=== PATIENT | male | born 1945 | race Caucasian/White ===

== ENCOUNTER → 2016-07-02 | Outpatient (CLI) | payer MEDICARE ==
[~2016-07-02] MED LIST: REGADENOSON 0.4 MG/5 ML SYRINGE IV ONE
--- NOTE | 2016-07-02 12:18 | NM ---
EXAMINATION TYPE: NM stress Lexiscan cardiolite DATE OF EXAM: 07/02/2016 11:59 AM COMPARISON: Previous study dated 02/28/2014. HISTORY: Atherosclerosis. TECHNIQUE: After the intravenous administration of 9.94 mCi Tc 99m Sestamibi - Cardiolite resting SP ECT images acquired 48 minutes post injection. The patient received 0.4mg Lexiscan, 27.5 mCi Tc 99m Sestamibi - Stress images obtained [address] injection FINDINGS: There is a persistent apical defect. There is evidence of redistribution in the anterior wall of the left ventricle. There is global hypokinesia with ejection fracture being 41%. IMPRESSION: 1. 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 2. EVIDENCE OF INDUCIBLE ISCHEMIC CHANGE IN THE ANTERIOR WALL OF THE LEFT VENTRICLE. 3. GLOBAL HYPOKINESIA WITH AN EJECTION FRACTION OF 41%.
--- NOTE | 2016-07-02 12:33 | EST ---
DATE OF SERVICE: 07/02/2016 AGE: 71Y SEX: M HT: 67" WT: 140 lbs. Lexiscan Cardiolite Stress Test *Heart Rate Blood Pressure *Rest: 79 Rest: 160/80 * *Max. Achieved: 100 Maximum BP: 155/86 85% PMHR: 127 100% PMHR: 149 *METS: - INDICATIONS: Heart disease. MEDICATIONS: - Baseline EKG revealed normal sinus rhythm with poor R-wave progression over precordial leads, nonspecific ST changes of a mild degree. With Lexiscan administration, heart rate changed from 79 to 100 beats per minute, blood pressure changed from 160/80 to 155/86. EKG remained unremarkable. Patient did not have any significant symptoms. By EKG criteria, this is an unremarkable Lexiscan stress test with minor resting EKG changes. The nuclear scan results, which are more pertinent, will be reported by the radiologist.
== END | disposition home or self-care (01) ==
LOC: RADNMMAIN 07:46
PROVIDERS: ATTEND Internal Medicine
DX: R94.30 Abnormal result of cardiovascular function study, unspecified (principal); I25.10 Atherosclerotic heart disease of native coronary artery without angina pectoris
CPT/HCPCS: 93017; 78452; A9500; J2785

== ENCOUNTER → 2016-07-20 | Outpatient (CLI) | payer MEDICARE ==
[2016-07-20 10:06] LABS: CH 32.5; CHCM 33.3; HCT 45.4 % (39.0-53.0); HDW 2.15; HGB 15.2 gm/dL (13.0-17.5); MCH 32.7 pg (25.0-35.0); MCHC 33.4 g/dL (31.0-37.0); MCV 98.1 fL (80.0-100.0); RBC 4.63 m/uL (4.30-5.90); RDW 12.9 % (11.5-15.5); WBC 3.7 k/uL (3.8-10.6)
[2016-07-20 10:32] LABS: Anion Gap 9 mmol/L; Blood Urea Nitrogen 12 mg/dL (9-20); Carbon Dioxide 24 mmol/L (22-30); Chloride 101 mmol/L (98-107); Non-African American GFR(MDRD) >60 (>60 ml/min/1.73 sqM); Potassium 5.3 mmol/L (3.5-5.1); Sodium 134 mmol/L (137-145)
== END ==
LOC: LABPAT 09:32
PROVIDERS: ATTEND Internal Medicine Interventional Cardiology
DX: Z01.812 Encounter for preprocedural laboratory examination (principal); I25.10 Atherosclerotic heart disease of native coronary artery without angina pectoris
CPT/HCPCS: 80051; 82565; 84520; 85027

== ENCOUNTER 2017-02-24 08:51 | Day surgery (SDC) | payer MEDICARE ==
[2017-02-17 15:01] VITALS: BMI 21.4
[~2017-02-24 08:51] MED LIST changes: +LACTATED RINGERS 1,000 ML IV SCH; +MORPHINE SULFATE 5 MG/ML SYRINGE IV PRN; -REGADENOSON 0.4 MG/5 ML SYRINGE IV ONE; +ceFAZolin IN SWFI 2 GM/20 ML SYRINGE IVP ONE
[2017-02-24] MEDS ORDERED: DEXAMETHASONE SOD PHOSPHATE 10 MG/ML 1 ML VIAL IV ONE (09:36)
[2017-02-24] MEDS ORDERED: LIDOCAINE 1% 20 ML VIAL (10MG/ML) FOR IV START INTRADERMA ONE (09:36)
[2017-02-24] MEDS ORDERED: ONDANSETRON 4 MG/2 ML VIAL IVP ONE (09:36)
[2017-02-24 09:49] LABS: Anion Gap 11 mmol/L; Blood Urea Nitrogen 13 mg/dL (9-20); Calcium 10.1 mg/dL (8.4-10.2); Carbon Dioxide 24 mmol/L (22-30); Chloride 101 mmol/L (98-107); Glucose 97 mg/dL (74-99); Sodium 136 mmol/L (137-145)
[2017-02-24] MEDS ORDERED: LIDOCAINE 1% INJ 10MG/ML (20 ML MDV) ONE (12:47)
[2017-02-24] MEDS ORDERED: fentaNYL (PF) 50 MCG/ML 2 ML AMP ONE (12:47)
[2017-02-24] MEDS ORDERED: PROPOFOL 10 MG/ML 20 ML VIAL IV ONE (12:47)
[2017-02-24] MEDS ORDERED: MIDAZOLAM 2 MG/2 ML VIAL ONE (12:47)
[2017-02-24] MEDS ORDERED: SUCCINYLCHOLINE CHLORIDE 100 MG/5 ML SYR IV ONE (12:47)
--- NOTE | 2017-02-24 13:18 | P.OP ---
Date of Procedure: 02/24/17 Preoperative Diagnosis: Urothelial carcinoma of the bladder Postoperative Diagnosis: Same Procedure(s) Performed: Cystoscopy, excisional biopsy of small bladder tumor Anesthesia: GALENA Surgeon: Anil Beckman Estimated Blood Loss (ml): 0 IV fluids (ml): 300 Pathology: other (Bladder biopsy, left posterior bladder wall) Condition: stable Disposition: PACU Indications for Procedure: He was diagnosed with TaG1 urothelial carcinoma of the bladder in February 2014. He has successfully quit smoking, and he has had no recurrences. Recent surveillance cystoscopy showed a small posterior bladder wall lesion, for which he will undergo excisional biopsy/fulgaration. Operative Findings: Flat tumor, left posterior bladder wall cephalad to the trigone, measuring approximately 7 mm in diameter. Description of Procedure: The patient was taken in the operating room and placed in the dorsal lithotomy position, with his legs supported in Ld stirrups. The external genitalia was prepped and draped sterilely. The 30 lens was used to introduce the 22- [place] Stortz cystoscopic sheath through the urethra and into the bladder under direct vision. The anterior urethra appeared normal. The prostatic urethra showed evidence of mild trilobar enlargement. The bladder was examined in its entirety. Both ureteral orifices were of normal anatomic location and configuration, and clear urine effluxed from both. The entire bladder was examined, revealing a flat tumor on the posterior bladder wall, to the left of the midline, just cephalad to the trigone. No tumors were seen elsewhere in the bladder. Using the cold cup biopsy forceps, the tumor was removed. A Bugbee electrode was used to fulgurate the biopsy site, as well as the adjacent urothelium. There was no evidence of bladder perforation, and excellent hemostasis was attained. The bladder was emptied and the cystoscope removed. The patient tolerated the procedure well. He was taken to the recovery room in stable condition.
[2017-02-24] MEDS ORDERED: LABETALOL 5 MG/ML VIAL MDV IVP ONE (13:38)
[2017-02-24 16:32] VITALS: BP 179/66; PULSE 76; RESP 16; TEMP 97.2
== END 2017-02-24 15:21 | disposition home or self-care (01) ==
LOC: OR 08:51
PROVIDERS: ATTEND Urology
DX: C67.2 Malignant neoplasm of lateral wall of bladder (principal); N40.1 Benign prostatic hyperplasia with lower urinary tract symptoms; R35.1 Nocturia; I25.2 Old myocardial infarction; E78.5 Hyperlipidemia, unspecified; I10 Essential (primary) hypertension; K21.9 Gastro-esophageal reflux disease without esophagitis; J44.9 Chronic obstructive pulmonary disease, unspecified; Z79.02 Long term (current) use of antithrombotics/antiplatelets; Z79.82 Long term (current) use of aspirin; Z79.899 Other long term (current) drug therapy; Z87.891 Personal history of nicotine dependence
CPT/HCPCS: 52234; 88305; 80048; J2250; J1100; J2405; J2001; J3010; J0330; J2704

== ENCOUNTER → 2017-09-05 | Outpatient (CLI) | payer MEDICARE ==
--- NOTE | 2017-09-05 11:39 | XR ---
EXAMINATION TYPE: XR chest 2V DATE OF EXAM: 09/05/2017 COMPARISON: NONE HISTORY: Shortness of breath. TECHNIQUE: Frontal and lateral views of the chest are obtained. FINDINGS: There is no focal air space opacity, pleural effusion, or pneumothorax seen. Post-CABG marj nges of the mediastinum are noted. Pulmonary hyperinflation and blunting of the left costophrenic ang le are present. The cardiac silhouette size is within normal limits. The osseous structures are in tact. IMPRESSION: Left costophrenic angle blunting may relate to a trace pleural effusion or chronic scari ng. Otherwise no acute cardiac pulmonary process. Chronic sequela of COPD.
== END | disposition home or self-care (01) ==
LOC: RADXRMAIN 10:55
PROVIDERS: ATTEND Internal Medicine
DX: J44.9 Chronic obstructive pulmonary disease, unspecified (principal)
CPT/HCPCS: 71046

== ENCOUNTER → 2018-05-11 | Outpatient (CLI) | payer MEDICARE ==
--- NOTE | 2018-05-11 14:14 | XR ---
EXAMINATION TYPE: XR chest 2V DATE OF EXAM: 05/11/2018 COMPARISON: 09/05/2017 HISTORY: Pneumonia clinically. Follow-up exam. TECHNIQUE: Frontal and lateral views of the chest are obtained. FINDINGS: There is a trace left pleural effusion and strand-like left basilar airspace disease on th e lateral view posteriorly, likely atelectasis. Right hemidiaphragm eventration is again noted. There is no pneumothorax seen. Minimal calcific pleural plaquing is seen at the lung apices. Post CABG marj nges are noted of the chest. Pulmonary hyperinflation relates underlying COPD. Mild multilevel degen erative changes of thoracic spine are seen. IMPRESSION: Trace left pleural effusion and strand-like left basilar airspace disease, likely atelec tasis.
== END | disposition home or self-care (01) ==
LOC: RADXRMAIN 13:41
PROVIDERS: ATTEND Internal Medicine
DX: J90 Pleural effusion, not elsewhere classified (principal); J18.9 Pneumonia, unspecified organism
CPT/HCPCS: 71046

== ENCOUNTER 2018-05-12 12:50 | Emergency (ER) | payer MEDICARE ==
[2018-05-12 12:56] VITALS: RESP 20
--- NOTE | 2018-05-12 13:23 | ED ---
URI HPI - General Chief Complaint: Upper Respiratory Infection Stated Complaint: Poss Blood Clot Time Seen by Provider: 05/12/18 13:01 Source: patient, RN notes reviewed Mode of arrival: wheelchair Limitations: no limitations - History of Present Illness Initial Comments: This a 72-year-old male presents emergency Department chief complaint cough congestion. Patient states that he has been sick for last 6 days. Patient saw PCP yesterday in which she had chest x-ray and lab work. Patient states she was given a shot of antibiotics and steroids which has improved his symptoms overnight. Patient does have underlying COPD. Patient states he has no current chest pain. Patient states that he received a phone call today expecting receive the results of his chest x-ray was told that his lab work showed possibility of blood clot. Patient was referred emergency department. Patient states he does not have an order for these tests. Patient does not have bring the lab work from his outpatient office. Patient states that he had a negative flu test outpatient. - Related Data Home Medications Medication Instructions Recorded Confirmed Tamsulosin [Flomax] 0.4 mg PO HS 07/16/16 05/12/18 Atorvastatin [Lipitor] 40 mg PO DAILY 07/22/16 05/12/18 Clopidogrel [Plavix] 75 mg PO HS 05/12/18 05/12/18 Levofloxacin [Levaquin] 500 mg PO DAILY 05/12/18 05/12/18 Metoprolol Tartrate [Lopressor] 25 mg PO BID 05/12/18 05/12/18 guaiFENesin [Mucinex] 600 mg PO BID 05/12/18 05/12/18 methylPREDNISolone [Medrol Dose See Taper PO DIRECTED 05/12/18 05/12/18 Pack] Previous Rx's Medication Instructions Recorded Lisinopril [Zestril] 10 mg PO DAILY@1200 #30 tab 07/27/16 Pantoprazole [Protonix] 40 mg PO AC-BRKFST #30 tab 07/27/16 Allergies Allergy/AdvReac Type Severity Reaction Status Date / Time No Known Allergies Allergy Verified 05/12/18 13:59 Review of Systems ROS Statement: Those systems with pertinent positive or pertinent negative responses have been documented in the HPI. ROS Other: All systems not noted in ROS Statement are negative. Past Medical History Past Medical History: Coronary Artery Disease (CAD), Cancer, Chest Pain / Angina, GERD/Reflux, Hyperlipidemia, Hypertension, Osteoarthritis (OA), Prostate Disorder, Vascular Disorder Additional Past Medical History / Comment(s): carotid artery disease/BPH, bladder cancer History of Any Multi-Drug Resistant Organisms: None Reported Past Surgical History: Bladder Surgery, Heart Catheterization With Stent Additional Past Surgical History / Comment(s): RIGHT carotid endartectomy, left cataract surgery/colonoscopy , TURP 03/11/2014 Past Anesthesia/Blood Transfusion Reactions: No Reported Reaction Date of Last Stent Placement:: 1996 Past Psychological History: No Psychological Hx Reported Smoking Status: Current every day smoker Past Alcohol Use History: None Reported Past Drug Use History: None Reported - Past Family History Father Family Medical History: Coronary Artery Disease (CAD) Mother Family Medical History: CVA/TIA Sister(s) Family Medical History: No Reported History Daughter(s) Family Medical History: No Reported History Son(s) Family Medical History: No Reported History General Exam Limitations: no limitations General appearance: alert, in no apparent distress Head exam: Present: atraumatic, normocephalic, normal inspection Eye exam: Present: normal appearance, PERRL, EOMI. Absent: scleral icterus, conjunctival injection, periorbital swelling ENT exam: Present: normal exam, mucous membranes moist Neck exam: Present: normal inspection, full ROM. Absent: tenderness, meningismus, lymphadenopathy Respiratory exam: Present: normal lung sounds bilaterally. Absent: respiratory distress, wheezes, rales, rhonchi, stridor Cardiovascular Exam: Present: regular rate, normal rhythm, normal heart sounds. Absent: systolic murmur, diastolic murmur, rubs, gallop, clicks GI/Abdominal exam: Present: soft, normal bowel sounds. Absent: distended, tenderness, guarding, rebound, rigid Neurological exam: Present: alert, oriented X3, CN II-XII intact Skin exam: Present: warm, dry, intact, normal color. Absent: rash Course Vital Signs 05/12/18 12:52 Temperature 98.3 F Pulse Rate 81 Respiratory 20 Rate Blood Pressure 158/82 O2 Sat by Pulse 96 Oximetry Medical Decision Making - Medical Decision Making 72-year-old male presented for possible PE. Patient had outpatient studies which showed elevated d-dimer. Patient CT is unremarkable, lab work essentially unremarkable. Patient had felt improved after steroid shot in antibiotics yesterday. Patient was given prescription for both eyes PCP and which she'll be discharged advised to complete his course of antibiotics and steroids return for any worsening symptoms. Patient has a URI with mild COPD exacerbation. Patient is stable for discharge - Lab Data Result diagrams: 05/12/18 13:10 05/12/18 13:10 Lab Results 05/12/18 05/12/18 05/12/18 Range/Units 13:10 13:10 13:10 WBC 9.0 (3.8-10.6) k/uL RBC 5.12 (4.30-5.90) m/uL Hgb 15.4 (13.0-17.5) gm/dL Hct 46.9 (39.0-53.0) % MCV 91.6 (80.0-100.0) fL MCH 30.0 (25.0-35.0) pg MCHC 32.8 (31.0-37.0) g/dL RDW 12.7 (11.5-15.5) % Plt Count 279 (150-450) k/uL Neutrophils % 89 % Lymphocytes % 3 % Monocytes % 6 % Eosinophils % 1 % Basophils % 0 % Neutrophils # 8.0 H (1.3-7.7) k/uL Lymphocytes # 0.3 L (1.0-4.8) k/uL Monocytes # 0.5 (0-1.0) k/uL Eosinophils # 0.1 (0-0.7) k/uL Basophils # 0.0 (0-0.2) k/uL PT 10.9 (9.0-12.0) sec INR 1.0 (<1.2) APTT 29.4 (22.0-30.0) sec Sodium 130 L (137-145) mmol/L Potassium 4.5 (3.5-5.1) mmol/L Chloride 93 L (98-107) mmol/L Carbon Dioxide 24 (22-30) mmol/L Anion Gap 13 mmol/L BUN 23 H (9-20) mg/dL Creatinine 0.86 (0.66-1.25) mg/dL Est GFR (CKD-EPI)AfAm >90 (>60 ml/min/1.73 sqM) Est GFR (CKD-EPI)NonAf 87 (>60 ml/min/1.73 sqM) Glucose 113 H (74-99) mg/dL Calcium 9.4 (8.4-10.2) mg/dL Magnesium 1.7 (1.6-2.3) mg/dL Total Bilirubin 0.7 (0.2-1.3) mg/dL AST 38 (17-59) U/L ALT 35 (21-72) U/L Alkaline Phosphatase 98 (38-126) U/L Total Protein 8.2 (6.3-8.2) g/dL Albumin 4.3 (3.5-5.0) g/dL Disposition Clinical Impression: Upper respiratory infection, COPD (chronic obstructive pulmonary disease) Disposition: HOME SELF-CARE Condition: Stable Instructions (If sedation given, give patient instructions): Upper Respiratory Infection (ED) Additional Instructions: Please return to the Emergency Department if symptoms worsen or any other concerns. Is patient prescribed a controlled substance at d/c from ED?: No Referrals: Clay Kuo MD [Primary Care Provider] - 1-2 days Time of Disposition: 14:45
[2018-05-12 13:34] LABS: RBC 5.12 m/uL (4.30-5.90)
[2018-05-12 13:35] LABS: Basophils % (A) 0 %; Eosinophils # (A) 0.1 k/uL (0-0.7); Eosinophils % (A) 1 %; HCT 46.9 % (39.0-53.0); HGB 15.4 gm/dL (13.0-17.5); Lymphocytes # (A) 0.3 k/uL (1.0-4.8); Lymphocytes % (A) 3 %; MCHC 32.8 g/dL (31.0-37.0); MCV 91.6 fL (80.0-100.0); Mean Platelet Volume 6.9; Monocytes # (A) 0.5 k/uL (0-1.0); Monocytes % (A) 6 %; Neutrophils % (A) 89 %; Platelet Count 279 k/uL (150-450); RDW 12.7 % (11.5-15.5)
[2018-05-12 13:39] LABS: Partial Thromboplastin Time 29.4 sec (22.0-30.0); Prothrombin Time 10.9 sec (9.0-12.0)
[2018-05-12 13:45] LABS: ALT 35 U/L (21-72); AST 38 U/L (17-59); Albumin 4.3 g/dL (3.5-5.0); Alkaline Phosphatase 98 U/L (38-126); Anion Gap 13 mmol/L; Blood Urea Nitrogen 23 mg/dL (9-20); Calcium 9.4 mg/dL (8.4-10.2); Carbon Dioxide 24 mmol/L (22-30); Chloride 93 mmol/L (98-107); Glucose 113 mg/dL (74-99); Magnesium 1.7 mg/dL (1.6-2.3); Potassium 4.5 mmol/L (3.5-5.1); Sodium 130 mmol/L (137-145); Total Bilirubin 0.7 mg/dL (0.2-1.3); Total Protein 8.2 g/dL (6.3-8.2)
--- NOTE | 2018-05-12 14:35 | CT ---
EXAMINATION TYPE: CT chest angio for PE DATE OF EXAM: 05/12/2018 COMPARISON: None HISTORY: Chest pain and shortness of breath with history of CABG CT DLP: 251.8 mGycm CONTRAST: CT chest with contrast and 3D reconstruction with MIP imaging is performed with IV Contrast, patient injected with 100 mL of Isovue 370. Contrast-enhanced CT of the chest was performed through the course of the pulmonary arteries with marely g and mediastinal window settings submitted. 3D reconstruction with MIP imaging was also performed. PULMONARY ARTERIES: The pulmonary arteries and their major tributaries are patent. I do not see manjit dence for sizable filling defect to suggest pulmonary embolic process. LUNGS: The lungs are clear and free of infiltrate. No evidence for atelectasis. No pulmonary nodule or mass is detected. Small left pleural effusion noted. MEDIASTINUM: Thoracic aorta is of normal caliber,however, evaluation is limited given timing of the contrast bolus. If there is concern for thoracic aortic pathology consider JULIANNE. Correlate clinicall y . The heart is not enlarged. No evidence for mediastinal mass. No mediastinal lymph nodes greater than 1cm. HILAR STRUCTURES: No evidence for mass. No hilar lymph nodes greater than 1 cm. UPPER ABDOMEN: No significant abnormality is seen. IMPRESSION: 1. No evidence for Pulmonary embolism at this time.
[2018-05-12 15:00] VITALS: BP 132/70; PULSE 71; TEMP 98
== END 2018-05-12 15:00 | disposition home or self-care (01) ==
LOC: EC 12:50
DX: J44.1 Chronic obstructive pulmonary disease with (acute) exacerbation (principal); J06.9 Acute upper respiratory infection, unspecified; R79.89 Other specified abnormal findings of blood chemistry; I25.10 Atherosclerotic heart disease of native coronary artery without angina pectoris; E78.5 Hyperlipidemia, unspecified; I10 Essential (primary) hypertension; N40.0 Benign prostatic hyperplasia without lower urinary tract symptoms; F17.200 Nicotine dependence, unspecified, uncomplicated; Z85.51 Personal history of malignant neoplasm of bladder; Z95.5 Presence of coronary angioplasty implant and graft; Z79.02 Long term (current) use of antithrombotics/antiplatelets; Z79.52 Long term (current) use of systemic steroids; Z79.899 Other long term (current) drug therapy
CPT/HCPCS: 36415; 80053; 83735; 85025; 85610; 85730; 71275; 99284; Q9967

== ENCOUNTER 2018-07-11 10:39 | Emergency (ER) | payer MEDICARE ==
[2018-07-11] MEDS ORDERED: SODIUM CHLORIDE 0.9% 1,000 ML IV STA ×2 (11:17)
[2018-07-11] MEDS ORDERED: SODIUM CHLORIDE 0.9% 500 ML 500 ML IV STA (11:17)
[2018-07-11 11:38] VITALS: RESP 18
[2018-07-11 12:08] LABS: Basophils % (A) 0 %; Eosinophils # (A) 0.2 k/uL (0-0.7); Eosinophils % (A) 2 %; HCT 40.3 % (39.0-53.0); HGB 13.4 gm/dL (13.0-17.5); Lymphocytes # (A) 0.6 k/uL (1.0-4.8); Lymphocytes % (A) 8 %; MCH 30.5 pg (25.0-35.0); MCHC 33.4 g/dL (31.0-37.0); MCV 91.3 fL (80.0-100.0); Mean Platelet Volume 6.3; Monocytes # (A) 0.9 k/uL (0-1.0); Monocytes % (A) 12 %; Neutrophils # (A) 6.3 k/uL (1.3-7.7); Neutrophils % (A) 77 %; Platelet Count 347 k/uL (150-450); RBC 4.41 m/uL (4.30-5.90); WBC 8.2 k/uL (3.8-10.6)
--- NOTE | 2018-07-11 12:17 | XR ---
EXAMINATION TYPE: XR chest 2V DATE OF EXAM: 07/11/2018 COMPARISON: 05/11/2018 HISTORY: Weakness TECHNIQUE: Frontal and lateral views of the chest are obtained. FINDINGS: There is a small layering left pleural effusion, similar to the prior with minimal left ba silar associated subsegmental atelectasis. Post CABG changes are seen of the chest. Cardiomediastinal silhouette is within normal limits. There is enlargement of main pulmonary artery suggesting pulmona ry artery hypertension, unchanged from the prior. Right hemidiaphragm eventration is seen. There is m ild generalized osseous demineralization. IMPRESSION: Persistent small left pleural effusion as seen on the prior of 05/11/2018
[2018-07-11 12:19] LABS: ALT 47 U/L (21-72); AST 57 U/L (17-59); Albumin 4.3 g/dL (3.5-5.0); Alkaline Phosphatase 140 U/L (38-126); Anion Gap 14 mmol/L; Blood Urea Nitrogen 11 mg/dL (9-20); Calcium 9.8 mg/dL (8.4-10.2); Carbon Dioxide 20 mmol/L (22-30); Chloride 91 mmol/L (98-107); Glucose 99 mg/dL (74-99); Magnesium 1.3 mg/dL (1.6-2.3); Potassium 5.3 mmol/L (3.5-5.1); Sodium 125 mmol/L (137-145); Total Bilirubin 0.8 mg/dL (0.2-1.3); Total Protein 7.7 g/dL (6.3-8.2)
--- NOTE | 2018-07-11 12:35 | ED ---
Weakness HPI - General Chief complaint: Recheck/Abnormal Lab/Rx Stated complaint: not feeling well/fever Time Seen by Provider: 07/11/18 11:14 Source: patient, RN notes reviewed, old records reviewed Mode of arrival: ambulatory Limitations: no limitations - History of Present Illness Initial comments: This is a 73-year-old male the ER for eversion of weakness weakness not feeling well. Patient is no nausea vomiting or diarrhea. Patient states he has history of similar complaints with low sodium. No pain or shortness of breath no chest pain no abdominal pain. No fevers. MD Complaint: generalized weakness -: days(s) Location: generalized Severity: mild Severity scale (1-10): 3 Quality: aching Consistency: constant Improves with: none Worsens with: none Associated Symptoms: denies other symptoms - Related Data Home Medications Medication Instructions Recorded Confirmed Tamsulosin [Flomax] 0.4 mg PO HS 07/16/16 07/11/18 Atorvastatin [Lipitor] 40 mg PO DAILY 07/22/16 07/11/18 Metoprolol Tartrate [Lopressor] 25 mg PO BID 05/12/18 07/11/18 Lisinopril [Zestril] 10 mg PO DAILY 07/11/18 07/11/18 Previous Rx's Medication Instructions Recorded Pantoprazole [Protonix] 40 mg PO AC-BRKFST #30 tab 07/27/16 Allergies Allergy/AdvReac Type Severity Reaction Status Date / Time No Known Allergies Allergy Verified 07/11/18 10:56 Review of Systems ROS Statement: Those systems with pertinent positive or pertinent negative responses have been documented in the HPI. ROS Other: All systems not noted in ROS Statement are negative. Past Medical History Past Medical History: Coronary Artery Disease (CAD), Cancer, Chest Pain / Angina, GERD/Reflux, Hyperlipidemia, Hypertension, Osteoarthritis (OA), Prostate Disorder, Vascular Disorder Additional Past Medical History / Comment(s): carotid artery disease/BPH, bladder cancer History of Any Multi-Drug Resistant Organisms: None Reported Past Surgical History: Bladder Surgery, Heart Catheterization With Stent Additional Past Surgical History / Comment(s): RIGHT carotid endartectomy, left cataract surgery/colonoscopy , TURP 03/11/2014 Past Anesthesia/Blood Transfusion Reactions: No Reported Reaction Date of Last Stent Placement:: 1996 Past Psychological History: No Psychological Hx Reported Smoking Status: Former smoker Past Alcohol Use History: Daily Past Drug Use History: None Reported - Past Family History Father Family Medical History: Coronary Artery Disease (CAD) Mother Family Medical History: CVA/TIA Sister(s) Family Medical History: No Reported History Daughter(s) Family Medical History: No Reported History Son(s) Family Medical History: No Reported History General Exam Limitations: no limitations General appearance: alert, in no apparent distress Head exam: Present: atraumatic, normocephalic, normal inspection Eye exam: Present: normal appearance, PERRL, EOMI. Absent: scleral icterus, conjunctival injection, periorbital swelling ENT exam: Present: normal exam, mucous membranes moist Neck exam: Present: normal inspection. Absent: tenderness, meningismus, lymphadenopathy Respiratory exam: Present: normal lung sounds bilaterally. Absent: respiratory distress, wheezes, rales, rhonchi, stridor Cardiovascular Exam: Present: regular rate, normal rhythm, normal heart sounds. Absent: systolic murmur, diastolic murmur, rubs, gallop, clicks GI/Abdominal exam: Present: soft, normal bowel sounds. Absent: distended, tenderness, guarding, rebound, rigid Extremities exam: Present: normal inspection, full ROM, normal capillary refill. Absent: tenderness, pedal edema, joint swelling, calf tenderness Back exam: Present: normal inspection Neurological exam: Present: alert, oriented X3, CN II-XII intact Psychiatric exam: Present: normal affect, normal mood Skin exam: Present: warm, dry, intact, normal color. Absent: rash Course Vital Signs 07/11/18 07/11/18 07/11/18 10:43 11:00 11:30 Temperature 95.6 F L Pulse Rate 52 L 55 L Respiratory 22 18 Rate Blood Pressure 92/46 105/59 107/48 O2 Sat by Pulse 96 Oximetry 07/11/18 07/11/18 07/11/18 12:15 13:30 14:30 Temperature 97.4 F L 97.7 F Pulse Rate 59 L 69 70 Respiratory 18 18 18 Rate Blood Pressure 113/60 115/59 112/60 O2 Sat by Pulse 98 98 99 Oximetry - Reevaluation(s) Reevaluation #1: Medical record is reviewed Patient states he is not was in the hospital for slowly replacement, states he will increase his diet, increase salt intake, states he feels normal feels good feels good enough for discharge home EKG Findings - EKG Comments: EKG Findings:: EKG shows sinus bradycardia rate of 57, RI 170, QRS 96, QTc 432 Medical Decision Making - Medical Decision Making 70 female the ER for evaluation resents today for evaluation regards to weakness. Patient found to be hyponatremic, patient is not was in the hospital encouraged increased fluid. - Lab Data Result diagrams: 07/11/18 11:57 07/11/18 11:57 Lab Results 07/11/18 07/11/18 07/11/18 Range/Units 11:57 11:57 11:57 WBC 8.2 (3.8-10.6) k/uL RBC 4.41 (4.30-5.90) m/uL Hgb 13.4 (13.0-17.5) gm/dL Hct 40.3 (39.0-53.0) % MCV 91.3 (80.0-100.0) fL MCH 30.5 (25.0-35.0) pg MCHC 33.4 (31.0-37.0) g/dL RDW 13.0 (11.5-15.5) % Plt Count 347 (150-450) k/uL Neutrophils % 77 % Lymphocytes % 8 % Monocytes % 12 % Eosinophils % 2 % Basophils % 0 % Neutrophils # 6.3 (1.3-7.7) k/uL Lymphocytes # 0.6 L (1.0-4.8) k/uL Monocytes # 0.9 (0-1.0) k/uL Eosinophils # 0.2 (0-0.7) k/uL Basophils # 0.0 (0-0.2) k/uL Sodium 125 L (137-145) mmol/L Potassium 5.3 H (3.5-5.1) mmol/L Chloride 91 L (98-107) mmol/L Carbon Dioxide 20 L (22-30) mmol/L Anion Gap 14 mmol/L BUN 11 (9-20) mg/dL Creatinine 0.91 (0.66-1.25) mg/dL Est GFR (CKD-EPI)AfAm >90 (>60 ml/min/1.73 sqM) Est GFR (CKD-EPI)NonAf 83 (>60 ml/min/1.73 sqM) Glucose 99 (74-99) mg/dL Plasma Lactic Acid Js 1.5 (0.7-2.0) mmol/L Calcium 9.8 (8.4-10.2) mg/dL Phosphorus 4.0 (2.5-4.5) mg/dL Magnesium 1.3 L (1.6-2.3) mg/dL Total Bilirubin 0.8 (0.2-1.3) mg/dL AST 57 (17-59) U/L ALT 47 (21-72) U/L Alkaline Phosphatase 140 H (38-126) U/L Troponin I (0.000-0.034) ng/mL Total Protein 7.7 (6.3-8.2) g/dL Albumin 4.3 (3.5-5.0) g/dL TSH 3.070 (0.465-4.680) mIU/L Urine Color Urine Appearance (Clear) Urine pH (5.0-8.0) Ur Specific [place] (1.001-1.035) Urine Protein (Negative) Urine Glucose (UA) (Negative) Urine Ketones (Negative) Urine Blood (Negative) Urine Nitrite (Negative) Urine Bilirubin (Negative) Urine Urobilinogen (<2.0) mg/dL Ur Leukocyte Esterase (Negative) 07/11/18 07/11/18 Range/Units 11:57 14:18 WBC (3.8-10.6) k/uL RBC (4.30-5.90) m/uL Hgb (13.0-17.5) gm/dL Hct (39.0-53.0) % MCV (80.0-100.0) fL MCH (25.0-35.0) pg MCHC (31.0-37.0) g/dL RDW (11.5-15.5) % Plt Count (150-450) k/uL Neutrophils % % Lymphocytes % % Monocytes % % Eosinophils % % Basophils % % Neutrophils # (1.3-7.7) k/uL Lymphocytes # (1.0-4.8) k/uL Monocytes # (0-1.0) k/uL Eosinophils # (0-0.7) k/uL Basophils # (0-0.2) k/uL Sodium (137-145) mmol/L Potassium (3.5-5.1) mmol/L Chloride (98-107) mmol/L Carbon Dioxide (22-30) mmol/L Anion Gap mmol/L BUN (9-20) mg/dL Creatinine (0.66-1.25) mg/dL Est GFR (CKD-EPI)AfAm (>60 ml/min/1.73 sqM) Est GFR (CKD-EPI)NonAf (>60 ml/min/1.73 sqM) Glucose (74-99) mg/dL Plasma Lactic Acid Js (0.7-2.0) mmol/L Calcium (8.4-10.2) mg/dL Phosphorus (2.5-4.5) mg/dL Magnesium (1.6-2.3) mg/dL Total Bilirubin (0.2-1.3) mg/dL AST (17-59) U/L ALT (21-72) U/L Alkaline Phosphatase (38-126) U/L Troponin I <0.012 (0.000-0.034) ng/mL Total Protein (6.3-8.2) g/dL Albumin (3.5-5.0) g/dL TSH (0.465-4.680) mIU/L Urine Color Light Yellow Urine Appearance Clear (Clear) Urine pH 6.5 (5.0-8.0) Ur Specific [place] 1.003 (1.001-1.035) Urine Protein Negative (Negative) Urine Glucose (UA) Negative (Negative) Urine Ketones 1+ H (Negative) Urine Blood Negative (Negative) Urine Nitrite Negative (Negative) Urine Bilirubin Negative (Negative) Urine Urobilinogen <2.0 (<2.0) mg/dL Ur Leukocyte Esterase Negative (Negative) - Radiology Data Radiology results: report reviewed (Chest x-rays negative for acute disease), image reviewed Disposition Clinical Impression: Hyponatremia, Weakness Disposition: HOME SELF-CARE Condition: Good Instructions (If sedation given, give patient instructions): Hyponatremia (ED) Is patient prescribed a controlled substance at d/c from ED?: No Referrals: Clay Kuo MD [Primary Care Provider] - 1-2 days
[2018-07-11 14:32] LABS: Appearance,Urine Clear (Clear); Bilirubin,Urine Negative (Negative); Blood,Urine Negative (Negative); Color,Urine Light Yellow; Glucose,Urine (UA) Negative (Negative); Ketones,Urine 1+ (Negative); Leukocyte Esterase,Urine Negative (Negative); Nitrite,Urine Negative (Negative); PH, Urine 6.5 (5.0-8.0); Protein,Urine Negative (Negative); Specific Gravity,Urine 1.003 (1.001-1.035); Urobilinogen,Urine <2.0 mg/dL (<2.0)
[2018-07-11 14:52] VITALS: BP 112/60; PULSE 70; TEMP 97.7
== END 2018-07-11 14:53 | disposition home or self-care (01) ==
LOC: EC 10:39
DX: E87.1 Hypo-osmolality and hyponatremia (principal); R53.1 Weakness; I25.119 Atherosclerotic heart disease of native coronary artery with unspecified angina pectoris; E78.5 Hyperlipidemia, unspecified; I10 Essential (primary) hypertension; Z79.899 Other long term (current) drug therapy; Z87.891 Personal history of nicotine dependence; Z95.5 Presence of coronary angioplasty implant and graft; Z85.51 Personal history of malignant neoplasm of bladder
CPT/HCPCS: 36415; 71046; 80053; 81003; 83605; 83735; 84100; 84443; 84484; 85025; 93005; 96360; 96361; 99285

== ENCOUNTER 2018-07-29 17:21 | Inpatient (IN) | payer MEDICARE ==
[2018-07-29] MEDS ORDERED: IPRATROPIUM-ALBUTEROL 3 ML NEB INHALATION STA (17:55)
[2018-07-29] MEDS ORDERED: SODIUM CHLORIDE 0.9% 1,000 ML IV STA (17:55)
[2018-07-29] MEDS ORDERED: methylPREDNISolone SOD SUCCI 125 MG/2 ML VIAL IV STA (17:55)
--- NOTE | 2018-07-29 17:59 | ED ---
SOB HPI - General Chief Complaint: Shortness of Breath Stated Complaint: SOB Time Seen by Provider: 07/29/18 17:34 Source: patient, RN notes reviewed Mode of arrival: wheelchair Limitations: no limitations - History of Present Illness Initial Comments: This is a 73-year-old male history of being a former smoker history of heart disease he believes he has COPD who states he had the onset last evening and shortness of breath and exertional dyspnea. He also states she has some midsternal chest pain that hurts when he tries to breathe he denies any fevers chills sweats any form production very minimal cough no nausea vomiting or other symptoms. Currently no other modifying factors he does not use inhalers updrafts at home MD Complaint: shortness of breath - Related Data Home Medications Medication Instructions Recorded Confirmed Tamsulosin [Flomax] 0.4 mg PO HS 07/16/16 07/29/18 Atorvastatin [Lipitor] 40 mg PO DAILY 07/22/16 07/29/18 Metoprolol Tartrate [Lopressor] 25 mg PO BID 05/12/18 07/29/18 Lisinopril [Zestril] 10 mg PO DAILY 07/11/18 07/29/18 Previous Rx's Medication Instructions Recorded Pantoprazole [Protonix] 40 mg PO AC-BRKFST #30 tab 07/27/16 Allergies Allergy/AdvReac Type Severity Reaction Status Date / Time No Known Allergies Allergy Verified 07/29/18 17:55 Review of Systems ROS Statement: Those systems with pertinent positive or pertinent negative responses have been documented in the HPI. ROS Other: All systems not noted in ROS Statement are negative. Past Medical History Past Medical History: Coronary Artery Disease (CAD), Cancer, Chest Pain / Angina, GERD/Reflux, Hyperlipidemia, Hypertension, Osteoarthritis (OA), Prostate Disorder, Vascular Disorder Additional Past Medical History / Comment(s): carotid artery disease/BPH, bladder cancer History of Any Multi-Drug Resistant Organisms: None Reported Past Surgical History: Bladder Surgery, Heart Catheterization With Stent Additional Past Surgical History / Comment(s): RIGHT carotid endartectomy, left cataract surgery/colonoscopy , TURP 03/11/2014 Past Anesthesia/Blood Transfusion Reactions: No Reported Reaction Date of Last Stent Placement:: 1996 Past Psychological History: No Psychological Hx Reported Smoking Status: Former smoker Past Alcohol Use History: Daily Past Drug Use History: None Reported - Past Family History Father Family Medical History: Coronary Artery Disease (CAD) Mother Family Medical History: CVA/TIA Sister(s) Family Medical History: No Reported History Daughter(s) Family Medical History: No Reported History Son(s) Family Medical History: No Reported History General Exam - General Exam Comments Initial Comments: Is a well-developed asthenic appearing male who is awake alert oriented 3 Limitations: no limitations General appearance: alert, in no apparent distress Head exam: Present: atraumatic, normocephalic, normal inspection Eye exam: Present: normal appearance, PERRL, EOMI. Absent: scleral icterus, conjunctival injection, periorbital swelling ENT exam: Present: normal exam, mucous membranes moist Neck exam: Present: normal inspection, full ROM, other (No stridor JVD or bruits). Absent: tenderness, meningismus, lymphadenopathy Respiratory exam: Present: accessory muscle use, decreased breath sounds. Absent: respiratory distress, wheezes, rales, rhonchi, stridor Cardiovascular Exam: Present: regular rate, normal rhythm, normal heart sounds. Absent: systolic murmur, diastolic murmur, rubs, gallop, clicks GI/Abdominal exam: Present: soft, normal bowel sounds. Absent: distended, tenderness, guarding, rebound, rigid Extremities exam: Present: normal inspection, full ROM, normal capillary refill. Absent: tenderness, pedal edema, joint swelling, calf tenderness Back exam: Present: normal inspection Neurological exam: Present: alert, oriented X3, CN II-XII intact Psychiatric exam: Present: normal affect, normal mood Skin exam: Present: warm, dry, intact, normal color. Absent: rash Course Vital Signs 07/29/18 07/29/18 07/29/18 17:30 18:21 18:30 Temperature 98.3 F Pulse Rate 89 89 88 Respiratory 18 16 24 Rate Blood Pressure 126/70 O2 Sat by Pulse 91 L Oximetry Medical Decision Making - Medical Decision Making I did discuss the findings with the patient he is feeling somewhat improved his aeration is improved somewhat. He will be admitted with pulmonary consultation. He has seen Dr. Marquez in the past. The case is discussed with Dr. Perdue. The etiology of the effusion is questionable. - Lab Data Result diagrams: 07/29/18 18:27 07/29/18 18:27 Lab Results 07/29/18 07/29/18 07/29/18 Range/Units 18:27 18:27 18:27 WBC 8.3 (3.8-10.6) k/uL RBC 4.19 L (4.30-5.90) m/uL Hgb 13.0 (13.0-17.5) gm/dL Hct 38.4 L (39.0-53.0) % MCV 91.8 (80.0-100.0) fL MCH 31.1 (25.0-35.0) pg MCHC 33.9 (31.0-37.0) g/dL RDW 13.8 (11.5-15.5) % Plt Count 333 (150-450) k/uL Neutrophils % 85 % Lymphocytes % 6 % Monocytes % 7 % Eosinophils % 2 % Basophils % 0 % Neutrophils # 7.0 (1.3-7.7) k/uL Lymphocytes # 0.5 L (1.0-4.8) k/uL Monocytes # 0.5 (0-1.0) k/uL Eosinophils # 0.1 (0-0.7) k/uL Basophils # 0.0 (0-0.2) k/uL PT 10.9 (9.0-12.0) sec INR 1.0 (<1.2) APTT 26.1 (22.0-30.0) sec Sodium 128 L (137-145) mmol/L Potassium 4.8 (3.5-5.1) mmol/L Chloride 95 L (98-107) mmol/L Carbon Dioxide 22 (22-30) mmol/L Anion Gap 11 mmol/L BUN 12 (9-20) mg/dL Creatinine 0.70 (0.66-1.25) mg/dL Est GFR (CKD-EPI)AfAm >90 (>60 ml/min/1.73 sqM) Est GFR (CKD-EPI)NonAf >90 (>60 ml/min/1.73 sqM) Glucose 113 H (74-99) mg/dL Calcium 8.8 (8.4-10.2) mg/dL Magnesium 1.4 L (1.6-2.3) mg/dL Total Bilirubin 0.7 (0.2-1.3) mg/dL AST 42 (17-59) U/L ALT 20 L (21-72) U/L Alkaline Phosphatase 103 (38-126) U/L Creatine Kinase 60 (55-170) U/L Troponin I (0.000-0.034) ng/mL NT-Pro-B Natriuret Pep pg/mL Total Protein 7.0 (6.3-8.2) g/dL Albumin 3.7 (3.5-5.0) g/dL 07/29/18 07/29/18 Range/Units 18:27 18:27 WBC (3.8-10.6) k/uL RBC (4.30-5.90) m/uL Hgb (13.0-17.5) gm/dL Hct (39.0-53.0) % MCV (80.0-100.0) fL MCH (25.0-35.0) pg MCHC (31.0-37.0) g/dL RDW (11.5-15.5) % Plt Count (150-450) k/uL Neutrophils % % Lymphocytes % % Monocytes % % Eosinophils % % Basophils % % Neutrophils # (1.3-7.7) k/uL Lymphocytes # (1.0-4.8) k/uL Monocytes # (0-1.0) k/uL Eosinophils # (0-0.7) k/uL Basophils # (0-0.2) k/uL PT (9.0-12.0) sec INR (<1.2) APTT (22.0-30.0) sec Sodium (137-145) mmol/L Potassium (3.5-5.1) mmol/L Chloride (98-107) mmol/L Carbon Dioxide (22-30) mmol/L Anion Gap mmol/L BUN (9-20) mg/dL Creatinine (0.66-1.25) mg/dL Est GFR (CKD-EPI)AfAm (>60 ml/min/1.73 sqM) Est GFR (CKD-EPI)NonAf (>60 ml/min/1.73 sqM) Glucose (74-99) mg/dL Calcium (8.4-10.2) mg/dL Magnesium (1.6-2.3) mg/dL Total Bilirubin (0.2-1.3) mg/dL AST (17-59) U/L ALT (21-72) U/L Alkaline Phosphatase (38-126) U/L Creatine Kinase (55-170) U/L Troponin I 0.020 (0.000-0.034) ng/mL NT-Pro-B Natriuret Pep 612 pg/mL Total Protein (6.3-8.2) g/dL Albumin (3.5-5.0) g/dL - EKG Data -: EKG Interpreted by Me EKG shows normal: sinus rhythm (Sinus rhythm rate of 83. Interval 162 QRS duration 86 QT since QTC 376/[address] configuration) - Radiology Data Radiology results: report reviewed (I did review the imaging and report evidence a left lower lobe infiltrate with effusion.), image reviewed Disposition Clinical Impression: Left lower lobe pneumonia, Pleural effusion on left, Hypomagnesemia, Hyponatremia, Acute exacerbation of chronic obstructive airways disease Disposition: ADMITTED IP TO THIS HOSP Condition: Stable Referrals: Clay Kuo MD [Primary Care Provider] - 1-2 days
[2018-07-29 18:42] LABS: Basophils % (A) 0 %; Eosinophils # (A) 0.1 k/uL (0-0.7); Eosinophils % (A) 2 %; HCT 38.4 % (39.0-53.0); Lymphocytes # (A) 0.5 k/uL (1.0-4.8); Lymphocytes % (A) 6 %; MCH 31.1 pg (25.0-35.0); MCHC 33.9 g/dL (31.0-37.0); MCV 91.8 fL (80.0-100.0); Mean Platelet Volume 6.4; Monocytes # (A) 0.5 k/uL (0-1.0); Monocytes % (A) 7 %; Neutrophils % (A) 85 %; Platelet Count 333 k/uL (150-450); RBC 4.19 m/uL (4.30-5.90); RDW 13.8 % (11.5-15.5); WBC 8.3 k/uL (3.8-10.6)
[2018-07-29 18:50] LABS: Partial Thromboplastin Time 26.1 sec (22.0-30.0); Prothrombin Time 10.9 sec (9.0-12.0)
[2018-07-29 18:57] LABS: ALT 20 U/L (21-72); AST 42 U/L (17-59); African American GFR (CKD) >90 (>60 ml/min/1.73 sqM); Albumin 3.7 g/dL (3.5-5.0); Alkaline Phosphatase 103 U/L (38-126); Anion Gap 11 mmol/L; Blood Urea Nitrogen 12 mg/dL (9-20); Calcium 8.8 mg/dL (8.4-10.2); Carbon Dioxide 22 mmol/L (22-30); Chloride 95 mmol/L (98-107); Creatine Kinase 60 U/L (55-170); Glucose 113 mg/dL (74-99); Magnesium 1.4 mg/dL (1.6-2.3); Potassium 4.8 mmol/L (3.5-5.1); Sodium 128 mmol/L (137-145); Total Bilirubin 0.7 mg/dL (0.2-1.3)
[2018-07-29] MEDS ORDERED: MAGNESIUM SULFATE-D5W PMX 1 GM in DEXTROSE/WATER 1 100ML.BAG IVPB ONE (19:18)
--- NOTE | 2018-07-29 19:21 | XR ---
EXAMINATION TYPE: XR chest 2V DATE OF EXAM: 07/29/2018 COMPARISON: 07/11/2018 HISTORY: Difficulty breathing TECHNIQUE: Frontal and lateral views of the chest are obtained. FINDINGS: There is blunting of left costophrenic angle. There is mild infiltrate at the left lung ba se. Right lung is clear. Heart size is normal. Thoracic aorta is atheromatous. Bony thorax is intact. There are sternal wires. IMPRESSION: Left pleural effusion and left lower lobe infiltrate slightly worse than last exam. Norm al heart.
[2018-07-29] MEDS ORDERED: cefTRIAXone IN SWFI 1,000 MG/10 ML SYRINGE IVP STA (20:28)
[2018-07-29] MEDS ORDERED: PNEUMONIA PROTOCOL UTILIZED 1 EACH MISC PO PRN (20:29)
[2018-07-29] MEDS ORDERED: AZITHROMYCIN 500 MG in SODIUM CHLORIDE 0.9% 250 ML IVPB STA (20:29)
[2018-07-29] MEDS ORDERED: IPRATROPIUM-ALBUTEROL 3 ML NEB INHALATION PRN (20:59)
[2018-07-29] MEDS: TAMSULOSIN 0.4 MG CAP.ER.24H PO SCH (21:30)
[2018-07-29] MEDS: METOPROLOL TARTRATE 25 MG TAB PO SCH (21:30)
[2018-07-29] MEDS: SODIUM CHLORIDE 0.9% 1,000 ML IV SCH (21:37)
[2018-07-29 22:12] VITALS: BMI 22.1
[2018-07-29] MEDS: methylPREDNISolone SOD SUCCI 125 MG/2 ML VIAL IV SCH (23:22)
[2018-07-30] MEDS ORDERED: IPRATROPIUM-ALBUTEROL 3 ML NEB INHALATION SCH
[2018-07-30] MEDS: methylPREDNISolone SOD SUCCI 125 MG/2 ML VIAL IV SCH ×4 (05:39→23:05)
[2018-07-30] MEDS: METOPROLOL TARTRATE 25 MG TAB PO SCH ×2 (07:12→20:29)
[2018-07-30] MEDS: LISINOPRIL 10 MG TAB PO SCH (07:12)
[2018-07-30] MEDS: ATORVASTATIN 40 MG TAB PO SCH (07:12)
[2018-07-30] MEDS: PANTOPRAZOLE 40 MG TABLET PO SCH (07:13)
--- NOTE | 2018-07-30 07:49 | XR ---
EXAMINATION TYPE: XR chest 2V DATE OF EXAM: 07/30/2018 HISTORY: pneumonia. REFERENCE: Previous study dated 07/29/2018. FINDINGS: There has been a midline sternotomy. Lung volumes are prominent. There is a left-sided effusion with associated relaxation atelectasis. Th e heart is not enlarged. The right lung is clear. IMPRESSION: 1. PLEASE CORRELATE FOR COPD. 2. LEFT EFFUSION WITH ASSOCIATED RELAXATION ATELECTASIS.
[2018-07-30] MEDS: IPRATROPIUM-ALBUTEROL 3 ML NEB INHALATION SCH ×4 (08:28→20:28)
[2018-07-30] MEDS ORDERED: RX INFO: IV CONTRAST WAS GIVEN 1 EACH MISC MISCELLANE PRN (10:45)
--- NOTE | 2018-07-30 11:40 | P.HPIM ---
History of Present Illness H&P Date: 07/30/18 Chief Complaint: Shortness of breath This is 73 years old male with past medical history significant for COPD presents to the hospital with worsening shortness of breath. Patient stated that 2 month ago he was treated with his primary care physician with couple injections in the office and oral antibiotics with some improvement and his shortness of breath and was diagnosed at that time with pneumonia to the left side patient stated that he had some improvement but not quite back to normal continued to be short of breath with activities and continued to have cough that has worsened over the last 7 days area patient stated that he's been in contact with sick people multiple times specially his is a resident of the hospital at this time and his been in and out of the hospital for repetitive visits. Patient stated that normally he is active independent in all his daily activity does his own shopping and the have no limitation in walking all of a sudden patient felt that his ability to function has declined steadily and most prominent in the last 1 week where patient limited his activities to visiting his in the hospital only once a day due to shortness of breath and fatigue. Patient reported worsening in his appetite and stated that he lost 6 pounds in 6 weeks due to decreased appetite and loss of interest in food. Patient reported dry hacking cough nonproductive denied any blood in the sputum denied any night sweats or blood in stool. Patient quit tobacco in 2017 and stated that his been using his 's breathing treatment machine without improvement in his shortness of breath. Patient denied alcohol or drug abuse Review of Systems All 14 systems reviewed and negative except as above Past Medical History Past Medical History: Coronary Artery Disease (CAD), Cancer, Chest Pain / Angina, GERD/Reflux, Hyperlipidemia, Hypertension, Osteoarthritis (OA), Prostate Disorder, Vascular Disorder Additional Past Medical History / Comment(s): carotid artery disease/BPH, bladder cancer History of Any Multi-Drug Resistant Organisms: None Reported Past Surgical History: Bladder Surgery, Coronary Bypass/CABG, Heart Catheterization With Stent Additional Past Surgical History / Comment(s): RIGHT carotid endartectomy, left cataract surgery/colonoscopy , TURP 03/11/2014 Past Anesthesia/Blood Transfusion Reactions: No Reported Reaction Date of Last Stent Placement:: 1996 Past Psychological History: No Psychological Hx Reported Smoking Status: Former smoker Past Alcohol Use History: Daily Past Drug Use History: None Reported - Past Family History Father Family Medical History: Coronary Artery Disease (CAD) Mother Family Medical History: CVA/TIA Sister(s) Family Medical History: No Reported History Daughter(s) Family Medical History: No Reported History Son(s) Family Medical History: No Reported History Medications and Allergies Home Medications Medication Instructions Recorded Confirmed Type Tamsulosin [Flomax] 0.4 mg PO HS 07/16/16 07/29/18 History Atorvastatin [Lipitor] 40 mg PO DAILY 07/22/16 07/29/18 History Pantoprazole [Protonix] 40 mg PO AC-BRKFST #30 tab 07/27/16 07/29/18 Rx Metoprolol Tartrate [Lopressor] 25 mg PO BID 05/12/18 07/29/18 History Lisinopril [Zestril] 10 mg PO DAILY 07/11/18 07/29/18 History Allergies Allergy/AdvReac Type Severity Reaction Status Date / Time No Known Allergies Allergy Verified 07/29/18 17:55 Physical Exam Vitals: Vital Signs Temp Pulse Pulse Resp BP BP Pulse Ox 07/30/18 10:04 116/68 07/30/18 08:41 84 07/30/18 08:30 84 07/30/18 07:14 14 07/30/18 07:00 98.6 F 73 14 166/79 96 07/30/18 01:12 97.8 F 72 18 195/78 98 07/29/18 22:02 98.4 F 89 18 150/72 96 07/29/18 21:49 98.2 F 07/29/18 21:39 98.7 F 91 19 178/85 97 07/29/18 18:30 88 24 07/29/18 18:21 89 16 07/29/18 17:30 98.3 F 89 18 126/70 91 L Intake and Output 07/29/18 07/30/18 07/30/18 22:59 06:59 14:59 Intake Total 118 Balance 118 Intake: Oral 118 Other: Voiding Method Toilet # Voids 1 Weight 63.957 kg Gen.: in stated age, no acute distress seems to be lethargic Heart: Normal S1-S2 Lungs: Diminished bilaterally with scattered rhonchi, poor effort's Abdomen: Soft, no tenderness, positive bowel sounds in all 4 quadrant no guarding or rebound Skin: No new rash Psych: Alert and oriented 3 Neuro: No focal deficit Results CBC & Chem 7: 07/29/18 18:27 07/29/18 18:27 Labs: Abnormal Lab Results - Last 24 Hours (Table) 07/29/18 07/29/18 Range/Units 18:27 18:27 RBC 4.19 L (4.30-5.90) m/uL Hct 38.4 L (39.0-53.0) % Lymphocytes # 0.5 L (1.0-4.8) k/uL Sodium 128 L (137-145) mmol/L Chloride 95 L (98-107) mmol/L Glucose 113 H (74-99) mg/dL Magnesium 1.4 L (1.6-2.3) mg/dL ALT 20 L (21-72) U/L Thrombosis Risk Factor Assmnt - Choose All That Apply Each Factor Represents 1 point: Abnormal pulmonary function (COPD) Each Risk Factor Represents 2 Points: Age 61-74 years Thrombosis Risk Factor Assessment Total Risk Factor Score: 3 Thrombosis Risk Factor Assessment Level: Moderate Risk Assessment and Plan Assessment: 1. Recurrent pneumonia with left sided pleural effusion. 2. Dyspnea secondary to above. 3. COPD with mild exacerbation. 4. Acute hyponatremia. 5. Hypertension. 6. Hyperlipidemia. 7. Coronary artery disease. Status post stent in the past 8. Benign prostatic hypertrophy. 9. GERD. 10. Osteoarthritis. 11. Peripheral arterial disease. Patient was started on Rocephin and Zithromax and I would like to continue with both medication, obtain sputum culture, start patients on Pulmicort twice daily and aggressive breathing treatment with DuoNeb, I would like to evaluate patient for oxygen prior to discharge, I discussed with the patient at length his current symptoms including recurrent pneumonia with pleural effusion and failure on outpatient regimen and possibility for malignancy and I would like to order computed tomography scan of the chest with IV contrast and follow-up on patient's vital signs closely follow-up on test results and consider pulmonary consult for further evaluation. Would have patients on DVT prophylaxis during this hospital stay
--- NOTE | 2018-07-30 12:11 | CT ---
EXAMINATION TYPE: CT chest w con DATE OF EXAM: 07/30/2018 COMPARISON: Previous CTA of the chest dated 05/12/2018. HISTORY: SOB CT DLP: 251.7 mGycm Automated exposure control for dose reduction was used. CONTRAST: CT scan of the chest is performed with IV Contrast, patient injected with 100 ml mL of Isovue 300. FINDINGS: There is a small left-sided pleural effusion. There is associated atelectatic change at the lung bases. There is some minimal groundglass opacity in the lateral aspect of the left lower lobe. There is no significant axillary, mediastinal or hilar adenopathy. There is no evidence of pulmonary embolus. The aorta is normal in caliber without evidence of dissection. There is no pericardial fluid. The heart is not enlarged. Visualized portions of the upper abdomen are unremarkable. IMPRESSION: 1. This examination is negative for pulmonary embolus. 2. Small left-sided effusion. 3. Minimal groundglass opacity in the left lower lobe as well as some dependent atelectasis. The opac ity may be secondary to alveolitis. This can also be seen in congestive heart failure and atypical pn eumonia such as UIP.
[2018-07-30] MEDS: SYMBICORT 160-4.5 MCG INHALER INHALATION SCH (20:28)
[2018-07-30] MEDS: TAMSULOSIN 0.4 MG CAP.ER.24H PO SCH (20:29)
[2018-07-30] MEDS ORDERED: AZITHROMYCIN 500 MG TAB PO SCH (20:33)
[2018-07-30] MEDS: SODIUM CHLORIDE 0.9% 1,000 ML IV SCH (21:44)
--- NOTE | 2018-07-30 21:46 | CONS ---
CONSULTATION PULMONARY/CRITICAL CARE CONSULTATION: DATE OF SERVICE: 07/30/2018 This is a 73-year-old gentleman who is a former heavy smoker who presents to the hospital emergency room with complaints of increasing shortness of breath. The shortness of breath occurs both at rest and on exertion, worse on exertion. In addition, he had some chest discomfort. He states his chest felt sore when he tried to breathe or when he coughs. The patient does cough. He has minimal phlegm production. No fever or chills. No nausea, vomiting or diarrhea. The patient believes that he likely has underlying COPD and he believes that is the reason why he is short of breath. Again, this has been going on for at least a couple days prior to admission getting progressively worse. The patient remembers me. Apparently I saw him after he had open-heart surgery. That was back in 2017. CURRENT HOME MEDICATIONS: Include Flomax, Lipitor, metoprolol, Zestril, and Protonix. ALLERGIES: Denied. MEDICAL HISTORY: A CAD and possible COPD, chest pain, GERD, hyperlipidemia, hypertension, DJD, BPH, and peripheral vascular disease. He also has a history of bladder cancer and carotid artery disease. SURGICAL HISTORY: Includes heart catheterization with stent, bladder surgery, right carotid endarterectomy, left cataract surgery and TURP. He also has a history of bypass grafting back in 2017. Apparently that is when I met him for the first time. SOCIAL HISTORY: Positive for previous tobacco use history. He has been smoking a number of years. He does not smoke currently. He does drink alcohol on a daily basis. Denies any illicit drug history. FAMILY HISTORY: Positive for CAD and CVA. REVIEW OF SYSTEMS: CONSTITUTIONAL: Negative. NEUROLOGIC: Negative. HEENT: Negative. CARDIOVASCULAR: Chest tightness. PULMONARY: Shortness of breath and chest tightness with coughing or deep breathing. GI: Negative. : Negative. RHEUMATOLOGIC: Negative. IMMUNOLOGIC: Negative. HEMATOLOGIC: Negative. DERMATOLOGIC: Negative. PHYSICAL EXAMINATION: Current vital signs include temperature 98.2 heart rate 86, respiratory rate 14, blood pressure 139/71 mean 93, room air saturation 97%. Appears in no acute distress. HEENT examination is grossly unremarkable. Mucous membranes are moist. NECK: Supple. Full range of motion. No adenopathy or thyromegaly. Neck veins are flat. Cardiovascular examination reveals regular rhythm rate. S1, S2 normal. Heart rate 84. No murmur. Lungs reveal diffuse inspiratory and expiratory wheezes and rhonchi. Breath sounds are severely diminished. There is prolongation on forced maneuver. Adventitious lung sounds are more prominent on forced maneuver. ABDOMEN: Soft. Bowel sounds are heard. Extremities are intact. No cyanosis, clubbing, or edema. Skin without rash. Neurologic examination is brief but nonfocal. Chest x-ray is done. It shows small left pleural effusion and minimal infiltrate or atelectasis at the left lung base. A repeat chest x-ray shows changes of COPD and some possible chronic changes at the left lung base. A CT of the chest reveals no evidence of pulmonary embolism, a small left-sided pleural effusion and some ground-glass opacities in the left lower lobe, which may relate to alveolitis and/or pneumonia. Microbiology is currently pending. Medications are reviewed. Currently, he is getting albuterol and Atrovent updrafts, Zithromax and Rocephin, Solu-Medrol and his usual medications. I am going to add some Symbicort to that regimen. ASSESSMENT: 1. Chronic obstructive pulmonary disease exacerbation complicated by possible bronchopneumonia left lower lobe. 2. Previous history of heavy tobacco use. 3. Status post bypass grafting for coronary artery disease in 2017. 4. Hyperlipidemia. 5. Hypertension. 6. Coronary artery disease. 7. Angina pectoris. 8. Gastroesophageal reflux disease. 9. Osteoarthritis. 10.Benign prostatic hypertrophy. 11.Carotid artery disease. 12.History of bladder cancer. 13.Multiple other medical problems and comorbidities. PLAN: The patient is on appropriate medications. We will continue to follow. The steroids, Symbicort and updraft should improve things. He is also on antibiotics just in case the changes on CT scan reflect pneumonia. We will see him back in followup in the office. Additional recommendations and suggestions are forthcoming. Prognosis is guarded. MMODL / IJN: [id number] /
[2018-07-31] MEDS: methylPREDNISolone SOD SUCCI 125 MG/2 ML VIAL IV SCH ×2 (05:22→14:39)
[2018-07-31] MEDS: SYMBICORT 160-4.5 MCG INHALER INHALATION SCH (07:21)
[2018-07-31] MEDS: IPRATROPIUM-ALBUTEROL 3 ML NEB INHALATION SCH ×2 (07:21→13:18)
[2018-07-31 07:25] VITALS: PULSE 72
[2018-07-31 07:50] VITALS: BP 162/69; RESP 16; TEMP 97.6
[2018-07-31] MEDS: METOPROLOL TARTRATE 25 MG TAB PO SCH (08:11)
[2018-07-31] MEDS: LISINOPRIL 10 MG TAB PO SCH (08:11)
[2018-07-31] MEDS: PANTOPRAZOLE 40 MG TABLET PO SCH (08:12)
[2018-07-31] MEDS: ATORVASTATIN 40 MG TAB PO SCH (08:12)
[2018-07-31] MEDS ORDERED: ENOXAPARIN 40 MG/0.4 ML SYRINGE SQ SCH (09:00)
--- NOTE | 2018-07-31 13:37 | P.DS ---
Providers Date of admission: 07/29/18 20:29 Expected date of discharge: 07/31/18 Attending physician: Brando Yee Consults: 07/29/18 20:29 Consult Physician Routine Consulting Provider: Chirag Marquez Consult Reason/Comments: Pleural effusion, left infiltrate, COPD exacerbation Do you want consulting provider notified?: Yes Primary care physician: Clay Kuo [facility] Course: This is 73 years old male with past medical history significant for COPD presents to the hospital with worsening shortness of breath. Patient stated that 2 month ago he was treated with his primary care physician with couple injections in the office and oral antibiotics with some improvement and his shortness of breath and was diagnosed at that time with pneumonia to the left side patient stated that he had some improvement but not quite back to normal continued to be short of breath with activities and continued to have cough that has worsened over the last 7 days area patient stated that he's been in contact with sick people multiple times specially his is a resident of the hospital at this time and his been in and out of the hospital for repetitive visits. Patient stated that normally he is active independent in all his daily activity does his own shopping and the have no limitation in walking all of a sudden patient felt that his ability to function has declined steadily and most prominent in the last 1 week where patient limited his activities to visiting his in the hospital only once a day due to shortness of breath and fatigue. Patient reported worsening in his appetite and stated that he lost 6 pounds in 6 weeks due to decreased appetite and loss of interest in food. Patient reported dry hacking cough nonproductive denied any blood in the sputum denied any night sweats or blood in stool. Patient quit tobacco in 2017 and stated that his been using his 's breathing treatment machine without improvement in his shortness of breath. Patient denied alcohol or drug abuse 07/31: Patient has been seen by Dr. Simons with recommendations to continue current medications, follow up in the office. Continue antibiotics for now. CAT scan of the chest with contrast revealed no pulmonary embolism. Small left sided effusion. Minimal groundglass opacities in the left lower lobe as well as dependent atelectasis. Opacities may be secondary to alveolitis. This can be seen in congestive heart failure and atypical pneumonia such as UIP patient's shortness of breath is much improved and he has been able to ambulate in the hallway without any difficulty. He is requesting to go home today. He patient has been seen by Dr. Marquez and cleared for discharge. Patient will be discharged home in stable condition. Discharge diagnoses: 1. Recurrent pneumonia with left sided pleural effusion. 2. Dyspnea secondary to above. 3. COPD with mild exacerbation. 4. Acute hyponatremia. 5. Hypertension. 6. Hyperlipidemia. 7. Coronary artery disease. Status post stent in the past 8. Benign prostatic hypertrophy. 9. GERD. 10. Osteoarthritis. 11. Peripheral arterial disease. Discharge plan: Home Impression and plan of care have been directed as dictated by the signing physician. Cindi Edwards nurse practitioner acting as scribe for signing physician. Patient Condition at Discharge: Good Plan - Discharge Summary New Discharge Prescriptions: New Ipratropium-Albuterol Nebulize [Duoneb 0.5 mg-3 mg/3 ml Soln] 3 ml INHALATION RT-QID #120 ampul.neb predniSONE 0 mg PO DIRECTED #20 tab Azithromycin [Zithromax] 500 mg PO Q24H #3 tab Continue Tamsulosin [Flomax] 0.4 mg PO HS Atorvastatin [Lipitor] 40 mg PO DAILY Pantoprazole [Protonix] 40 mg PO AC-BRKFST #30 tab Metoprolol Tartrate [Lopressor] 25 mg PO BID Lisinopril [Zestril] 10 mg PO DAILY Discharge Medication List Tamsulosin [Flomax] 0.4 mg PO HS 07/16/16 [History] Atorvastatin [Lipitor] 40 mg PO DAILY 07/22/16 [History] Pantoprazole [Protonix] 40 mg PO AC-BRKFST #30 tab 07/27/16 [Rx] Metoprolol Tartrate [Lopressor] 25 mg PO BID 05/12/18 [History] Lisinopril [Zestril] 10 mg PO DAILY 07/11/18 [History] Azithromycin [Zithromax] 500 mg PO Q24H #3 tab 07/31/18 [Rx] Ipratropium-Albuterol Nebulize [Duoneb 0.5 mg-3 mg/3 ml Soln] 3 ml INHALATION RT-QID #120 ampul.neb 07/31/18 [Rx] predniSONE 0 mg PO DIRECTED #20 tab 07/31/18 [Rx] Follow up Appointment(s)/Referral(s): Clay Kuo MD [Primary Care Provider] - 1 Week Activity/Diet/Wound Care/Special Instructions: Resume Plavix. Discharge Disposition: HOME SELF-CARE
--- NOTE | 2018-07-31 18:22 | P.PN ---
Subjective Progress Note Date: 07/31/18 On 07/31/2018 the patient is being seen for a follow-up. Patient is doing well. The patient has limited left lower lobe pneumonia. CAT scan of the chest did not reveal any pulmonary embolism. There was also a small left-sided pleural effusion. The patient has done extremely well. No chest pain. No fever. No chills. No signs of any decompensated heart failure. The patient will be discharged home to be followed up on outpatient basis. Objective - Vital Signs Vital signs: Vital Signs Temp 97.6 F 07/31/18 06:58 Pulse 72 07/31/18 07:36 Resp 16 07/31/18 06:58 BP 162/69 07/31/18 06:58 Pulse Ox 96 07/31/18 06:58 Intake & Output 07/30/18 07/31/18 07/31/18 18:59 06:59 18:59 Intake Total 278 50 Balance 278 50 Intake: Intake, IV Titration 160 50 Amount Sodium Chloride 0.9% 1, 160 000 ml @ 20 mls/hr IV . Q24H MARJ Rx#:[id number] cefTRIAXone 1 gm In 50 Sodium Chloride 0.9% 50 ml @ 100 mls/hr IVPB Q24H MARJ Rx#:[id number] Oral 118 Other: Voiding Method Toilet # Voids 3 2 - Exam The patient appeared well nourished and normally developed. Vital signs as documented. Head exam is unremarkable. No scleral icterus or corneal arcus noted. Neck is without jugular venous distension, thyromegaly, or carotid bruits. Carotid upstrokes are brisk bilaterally. Lungsbreath sounds bilaterally especially in the lung bases. Cardiac exam reveals the PMI to be normally sized and situated. Rhythm is regular. First and second heart sounds normal. No murmurs, rubs or gallops. Abdominal exam reveals normal bowel sounds, no masses, no organomegaly and no aortic enlargement. Extremities are nonedematous and both femoral and pedal pulses are normal.Examination of the skin revealed no evidence of significant rashes, suspicious appearing nevi or other concerning lesions. Neurologically awake and alert and there is no focal neurological deficits. - Labs CBC & Chem 7: 07/29/18 18:27 07/29/18 18:27 Labs: Microbiology - Last 24 Hours (Table) 07/29/18 21:25 Blood Culture - Preliminary Blood No Growth after 24 hours Assessment and Plan Plan: 1 COPD exacerbation, improving 2 limited left lower lobe pneumonia with small effusion, improving 3 shortness of breath secondary to above, improving 4 hyponatremia , improving 5 hypertension 6 hyperlipidemia 7 coronary artery disease with previous coronary stenting 8 BPH 9 acid reflux 10 osteoarthritis 11 peripheral vascular disease Plan discharge this patient home today. Prednisone burst taper. Zithromax 500 mg by mouth on a daily basis. DuoNeb nebulized treatments around the clock. Outpa tient follow-up.
== END 2018-07-31 14:55 | disposition home or self-care (01) | DRG 194 ==
LOC: EC 17:21 → 4SSUR 20:29
PROVIDERS: ADMIT Internal Medicine; ATTEND Internal Medicine
DX: J18.1 Lobar pneumonia, unspecified organism (principal); E87.1 Hypo-osmolality and hyponatremia; J44.0 Chronic obstructive pulmonary disease with (acute) lower respiratory infection; J44.1 Chronic obstructive pulmonary disease with (acute) exacerbation; J91.8 Pleural effusion in other conditions classified elsewhere; E83.42 Hypomagnesemia; I25.119 Atherosclerotic heart disease of native coronary artery with unspecified angina pectoris; K21.9 Gastro-esophageal reflux disease without esophagitis; E78.5 Hyperlipidemia, unspecified; I10 Essential (primary) hypertension; N40.0 Benign prostatic hyperplasia without lower urinary tract symptoms; I73.9 Peripheral vascular disease, unspecified; M19.90 Unspecified osteoarthritis, unspecified site; Z86.79 Personal history of other diseases of the circulatory system; Z79.899 Other long term (current) drug therapy; Z87.891 Personal history of nicotine dependence; Z85.51 Personal history of malignant neoplasm of bladder; Z95.5 Presence of coronary angioplasty implant and graft; Z95.1 Presence of aortocoronary bypass graft; Z87.01 Personal history of pneumonia (recurrent); Z98.42 Cataract extraction status, left eye; Z90.6 Acquired absence of other parts of urinary tract; Z82.49 Family history of ischemic heart disease and other diseases of the circulatory system; Z82.3 Family history of stroke
CPT/HCPCS: 36415; 71046; 71260; 80053; 82550; 83735; 83880; 84484; 85025; 85610; 85730; 87040; 93005; 94640; 96365; 96375; 99285

== ENCOUNTER 2018-12-02 14:14 | Inpatient (IN) | payer MEDICARE ==
[2018-12-02] MEDS ORDERED: SODIUM CHLORIDE 0.9% 1,000 ML IV STA ×2 (14:36)
[2018-12-02] MEDS ORDERED: TOPICAL SKIN ADHESIVE 1 EACH AMP TOPICAL ONE (14:37)
[2018-12-02] MEDS ORDERED: LORazepam 1 MG TAB PO STA (14:37)
--- NOTE | 2018-12-02 14:41 | ED ---
General Adult HPI - General Source: patient, EMS, RN notes reviewed, old records reviewed Mode of arrival: EMS <[email or web address] - Last Filed: 12/02/18 16:39> <Trini Dubon - Last Filed: 12/03/18 00:34> - General Chief complaint: Weakness Stated complaint: WEAKNESS Time Seen by Provider: 12/02/18 14:23 - History of Present Illness Initial comments: 73-year-old male presents emergency room today with complaints of shakiness, progressive weakness, and episode of chest pain today. Patient reports that he recently was seen in [facility] for hyponatremia. He was transferred to there from [facility]. He is currently undergoing treatment for alcohol abuse and has been sober for the past 2 weeks. Patient was found to be hyponatremic and was hospitalized and discharged from [facility] on . Patient reports he's had 2 falls since that time and so skin had continued weakness. Patient states that he came home from [facility] today, had episode of chest pain and had a fall hitting his right elbow causing skin tear. Patient reports that the chest pain has resolved at this time. Patient states that he does have a history of a CABG. (Megan Starr) - Related Data Home Medications Medication Instructions Recorded Confirmed Tamsulosin [Flomax] 0.4 mg PO DAILY 07/16/16 12/02/18 Metoprolol Tartrate [Lopressor] 25 mg PO BID 05/12/18 12/02/18 Lisinopril [Zestril] 10 mg PO DAILY 07/11/18 12/02/18 Aspirin EC [Ecotrin Low Dose] 81 mg PO DAILY 12/02/18 12/02/18 Clopidogrel Bisulfate [Plavix] 75 mg PO DAILY 12/02/18 12/02/18 Folic Acid 1 mg PO DAILY 12/02/18 12/02/18 Melatonin 5 mg PO HS 12/02/18 12/02/18 Sodium Chloride Tab 1 gm PO TID 12/02/18 12/02/18 Previous Rx's Medication Instructions Recorded Pantoprazole [Protonix] 40 mg PO AC-BRKFST #30 tab 07/27/16 Allergies Allergy/AdvReac Type Severity Reaction Status Date / Time No Known Allergies Allergy Verified 12/02/18 16:44 Review of Systems ROS Other: All systems not noted in ROS Statement are negative. <MattyMegan - Last Filed: 12/02/18 16:39> ROS Other: All systems not noted in ROS Statement are negative. <JagdishTrini P - Last Filed: 12/03/18 00:34> ROS Statement: Those systems with pertinent positive or pertinent negative responses have been documented in the HPI. Past Medical History Past Medical History: Coronary Artery Disease (CAD), Cancer, Chest Pain / Angina, GERD/Reflux, Hyperlipidemia, Hypertension, Osteoarthritis (OA), Prostate Disorder, Vascular Disorder Additional Past Medical History / Comment(s): carotid artery disease/BPH, bladder cancer History of Any Multi-Drug Resistant Organisms: None Reported Past Surgical History: Bladder Surgery, Coronary Bypass/CABG, Heart Catheterization With Stent Additional Past Surgical History / Comment(s): RIGHT carotid endartectomy, left cataract surgery/colonoscopy , TURP 03/11/2014 Past Anesthesia/Blood Transfusion Reactions: No Reported Reaction Date of Last Stent Placement:: 1996 Past Psychological History: No Psychological Hx Reported Smoking Status: Former smoker Past Alcohol Use History: Daily Past Drug Use History: None Reported - Past Family History Father Family Medical History: Coronary Artery Disease (CAD) Mother Family Medical History: CVA/TIA Sister(s) Family Medical History: No Reported History Daughter(s) Family Medical History: No Reported History Son(s) Family Medical History: No Reported History <Megan Starr - Last Filed: 12/02/18 16:39> General Exam General appearance: alert, in no apparent distress Head exam: Present: atraumatic, normocephalic, normal inspection Eye exam: Present: normal appearance, PERRL, EOMI. Absent: scleral icterus, conjunctival injection, periorbital swelling ENT exam: Present: normal exam, mucous membranes moist Neck exam: Present: normal inspection. Absent: tenderness, meningismus, lymphadenopathy Respiratory exam: Present: normal lung sounds bilaterally. Absent: respiratory distress, wheezes, rales, rhonchi, stridor Cardiovascular Exam: Present: regular rate, normal rhythm, normal heart sounds. Absent: systolic murmur, diastolic murmur, rubs, gallop, clicks GI/Abdominal exam: Present: soft Extremities exam: Present: normal inspection, full ROM, normal capillary refill, other (Patient has a skin tear over the right elbow.). Absent: tenderness, pedal edema, joint swelling, calf tenderness Back exam: Present: normal inspection Neurological exam: Present: alert, oriented X3, CN II-XII intact, other (Shins generalized shakes and tremors.) Psychiatric exam: Present: normal affect, normal mood Skin exam: Present: warm, dry, intact, normal color. Absent: rash <Megan Starr - Last Filed: 12/02/18 16:39> - General Exam Comments Initial Comments: Shaky 73-year-old male. Patient appears in moderate discomfort. ( Megan Starr) Course Vital Signs 12/02/18 12/02/18 12/02/18 14:28 15:22 16:50 Temperature 100.4 F H Pulse Rate 71 88 71 Respiratory 18 18 22 Rate Blood Pressure 89/71 150/63 166/71 O2 Sat by Pulse 95 97 100 Oximetry 12/02/18 12/02/18 18:32 18:44 Temperature 100.4 F H Pulse Rate 88 88 Respiratory 18 18 Rate Blood Pressure 167/70 167/70 O2 Sat by Pulse 97 97 Oximetry EKG Findings - EKG Comments: EKG Findings:: EKG performed at 1443 shows normal sinus rhythm, normal EKG. Ventricular rate of 71 bpm. Verbal is 162 ms. QRS duration is 86 ms. QT QTc 396/4:30 milliseconds. No evidence of ST elevation. <Megan Starr - Last Filed: 12/02/18 16:39> Medical Decision Making - Lab Data Result diagrams: 12/02/18 15:07 12/02/18 15:07 - Radiology Data Radiology results: report reviewed <Megan Starr - Last Filed: 12/02/18 16:39> - Lab Data Result diagrams: 12/02/18 15:07 12/02/18 15:07 <Trini Dubon - Last Filed: 12/03/18 00:34> - Medical Decision Making This is a 73-year-old male presents emergency department today for progressive weakness, shakiness, and episode of chest pain today, and 2 falls. He reports that he was discharged from [facility] recently for hyponatremia. Patient states that he feels that similar to when he was shaky with hyponatremia. PatPatient elbow skin tear was cleaned and dressed with Dermabond and dressing. Patient tolerated procedure well. Patient's lab work was reviewed. Does have normal troponin at this time. Chest x-ray shows evidence of continued pleural effusion which is stable. He denies any specific shortness breath at this time. Patient generally appears unwell, and shaky. He was given 1 Ativan and does feel more relaxed. His last drink was over 2 weeks ago. I discussed that this will keep the Patient for concern for episdoe of chest pain, and then the weakness and falling. Patient is agreeable to treatment plan. (Megan Starr) I personally saw and evaluated the patient. This is a 73-year-old gentleman with history of alcohol abuse presenting to the ER with generalized weakness, fall, shakiness, chest pain while walking at [employer] today. Patient has a history of hyponatremia of the labs are normal today including troponin. EKG is nonischemic. Given patient's advanced age and risk factors patient care was discussed with admitting physician Dr. Stauffer who agrees with plan for admission and evaluation by cardiology. (Trini Dubon) - Lab Data Lab Results 12/02/18 12/02/18 12/02/18 Range/Units 15:07 15:07 15:07 WBC 11.2 H (3.8-10.6) k/uL RBC 4.03 L (4.30-5.90) m/uL Hgb 12.4 L (13.0-17.5) gm/dL Hct 37.4 L (39.0-53.0) % MCV 92.7 (80.0-100.0) fL MCH 30.8 (25.0-35.0) pg MCHC 33.3 (31.0-37.0) g/dL RDW 12.8 (11.5-15.5) % Plt Count 275 (150-450) k/uL Neutrophils % 89 % Lymphocytes % 5 % Monocytes % 4 % Eosinophils % 1 % Basophils % 1 % Neutrophils # 10.0 H (1.3-7.7) k/uL Lymphocytes # 0.6 L (1.0-4.8) k/uL Monocytes # 0.4 (0-1.0) k/uL Eosinophils # 0.1 (0-0.7) k/uL Basophils # 0.1 (0-0.2) k/uL PT (9.0-12.0) sec INR (<1.2) APTT (22.0-30.0) sec Sodium 131 L (137-145) mmol/L Potassium 4.5 (3.5-5.1) mmol/L Chloride 96 L (98-107) mmol/L Carbon Dioxide 23 (22-30) mmol/L Anion Gap 12 mmol/L BUN 11 (9-20) mg/dL Creatinine 0.73 (0.66-1.25) mg/dL Est GFR (CKD-EPI)AfAm >90 (>60 ml/min/1.73 sqM) Est GFR (CKD-EPI)NonAf >90 (>60 ml/min/1.73 sqM) Glucose 99 (74-99) mg/dL Plasma Lactic Acid Js 1.5 (0.7-2.0) mmol/L Calcium 9.7 (8.4-10.2) mg/dL Phosphorus 3.3 (2.5-4.5) mg/dL Magnesium 1.3 L (1.6-2.3) mg/dL Total Bilirubin 0.6 (0.2-1.3) mg/dL AST 35 (17-59) U/L ALT 36 (21-72) U/L Alkaline Phosphatase 82 (38-126) U/L Troponin I (0.000-0.034) ng/mL Total Protein 7.0 (6.3-8.2) g/dL Albumin 4.0 (3.5-5.0) g/dL 12/02/18 12/02/18 Range/Units 15:07 15:07 WBC (3.8-10.6) k/uL RBC (4.30-5.90) m/uL Hgb (13.0-17.5) gm/dL Hct (39.0-53.0) % MCV (80.0-100.0) fL MCH (25.0-35.0) pg MCHC (31.0-37.0) g/dL RDW (11.5-15.5) % Plt Count (150-450) k/uL Neutrophils % % Lymphocytes % % Monocytes % % Eosinophils % % Basophils % % Neutrophils # (1.3-7.7) k/uL Lymphocytes # (1.0-4.8) k/uL Monocytes # (0-1.0) k/uL Eosinophils # (0-0.7) k/uL Basophils # (0-0.2) k/uL PT 11.2 (9.0-12.0) sec INR 1.1 (<1.2) APTT 27.1 (22.0-30.0) sec Sodium (137-145) mmol/L Potassium (3.5-5.1) mmol/L Chloride (98-107) mmol/L Carbon Dioxide (22-30) mmol/L Anion Gap mmol/L BUN (9-20) mg/dL Creatinine (0.66-1.25) mg/dL Est GFR (CKD-EPI)AfAm (>60 ml/min/1.73 sqM) Est GFR (CKD-EPI)NonAf (>60 ml/min/1.73 sqM) Glucose (74-99) mg/dL Plasma Lactic Acid Js (0.7-2.0) mmol/L Calcium (8.4-10.2) mg/dL Phosphorus (2.5-4.5) mg/dL Magnesium (1.6-2.3) mg/dL Total Bilirubin (0.2-1.3) mg/dL AST (17-59) U/L ALT (21-72) U/L Alkaline Phosphatase (38-126) U/L Troponin I <0.012 (0.000-0.034) ng/mL Total Protein (6.3-8.2) g/dL Albumin (3.5-5.0) g/dL - Radiology Data Elbow x-rays negative for any acute osseous lesion. Chest x-ray shows continued left-sided effusion. Minimal improvement comparison with previous. This was read by Dr. Laureano. (Megan Starr) Disposition Is patient prescribed a controlled substance at d/c from ED?: No Time of Disposition: 16:46 <Megan Starr - Last Filed: 12/02/18 16:39> <Trini Dubon - Last Filed: 12/03/18 00:34> Clinical Impression: Chest pain, Pleural effusion, Fall, Skin tear Disposition: ADMITTED IP TO THIS HOSP Condition: Stable
[2018-12-02 15:20] LABS: Basophils # (A) 0.1 k/uL (0-0.2); Basophils % (A) 1 %; Eosinophils # (A) 0.1 k/uL (0-0.7); Eosinophils % (A) 1 %; HCT 37.4 % (39.0-53.0); HGB 12.4 gm/dL (13.0-17.5); Lymphocytes # (A) 0.6 k/uL (1.0-4.8); Lymphocytes % (A) 5 %; MCH 30.8 pg (25.0-35.0); MCHC 33.3 g/dL (31.0-37.0); MCV 92.7 fL (80.0-100.0); Mean Platelet Volume 6.6; Monocytes # (A) 0.4 k/uL (0-1.0); Monocytes % (A) 4 %; Neutrophils % (A) 89 %; Platelet Count 275 k/uL (150-450); RBC 4.03 m/uL (4.30-5.90); RDW 12.8 % (11.5-15.5); WBC 11.2 k/uL (3.8-10.6)
[2018-12-02 15:32] LABS: INR 1.1 (<1.2); Partial Thromboplastin Time 27.1 sec (22.0-30.0); Prothrombin Time 11.2 sec (9.0-12.0)
[2018-12-02 15:37] LABS: ALT 36 U/L (21-72); AST 35 U/L (17-59); African American GFR (CKD) >90 (>60 ml/min/1.73 sqM); Alkaline Phosphatase 82 U/L (38-126); Anion Gap 12 mmol/L; Blood Urea Nitrogen 11 mg/dL (9-20); Calcium 9.7 mg/dL (8.4-10.2); Carbon Dioxide 23 mmol/L (22-30); Chloride 96 mmol/L (98-107); Glucose 99 mg/dL (74-99); Magnesium 1.3 mg/dL (1.6-2.3); Phosphorus 3.3 mg/dL (2.5-4.5); Potassium 4.5 mmol/L (3.5-5.1); Sodium 131 mmol/L (137-145); Total Bilirubin 0.6 mg/dL (0.2-1.3)
--- NOTE | 2018-12-02 15:59 | XR ---
EXAMINATION TYPE: XR chest 2V DATE OF EXAM: 12/02/2018 HISTORY: Weakness. REFERENCE: Previous study dated 07/30/2018. FINDINGS: There has been a previous midline sternotomy. Lung volumes are prominent. There is a left-sided effusion. This has slightly improved from previous. The lungs are otherwise mansi ar. The heart is not enlarged. IMPRESSION: CONTINUING LEFT-SIDED EFFUSION, MINIMALLY IMPROVED IN COMPARISON WITH PREVIOUS.
--- NOTE | 2018-12-02 16:03 | XR ---
EXAMINATION TYPE: XR elbow complete RT , 3 VIEWS DATE OF EXAM ORDERED: 12/02/2018 HISTORY: fall. COMPARISON: None. FINDINGS: No fracture, dislocation or elbow joint effusion is seen. IMPRESSION: NO ACUTE OSSEOUS LESION.
[2018-12-02] MEDS ORDERED: NITROGLYCERIN SL TABS 0.4 MG TAB SUBLINGUAL PRN (16:52)
[2018-12-02] MEDS ORDERED: ASPIRIN 81 MG PO STA (16:52)
[2018-12-02] MEDS ORDERED: ACETAMINOPHEN TAB 325 MG TAB PO PRN (18:43)
[2018-12-02] MEDS ORDERED: Magnesium Replacement Protocol 1 EACH MISC MISCELLANE PRN (20:01)
[2018-12-02 20:13] LABS: Appearance,Urine Clear (Clear); Bilirubin,Urine Negative (Negative); Blood,Urine Negative (Negative); Color,Urine Yellow; Glucose,Urine (UA) Negative (Negative); Ketones,Urine 1+ (Negative); Leukocyte Esterase,Urine Negative (Negative); Nitrite,Urine Negative (Negative); Protein,Urine Negative (Negative); Specific Gravity,Urine 1.015 (1.001-1.035); Urobilinogen,Urine <2.0 mg/dL (<2.0)
[2018-12-02] MEDS: METOPROLOL TARTRATE 25 MG TAB PO SCH (21:49)
[2018-12-02] MEDS: MAGNESIUM SULFATE-D5W PMX 1 GM in DEXTROSE/WATER 1 100ML.BAG IVPB SCH ×2 (21:50→23:22)
[2018-12-02] MEDS: MELATONIN 5 MG TABLET PO SCH (21:50)
[2018-12-02] MEDS: SODIUM CHLORIDE TAB 1 GM TAB PO SCH (21:51)
--- NOTE | 2018-12-02 22:55 | CT ---
EXAMINATION TYPE: CT angio chest DATE OF EXAM: 12/02/2018 10:46 PM COMPARISON: 05/12/2018 HISTORY: r/o pe CT DLP: 265.1 mGycm Automated exposure control for dose reduction was used. CONTRAST: CTA scan of the thorax is performed with IV Contrast, patient injected with 70 mL of Isovue 370, pulm onary embolism protocol. There are 3-D post processed images.. FINDINGS: There is diffuse pulmonary emphysema. There is some coarse reticular nodular pulmonary infiltrate in the left lower lobe. Right lung is fairly clear. There is small left pleural effusion. There is no mediastinal adenopathy. Thoracic aorta is atheromatous. There are no hilar masses. There is no thoracic aortic aneurysm. There is normal contrast opacification of the pulmonary arteries. There are no filling defects. IMPRESSION: NO EVIDENCE OF PULMONARY EMBOLISM. PATCHY PNEUMONIA AND PLEURAL FLUID IN THE LEFT LOWER LOBE. EMPHYSE MA. PLEURAL THICKENING UNCHANGED. PNEUMONIA IS MOSTLY NEW COMPARED TO OLD EXAM.
[2018-12-03] MEDS: MAGNESIUM SULFATE-D5W PMX 1 GM in DEXTROSE/WATER 1 100ML.BAG IVPB SCH (00:32)
[2018-12-03 03:29] LABS: Magnesium 2.3 mg/dL (1.6-2.3)
[2018-12-03] MEDS: PANTOPRAZOLE 40 MG TABLET PO SCH (06:47)
[2018-12-03] MEDS: FOLIC ACID 1 MG TAB PO SCH (08:51)
[2018-12-03] MEDS: METOPROLOL TARTRATE 25 MG TAB PO SCH ×2 (08:51→20:42)
[2018-12-03] MEDS: TAMSULOSIN 0.4 MG CAP.ER.24H PO SCH (08:51)
[2018-12-03] MEDS: LISINOPRIL 10 MG TAB PO SCH (08:51)
[2018-12-03] MEDS: ASPIRIN 325 MG TAB PO SCH (08:51)
[2018-12-03] MEDS: SODIUM CHLORIDE TAB 1 GM TAB PO SCH ×3 (08:51→23:40)
[2018-12-03] MEDS: CLOPIDOGREL 75 MG TAB PO SCH (08:51)
[2018-12-03] MEDS ORDERED: IPRATROPIUM-ALBUTEROL 3 ML NEB INHALATION STA (09:57)
[2018-12-03] MEDS ORDERED: LEVOFLOXACIN 500MG-D5W PMX 500 MG in DEXTROSE/WATER 1 100ML.BAG IVPB SCH (10:00)
--- NOTE | 2018-12-03 10:29 | P.HPIM ---
History of Present Illness H&P Date: 12/03/18 Chief Complaint: Weakness, fall 2 This is a pleasant 73-year-old male who presented to the emergency room with complaints of progressive weakness, an episode of chest pain and a fall 2. Patient states that he has been home for [facility] for about 3 days where he was being treated for hyponatremia. Prior to that hospitalization patient was in [facility] for treatment for EtOH abuse. Patient states that he has been refraining from alcohol for the past 2 weeks. However yesterday he began to have symptoms that were similar to his withdrawals which include shakiness, progressive weakness and falling. Yesterday he went to the grocery store upon arrival home he experienced an episode of chest pain where he fell and hit his right elbow causing a skin tear. Patient's past medical history is significant for coronary artery disease, hyperlipidemia, hypertension, BPH, bladder CA, carotid artery disease, EtOH abuse, nicotine abuse. At this time patient is sitting up in bed in no acute distress. He is able to answer questions appropriately. Patient states that he has not drank alcohol for the last 2 weeks. He thought that once he was home after his hospitalization because of the hyponatremia everything would be fine, however he experience the same symptoms of shakiness, weakness that occurred prior to his first hospitalization. Patient states that he is feeling better compared to yesterday. Patient is declining any nicotine patches at this time. Patient denies any chest pain or difficulty breathing. Review of Systems Review Of Systems: Constitutional: No fever, no chills, no night sweats. No weight change. Reports weakness, no fatigue or lethargy. No daytime sleepiness. EENT: No headache. No blurred vision or double vision, no loss of vision. No loss of Hearing, no ringing in the ears, no dizziness. No nasal drainage or congestion. No epistaxis. No sore throat. Lungs: No shortness of breath, reports cough, no sputum production. No wheezing. Cardiovascular: No chest pain, no lower extremity edema. No palpitations. No paroxysmal nocturnal dyspnea. No orthopnea. No lightheadedness or dizziness. No syncopal episodes. Abdominal: no abdominal discomfort. No nausea, vomiting. no diarrhea. No constipation. No bloody or tarry stools. no loss of appetite. Genitourinary: No dysuria, increased frequency, urgency. No urinary retention. Musculoskeletal: No myalgias. No muscle weakness, no gait dysfunction, no frequent falls. No back pain. No neck pain. Integumentary: No wounds, no lesions. No rash or pruritus. No unusual bruising. No change in hair or nails. Neurologic: No aphasia. No facial droop. No change in mentation. No head injury. No headache. No paralysis. No paresthesia. Psychiatric: No depression. No anxiety. No mood swings. Endocrine: No abnormal blood sugars. No weight change. No excessive sweating or thirst. Past Medical History Past Medical History: Coronary Artery Disease (CAD), Cancer, Chest Pain / Angina, GERD/Reflux, Hyperlipidemia, Hypertension, Osteoarthritis (OA), Prostate Disorder, Vascular Disorder Additional Past Medical History / Comment(s): carotid artery disease/BPH, bladder cancer History of Any Multi-Drug Resistant Organisms: None Reported Past Surgical History: Bladder Surgery, Coronary Bypass/CABG, Heart Catheterization With Stent Additional Past Surgical History / Comment(s): RIGHT carotid endartectomy, left cataract surgery/colonoscopy , TURP 03/11/2014 Past Anesthesia/Blood Transfusion Reactions: No Reported Reaction Date of Last Stent Placement:: 1996 Past Psychological History: Anxiety, Depression Smoking Status: Former smoker Past Alcohol Use History: Daily Additional Past Alcohol Use History / Comment(s): HAS BEEN SMOKING SINCE AGE 20 DOWN TO 3-4 CIGARETTES DAILY. 3-4 BEERS DAILY Past Drug Use History: None Reported - Past Family History Father Family Medical History: Coronary Artery Disease (CAD) Mother Family Medical History: CVA/TIA Sister(s) Family Medical History: No Reported History Daughter(s) Family Medical History: No Reported History Son(s) Family Medical History: No Reported History Medications and Allergies Home Medications Medication Instructions Recorded Confirmed Type Tamsulosin [Flomax] 0.4 mg PO DAILY 07/16/16 12/02/18 History Pantoprazole [Protonix] 40 mg PO AC-BRKFST #30 tab 07/27/16 12/02/18 Rx Metoprolol Tartrate [Lopressor] 25 mg PO BID 05/12/18 12/02/18 History Lisinopril [Zestril] 10 mg PO DAILY 07/11/18 12/02/18 History Aspirin EC [Ecotrin Low Dose] 81 mg PO DAILY 12/02/18 12/02/18 History Clopidogrel Bisulfate [Plavix] 75 mg PO DAILY 12/02/18 12/02/18 History Folic Acid 1 mg PO DAILY 12/02/18 12/02/18 History Melatonin 5 mg PO HS 12/02/18 12/02/18 History Sodium Chloride Tab 1 gm PO TID 12/02/18 12/02/18 History Allergies Allergy/AdvReac Type Severity Reaction Status Date / Time No Known Allergies Allergy Verified 12/02/18 16:44 Physical Exam Vitals: Vital Signs Temp Pulse Pulse Resp BP BP Pulse Ox 12/03/18 08:00 98.1 F 64 18 128/60 98 12/03/18 03:35 98.5 F 61 18 152/89 98 12/03/18 00:30 98.4 F 58 L 20 152/66 100 12/02/18 20:52 97 12/02/18 20:00 98.0 F 79 18 189/79 96 12/02/18 19:55 98.0 F 79 18 189/79 96 12/02/18 18:44 100.4 F H 88 18 167/70 97 12/02/18 18:32 88 18 167/70 97 12/02/18 16:50 100.4 F H 71 22 166/71 100 12/02/18 15:22 88 18 150/63 97 12/02/18 14:28 71 18 89/71 95 Intake and Output 12/02/18 12/03/18 12/03/18 22:59 06:59 14:59 Intake Total 200 Output Total 125 Balance 75 Intake: Oral 200 Output: Urine 125 Other: Voiding Method Urinal Toilet # Voids 1 Weight 56.7 kg General Appearance: Alert, cooperative, no distress, appears stated age. Neck HEENT: Supple, no lymphadenopathy, no thyroid enlargement, no carotid bruits. Lungs: Crackles noted on the left, no wheezes, no rhonchi, no deformity Chest Wall: Chest wall decreased expansion with deep inspiration no tenderness and no deformity was found on exam, no costochondral pain or discomfort. Heart: Regular rate and rhythm, S1, S2 normal, no murmur, rub or gallop. Back: Symmetric, no curvature, ROM normal, no CVA tenderness. Abdomen: Soft, non-tender, no rebound or rigidity, no hepatosplenomegaly. Extremities: Extremities normal, atraumatic, no cyanosis or edema. Pulses: 2+ and symmetric. Skin: Skin color, texture, tugor normal, no rashes or lesions. Neurologic: Alert oriented x3 cranial nerves II through XII intact, no motor deficit, no abnormal balance or gait Results CBC & Chem 7: 12/02/18 15:07 12/02/18 15:07 Labs: Abnormal Lab Results - Last 24 Hours (Table) 12/02/18 12/02/18 12/02/18 Range/Units 15:07 15:07 19:21 WBC 11.2 H (3.8-10.6) k/uL RBC 4.03 L (4.30-5.90) m/uL Hgb 12.4 L (13.0-17.5) gm/dL Hct 37.4 L (39.0-53.0) % Neutrophils # 10.0 H (1.3-7.7) k/uL Lymphocytes # 0.6 L (1.0-4.8) k/uL D-Dimer (<0.60) mg/L FEU Sodium 131 L (137-145) mmol/L Chloride 96 L (98-107) mmol/L Magnesium 1.3 L (1.6-2.3) mg/dL HDL Cholesterol (40-60) mg/dL Urine Ketones 1+ H (Negative) 12/02/18 12/03/18 Range/Units 20:04 02:49 WBC (3.8-10.6) k/uL RBC (4.30-5.90) m/uL Hgb (13.0-17.5) gm/dL Hct (39.0-53.0) % Neutrophils # (1.3-7.7) k/uL Lymphocytes # (1.0-4.8) k/uL D-Dimer 1.73 H (<0.60) mg/L FEU Sodium (137-145) mmol/L Chloride (98-107) mmol/L Magnesium (1.6-2.3) mg/dL HDL Cholesterol 37 L (40-60) mg/dL Urine Ketones (Negative) Thrombosis Risk Factor Assmnt - Choose All That Apply Any of the Below Risk Factors Present?: Yes Each Risk Factor Represents 2 Points: Age 61-74 years Thrombosis Risk Factor Assessment Total Risk Factor Score: 2 Thrombosis Risk Factor Assessment Level: Low Risk Assessment and Plan Plan: 1. COPD exacerbation with pleurisy. Consult pulmonology, Daniel Vergara, Solu-Medrol 60 mg IV every [address] impression no evidence of pulmonary embolism, patchy pneumonia and pleural fluid in the left lower lobe. Emphysema 2. Left-sided pneumonia. Obtain sputum culture, Levaquin 500 mg daily, continue with pulmonary support 3. Fever with leukocytosis. Levaquin 500 mg daily 4. Hypomagnesemia. Magnesium per protocol, magnesium 40 mg daily, thiamine 100 mg daily 5. EtOH abuse. Stable see above 6. Generalized weakness. PT/OT consult 7. 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 review previous hospitalization, june order echocardiogram 8. Nicotine dependence. Declined nicotine patch. 9. Hyperlipidemia. Aspirin 325 mg daily. 10. Hypertension. Lisinopril 10 mg daily, Lopressor 25 mg twice a day 11. Coronary artery disease. Continue Plavix 75 mg daily, aspirin 325 mg daily 12. BPH. Tamsulosin 0.4 mg daily 13. GERD. Protonix 40 mg GI prophylaxis. Protonix 40 mg daily, DVT prophylaxis pneumatic compression stockings Patient admitted for minimum of 2 nights CODE STATUS: Full code Impression and plan of care have been directed as dictated by the signing physician. Shefali Weaver nurse practitioner acting as scribe for signing physician.
--- NOTE | 2018-12-03 11:40 | P.CRDCN ---
History of Present Illness Consult date: 12/03/18 Chief complaint: Generalized weakness History of present illness: This is a pleasant 73-year-old gentleman with a past medical history significant for coronary artery disease and status post coronary artery bypass grafting, hypertension, dyslipidemia, history of EtOH abuse, presented to the hospital complaining of weakness and not feeling well. The patient was recently getting treated for alcohol abuse at a rehab facility. Subsequently he stated that he was admitted to [facility] with severe hyponatremia. Since then he has been not drinking alcohol and refraining himself from alcohol. Yesterday he was doing some grocery shopping when suddenly he felt weak and dizzy but he did not lose his consciousness. He did have mild chest discomfort lasted only for a few seconds. No feeling of heart racing or fluttering. Because of that he decided to come to the emergency room. The workup overall came in to be unremarkable. The EKG showed sinus rhythm without any significant ST or T-wave abnormalities. The cardiac enzymes were checked and came in to be unremarkable. The chest x-ray showed possible underlying pneumonia. The patient was admitted to the hospital for COPD exacerbation as well as possible pneumonia. During his hospital stay, he did have only one episode of sinus bradycardia with heart rate around 50. The patient currently is [facility] for coronary artery disease. He has been chest pain free. In 2017, he underwent CABG 3 with GALLO to LAD, SVG to ramus, and SVG to PDA. Past Medical History Past Medical History: Coronary Artery Disease (CAD), Cancer, Chest Pain / Angina, GERD/Reflux, Hyperlipidemia, Hypertension, Osteoarthritis (OA), Prostate Disorder, Vascular Disorder Additional Past Medical History / Comment(s): carotid artery disease/BPH, bladder cancer History of Any Multi-Drug Resistant Organisms: None Reported Past Surgical History: Bladder Surgery, Coronary Bypass/CABG, Heart Catheterization With Stent Additional Past Surgical History / Comment(s): RIGHT carotid endartectomy, left cataract surgery/colonoscopy , TURP 03/11/2014 Past Anesthesia/Blood Transfusion Reactions: No Reported Reaction Date of Last Stent Placement:: 1996 Past Psychological History: Anxiety, Depression Smoking Status: Former smoker Past Alcohol Use History: Daily Additional Past Alcohol Use History / Comment(s): HAS BEEN SMOKING SINCE AGE 20 DOWN TO 3-4 CIGARETTES DAILY. 3-4 BEERS DAILY Past Drug Use History: None Reported - Past Family History Father Family Medical History: Coronary Artery Disease (CAD) Mother Family Medical History: CVA/TIA Sister(s) Family Medical History: No Reported History Daughter(s) Family Medical History: No Reported History Son(s) Family Medical History: No Reported History Medications and Allergies Home Medications Medication Instructions Recorded Confirmed Type Tamsulosin [Flomax] 0.4 mg PO DAILY 07/16/16 12/02/18 History Pantoprazole [Protonix] 40 mg PO AC-BRKFST #30 tab 07/27/16 12/02/18 Rx Metoprolol Tartrate [Lopressor] 25 mg PO BID 05/12/18 12/02/18 History Lisinopril [Zestril] 10 mg PO DAILY 07/11/18 12/02/18 History Aspirin EC [Ecotrin Low Dose] 81 mg PO DAILY 12/02/18 12/02/18 History Clopidogrel Bisulfate [Plavix] 75 mg PO DAILY 12/02/18 12/02/18 History Folic Acid 1 mg PO DAILY 12/02/18 12/02/18 History Melatonin 5 mg PO HS 12/02/18 12/02/18 History Sodium Chloride Tab 1 gm PO TID 12/02/18 12/02/18 History Allergies Allergy/AdvReac Type Severity Reaction Status Date / Time No Known Allergies Allergy Verified 12/02/18 16:44 Physical Exam Vitals: Vital Signs Temp Pulse Pulse Resp BP BP Pulse Ox 12/03/18 11:23 52 L 16 135/63 97 12/03/18 08:00 98.1 F 64 18 128/60 98 12/03/18 03:35 98.5 F 61 18 152/89 98 12/03/18 00:30 98.4 F 58 L 20 152/66 100 12/02/18 20:52 97 12/02/18 20:00 98.0 F 79 18 189/79 96 12/02/18 19:55 98.0 F 79 18 189/79 96 12/02/18 18:44 100.4 F H 88 18 167/70 97 12/02/18 18:32 88 18 167/70 97 12/02/18 16:50 100.4 F H 71 22 166/71 100 12/02/18 15:22 88 18 150/63 97 12/02/18 14:28 71 18 89/71 95 Intake and Output 12/02/18 12/03/18 12/03/18 22:59 06:59 14:59 Intake Total 200 250 Output Total 125 Balance 75 250 Intake: Oral 200 250 Output: Urine 125 Other: Voiding Method Urinal Toilet # Voids 1 Weight 56.7 kg - Constitutional General appearance: no acute distress - Respiratory Respiratory: bilateral: CTA - Cardiovascular Rhythm: regular Heart sounds: normal: S1, S2 Results 12/02/18 15:07 12/02/18 15:07 Cardiac Enzymes 12/02/18 12/02/18 12/02/18 Range/Units 15:07 15:07 20:04 AST 35 (17-59) U/L Troponin I <0.012 0.016 (0.000-0.034) ng/mL 12/03/18 Range/Units 02:49 AST (17-59) U/L Troponin I 0.025 (0.000-0.034) ng/mL Coagulation 12/02/18 Range/Units 15:07 PT 11.2 (9.0-12.0) sec APTT 27.1 (22.0-30.0) sec Lipids 12/03/18 Range/Units 02:49 Triglycerides 49 (<150) mg/dL Cholesterol 114 (<200) mg/dL HDL Cholesterol 37 L (40-60) mg/dL CBC 12/02/18 Range/Units 15:07 WBC 11.2 H (3.8-10.6) k/uL RBC 4.03 L (4.30-5.90) m/uL Hgb 12.4 L (13.0-17.5) gm/dL Hct 37.4 L (39.0-53.0) % Plt Count 275 (150-450) k/uL Comprehensive Metabolic Panel 12/02/18 Range/Units 15:07 Sodium 131 L (137-145) mmol/L Potassium 4.5 (3.5-5.1) mmol/L Chloride 96 L (98-107) mmol/L Carbon Dioxide 23 (22-30) mmol/L BUN 11 (9-20) mg/dL Creatinine 0.73 (0.66-1.25) mg/dL Glucose 99 (74-99) mg/dL Calcium 9.7 (8.4-10.2) mg/dL AST 35 (17-59) U/L ALT 36 (21-72) U/L Alkaline Phosphatase 82 (38-126) U/L Total Protein 7.0 (6.3-8.2) g/dL Albumin 4.0 (3.5-5.0) g/dL Current Medications Generic Name Dose Route Start Last Admin Trade Name Freq PRN Reason Stop Dose Admin Acetaminophen 650 mg 12/02/18 18:43 12/02/18 18:53 Tylenol Tab PO 650 mg Q6HR PRN Administration Fever and/ or Pain Albuterol/Ipratropium 3 ml 12/03/18 09:57 Duoneb 0.5 Mg-3 Mg/3 Ml Soln INHALATION RT-Q4H PRN Shortness Of Breath Or Wheezing Aspirin 325 mg 12/03/18 09:00 12/03/18 08:51 Aspirin PO 325 mg DAILY [facility] Administration Budesonide 0.5 mg 12/03/18 20:00 Pulmicort INHALATION RT-BID [facility] Clopidogrel Bisulfate 75 mg 12/03/18 09:00 12/03/18 08:51 Plavix PO 75 mg DAILY [facility] Administration Folic Acid 1 mg 12/03/18 09:00 12/03/18 08:51 Folic Acid PO 1 mg DAILY MARJ Administration Levofloxacin 500 mg/ IV 100 mls @ 100 mls/hr 12/03/18 10:00 Solution IVPB Q24H [facility] Insulin Aspart 0 unit 12/03/18 12:30 Novolog SQ ACHS [facility] Protocol Lisinopril 10 mg 12/03/18 09:00 12/03/18 08:51 Zestril PO 10 mg DAILY [facility] Administration Magnesium Oxide 400 mg 12/03/18 10:00 Mag-Ox PO DAILY [facility] Melatonin 5 mg 12/02/18 21:00 12/02/18 21:50 Melatonin PO 5 mg HS [facility] Administration Methylprednisolone Sodium Succinate 60 mg 12/03/18 12:00 Solu-Medrol IV Q6HR [facility] Metoprolol Tartrate 25 mg 12/02/18 21:00 12/03/18 08:51 Lopressor PO 25 mg BID MARJ Administration Miscellaneous Information 1 each 12/02/18 20:01 Magnesium Per Protocol MISCELLANE DAILY PRN Per Protocol Protocol Nitroglycerin 0.4 mg 12/02/18 16:52 Nitrostat SUBLINGUAL Q5M PRN Chest Pain Pantoprazole Sodium 40 mg 12/03/18 07:30 12/03/18 06:47 Protonix PO 40 mg AC-BRKFST MARJ Administration Sodium Chloride 1 gm 12/02/18 22:00 12/03/18 08:51 Sodium Chloride Tab PO 1 gm TID MARJ Administration Tamsulosin HCl 0.4 mg 12/03/18 09:00 12/03/18 08:51 Flomax PO 0.4 mg DAILY MARJ Administration Thiamine HCl 100 mg 12/03/18 10:00 Vitamin B-1 PO DAILY MARJ Intake and Output 12/02/18 12/03/18 12/03/18 22:59 06:59 14:59 Intake Total 200 250 Output Total 125 Balance 75 250 Intake: Oral 200 250 Output: Urine 125 Other: Voiding Method Urinal Toilet # Voids 1 Weight 56.7 kg 12/02/18 15:07 12/02/18 15:07 Assessment and Plan Assessment: Assessment #1 generalized weakness #2 brief episode of atypical chest pain #3 COPD exacerbation #4 possible underlying pneumonia #5 alcohol abuse #6 coronary artery disease Plan #1 acute coronary syndrome was ruled out #2 I would continue monitor the blood pressure and heart rate #3 watch carefully for any episodes of sinus bradycardia #4 obtain an echocardiogram with Doppler #5 follow-up with the patient Thank you for allowing us participate in his care
[2018-12-03] MEDS: INSULIN ASPART (NovoLOG) 100 UNIT/ML VIAL SQ SCH ×3 (11:51→20:42)
[2018-12-03] MEDS: methylPREDNISolone SOD SUCCI 125 MG/2 ML VIAL IV SCH ×3 (11:54→23:40)
[2018-12-03] MEDS: THIAMINE 100 MG TAB PO SCH (11:54)
[2018-12-03] MEDS: MAGNESIUM OXIDE 400 MG TAB PO SCH (11:54)
[2018-12-03 16:08] VITALS: BMI 19.5
[2018-12-03 16:40] LABS: Glucose,Whole Blood 140 mg/dL (75-99)
[2018-12-03 20:25] LABS: Glucose,Whole Blood 261 mg/dL (75-99)
[2018-12-03] MEDS: MELATONIN 5 MG TABLET PO SCH (20:42)
[2018-12-03] MEDS: MIRTAZAPINE 15 MG TAB PO SCH (20:42)
[2018-12-03] MEDS: IPRATROPIUM-ALBUTEROL 3 ML NEB INHALATION PRN (21:32)
[2018-12-03] MEDS: BUDESONIDE 0.5 MG/2 ML NEBU INHALATION SCH (21:32)
[2018-12-04 06:23] LABS: Basophils % (A) 0 %; Eosinophils % (A) 1 %; HCT 29.6 % (39.0-53.0); HGB 10.3 gm/dL (13.0-17.5); Lymphocytes # (A) 0.3 k/uL (1.0-4.8); Lymphocytes % (A) 4 %; MCH 32.2 pg (25.0-35.0); MCHC 34.9 g/dL (31.0-37.0); MCV 92.1 fL (80.0-100.0); Mean Platelet Volume 6.2; Monocytes # (A) 0.1 k/uL (0-1.0); Monocytes % (A) 1 %; Neutrophils # (A) 6.6 k/uL (1.3-7.7); Neutrophils % (A) 94 %; Platelet Count 262 k/uL (150-450); RBC 3.21 m/uL (4.30-5.90); RDW 12.9 % (11.5-15.5)
[2018-12-04 06:38] LABS: Glucose,Whole Blood 184 mg/dL (75-99)
[2018-12-04] MEDS: PANTOPRAZOLE 40 MG TABLET PO SCH (06:40)
[2018-12-04] MEDS: INSULIN ASPART (NovoLOG) 100 UNIT/ML VIAL SQ SCH ×4 (06:40→21:03)
[2018-12-04] MEDS: methylPREDNISolone SOD SUCCI 125 MG/2 ML VIAL IV SCH ×2 (06:40→12:08)
[2018-12-04 06:56] LABS: African American GFR (CKD) >90 (>60 ml/min/1.73 sqM); Anion Gap 8 mmol/L; Blood Urea Nitrogen 9 mg/dL (9-20); Calcium 9.2 mg/dL (8.4-10.2); Carbon Dioxide 21 mmol/L (22-30); Chloride 100 mmol/L (98-107); Glucose 172 mg/dL (74-99); Sodium 129 mmol/L (137-145)
[2018-12-04] MEDS: BUDESONIDE 0.5 MG/2 ML NEBU INHALATION SCH ×2 (07:21→21:21)
[2018-12-04] MEDS: IPRATROPIUM-ALBUTEROL 3 ML NEB INHALATION PRN (07:22)
[2018-12-04] MEDS: CLOPIDOGREL 75 MG TAB PO SCH (08:50)
[2018-12-04] MEDS: FOLIC ACID 1 MG TAB PO SCH (08:50)
[2018-12-04] MEDS: ASPIRIN 325 MG TAB PO SCH (08:50)
[2018-12-04] MEDS: LEVOFLOXACIN 500 MG TAB PO SCH (08:51)
[2018-12-04] MEDS: THIAMINE 100 MG TAB PO SCH (08:51)
[2018-12-04] MEDS: SODIUM CHLORIDE TAB 1 GM TAB PO SCH ×3 (08:51→21:03)
[2018-12-04] MEDS: MAGNESIUM OXIDE 400 MG TAB PO SCH (08:51)
[2018-12-04] MEDS: LISINOPRIL 10 MG TAB PO SCH (08:51)
[2018-12-04] MEDS: METOPROLOL TARTRATE 25 MG TAB PO SCH ×2 (08:51→21:03)
[2018-12-04] MEDS: TAMSULOSIN 0.4 MG CAP.ER.24H PO SCH (08:51)
[2018-12-04 11:56] LABS: Glucose,Whole Blood 186 mg/dL (75-99)
--- NOTE | 2018-12-04 11:57 | P.PN ---
Subjective Patient resting comfortably in bed no chest discomfort dizziness lightheadedness or palpitations at this time breath sounds are clear no rhonchi no crackles Normal heart sounds S1 and S2 normal Blood pressure 147 was 60 mmHg pulse rate in the 70s afebrile 98.7F Breath sounds are clear Abdomen soft nontender Extremity warm edema Impression Patient admitted with dizziness low blood pressure was documented in the ER 89 mmHg systolic. He is febrile 100.4. He is a history of alcohol use He is intolerant to statins History of coronary artery disease status post coronary artery bypass grafting. Troponins not elevated Hypertension Dyslipidemia History of alcohol abuse Plan From a cardiac standpoint continue current medications, continue dual antiplatelet therapy and Lisinopril 10 mg by mouth daily and metoprolol Objective - Vital Signs Vital signs: Vital Signs Temp 98.7 F 12/04/18 08:00 Pulse 71 12/04/18 11:01 Resp 16 12/04/18 11:01 BP 147/69 12/04/18 11:01 Pulse Ox 95 12/04/18 11:01 Intake & Output 12/03/18 12/04/18 12/04/18 18:59 06:59 18:59 Intake Total 990 240 Balance 990 240 Weight 56.7 kg 54.6 kg Intake: Intake, IV Titration 240 Amount Sodium Chloride 0.9% 1, 240 000 ml @ 100 mls/hr IV . Q10H STA Rx#:[id number] Oral 750 240 Other: Voiding Method Toilet # Voids 0 1 1 - Labs CBC & Chem 7: 12/04/18 05:55 12/04/18 05:55 Labs: Abnormal Lab Results - Last 24 Hours (Table) 12/03/18 12/03/18 12/04/18 Range/Units 16:39 20:23 05:55 RBC 3.21 L (4.30-5.90) m/uL Hgb 10.3 L (13.0-17.5) gm/dL Hct 29.6 L (39.0-53.0) % Lymphocytes # 0.3 L (1.0-4.8) k/uL Sodium (137-145) mmol/L Carbon Dioxide (22-30) mmol/L Creatinine (0.66-1.25) mg/dL Glucose (74-99) mg/dL POC Glucose (mg/dL) 140 H 261 H (75-99) mg/dL 12/04/18 12/04/18 12/04/18 Range/Units 05:55 06:35 11:54 RBC (4.30-5.90) m/uL Hgb (13.0-17.5) gm/dL Hct (39.0-53.0) % Lymphocytes # (1.0-4.8) k/uL Sodium 129 L (137-145) mmol/L Carbon Dioxide 21 L (22-30) mmol/L Creatinine 0.55 L (0.66-1.25) mg/dL Glucose 172 H (74-99) mg/dL POC Glucose (mg/dL) 184 H 186 H (75-99) mg/dL Microbiology - Last 24 Hours (Table) 12/02/18 15:07 Blood Culture - Preliminary Blood No Growth after 24 hours
--- NOTE | 2018-12-04 12:01 | ECHOF ---
Referral Reason:cp MEASUREMENTS -------- HEIGHT: 170.2 cm WEIGHT: 54.4 kg BP: 158/70 RVIDd: 2.4 cm (< 3.3) IVSd: 0.9 cm (0.6 - 1.1) LVIDd: 3.5 cm (3.9 - 5.3) LVPWd: 1.1 cm (0.6 - 1.1) IVSs: 1.6 cm LVIDs: 1.7 cm LVPWs: 1.7 cm LAESV Index (A-L): 30.25 ml/m Ao Diam: 2.7 cm (2.0 - 3.7) AV Cusp: 2.0 cm (1.5 - 2.6) LA Diam: 4.1 cm (2.7 - 3.8) MV EXCURSION: 14.924 mm (> 18.000) MV EF SLOPE: 88 mm/s (70 - 150) EPSS: 0.2 cm MV E Brian: 1.02 m/s MV DecT: 182 ms MV A Brian: 0.93 m/s MV E/A Ratio: 1.09 RAP: 5.00 mmHg RVSP: 19.35 mmHg TAPSE: 20.13 mm FINDINGS -------- Sinus rhythm. This was a technically good study. The left ventricular size is normal. There is mild concentric left ventricular hypertrophy. Overa ll left ventricular systolic function is normal with, an EF between 55 - 60 %. The diastolic fillin g pattern is normal for the age of the patient 10.99. The right ventricle is normal in size. The right ventricular systolic function is normal. LA is midly dilated 29-33ml/m2. The right atrial size is normal. Aortic valve is trileaflet and is mildly thickened. The mitral valve is normal. The mitral valve leaflets are mildly thickened. Mild mitral annular c alcification present. There is trace mitral regurgitation. The tricuspid valve appears structurally normal. Trace tricuspid regurgitation present. Right willard tricular systolic pressure is normal at < 35 mmHg. There is no pulmonic regurgitation present. The aortic root size is normal. Normal inferior vena cava with normal inspiratory collapse consistent with estimated right atrial pre ssure of 5 mmHg. There is no pericardial effusion. CONCLUSIONS -------- 1. Sinus rhythm. 2. This was a technically good study. 3. The left ventricular size is normal. 4. There is mild concentric left ventricular hypertrophy. 5. Overall left ventricular systolic function is normal with, an EF between 55 - 60 %. 6. The diastolic filling pattern is normal for the age of the patient 10.99 7. The right ventricle is normal in size. 8. The right ventricular systolic function is normal. 9. LA is midly dilated 29-33ml/m2. 10. The right atrial size is normal. 11. Aortic valve is trileaflet and is mildly thickened. 12. The mitral valve is normal. 13. The mitral valve leaflets are mildly thickened. 14. Mild mitral annular calcification present. 15. There is trace mitral regurgitation. 16. The tricuspid valve appears structurally normal. 17. Trace tricuspid regurgitation present. 18. Right ventricular systolic pressure is normal at < 35 mmHg. 19. There is no pulmonic regurgitation present. 20. The aortic root size is normal. 21. Normal inferior vena cava with normal inspiratory collapse consistent with estimated right atrial pressure of 5 mmHg. 22. There is no pericardial effusion. TUBE KNITTER: Karina Salinas RDCS
--- NOTE | 2018-12-04 15:45 | P.PN ---
Subjective Progress Note Date: 12/04/18 This is a pleasant 73-year-old male who presented to the emergency room with complaints of progressive weakness, an episode of chest pain and a fall 2. Patient states that he has been home for [facility] for about 3 days where he was being treated for hyponatremia. Prior to that hospitalization patient was in [facility] for treatment for EtOH abuse. Patient states that he has been refraining from alcohol for the past 2 weeks. However yesterday he began to have symptoms that were similar to his withdrawals which include shakiness, progressive weakness and falling. Yesterday he went to the grocery store upon arrival home he experienced an episode of chest pain where he fell and hit his right elbow causing a skin tear. Patient's past medical history is significant for coronary artery disease, hyperlipidemia, hypertension, BPH, bladder CA, carotid artery disease, EtOH abuse, nicotine abuse. At this time patient is sitting up in bed in no acute distress. He is able to answer questions appropriately. Patient states that he has not drank alcohol for the last 2 weeks. He thought that once he was home after his hospitalization because of the hyponatremia everything would be fine, however he experience the same symptoms of shakiness, weakness that occurred prior to his first hospitalization. Patient states that he is feeling better compared to yesterday. Patient is declining any nicotine patches at this time. Patient denies any chest pain or difficulty breathing. 12/04: Patient states that his breathing and his walking is much better today. He denies any shortness of breath. He gives history that he stopped smoking 1 month ago but he occasionally has a couple cigarettes per day. He has requested to speak with social work regarding counseling for alcohol. Patient has been followed by cardiology with recommendations to continue dual antiplatelet therapy and lisinopril, metoprolol. He has been afebrile, heart rate 71, blood pressure 147/69, pulse ox 95% on room air. WBC 7.0, hemoglobin 10.3, sodium 129, BUN 40, creatinine 0.55. Blood sugars running between 140 and 261. Blood cultures no growth after 24 hours. Solu-Medrol will be decreased to 40 every 8 hours and start prednisone in the morning. Anticipate probable discharge home tomorrow. Review of Systems Review Of Systems: Constitutional: No fever, no chills, no night sweats. No weight change. Reports weakness, no fatigue or lethargy. No daytime sleepiness. EENT: No headache. No blurred vision or double vision, no loss of vision. No loss of Hearing, no ringing in the ears, no dizziness. No nasal drainage or congestion. No epistaxis. No sore throat. Lungs: shortness of breath improved, reports cough, no sputum production. No wheezing. Cardiovascular: No chest pain, no lower extremity edema. No palpitations. No paroxysmal nocturnal dyspnea. No orthopnea. No lightheadedness or dizziness. No syncopal episodes. Abdominal: no abdominal discomfort. No nausea, vomiting. no diarrhea. No constipation. No bloody or tarry stools. no loss of appetite. Genitourinary: No dysuria, increased frequency, urgency. No urinary retention. Musculoskeletal: No myalgias. No muscle weakness, no gait dysfunction, no frequent falls. No back pain. No neck pain. Integumentary: No wounds, no lesions. No rash or pruritus. No unusual bruising. No change in hair or nails. Neurologic: No aphasia. No facial droop. No change in mentation. No head injury. No headache. No paralysis. No paresthesia. Psychiatric: No depression. No anxiety. No mood swings. Endocrine: No abnormal blood sugars. No weight change. No excessive sweating or thirst. Objective - Vital Signs Vital signs: Vital Signs Temp 98.7 F 12/04/18 08:00 Pulse 71 12/04/18 11:01 Resp 16 12/04/18 11:01 BP 147/69 12/04/18 11:01 Pulse Ox 95 12/04/18 11:01 Intake & Output 12/03/18 12/04/18 12/04/18 18:59 06:59 18:59 Intake Total 990 240 Balance 990 240 Weight 56.7 kg 54.6 kg Intake: Intake, IV Titration 240 Amount Sodium Chloride 0.9% 1, 240 000 ml @ 100 mls/hr IV . Q10H STA Rx#:[id number] Oral 750 240 Other: Voiding Method Toilet # Voids 0 1 1 - Exam General Appearance: Alert, cooperative, no distress, appears stated age, sitting in recliner. Neck HEENT: Supple, no lymphadenopathy, no thyroid enlargement, no carotid bruits. Lungs: Crackles noted on the left, no wheezes, no rhonchi, no deformity Chest Wall: Chest wall decreased expansion with deep inspiration no tenderness and no deformity was found on exam, no costochondral pain or discomfort. Heart: Regular rate and rhythm, S1, S2 normal, no murmur, rub or gallop. Back: Symmetric, no curvature, ROM normal, no CVA tenderness. Abdomen: Soft, non-tender, no rebound or rigidity, no hepatosplenomegaly. Extremities: Extremities normal, atraumatic, no cyanosis or edema. Pulses: 2+ and symmetric. Skin: Skin color, texture, tugor normal, no rashes or lesions. Neurologic: Alert oriented x3 cranial nerves II through XII intact, no motor deficit, no abnormal balance or gait - Labs CBC & Chem 7: 12/04/18 05:55 12/04/18 05:55 Labs: Abnormal Lab Results - Last 24 Hours (Table) 12/03/18 12/03/18 12/04/18 Range/Units 16:39 20:23 05:55 RBC 3.21 L (4.30-5.90) m/uL Hgb 10.3 L (13.0-17.5) gm/dL Hct 29.6 L (39.0-53.0) % Lymphocytes # 0.3 L (1.0-4.8) k/uL Sodium (137-145) mmol/L Carbon Dioxide (22-30) mmol/L Creatinine (0.66-1.25) mg/dL Glucose (74-99) mg/dL POC Glucose (mg/dL) 140 H 261 H (75-99) mg/dL 12/04/18 12/04/18 12/04/18 Range/Units 05:55 06:35 11:54 RBC (4.30-5.90) m/uL Hgb (13.0-17.5) gm/dL Hct (39.0-53.0) % Lymphocytes # (1.0-4.8) k/uL Sodium 129 L (137-145) mmol/L Carbon Dioxide 21 L (22-30) mmol/L Creatinine 0.55 L (0.66-1.25) mg/dL Glucose 172 H (74-99) mg/dL POC Glucose (mg/dL) 184 H 186 H (75-99) mg/dL Microbiology - Last 24 Hours (Table) 12/02/18 15:07 Blood Culture - Preliminary Blood No Growth after 24 hours Assessment and Plan Plan: 1. COPD exacerbation with pleurisy. Consult pulmonology, Daniel Vergara, Solu-Medrol decreased to 40 mg every 8 hours and start prednisone in the morning. CT impression no evidence of pulmonary embolism, patchy pneumonia and pleural fluid in the left lower lobe. Emphysema 2. Left-sided pneumonia. Obtain sputum culture, Levaquin 500 mg daily, continue with pulmonary support 3. Fever with leukocytosis. Levaquin 500 mg daily 4. Hypomagnesemia. Magnesium per protocol, magnesium 40 mg daily, thiamine 100 mg daily 5. EtOH abuse. Stable see above 6. Generalized weakness. PT/OT consult 7. 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 review previous hospitalization, may order echocardiogram 8. Nicotine dependence. Declined nicotine patch. 9. Hyperlipidemia. Aspirin 325 mg daily. 10. Hypertension. Lisinopril 10 mg daily, Lopressor 25 mg twice a day 11. Coronary artery disease. Continue Plavix 75 mg daily, aspirin 325 mg daily 12. BPH. Tamsulosin 0.4 mg daily 13. GERD. Protonix 40 mg GI prophylaxis. Protonix 40 mg daily, DVT prophylaxis pneumatic compression stockings Patient admitted for minimum of 2 nights CODE STATUS: Full code Impression and plan of care have been directed as dictated by the signing physician. Cindi Edwards nurse practitioner acting as scribe for signing physician.
[2018-12-04] MEDS: SERTRALINE 25 MG TAB PO SCH (15:52)
--- NOTE | 2018-12-04 15:54 | P.CN ---
Psychiatric Consult - . Consult date: 12/04/18 Consult:: 12/04/18 15:45 IDENTIFYING DATA: This patient is a 73-year-old male who currently lives with his has 2 kids lives in a house collects Social Security. HISTORY OF PRESENT ILLNESS: The patient brought into the emergency room after experiencing 2 falls, was tremulous and extremity weakness in his legs and chest pain. Patient was recently seen at [facility] for hyponatremia. Patient is currently undergoing alcohol abuse treatment has been sober for the past 2 weeks as he was recently discharged from [facility] for voluntary alcohol detox. Psychiatry is consulted for depression. Patient was seated at the [facility] and appeared to be soft-spoken, and rather timid. He stated that he was recently discharged from [facility] for voluntary rehab for drinking alcohol. He states that he began drinking heavily approximately year ago and was drinking 4 beers a day. He states that he's been sober for the past 2 weeks and claims that "the alcohol part is gone" and states that he does not need any more help with rehab or going to any meetings. Patient claims that he is suffering from depression however and claims that he has anhedonia as he does not like to do the same activities and fun things that he used to. Patient claims that this is been going on for approximately a year. He endorsed to other main stressors in his life at this time including being a caregiver for his who has been on and off recovering from various knee surgeries and replacement. He also stated that his daughter moved up from [place] to [place] recently and had a infection in her leg which progressed and required amputation. He states that he also has some mild anxiety and claims that when he was started on Remeron his sleep had improved along with his appetite. At this time patient denies any suicidal or homical ideations, intent or plan. Patient denies any auditory, visual hallucinations and denies any paranoia or delusions. Patient denies using any other drugs at this time. PAST PSYCHIATRIC HISTORY: Patient claims that he was recently discharged from [facility] 2 weeks ago for voluntary rehab. He states that he has a history of depression and anxiety. Patient denies any psychiatric outpatient follow-up. Patient is currently on Remeron 30 mg daily at bedtime. He denies any previous suicide attempts. PAST MEDICAL HISTORY: Coronary artery disease with history of CABG, hyponatremia, hypertension. ALLERGIES: as per EMR. CHEMICAL DEPENDENCY HISTORY: as per HPI. FAMILY PSYCHIATRIC/SUBSTANCE USE HISTORY: Claims his mother suffered from depression SOCIAL HISTORY: Claims to be born and raised in [facility]. He attended 1 year of college and finished high school. Patient currently lives with his and has 2 kids. He currently collects Social Security. MENTAL STATUS EXAM: General Appearance: Patient appears to be stated age is alert, pleasant, and cooperative. Patient is soft-spoken, timid and poor eye contact. Behavior: Patient is calmly lying in bed without any agitated behavior. Speech: Patient's speech is fluent and nonpressured. Soft-spoken Mood/Affect: Patient reports their mood is "depressed", affect is congruent Suicidality/Homicidality: Patient denies having any suicidal or homicidal ideation intent or plan. Perceptions: Patient denies any auditory or visual hallucinations. Though content/process: There is no evidence of any delusional thought content and thought process is linear and goal-directed. Memory and concentration: AOX3, grossly intact for the purposes of this session. Can spell "WORLD" backwards Judgment and insight: fair IMPRESSIONS: Major depressive disorder, mild Anxiety disorder unspecified Alcohol use disorder PLAN: -At this time patient does NOT meet criteria for inpatient psychiatric admission. -Would recommend the following medication changes/additions: Patient can continue with Remeron 30 mg daily at bedtime for insomnia mood and appetite. Patient is agreeable to start Zoloft 25 mg daily for mood/anxiety. The plan will be to keep patient on 25 mg for 7 days and then increase to 50 mg daily thereafter. -Patient was given resources for both substance use rehab/substance treatment along with outpatient psychiatric and counseling referral. Patient was encouraged to follow-up with both therapist and psychiatrist as an outpatient for medication titration and management. -At this time patient is declining substance use rehab and AA meetings. -Psychiatry will sign off at this point
[2018-12-04] MEDS ORDERED: methylPREDNISolone SOD SUCCI 40 MG/ML 1 ML VIAL IV SCH (16:00)
--- NOTE | 2018-12-04 16:24 | P.CNPUL ---
History of Present Illness Consult date: 12/04/18 Requesting physician: Clay Kuo Reason for consult: cough, other Chief complaint: Shuffling gait, weak legs, left lower lobe and perihilar pneumonia History of present illness: This is a 73-year-old white male patient of Dr. Kuo, with past medical history of hypertension, hyperlipidemia, coronary artery disease history of bypass grafting, and stenting, carotid endarterectomy, osteoarthritis, bladder cancer, BPH, COPD, undergoing treatment for alcohol abuse, who presented to the hospital for evaluation of increasing weakness, shakiness, weak legs. Patient also had episode of chest pain on his presentation on 12/02/2018. Apparently he was recently treated at [facility] for hyponatremia and she was then transferred to the [facility] for treatment for alcohol abuse and patient has been sober for the past 2 weeks. Patient reports 2 falls since his discharge from the hospital and continued weakness. Patient also sustained another fall recently last week and reports sustaining a skin tear on his right elbow from a fall. Chest x-ray was completed showing evidence of left-sided pleural effusion, which was minimally improved in comparison with the previous study from July 2018. Chest CT was obtained and showed no evidence of pulmonary embolism, it did show patchy pneumonia and pleural fluid in the left lower lobe. It showed emphysema, and pleural thickening which was unchanged from the previous study from April 2018. Lab work showed white blood cell 11.2, hemoglobin of 12.4, d-dimer was 1.73, sodium was 131, potassium is 4.5, chloride is 96, Susan H lites and renal profile were within normal limits. Troponins were negative 3, LFTs were within normal limits, urinalysis does not show evidence of infection, just 1+ ketones, influenza screen was negative. She did have a low-grade fever on presentation with a temp of 100.4F, and has been afebrile since. Patient has been started on antibiotics with Levaquin, and IV steroids, and this consult was initiated. Review of Systems All systems: negative Constitutional: Reports weakness, Denies chills, Denies fever Eyes: denies blurred vision, denies pain Ears, nose, mouth and throat: Denies headache, Denies sore throat Cardiovascular: Reports decreased exercise tolerance, Denies chest pain, Denies shortness of breath Respiratory: Reports dyspnea, Reports respiratory infections, Denies cough Gastrointestinal: Denies abdominal pain, Denies diarrhea, Denies nausea, Denies vomiting Musculoskeletal: Reports frequent falls, Denies myalgias Musculoskeletal: left: shoulder pain Integumentary: Reports wounds, Denies pruritus, Denies rash Neurological: Reports gait dysfunction, Reports weakness, Denies numbness Psychiatric: Denies anxiety, Denies depression Endocrine: Denies fatigue, Denies weight change Past Medical History Past Medical History: Coronary Artery Disease (CAD), Cancer, Chest Pain / Angina, GERD/Reflux, Hyperlipidemia, Hypertension, Osteoarthritis (OA), Prostate Disorder, Vascular Disorder Additional Past Medical History / Comment(s): carotid artery disease/BPH, bladder cancer History of Any Multi-Drug Resistant Organisms: None Reported Past Surgical History: Bladder Surgery, Coronary Bypass/CABG, Heart Catheterization With Stent Additional Past Surgical History / Comment(s): RIGHT carotid endartectomy, left cataract surgery/colonoscopy , TURP 03/11/2014 Past Anesthesia/Blood Transfusion Reactions: No Reported Reaction Date of Last Stent Placement:: 1996 Past Psychological History: Anxiety, Depression Smoking Status: Former smoker Past Alcohol Use History: Daily Additional Past Alcohol Use History / Comment(s): HAS BEEN SMOKING SINCE AGE 20 DOWN TO 3-4 CIGARETTES DAILY. 3-4 BEERS DAILY Past Drug Use History: None Reported - Past Family History Father Family Medical History: Coronary Artery Disease (CAD) Mother Family Medical History: CVA/TIA Sister(s) Family Medical History: No Reported History Daughter(s) Family Medical History: No Reported History Son(s) Family Medical History: No Reported History Medications and Allergies Home Medications Medication Instructions Recorded Confirmed Type Tamsulosin [Flomax] 0.4 mg PO DAILY 07/16/16 12/02/18 History Pantoprazole [Protonix] 40 mg PO AC-[id number] #30 tab 07/27/16 12/02/18 Rx Metoprolol Tartrate [Lopressor] 25 mg PO BID 05/12/18 12/02/18 History Lisinopril [Zestril] 10 mg PO DAILY 07/11/18 12/02/18 History Aspirin EC [Ecotrin Low Dose] 81 mg PO DAILY 12/02/18 12/02/18 History Clopidogrel Bisulfate [Plavix] 75 mg PO DAILY 12/02/18 12/02/18 History Folic Acid 1 mg PO DAILY 12/02/18 12/02/18 History Melatonin 5 mg PO HS 12/02/18 12/02/18 History Sodium Chloride Tab 1 gm PO TID 12/02/18 12/02/18 History Mirtazapine 30 mg PO HS 12/03/18 12/03/18 History Allergies Allergy/AdvReac Type Severity Reaction Status Date / Time No Known Allergies Allergy Verified 12/02/18 16:44 Physical Exam Vitals: Vital Signs Temp Pulse Pulse Resp BP Pulse Ox 12/04/18 15:00 97.8 F 69 16 163/56 99 12/04/18 12:00 71 16 12/04/18 11:01 71 16 147/69 95 12/04/18 08:00 98.7 F 84 16 158/69 96 12/04/18 07:33 72 12/04/18 07:23 72 12/04/18 04:40 97.7 F 72 18 164/78 98 12/03/18 23:40 98.1 F 65 16 158/80 97 12/03/18 21:52 68 12/03/18 21:32 68 97 12/03/18 20:30 98.1 F 70 16 141/69 98 Intake and Output 12/04/18 12/04/18 12/04/18 06:59 14:59 22:59 Intake Total 240 Balance 240 Intake: Oral 240 Other: Voiding Method Toilet # Voids 1 1 Weight 54.6 kg GENERAL EXAM: Alert, very pleasant, 73-year-old white male alert and oriented 3, room air pulse ox of 99%, comfortable in no apparent distress. HEAD: Normocephalic/atraumatic. EYES: Normal reaction of pupils, equal size. Conjunctiva pink, sclera white. NOSE: Clear with pink turbinates. THROAT: No erythema or exudates. NECK: No masses, no JVD, no thyroid enlargement, no adenopathy. CHEST: No chest wall deformity. Symmetrical expansion. LUNGS: Equal air entry with left lower lobe crackles, but no wheeze, rhonchi or dullness. he has a congested cough CVS: Regular rate and rhythm, normal S1 and S2, no gallops, no murmurs, no rubs ABDOMEN: Soft, nontender. No hepatosplenomegaly, normal bowel sounds, no guarding or rigidity. EXTREMITIES: No clubbing, no edema, no cyanosis, 2+ pulses and upper and lower extremities. MUSCULOSKELETAL: Muscle strength and tone normal. SPINE: No scoliosis or deformity SKIN: No rashes CENTRAL NERVOUS SYSTEM: Alert and oriented -3. No focal deficits, tone is normal in all 4 extremities. PSYCHIATRIC: Alert and oriented -3. Appropriate affect. Intact judgment and i nsight. Results - Laboratory Findings CBC and BMP: 12/04/18 05:55 12/04/18 05:55 PT/INR, D-dimer PT 11.2 sec (9.0-12.0) 12/02/18 15:07 INR 1.1 (<1.2) 12/02/18 15:07 D-Dimer 1.73 mg/L FEU (<0.60) H 12/02/18 20:04 Abnormal lab findings: Abnormal Labs 12/02/18 12/02/18 12/02/18 15:07 15:07 19:21 WBC 11.2 H RBC 4.03 L Hgb 12.4 L Hct 37.4 L Neutrophils # 10.0 H Lymphocytes # 0.6 L D-Dimer Sodium 131 L Chloride 96 L Carbon Dioxide Creatinine Glucose POC Glucose (mg/dL) Magnesium 1.3 L HDL Cholesterol Urine Ketones 1+ H 12/02/18 12/03/18 12/03/18 20:04 02:49 16:39 WBC RBC Hgb Hct Neutrophils # Lymphocytes # D-Dimer 1.73 H Sodium Chloride Carbon Dioxide Creatinine Glucose POC Glucose (mg/dL) 140 H Magnesium HDL Cholesterol 37 L Urine Ketones 12/03/18 12/04/18 12/04/18 20:23 05:55 05:55 WBC RBC 3.21 L Hgb 10.3 L Hct 29.6 L Neutrophils # Lymphocytes # 0.3 L D-Dimer Sodium 129 L Chloride Carbon Dioxide 21 L Creatinine 0.55 L Glucose 172 H POC Glucose (mg/dL) 261 H Magnesium HDL Cholesterol Urine Ketones 12/04/18 12/04/18 06:35 11:54 WBC RBC Hgb Hct Neutrophils # Lymphocytes # D-Dimer Sodium Chloride Carbon Dioxide Creatinine Glucose POC Glucose (mg/dL) 184 H 186 H Magnesium HDL Cholesterol Urine Ketones - Diagnostic Findings Chest x-ray: report reviewed, image reviewed CT scan - chest: report reviewed, image reviewed Assessment and Plan Plan: Assessment: #1. Left lower lobe pneumonia, and small left-sided pleural effusion, and this could be healthcare acquired pneumonia #2. Hyponatremia, improving #3. Elevated d-dimer, CT chest was negative for any evidence of pulmonary em bolism #4. Coronary artery disease with previous bypass grafting and stenting #5. Hypertension #6. Dyslipidemia #7. History of EtOH abuse, currently undergoing rehab #8. Recent hospitalization for hyponatremia #9. Osteoarthritis #10. BPH #11. GERD/reflux #12. Anxiety/depression #13. Former smoker Plan: Continue current antibiotic coverage, obtain a sputum for culture, continue with IV steroids, nebulized bronchodilators, CTA chest and chest x-ray have been reviewed, and there is left lower lobe pneumonia and small pleural effusion. No fever or chills, patient is on room air, he appears to be in no acute distress. Smoking cessation was encouraged. We'll continue to follow I performed a history & physical examination of the patient and discussed their management with my nurse practitioner, Keisha Espinoza. I reviewed the nurse practitioner's note and agree with the documented findings and plan of care. Lung sounds are positive for crackles at the left lower lobe the lung cummings. The findings and the impression was discussed with the patient. I attest to the documentation by the nurse practitioner. Time with Patient: Greater than 30
[2018-12-04 17:00] LABS: Glucose,Whole Blood 137 mg/dL (75-99)
[2018-12-04 20:43] LABS: Glucose,Whole Blood 244 mg/dL (75-99)
[2018-12-04] MEDS: MELATONIN 5 MG TABLET PO SCH (21:03)
[2018-12-04] MEDS: MIRTAZAPINE 15 MG TAB PO SCH (21:03)
[2018-12-05 01:25] VITALS: RESP 18
[2018-12-05] MEDS: METOPROLOL TARTRATE 25 MG TAB PO SCH (06:16)
[2018-12-05] MEDS: LISINOPRIL 10 MG TAB PO SCH (06:16)
[2018-12-05 06:24] VITALS: BP 182/74; TEMP 97
[2018-12-05 07:06] LABS: Glucose,Whole Blood 128 mg/dL (75-99)
[2018-12-05] MEDS: INSULIN ASPART (NovoLOG) 100 UNIT/ML VIAL SQ SCH ×2 (07:10→13:11)
[2018-12-05] MEDS: ASPIRIN 325 MG TAB PO SCH (07:15)
[2018-12-05] MEDS: PANTOPRAZOLE 40 MG TABLET PO SCH (07:15)
[2018-12-05] MEDS: SERTRALINE 25 MG TAB PO SCH (07:16)
[2018-12-05] MEDS: TAMSULOSIN 0.4 MG CAP.ER.24H PO SCH (07:16)
[2018-12-05] MEDS: CLOPIDOGREL 75 MG TAB PO SCH (07:16)
[2018-12-05] MEDS: THIAMINE 100 MG TAB PO SCH (07:16)
[2018-12-05] MEDS: MAGNESIUM OXIDE 400 MG TAB PO SCH (07:16)
[2018-12-05] MEDS: FOLIC ACID 1 MG TAB PO SCH (07:16)
[2018-12-05] MEDS: LEVOFLOXACIN 500 MG TAB PO SCH (07:16)
[2018-12-05] MEDS: SODIUM CHLORIDE TAB 1 GM TAB PO SCH (07:16)
[2018-12-05] MEDS: IPRATROPIUM-ALBUTEROL 3 ML NEB INHALATION PRN (07:31)
[2018-12-05] MEDS: BUDESONIDE 0.5 MG/2 ML NEBU INHALATION SCH (07:31)
[2018-12-05 07:49] VITALS: PULSE 68
[2018-12-05] MEDS ORDERED: predniSONE 20 MG TAB PO SCH (09:00)
--- NOTE | 2018-12-05 09:35 | P.PN ---
Subjective Progress Note Date: 12/05/18 On today's evaluation on 12/05/2018 the patient is feeling better. Less short of breath. He has a congested cough. Unable to bring up much sputum. He is on oral Levaquin 500 milligrams for a potential left lower lobe pneumonia. He is also on a prednisone burst taper. He is doing DuoNeb nebulized treatments around the clock. He is committed not to smoke and not to drink. He was seen by psychiatry yesterday. He was kept on Remeron. Zoloft was also added. He was advised to follow-up with therapist and psychiatrist regarding his depression and substance abuse. Otherwise, is doing well. No fever or chills. No other specific complaints otherwise for now. Objective - Vital Signs Vital signs: Vital Signs Temp 97.0 F L 12/05/18 05:00 Pulse 68 12/05/18 07:49 Resp 18 12/05/18 05:00 BP 182/74 12/05/18 05:00 Pulse Ox 100 12/05/18 07:32 Intake & Output 12/04/18 12/05/18 12/05/18 18:59 06:59 18:59 Intake Total 240 650 Balance 240 650 Intake: Oral 240 650 Other: Voiding Method Toilet Toilet # Voids 1 2 - Exam GENERAL EXAM: Alert, very pleasant, 73-year-old white male alert and oriented 3, room air pulse ox of 99%, comfortable in no apparent distress. HEAD: Normocephalic/atraumatic. EYES: Normal reaction of pupils, equal size. Conjunctiva pink, sclera white. NOSE: Clear with pink turbinates. THROAT: No erythema or exudates. NECK: No masses, no JVD, no thyroid enlargement, no adenopathy. CHEST: No chest wall deformity. Symmetrical expansion. LUNGS: Equal air entry with left lower lobe crackles, but no wheeze, rhonchi or dullness. he has a congested cough CVS: Regular rate and rhythm, normal S1 and S2, no gallops, no murmurs, no rubs ABDOMEN: Soft, nontender. No hepatosplenomegaly, normal bowel sounds, no guard ing or rigidity. EXTREMITIES: No clubbing, no edema, no cyanosis, 2+ pulses and upper and lower extremities. MUSCULOSKELETAL: Muscle strength and tone normal. SPINE: No scoliosis or deformity SKIN: No rashes CENTRAL NERVOUS SYSTEM: Alert and oriented -3. No focal deficits, tone is normal in all 4 extremities. PSYCHIATRIC: Alert and oriented -3. Appropriate affect. Intact judgment and insight. - Labs CBC & Chem 7: 12/04/18 05:55 12/04/18 05:55 Labs: Abnormal Lab Results - Last 24 Hours (Table) 12/04/18 12/04/18 12/04/18 Range/Units 11:54 16:58 20:22 POC Glucose (mg/dL) 186 H 137 H 244 H (75-99) mg/dL 12/05/18 Range/Units 07:03 POC Glucose (mg/dL) 128 H (75-99) mg/dL Microbiology - Last 24 Hours (Table) 12/02/18 15:07 Blood Culture - Preliminary Blood No Growth after 48 hours Assessment and Plan Plan: #1. Left lower lobe pneumonia, and small left-sided pleural effusion, and this could be healthcare acquired pneumonia. Cultures of been all negative and the patient is looking well on Levaquin and a prednisone burst taper regarding his COPD exacerbation. #2. Hyponatremia, improving, awaiting labs from today. #3. Elevated d-dimer, CT chest was negative for any evidence of pulmonary embo lism, there is a limited left lower lobe pneumonia #4. Coronary artery disease with previous bypass grafting and stenting #5. Hypertension #6. Dyslipidemia #7. History of EtOH abuse, currently undergoing rehab #8. Recent hospitalization for hyponatremia #9. Osteoarthritis #10. BPH #11. GERD/reflux #12. Anxiety/depression #13. Former smoker #14 depression started on a combination of Remeron and Zoloft Plan Complete a total of seven-day course of Levaquin. Prednisone burst taper. Pulmonary toileting. Deep coughing and breathing. Ambulation. No cigarette smoking and he has quit smoking approximately a month ago. His undergone also rehabilitation regarding alcohol abuse. We'll continue to follow if needed on outpatient basis. He does have a home nebulizer at home. I think is reasonable to obtain a baseline pulmonary function test on outpatient basis to assess the severity of his COPD. Waiting a repeat sodium level. The level from yesterday was 129. No significant leukocytosis.
[2018-12-05 09:54] LABS: ALT 28 U/L (21-72); AST 26 U/L (17-59); African American GFR (CKD) >90 (>60 ml/min/1.73 sqM); Albumin 3.5 g/dL (3.5-5.0); Alkaline Phosphatase 51 U/L (38-126); Anion Gap 12 mmol/L; Blood Urea Nitrogen 18 mg/dL (9-20); Calcium 9.4 mg/dL (8.4-10.2); Carbon Dioxide 23 mmol/L (22-30); Chloride 99 mmol/L (98-107); Glucose 149 mg/dL (74-99); Potassium 3.6 mmol/L (3.5-5.1); Sodium 134 mmol/L (137-145); Total Bilirubin 0.5 mg/dL (0.2-1.3); Total Protein 6.5 g/dL (6.3-8.2)
== END 2018-12-05 13:10 | disposition home health service (06) | DRG 190 ==
LOC: EC 14:14 → 3SCARD 16:52 → OBSVTOIN 12-03 15:17 → 4MS4W 12-04 14:04
PROVIDERS: ADMIT Internal Medicine; ATTEND Internal Medicine
PROC: 0HQDXZZ Repair Right Lower Arm Skin, External Approach (ICD-10-PCS; principal; 2018-12-02)
DX: J43.9 Emphysema, unspecified (principal); J18.1 Lobar pneumonia, unspecified organism; E87.1 Hypo-osmolality and hyponatremia; J90 Pleural effusion, not elsewhere classified; I42.6 Alcoholic cardiomyopathy; E83.42 Hypomagnesemia; Y95 Nosocomial condition; E78.5 Hyperlipidemia, unspecified; I10 Essential (primary) hypertension; S51.011A Laceration without foreign body of right elbow, initial encounter; I25.10 Atherosclerotic heart disease of native coronary artery without angina pectoris; K21.9 Gastro-esophageal reflux disease without esophagitis; N40.0 Benign prostatic hyperplasia without lower urinary tract symptoms; M19.90 Unspecified osteoarthritis, unspecified site; F32.9 Major depressive disorder, single episode, unspecified; F41.9 Anxiety disorder, unspecified; F10.10 Alcohol abuse, uncomplicated; F17.221 Nicotine dependence, chewing tobacco, in remission; Z71.6 Tobacco abuse counseling; Z79.82 Long term (current) use of aspirin; Z79.02 Long term (current) use of antithrombotics/antiplatelets; Z79.899 Other long term (current) drug therapy; Z95.1 Presence of aortocoronary bypass graft; Z85.51 Personal history of malignant neoplasm of bladder; Z95.5 Presence of coronary angioplasty implant and graft; Z86.79 Personal history of other diseases of the circulatory system; Z98.42 Cataract extraction status, left eye; W19.XXXA Unspecified fall, initial encounter; Z82.49 Family history of ischemic heart disease and other diseases of the circulatory system; Z82.3 Family history of stroke
CPT/HCPCS: 12001; 36415; 71046; 71275; 80048; 80053; 80061; 81003; 83605; 83735; 84100; 84484; 85025; 85379; 85610; 85730; 87040; 87502; 93005; 93306; 94640; 94760; 96360; 96361; 99285

== ENCOUNTER 2019-08-13 18:21 | Inpatient (IN) | payer MEDICARE ==
[2019-08-13] MEDS ORDERED: MORPHINE SULFATE 4 MG/ML SYRINGE IV STA (18:41)
[2019-08-13] MEDS ORDERED: SODIUM CHLORIDE 0.9% 1,000 ML IV STA (18:42)
--- NOTE | 2019-08-13 18:45 | ED ---
General Adult HPI - General Chief complaint: Extremity Injury, Lower Stated complaint: R Leg Pain Time Seen by Provider: 08/13/19 18:24 Source: EMS Mode of arrival: EMS Limitations: no limitations - History of Present Illness Initial comments: Dictation was produced using [employer] dictation software. please excuse any grammatical, word or spelling errors. This patient was cared for during a federal and state declared state of emergency secondary to Covid 19 Chief Complaint: 74-year-old male presents with right leg pain. History of Present Illness: 74-year-old male presents with right leg pain. Patient states he has pain at the mid thigh region. One week ago patient fell out of bed landing on his right side. Patient states he's been ambulating on his leg. He thought that this was all just a muscle strain. Today he woke up with worsening leg pain. Emesis, patient is brought to the emergency department. Patient denies any numbness and paresthesias. The ROS documented in this emergency department record has been reviewed and confirmed by me. Those systems with pertinent positive or negative responses have been documented in the HPI. All other systems are other negative and/or noncontributory. PHYSICAL EXAM: General Impression: Alert and oriented x3, acute distress secondary to pain HEENT: Normocephalic atraumatic, extra-ocular movements intact, pupils equal and reactive to light bilaterally, mucous membranes moist. Cardiovascular: Heart regular rate and rhythm Chest: Able to complete full sentences, no retractions, no tachypnea Abdomen: abdomen soft, non-tender, non-distended, no organomegaly Musculoskeletal: Pulses present and equal in all extremities, no peripheral edema Lower extremities: Shortened externally rotated right lower extremity. Tenderness to palpation over the right mid shaft femur. Pain with internal and external rotation Motor: no focal deficits noted Neurological: CN II-XII grossly intact, no focal motor or sensory deficits noted Skin: Intact with no visualized rashes Psych: Normal affect and mood ED course: 74-year-old male presents with right lower extremity pain after fall 6 days ago. Signs upon arrival shows blood pressure of 244/108, rest of vital signs within acceptable limits. Physical labs are obtained. CBC unremarkable. Coag panel is unremarkable. Metabolic panel shows potassium 5.7 with a hemolyzed specimen. Metabolic panel is otherwise unremarkable. Hip and pelvis x-ray shows femoral neck fracture that is mildly displaced. Chest x-ray is nonacute. Knee x-ray and ankle x-ray is unremarkable. Discussed case with Dr. So promotional advertising assistant orthopedic surgery who is willing to accept patients care. Medicine will be consulted. - Related Data Home Medications Medication Instructions Recorded Confirmed Tamsulosin [Flomax] 0.4 mg PO DAILY 07/16/16 12/02/18 Metoprolol Tartrate [Lopressor] 25 mg PO BID 05/12/18 12/02/18 Lisinopril [Zestril] 10 mg PO DAILY 07/11/18 12/02/18 Aspirin EC [Ecotrin Low Dose] 81 mg PO DAILY 12/02/18 12/02/18 Clopidogrel Bisulfate [Plavix] 75 mg PO DAILY 12/02/18 12/02/18 Folic Acid 1 mg PO DAILY 12/02/18 12/02/18 Melatonin 5 mg PO HS 12/02/18 12/02/18 Sodium Chloride Tab 1 gm PO TID 12/02/18 12/02/18 Mirtazapine 30 mg PO HS 12/03/18 12/03/18 Previous Rx's Medication Instructions Recorded Pantoprazole [Protonix] 40 mg PO AC-BRKFST #30 tab 07/27/16 Budesonide [Pulmicort] 0.5 mg INHALATION RT-BID #60 nebu 12/05/18 Ipratropium-Albuterol Nebulize 3 ml INHALATION RT-Q6H PRN #120 12/05/18 [Duoneb 0.5 mg-3 mg/3 ml Soln] ampul.neb Levofloxacin [Levaquin] 500 mg PO DAILY #5 tab 12/05/18 Magnesium Oxide [Mag-Ox] 400 mg PO DAILY tab 12/05/18 Sertraline [Zoloft] 25 mg PO DAILY #49 tab 12/05/18 Thiamine [Vitamin B-1] 100 mg PO DAILY tab 12/05/18 predniSONE 0 mg PO DIRECTED #20 tab 12/05/18 Allergies Allergy/AdvReac Type Severity Reaction Status Date / Time No Known Allergies Allergy Verified 08/13/19 18:23 Review of Systems ROS Statement: Those systems with pertinent positive or pertinent negative responses have been documented in the HPI. ROS Other: All systems not noted in ROS Statement are negative. Past Medical History Past Medical History: Coronary Artery Disease (CAD), Cancer, Chest Pain / Angina, GERD/Reflux, Hyperlipidemia, Hypertension, Osteoarthritis (OA), Prostate Disorder, Vascular Disorder Additional Past Medical History / Comment(s): carotid artery disease/BPH, bladder cancer History of Any Multi-Drug Resistant Organisms: None Reported Past Surgical History: Bladder Surgery, Coronary Bypass/CABG, Heart Catheterization With Stent Additional Past Surgical History / Comment(s): RIGHT carotid endartectomy, left cataract surgery/colonoscopy , TURP 03/11/2014 Past Anesthesia/Blood Transfusion Reactions: No Reported Reaction Date of Last Stent Placement:: 1996 Past Psychological History: Anxiety, Depression Smoking Status: Former smoker Past Alcohol Use History: Daily Past Drug Use History: None Reported - Past Family History Father Family Medical History: Coronary Artery Disease (CAD) Mother Family Medical History: CVA/TIA Sister(s) Family Medical History: No Reported History Daughter(s) Family Medical History: No Reported History Son(s) Family Medical History: No Reported History General Exam Limitations: no limitations Course Vital Signs 08/13/19 18:23 Temperature 98 F Pulse Rate 87 Respiratory 18 Rate Blood Pressure 244/108 O2 Sat by Pulse 96 Oximetry Medical Decision Making - Lab Data Result diagrams: 08/13/19 19:06 08/13/19 19:06 Lab Results 08/13/19 08/13/19 08/13/19 Range/Units 19:06 19:06 19:06 WBC 7.6 (3.8-10.6) k/uL RBC 4.02 L (4.30-5.90) m/uL Hgb 12.5 L (13.0-17.5) gm/dL Hct 36.2 L (39.0-53.0) % MCV 89.9 (80.0-100.0) fL MCH 30.9 (25.0-35.0) pg MCHC 34.4 (31.0-37.0) g/dL RDW 14.3 (11.5-15.5) % Plt Count 251 (150-450) k/uL Neutrophils % 75 % Lymphocytes % 13 % Monocytes % 7 % Eosinophils % 3 % Basophils % 0 % Neutrophils # 5.7 (1.3-7.7) k/uL Lymphocytes # 1.0 (1.0-4.8) k/uL Monocytes # 0.5 (0-1.0) k/uL Eosinophils # 0.2 (0-0.7) k/uL Basophils # 0.0 (0-0.2) k/uL PT (9.0-12.0) sec INR (<1.2) APTT (22.0-30.0) sec Sodium 131 L (137-145) mmol/L Potassium 5.7 H (3.5-5.1) mmol/L Chloride 101 (98-107) mmol/L Carbon Dioxide 21 L (22-30) mmol/L Anion Gap 9 mmol/L BUN 13 (9-20) mg/dL Creatinine 0.54 L (0.66-1.25) mg/dL Est GFR (CKD-EPI)AfAm >90 (>60 ml/min/1.73 sqM) Est GFR (CKD-EPI)NonAf >90 (>60 ml/min/1.73 sqM) Glucose 91 (74-99) mg/dL Calcium 9.0 (8.4-10.2) mg/dL Blood Type AB Positive Blood Type Recheck AB Pos Bld Type Recheck Status No Antibody Screen NEGATIVE Spec Expiration Date 08/16/2019 - 230508/13/19 Range/Units 19:06 WBC (3.8-10.6) k/uL RBC (4.30-5.90) m/uL Hgb (13.0-17.5) gm/dL Hct (39.0-53.0) % MCV (80.0-100.0) fL MCH (25.0-35.0) pg MCHC (31.0-37.0) g/dL RDW (11.5-15.5) % Plt Count (150-450) k/uL Neutrophils % % Lymphocytes % % Monocytes % % Eosinophils % % Basophils % % Neutrophils # (1.3-7.7) k/uL Lymphocytes # (1.0-4.8) k/uL Monocytes # (0-1.0) k/uL Eosinophils # (0-0.7) k/uL Basophils # (0-0.2) k/uL PT 11.5 (9.0-12.0) sec INR 1.1 (<1.2) APTT 27.0 (22.0-30.0) sec Sodium (137-145) mmol/L Potassium (3.5-5.1) mmol/L Chloride (98-107) mmol/L Carbon Dioxide (22-30) mmol/L Anion Gap mmol/L BUN (9-20) mg/dL Creatinine (0.66-1.25) mg/dL Est GFR (CKD-EPI)AfAm (>60 ml/min/1.73 sqM) Est GFR (CKD-EPI)NonAf (>60 ml/min/1.73 sqM) Glucose (74-99) mg/dL Calcium (8.4-10.2) mg/dL Blood Type Blood Type Recheck Bld Type Recheck Status Antibody Screen Spec Expiration Date Disposition Clinical Impression: Hip fracture Disposition: ADMITTED IP TO THIS HOSP Condition: Fair Referrals: Clay Kuo MD [Primary Care Provider] - 1-2 days Decision Time: 20:28
[2019-08-13] MEDS ORDERED: METHOCARBAMOL 500 MG TAB PO STA (18:49)
[2019-08-13 19:21] LABS: Basophils % (A) 0 %; Eosinophils # (A) 0.2 k/uL (0-0.7); Eosinophils % (A) 3 %; HCT 36.2 % (39.0-53.0); HGB 12.5 gm/dL (13.0-17.5); Lymphocytes % (A) 13 %; MCH 30.9 pg (25.0-35.0); MCHC 34.4 g/dL (31.0-37.0); MCV 89.9 fL (80.0-100.0); Mean Platelet Volume 7.7; Monocytes # (A) 0.5 k/uL (0-1.0); Monocytes % (A) 7 %; Neutrophils # (A) 5.7 k/uL (1.3-7.7); Neutrophils % (A) 75 %; Platelet Count 251 k/uL (150-450); RBC 4.02 m/uL (4.30-5.90); RDW 14.3 % (11.5-15.5); WBC 7.6 k/uL (3.8-10.6)
[2019-08-13 19:25] LABS: African American GFR (CKD) >90 (>60 ml/min/1.73 sqM); Anion Gap 9 mmol/L; Blood Urea Nitrogen 13 mg/dL (9-20); Carbon Dioxide 21 mmol/L (22-30); Chloride 101 mmol/L (98-107); Glucose 91 mg/dL (74-99); Non-African American GFR(CKD) >90 (>60 ml/min/1.73 sqM); Sodium 131 mmol/L (137-145)
[2019-08-13 19:26] LABS: Potassium 5.7 mmol/L (3.5-5.1)
--- NOTE | 2019-08-13 19:39 | XR ---
EXAMINATION TYPE: XR ankle limited RT DATE OF EXAM: 08/13/2019 COMPARISON: NONE HISTORY: Pain TECHNIQUE: 2 views FINDINGS: Ankle mortise is anatomic. There is plantar calcaneal spurring. There is some soft tissue s welling around the ankle joint. I see no evidence of a fracture. IMPRESSION: Soft tissue swelling. No fracture seen.
--- NOTE | 2019-08-13 19:41 | XR ---
EXAMINATION TYPE: XR knee 4V RT DATE OF EXAM: 08/13/2019 COMPARISON: NONE HISTORY: Knee pain TECHNIQUE: 4 views FINDINGS: I see no fracture nor dislocation. Joint spaces are fairly normal. There is vascular calcif ication. There is small knee joint effusion. IMPRESSION: Small joint effusion. No fracture seen.
--- NOTE | 2019-08-13 19:42 | XR ---
EXAMINATION TYPE: XR Hip RT and AP Pelvis DATE OF EXAM: 08/13/2019 COMPARISON: NONE HISTORY: Fall. Pain. TECHNIQUE: 3 views FINDINGS: The pelvic ring is intact. There is transverse fracture of the right femoral neck with slig ht impaction. There is 5 mm displacement. There is no dislocation. There is vascular calcification. S acroiliac joints appear intact. IMPRESSION: Acute mildly displaced femoral neck fracture.
--- NOTE | 2019-08-13 19:55 | XR ---
EXAMINATION TYPE: XR chest 1V DATE OF EXAM: 08/13/2019 COMPARISON: 12/19/2018 HISTORY: Chest pain TECHNIQUE: FINDINGS: There is blunting left costophrenic angle. Heart size is normal. There is no heart failure. Thoracic aorta is atheromatous. There are sternal wires. Bony thorax is intact. IMPRESSION: There is pleural diaphragmatic scarring at the left lung base unchanged. No acute lung di sease. Normal heart.
[2019-08-13 20:03] LABS: INR 1.1 (<1.2); Prothrombin Time 11.5 sec (9.0-12.0)
[2019-08-13] MEDS ORDERED: ONDANSETRON 4 MG/2 ML VIAL IVP PRN (20:25)
[2019-08-13] MEDS ORDERED: ACETAMINOPHEN TAB 325 MG TAB PO PRN (20:25)
[2019-08-13] MEDS ORDERED: NALOXONE 0.4 MG/ML 1 ML VIAL IV PRN (20:25)
[2019-08-13] MEDS: SODIUM CHLORIDE 0.9% 1,000 ML IV SCH (22:30)
[2019-08-13] MEDS: MORPHINE SULFATE 4 MG/ML SYRINGE IV PRN (22:43)
[2019-08-14] MEDS: MORPHINE SULFATE 4 MG/ML SYRINGE IV PRN ×3 (02:15→12:08)
[2019-08-14] MEDS: METOPROLOL TARTRATE 25 MG TAB PO SCH ×3 (04:40→20:33)
[2019-08-14] MEDS: LISINOPRIL 10 MG TAB PO SCH ×2 (04:40→09:23)
[2019-08-14] MEDS ORDERED: ENALAPRILAT 1.25 MG/ML 1 ML VIAL IVP PRN (07:19)
[2019-08-14] MEDS ORDERED: MORPHINE SULFATE 4 MG/ML SYRINGE IVP STA (07:27)
[2019-08-14] MEDS: SODIUM CHLORIDE 0.9% 1,000 ML IV SCH ×2 (07:34→20:35)
--- NOTE | 2019-08-14 07:39 | P.CONS ---
History of Present Illness - Reason for Consult Consult date: 08/14/19 Medical management - History of Present Illness This is a 74-year-old male patient of Dr. Kuo with past medical history significant for coronary artery disease status post three-vessel CABG in 2017, cardiac stent, gastroesophageal reflux disease, hypertension, hyperlipidemia, osteoarthritis generalized, benign prostatic hypertrophy, COPD, recurrent depression, tobacco use and dependence, history of alcohol abuse. Patient gives history that he had a fall he rolled out of bed on Tuesday early in the morning around 3:30. He thought he pulled a muscle and was able to ambulate until yesterday. He states he has been ambulating with a walker. He came into the hospital for evaluation and found to have mildly displaced femoral neck fracture. Right ankle showed no fracture, soft tissue swelling present. Right knee x-ray shows small joint effusion. No fracture. Chest x-ray revealed scarring at the left lung base. No acute lung disease. Patient presented with high blood pressure 244/108, afebrile, heart rate 87, pulse ox 96% on room air. Patient states that his blood pressure normally is well controlled. He did not take his blood pressure medications at all yesterday. Patient was resumed on his home medications which are lisinopril 10 mg daily, Lopressor 25 mg twice daily and both were repeated this morning as well as Vasotec 1.25 mg and additional dose of morphine IV given to improve blood pressure. Review of Systems Constitutional: Denies anorexia, Denies chills, Denies fatigue, Denies fever, Denies lethargy, Denies malaise, Denies poor appetite, Denies weakness, Denies weight loss Eyes: denies blurred vision, denies pain Ears, nose, mouth and throat: Denies dysphagia, Denies headache, Denies nasal congestion, Denies nasal discharge, Denies sore throat, Denies vertigo Cardiovascular: Denies chest pain, Denies decreased exercise tolerance, Denies dyspnea on exertion, Denies edema, Denies leg edema, Denies shortness of breath, Denies syncope Respiratory: Denies cough, Denies cough with sputum, Denies dyspnea, Denies excessive sputum, Denies hemoptysis, Denies home oxygen, Denies respiratory infections, Denies wheezing Gastrointestinal: Denies abdominal pain, Denies diarrhea, Denies loss of appetite, Denies nausea, Denies vomiting Genitourinary: Denies dysuria, Denies urinary frequency, Denies urinary retention Musculoskeletal: Denies frequent falls, Denies gait dysfunction, Denies muscle weakness, Denies myalgias Musculoskeletal: right: hip pain, hip stiffness, hip swelling Integumentary: Denies pruritus, Denies rash, Denies wounds Neurological: Denies change in mentation, Denies change in speech, Denies numbness, Denies weakness Psychiatric: Denies anxiety, Denies depression Endocrine: Denies fatigue, Denies weight change Past Medical History Past Medical History: Coronary Artery Disease (CAD), Cancer, Chest Pain / Angina, GERD/Reflux, Hyperlipidemia, Hypertension, Osteoarthritis (OA), Prostate Disorder, Vascular Disorder Additional Past Medical History / Comment(s): carotid artery disease/BPH, bladder cancer History of Any Multi-Drug Resistant Organisms: None Reported Past Surgical History: Bladder Surgery, Coronary Bypass/CABG, Heart Catheterization With Stent Additional Past Surgical History / Comment(s): RIGHT carotid endartectomy, left cataract surgery/colonoscopy , TURP 03/11/2014 Past Anesthesia/Blood Transfusion Reactions: No Reported Reaction Date of Last Stent Placement:: 1996 Past Psychological History: Anxiety, Depression Smoking Status: Current every day smoker Past Alcohol Use History: Daily Additional Past Alcohol Use History / Comment(s): Patient has been a smoker since 20 years of age. He is currently smoking 3-4 cigars per day. He does have history of alcohol abuse and quit drinking completely in October 2018. He lives at home with his and daughter. His discharge plan is to return home. Past Drug Use History: None Reported - Past Family History Father Family Medical History: Coronary Artery Disease (CAD) Additional Family Medical History / Comment(s): Father at age 78 from heart disease. Mother Family Medical History: CVA/TIA Additional Family Medical History / Comment(s): Mother at age [address] [facility] with history of hypertension. Sister(s) Family Medical History: No Reported History Additional Family Medical History / Comment(s): Patient has 2 sisters and one has history of myocardial infarction. Second sister has nomajor medical prob lems. Patient does not have any brothers. Daughter(s) Family Medical History: No Reported History Additional Family Medical History / Comment(s): The patient has 2 daughters and one has had leg amputation secondary to osteomyelitis. Second daughter has no major medical problems. Patient has one son with no major medical problems. Son(s) Family Medical History: No Reported History Medications and Allergies Home Medications Medication Instructions Recorded Confirmed Type Tamsulosin [Flomax] 0.4 mg PO DAILY 07/16/16 08/13/19 History Pantoprazole [Protonix] 40 mg PO AC-BRKFST #30 tab 07/27/16 08/13/19 Rx Metoprolol Tartrate [Lopressor] 25 mg PO BID 05/12/18 08/13/19 History Lisinopril [Zestril] 10 mg PO DAILY 07/11/18 08/13/19 History Aspirin EC [Ecotrin Low Dose] 81 mg PO DAILY 12/02/18 08/13/19 History Clopidogrel Bisulfate [Plavix] 75 mg PO DAILY 12/02/18 08/13/19 History Mirtazapine 30 mg PO HS 12/03/18 08/13/19 History Atorvastatin Calcium [Lipitor] 80 mg PO DAILY 08/13/19 08/13/19 History Sertraline HCl [Zoloft] 100 mg PO DAILY 08/13/19 08/13/19 History Allergies Allergy/AdvReac Type Severity Reaction Status Date / Time No Known Allergies Allergy Verified 08/13/19 21:16 Physical Exam Vitals: Vital Signs Temp Pulse Resp BP Pulse Ox 08/14/19 05:41 83 17 185/88 94 L 08/14/19 04:42 98 20 184/88 94 L 08/14/19 03:07 72 15 186/88 99 08/14/19 02:32 88 18 192/91 94 L 08/13/19 23:00 198/106 96 08/13/19 22:30 87 18 182/106 99 08/13/19 18:23 98 F 87 18 244/108 96 Intake and Output 08/13/19 08/14/19 08/14/19 22:59 06:59 14:59 Other: Weight 54.885 kg Physical Examination Gen: This is a 74-year-old male. He is restless in the ER stretcher, somewhat uncomfortable and restless secondary to pain. HEENT: Head is atraumatic, normocephalic. Pupils equal, round. Sclerae is anicteric. NECK: Supple. No JVD. No lymphadenopathy. No thyromegaly. LUNGS: Clear to auscultation. No wheezes or rhonchi. No intercostal retractions. HEART: Regular rate and rhythm. No murmur. ABDOMEN: Soft. Bowel sounds are present. No masses. No tenderness. EXTREMITIES: No pedal edema. No calf tenderness. Right lower extremity shortened and externally rotated. Dorsalis pedis +2 bilaterally. NEUROLOGICAL: Patient is awake, alert and oriented x3. Cranial nerves 2 through 12 are grossly intact. Results CBC & Chem 7: 08/13/19 19:06 08/13/19 19:06 Labs: Abnormal Lab Results - Last 24 Hours (Table) 08/13/19 08/13/19 Range/Units 19:06 19:06 RBC 4.02 L (4.30-5.90) m/uL Hgb 12.5 L (13.0-17.5) gm/dL Hct 36.2 L (39.0-53.0) % Sodium 131 L (137-145) mmol/L Potassium 5.7 H (3.5-5.1) mmol/L Carbon Dioxide 21 L (22-30) mmol/L Creatinine 0.54 L (0.66-1.25) mg/dL Assessment and Plan Assessment: 1. Right femoral neck fracture. Patient has been admitted to the orthopedic service. Patient is cleared medically for surgical intervention most likely scheduled for this afternoon. Continue current pain management, incentive spirometry to reduce incidence of atelectasis and hospital-acquired pneumonia, PT and OT to start following surgery, DVT prophylaxis. 2. Hypertensive emergency. Patient is status post additional dose of lisinopril and Lopressor, Vasotec 1.25 mg 1 and when necessary. Continue lisinopril 10 mg daily, Lopressor 25 mg twice daily. 3. History of coronary artery disease status post 3 vessel CABG, stents. Hold aspirin 81 mg daily. Continue Lopressor, Plavix 75 mg daily, Lipitor 80 mg daily. 4. History of left carotid endarterectomy, stable. 5. COPD without exacerbation. 6. Hyperlipidemia. Continue Lipitor. 7. Benign prostatic hypertrophy. Monitor for urinary retention, continue Flomax 0.4 mg at bedtime 8. Gastroesophageal reflux disease and GI prophylaxis. Continue Protonix daily. 9. Recurrent depression. Continue Remeron 30 mg daily, Zoloft 100 mg daily. 10. DVT prophylaxis. 11. Tobacco use and dependence, currently 3-4 cigarettes per day. 12. History of alcohol abuse. Patient quit drinking in October 2018. 13. COVID-19 testing in process. 14. Full CODE STATUS Patient will be admitted to the hospital for a minimum of 2 night stay. Discharge plan: Patient plans to return home. Patient may require subacute rehab. PT and OT to start following surgery. Impression and plan of care have been directed as dictated by the signing physician. Cindi Edwards nurse practitioner acting as scribe for signing physician.
[2019-08-14] MEDS: SERTRALINE 100 MG TAB PO SCH (09:23)
[2019-08-14] MEDS: PANTOPRAZOLE 40 MG/10 ML VIAL IV SCH (09:23)
--- NOTE | 2019-08-14 11:34 | P.HPOR ---
History of Present Illness H&P Date: 08/14/19 This patient is a 74-year-old male with past medical history of coronary artery disease status-post CABG in 2017, cardiac stents, hypertension, hyperlipidemia, BPH, COPD, nicotine dependence, and history of alcohol abuse the presented to [facility] emergency department 08/13/19 with complaints of right hip pain status-post fall. The patient states he fell at home last Tuesday, he states he rolled out of bed and landed directly onto the right hip. He states he was initially able to ambulate with moderate pain. He was ambulating for the past week with a walker. He states he does not use a walker at baseline. He states last night the pain became so severe he was unable to ambulate, therefore he called EMS. Upon arrival to the [facility] emergency department, x- rays of the right hip revealed a femoral neck fracture. The patient was admitted under the care of Dr. So with a consult placed to internal medicine for medical clearance for surgery and perioperative medical management. At the time of my exam, the patient is complaining of isolated right hip pain. He states he did not sustain any additional injuries. He did not hit his head. He denies back pain. He does take Plavix and aspirin. He states besides his right hip pain, he has no additional complaints. He denies chest pain, shortness of breath, nausea, vomiting, fevers, chills. Patient was hypertensive upon arrival, which was treated per internal medicine, and vital signs are currently stable. Past Medical History Past Medical History: Coronary Artery Disease (CAD), Cancer, Chest Pain / Angina, GERD/Reflux, Hyperlipidemia, Hypertension, Myocardial Infarction (NH), Pneumonia, Prostate Disorder, Vascular Disorder Additional Past Medical History / Comment(s): 2014 bladder cancer with surgery/hematuria, anemia, BPH, past ETOH abuse with withdrawal tremors-pt has not drank since 10/2018. Last Myocardial Infarction Date:: 2014 History of Any Multi-Drug Resistant Organisms: None Reported Past Surgical History: Bladder Surgery, Coronary Bypass/CABG, Heart Catheterization, Heart Catheterization With Stent Additional Past Surgical History / Comment(s): 2017 CABG 3 vessel, TUR BT/resection, cystoscopy, R caratid endartectomy, EGD, colonoscopy, small bowel capsule, bilateral cataract removals Past Anesthesia/Blood Transfusion Reactions: No Reported Reaction Additional Past Anesthesia/Blood Transfusion Reaction / Comment(s): Pt has received blood in past without reaction. Date of Last Stent Placement:: 1996 Smoking Status: Current every day smoker - Past Family History Father Family Medical History: Coronary Artery Disease (CAD) Additional Family Medical History / Comment(s): Father at age 78 from heart disease. Mother Family Medical History: CVA/TIA, Hypertension Additional Family Medical History / Comment(s): Mother at age 85 from stroke with history of hypertension. Sister(s) Family Medical History: No Reported History Additional Family Medical History / Comment(s): Patient has 2 sisters and one has history of myocardial infarction. Second sister has nomajor medical problems. Patient does not have any brothers. Daughter(s) Family Medical History: No Reported History Additional Family Medical History / Comment(s): The patient has 2 daughters and one has had leg amputation secondary to osteomyelitis. Second daughter has no major medical problems. Patient has one son with no major medical problems. Son(s) Family Medical History: No Reported History Medications and Allergies Home Medications Medication Instructions Recorded Confirmed Type Tamsulosin [Flomax] 0.4 mg PO DAILY 07/16/16 08/13/19 History Pantoprazole [Protonix] 40 mg PO AC-BRKFST #30 tab 07/27/16 08/13/19 Rx Metoprolol Tartrate [Lopressor] 25 mg PO BID 05/12/18 08/13/19 History Lisinopril [Zestril] 10 mg PO DAILY 07/11/18 08/13/19 History Aspirin EC [Ecotrin Low Dose] 81 mg PO DAILY 12/02/18 08/13/19 History Clopidogrel Bisulfate [Plavix] 75 mg PO DAILY 12/02/18 08/13/19 History Mirtazapine 30 mg PO HS 12/03/18 08/13/19 History Atorvastatin Calcium [Lipitor] 80 mg PO DAILY 08/13/19 08/13/19 History Sertraline HCl [Zoloft] 100 mg PO DAILY 08/13/19 08/13/19 History Allergies Allergy/AdvReac Type Severity Reaction Status Date / Time No Known Allergies Allergy Verified 08/13/19 21:16 Physical Examination On examination, the patient is sitting in bed in no apparent distress. He is alert and oriented 3. His head appears normocephalic and atraumatic. His breathing appears nonlabored. His bilateral upper extremities show no obvious deformities or signs of trauma. On inspection of the left lower extremity, there are no obvious deformities or signs of trauma. No pain with passive range of motion of the left hip, knee. On inspection of the right lower extremity, the extremity is externally rotated. The skin over the right hip is intact with no lacerations or abrasions. There is significant pain to palpation of the right hip. No pain on palpation of the right thigh, knee, lower leg, ankle, foot. Patient has good strength and range of motion of the right ankle. Motor and sensory function appear intact. Right lower extremity is warm and well perfused with brisk capillary refill distally. Bilateral calves are soft and nontender to palpation. Results Right hip x-ray 08/13/19: Displaced femoral neck fracture. Right ankle x-ray 08/13/19: No acute fractures. Right knee x-ray 08/13/19: No acute fractures. - Labs Labs: Abnormal Lab Results - Last 24 Hours (Table) 08/13/19 08/13/19 Range/Units 19:06 19:06 RBC 4.02 L (4.30-5.90) m/uL Hgb 12.5 L (13.0-17.5) gm/dL Hct 36.2 L (39.0-53.0) % Sodium 131 L (137-145) mmol/L Potassium 5.7 H (3.5-5.1) mmol/L Carbon Dioxide 21 L (22-30) mmol/L Creatinine 0.54 L (0.66-1.25) mg/dL H & H 08/13/19 Range/Units 19:06 Hgb 12.5 L (13.0-17.5) gm/dL Hct 36.2 L (39.0-53.0) % Coagulation 08/13/19 Range/Units 19:06 INR 1.1 (<1.2) Result Diagrams: 08/13/19 19:06 08/13/19 19:06 Assessment and Plan Assessment: Right femoral neck fracture status-post fall Plan: - The clinical and imaging findings were discussed with the patient. The fran calixto was discussed with Dr. So. We will plan for a right hip hemiarthroplasty this afternoon, pending medical clearance and consent. Verbal consent was obtained from the patient bedside. - Strict nonweightbearing right lower extremity. Bed rest. - Pain management as needed. - NPO diet.
[2019-08-14] MEDS ORDERED: IV FLUID CONTINUATION 1,000 ML IV ONE (14:25)
[2019-08-14] MEDS ORDERED: fentaNYL (PF) 50 MCG/ML 2 ML AMP IV ONE ×2 (14:39→14:51)
[2019-08-14] MEDS ORDERED: SUCCINYLCHOLINE CHLORIDE 100 MG/5 ML SYR IV ONE (14:59)
[2019-08-14] MEDS ORDERED: HYDROmorphone (PF) 1 MG/ML ONE (14:59)
[2019-08-14] MEDS ORDERED: LABETALOL 5 MG/ML VIAL MDV ONE (14:59)
[2019-08-14] MEDS ORDERED: ePHEDrine SULFATE/0.9% NACL/PF 50 MG/5 ML SYRINGE IV ONE (14:59)
[2019-08-14] MEDS ORDERED: ETOMIDATE 2 MG/ML 10 ML VIAL ONE (14:59)
[2019-08-14] MEDS ORDERED: fentaNYL (PF) 50 MCG/ML 2 ML AMP ONE (14:59)
[2019-08-14] MEDS ORDERED: MIDAZOLAM 2 MG/2 ML VIAL ONE (14:59)
[2019-08-14] MEDS ORDERED: GLYCOPYRROLATE 0.2 MG/ML 2 ML VIAL ONE (14:59)
[2019-08-14] MEDS ORDERED: ONDANSETRON 4 MG/2 ML VIAL ONE (14:59)
[2019-08-14] MEDS ORDERED: NEOSTIGMINE 1 MG/ML 10 ML VIAL ONE (14:59)
[2019-08-14] MEDS ORDERED: ROCURONIUM BROMIDE 10 MG/ML 5 ML VIAL IV ONE (14:59)
[2019-08-14] MEDS ORDERED: LACTATED RINGERS 1,000 ML IV ONE ×2 (15:20→16:18)
[2019-08-14] MEDS ORDERED: HYDROmorphone 0.5 MG/0.5 ML SYRINGE IVP PRN ×2 (17:09)
--- NOTE | 2019-08-14 17:23 | P.OP ---
Date of Procedure: 08/14/19 Preoperative Diagnosis: 1. Displaced right femoral neck fracture 2. History of coronary artery disease status post 3 vessel CABG 3. Hypertension 4. History of smoking 5. History of alcohol abuse 6. COPD Postoperative Diagnosis: Same Procedure(s) Performed: Right hip hemiarthroplasty Implants: Cemented size 10 Synergy femoral stem and 48 mm tandem unipolar head, [employer] Anesthesia: GETA Surgeon: Levar So [place] Plant Supervisor #1: Summer Metcalf Estimated Blood Loss (ml): 150 IV fluids (ml): 900 Urine output (ml): 900 Pathology: none sent Condition: stable Disposition: PACU Indications for Procedure: The patient is a very pleasant 74-year-old male with multiple medical problems who sustained a fall last Tuesday. He initially thought he pulled a muscle bu t had continued pain and difficulty ambulate in. He was brought to the emergency department yesterday where x-rays showed a displaced femoral neck fracture. He was admitted under my care. Internal medicine was consulted and the patient was cleared for surgery. I met with the patient before surgery discuss his injury and treatment options. I recommended a cemented hip hemiarthroplasty due to the patient's multiple medical problems. We discussed potential risks and complications of surgery including but not limited to risk of anesthesia, infection, delayed wound healing, intraoperative fracture, postoperative fracture, limb length discrepancies, dislocation, damage to blood vessels or nerves, inability to regain preinjury level of function, need for further surgery including conversion to a hip fracture, DVT, PE, acute coronary event, and possibly loss of life or limb. The patient voiced his understanding of these are most common complications other less common complications are p ossible. He provided his verbal and written consent to go forward with surgery. Description of Procedure: The patient was identified in preop holding and the correct right leg was marked with my initials. I reviewed the consent form with the patient and all of his questions were answered. The patient was then brought back to the operating room. He was given a general anesthetic and preoperative antibiotics while in the hospital bed. He was then transferred onto the OR table and placed in the lateral decubitus position with the unaffected left side down and the affected right side up. An axillary roll was placed. He was secured to the operating room table with a Montral frame. The right leg was then prepped and draped in the standard sterile fashion. Prior to starting surgery formed a timeout identifying the correct patient, operative extremity, and procedure. I began by outlining a standard posterolateral approach to the hip. Skin incision was made with a scalpel and dissection was carried down carefully to the subcutaneous tissue with electrocautery. The IT band was identified and incised longitudinally in line with the skin incision distally and proximally the fibers of the gluteus jonah were bluntly spread with my finger. A Charnley retractor was placed deep to the IT band. The trochanteric bursa was elevated off the posterior femur. The piriformis was identified and released off the posterior femur with electrocautery. The short external rotators were elevated off the posterior femur. The posterior hip capsule was teed with both limbs clamped for later repair. The femoral neck cut was made with a reciprocating saw 1 thumb breath above the lesser trochanter. The femoral head was removed with a corkscrew, passed off to the back table, sized to 44 mm, and sent to pathology. The proximal femur was exposed. Access to the canal was used with a box osteotome taking care to start laterally and match the patient's circle anteversion. A canal finder was placed. I reamed up to an 11 mm reamer which generated chatter. I then broached in 1 mm increments up to a 10 mm broach which felt stable enough to trial. I trialed with a standard offset 44 mm head which felt stable. All trial implants were removed. The proximal femur was prepared for cement. A restrictor was placed distally. A moist Ray-Kole was placed in the acetabulum. Anesthesia was notified and cement was pressurized into the proximal femur. The final stem was dispensed and gently tapped into place holding version until the cement had hardened. I then trialed with a standard offset 44 mm head, but there was some difficulty reducing the hip. A - 3 offset femoral head felt stable. The trial head was removed. A final 44 mm - 3 head was dispensed. The trunion was cleaned and the final femoral head was gently tapped into place engaging the Reed taper. The hip was reduced and felt stable through all planes of motion. The wound was thoroughly irrigated using pulsatile lavage. The capsule was closed. The IT band was reapproximated with 0 Vicryl and then sealed with a running Stretta fix suture. The deep subcu was reapproximated using 0 Vicryl. The superficial subcu was reapproximated using 2-0 Vicryl. The skin was closed with a running subcuticular barbed Monocryl stitch. Incision was reinforced with Dermabond followed by an occlusive dressing. I verified that all instrument, sponge, and sharp counts were correct. The patient was then extubated, transferred from the OR table to the [facility], and brought to recovery having tolerated the procedure well. A hip abduction brace was applied. In the recovery room x-rays showed a stable, cemented hemiarthroplasty. Summer REYNA Was required as a skilled orthopedic assistant for patient positioning, exposure, retraction, placement of hardware, closure of wound, and application of dressing due to the complexity of the surgery. Plan: The patient can weight-bear as tolerated on his right hip and should follow posterior hip precautions. He'll need 2 doses of postoperative antibiotics. Internal medicine for perioperative medical management. Bone health labs pending. Discharge planning pending.
--- NOTE | 2019-08-14 17:32 | XR ---
EXAMINATION TYPE: XR Hip Limited RT DATE OF EXAM: 08/14/2019 COMPARISON: Yesterday HISTORY: Postop TECHNIQUE: Single view FINDINGS: There is right hip prosthesis. Components appear in anatomic position. IMPRESSION: No complicating process seen.
[2019-08-14 17:40] LABS: Basophils % (A) 0 %; Eosinophils # (A) 0.2 k/uL (0-0.7); Eosinophils % (A) 2 %; HCT 36.7 % (39.0-53.0); HGB 11.8 gm/dL (13.0-17.5); Lymphocytes # (A) 0.6 k/uL (1.0-4.8); Lymphocytes % (A) 7 %; MCH 29.8 pg (25.0-35.0); MCHC 32.3 g/dL (31.0-37.0); MCV 92.3 fL (80.0-100.0); Mean Platelet Volume 6.9; Monocytes # (A) 0.4 k/uL (0-1.0); Monocytes % (A) 5 %; Neutrophils # (A) 7.7 k/uL (1.3-7.7); Neutrophils % (A) 85 %; Platelet Count 249 k/uL (150-450); RBC 3.97 m/uL (4.30-5.90); RDW 14.5 % (11.5-15.5)
[2019-08-14] MEDS: MIRTAZAPINE 15 MG TAB PO SCH (17:42)
[2019-08-14] MEDS: LACTATED RINGERS 1,000 ML IV SCH ×2 (20:08→21:25)
[2019-08-14] MEDS: ATORVASTATIN 80 MG TAB PO SCH (20:33)
[2019-08-14] MEDS: TAMSULOSIN 0.4 MG CAP.ER.24H PO SCH (20:33)
[2019-08-14] MEDS: SENNOSIDES-DOCUSATE SODIUM 1 EACH TAB PO SCH (20:33)
[2019-08-14] MEDS: ENOXAPARIN 30 MG/0.3 ML SYRINGE SQ SCH (20:34)
[2019-08-14] MEDS: HYDROmorphone 0.5 MG/0.5 ML SYRINGE IVP PRN (20:34)
[2019-08-15] MEDS: MORPHINE SULFATE 4 MG/ML SYRINGE IV PRN (00:33)
[2019-08-15] MEDS: HYDROmorphone 0.5 MG/0.5 ML SYRINGE IVP PRN ×4 (03:21→14:14)
[2019-08-15] MEDS: SODIUM CHLORIDE 0.9% 1,000 ML IV SCH ×2 (03:22→15:29)
[2019-08-15] MEDS: SERTRALINE 100 MG TAB PO SCH (07:18)
[2019-08-15] MEDS: MIRTAZAPINE 15 MG TAB PO SCH (07:18)
[2019-08-15] MEDS: PANTOPRAZOLE 40 MG/10 ML VIAL IV SCH (07:18)
[2019-08-15] MEDS: METOPROLOL TARTRATE 25 MG TAB PO SCH ×2 (07:18→21:02)
[2019-08-15] MEDS: ASPIRIN 81 MG PO SCH (07:19)
[2019-08-15] MEDS: LISINOPRIL 10 MG TAB PO SCH (07:19)
[2019-08-15] MEDS: ENOXAPARIN 30 MG/0.3 ML SYRINGE SQ SCH ×2 (07:19→21:02)
[2019-08-15] MEDS ORDERED: ERGOCALCIFEROL 50,000 UNIT CAP PO SCH (08:15)
[2019-08-15 08:28] LABS: African American GFR (CKD) >90 (>60 ml/min/1.73 sqM); Anion Gap 9 mmol/L; Blood Urea Nitrogen 12 mg/dL (9-20); Calcium 7.5 mg/dL (8.4-10.2); Carbon Dioxide 21 mmol/L (22-30); Chloride 101 mmol/L (98-107); Glucose 66 mg/dL (74-99); Non-African American GFR(CKD) >90 (>60 ml/min/1.73 sqM); Potassium 4.6 mmol/L (3.5-5.1); Sodium 131 mmol/L (137-145)
[2019-08-15 08:51] LABS: HCT 27.9 % (39.0-53.0); MCH 30.9 pg (25.0-35.0); MCHC 33.4 g/dL (31.0-37.0); MCV 92.5 fL (80.0-100.0); Mean Platelet Volume 7.5; Platelet Count 236 k/uL (150-450); RBC 3.01 m/uL (4.30-5.90); RDW 14.6 % (11.5-15.5)
[2019-08-15 08:56] LABS: HGB 9.3 gm/dL (13.0-17.5)
[2019-08-15] MEDS: CHOLECALCIFEROL 1,000 UNIT TAB PO SCH (09:21)
--- NOTE | 2019-08-15 10:01 | P.PN ---
Subjective Progress Note Date: 08/15/19 This is a 74-year-old male patient of Dr. Kuo with past medical history significant for coronary artery disease status post three-vessel CABG in 2017, cardiac stent, gastroesophageal reflux disease, hypertension, hyperlipidemia, osteoarthritis generalized, benign prostatic hypertrophy, COPD, recurrent depression, tobacco use and dependence, history of alcohol abuse. Patient gives history that he had a fall he rolled out of bed on Tuesday early in the morning around 3:30. He thought he pulled a muscle and was able to ambulate until yesterday. He states he has been ambulating with a walker. He came into the hospital for evaluation and found to have mildly displaced femoral neck fracture. Right ankle showed no fracture, soft tissue swelling present. Right knee x-ray shows small joint effusion. No fracture. Chest x-ray revealed scarring at the left lung base. No acute lung disease. Patient presented with high blood pressure 244/108, afebrile, heart rate 87, pulse ox 96% on room air. Patient states that his blood pressure normally is well controlled. He did not take his blood pressure medications at all yesterday. Patient was resumed on his home medications which are lisinopril 10 mg daily, Lopressor 25 mg twice daily and both were repeated this morning as well as Vasotec 1.25 mg and additional dose of morphine IV given to improve blood pressure. 08/14: Patient states that he had a rough night. He was having hip pain currently at 7 out of 10. He denies having any chest pain or shortness of breath. He states he is passing gas and had a bowel movement. He states he gets a little nauseated from morphine but passes easily. Incentive spirometry will be added. Patient is status post right hemiarthroplasty of the, postop day #1. He has been afebrile, heart rate 83, blood pressure 115/54, pulse ox 92% on room air. Blood work reveals hemoglobin 9.3, sodium 131, potassium 4.6, chloride 101, CO2 21. Patient is on Lovenox for DVT prophylaxis. Objective - Vital Signs Vital signs: Vital Signs Temp 99.6 F 08/15/19 01:00 Pulse 77 08/15/19 01:00 Resp 20 08/15/19 01:00 BP 119/63 08/15/19 01:00 Pulse Ox 98 08/15/19 01:00 Intake & Output 08/14/19 08/15/19 08/15/19 18:59 06:59 18:59 Intake Total 3250 100 Output Total 1050 800 Balance 2200 -700 Weight 54.885 kg Intake: IV 1750 Amount of Fluid Infused ( 1500 ml) Oral 100 Output: Urine 900 800 Uretheral (Kathleen) 250 Estimated Blood Loss 150 Other: Voiding Method Indwelling Catheter Indwelling Catheter - Exam Review of Systems Constitutional: Denies anorexia, Denies chills, Denies fatigue, Denies fever, Denies lethargy, Denies malaise, Denies poor appetite, Denies weakness, Denies weight loss Eyes: denies blurred vision, denies pain Ears, nose, mouth and throat: Denies dysphagia, Denies headache, Denies nasal congestion, Denies nasal discharge, Denies sore throat, Denies vertigo Cardiovascular: Denies chest pain, Denies decreased exercise tolerance, Denies dyspnea on exertion, Denies edema, Denies leg edema, Denies shortness of breath, Denies syncope Respiratory: Denies cough, Denies cough with sputum, Denies dyspnea, Denies excessive sputum, Denies hemoptysis, Denies home oxygen, Denies respiratory infections, Denies wheezing Gastrointestinal: Denies abdominal pain, Denies diarrhea, Denies loss of appetite, Denies nausea, Denies vomiting Genitourinary: Denies dysuria, Denies urinary frequency, Denies urinary retention Musculoskeletal: Denies frequent falls, Denies gait dysfunction, Denies muscle weakness, Denies myalgias Musculoskeletal: right: hip discomfort, hip stiffness, hip swelling Integumentary: Denies pruritus, Denies rash, Denies wounds Neurological: Denies change in mentation, Denies change in speech, Denies numbness, Denies weakness Psychiatric: Denies anxiety, Denies depression Endocrine: Denies fatigue, Denies weight change Physical Examination Gen: This is a 74-year-old male. He is restless in the ER stretcher, somewhat uncomfortable and restless secondary to pain. HEENT: Head is atraumatic, normocephalic. Pupils equal, round. Sclerae is anicteric. NECK: Supple. No JVD. No lymphadenopathy. No thyromegaly. LUNGS: Clear to auscultation. No wheezes or rhonchi. No intercostal retractions. HEART: Regular rate and rhythm. No murmur. ABDOMEN: Soft. Bowel sounds are present. No masses. No tenderness. EXTREMITIES: No pedal edema. No calf tenderness. Right hip dressing in place. No breakthrough bleeding or drainage. Dorsalis pedis +2 bilaterally. NEUROLOGICAL: Patient is awake, alert and oriented x3. Cranial nerves 2 through 12 are grossly intact. - Labs CBC & Chem 7: 08/15/19 07:06 08/15/19 07:06 Labs: Abnormal Lab Results - Last 24 Hours (Table) 08/14/19 08/14/19 Range/Units 17:28 17:28 RBC 3.97 L (4.30-5.90) m/uL Hgb 11.8 L (13.0-17.5) gm/dL Hct 36.7 L (39.0-53.0) % Lymphocytes # 0.6 L (1.0-4.8) k/uL Vitamin D 25-Hydroxy 9.5 L (30.0-100.0) ng/mL Assessment and Plan Assessment: 1. Right femoral neck fracture. Patient has been admitted to the orthopedic service. Patient is cleared medically for surgical intervention most likely scheduled for this afternoon. Continue current pain management, incentive spirometry to reduce incidence of atelectasis and hospital-acquired pneumonia, PT and OT to start following surgery, DVT prophylaxis. 2. Hypertensive emergency. Patient is status post additional dose of lisinopril and Lopressor, Vasotec 1.25 mg 1 and when necessary. Continue lisinopril 10 mg daily, Lopressor 25 mg twice daily. 3. History of coronary artery disease status post 3 vessel CABG, stents. Hold aspirin 81 mg daily. Continue Lopressor, Plavix 75 mg daily, Lipitor 80 mg daily. 4. History of left carotid endarterectomy, stable. 5. COPD without exacerbation. 6. Hyperlipidemia. Continue Lipitor. 7. Benign prostatic hypertrophy. Monitor for urinary retention, continue Flomax 0.4 mg at bedtime 8. Gastroesophageal reflux disease and GI prophylaxis. Continue Protonix daily. 9. Recurrent depression. Continue Remeron 30 mg daily, Zoloft 100 mg daily. 10. DVT prophylaxis. 11. Tobacco use and dependence, currently 3-4 cigarettes per day. 12. History of alcohol abuse. Patient quit drinking in October 2018. 13. COVID-19 testing in process. 14. Full CODE STATUS Discharge plan: Patient plans to return home. Patient may require subacute erika [facility]. PT and OT to start following surgery. Impression and plan of care have been directed as dictated by the signing physician. Cindi Edwards nurse practitioner acting as scribe for signing physician. Plan: 1. Right femoral neck fracture. Patient has been admitted to the orthopedic service. Patient is cleared medically for surgical intervention most likely scheduled for this afternoon. Continue current pain management, obtain incentive spirometry to reduce incidence of atelectasis and hospital-acquired pneumonia, PT and OT, DVT prophylaxis with Lovenox. 2. Hypertensive emergency. Continue lisinopril 10 mg daily, Lopressor 25 mg twice daily, Vasotec 1.25 mg as necessary. 3. History of coronary artery disease status post 3 vessel CABG, stents. Hold aspirin 81 mg daily. Continue Lopressor, hold Plavix 75 mg daily, continue Lipitor 80 mg daily. 4. History of left carotid endarterectomy, stable. 5. COPD without exacerbation. 6. Hyperlipidemia. Continue Lipitor. 7. Benign prostatic hypertrophy. Monitor for urinary retention, continue Flom ax 0.4 mg at bedtime 8. Gastroesophageal reflux disease and GI prophylaxis. Continue Protonix sruthi ly. 9. Recurrent depression. Continue Remeron 30 mg daily, Zoloft 100 mg daily. 10. DVT prophylaxis. 11. Tobacco use and dependence, currently 3-4 cigarettes per day. 12. History of alcohol abuse. Patient quit drinking in October 2018. 13. COVID-19 infection not present. 14. Full CODE STATUS Discharge plan: Patient plans to return home. Patient may require subacute rehab. PT and OT to start following surgery. Impression and plan of care have been directed as dictated by the signing physician. Cindi Edwards nurse practitioner acting as scribe for signing physician.
[2019-08-15] MEDS: HYDROcodone/APAP 5-325MG 1 EACH TAB PO PRN ×2 (10:32→19:29)
--- NOTE | 2019-08-15 10:47 | P.PN ---
Subjective Progress Note Date: 08/15/19 This patient is a 74-year-old male with a past medical history of coronary artery disease status-post CABG in 2017, cardiac stents, hypertension, hyperlipidemia, BPH, COPD, nicotine dependence, and history of alcohol abuse that is status-post right hip hemiarthroplasty on 08/14/[address] So. Today's postoperative day #1. The patient was examined bedside. Patient states his pain was significant overnight, although it has improved this morning. He has not yet been up with physical therapy yet this morning. He is tolerating his diet well. He denies chest pain, shortness of breath, nausea, vomiting, numbness or tingling of the right lower extremity. Vital signs stable. Objective - Vital Signs Vital signs: Vital Signs Temp 99.1 F 08/15/19 07:10 Pulse 83 08/15/19 07:10 Resp 18 08/15/19 07:10 BP 115/54 08/15/19 07:10 Pulse Ox 92 L 08/15/19 07:10 Intake & Output 08/14/19 08/15/19 08/15/19 18:59 06:59 18:59 Intake Total 3250 100 100 Output Total 1050 800 Balance 2200 -700 100 Weight 54.885 kg Intake: IV 1750 Amount of Fluid Infused ( 1500 ml) Oral 100 100 Output: Urine 900 800 Uretheral (Kathleen) 250 Estimated Blood Loss 150 Other: Voiding Method Indwelling Catheter Indwelling Catheter Indwelling Catheter - Exam On examination, the patient is lying in bed in no apparent distress. He is alert and oriented 3. On inspection of the right hip, there is clean, dry, intact Optifoam dressing in place. There is no drainage or bleeding through the dressing. There is moderate pain to palpation of the right hip. Thigh is soft and compressible. No pain on palpation of the right knee, calf, ankle, foot. Patient has good strength and range of motion of the right ankle. Motor and sensory function are intact of the right lower extremity. Dorsalis pedis pulse +2. Right lower extremity is warm and well perfused with brisk capillary refill distally. Abduction pillow in place. - Labs CBC & Chem 7: 08/15/19 07:06 08/15/19 07:06 Labs: Abnormal Lab Results - Last 24 Hours (Table) 06/08/14/19 08/15/19 Range/Units 17:28 17:28 07:06 RBC 3.97 L 3.01 L (4.30-5.90) m/uL Hgb 11.8 L 9.3 L D (13.0-17.5) gm/dL Hct 36.7 L 27.9 L (39.0-53.0) % Lymphocytes # 0.6 L (1.0-4.8) k/uL Sodium (137-145) mmol/L Carbon Dioxide (22-30) mmol/L Glucose (74-99) mg/dL Calcium (8.4-10.2) mg/dL Vitamin D 25-Hydroxy 9.5 L (30.0-100.0) ng/mL 08/15/19 Range/Units 07:06 RBC (4.30-5.90) m/uL Hgb (13.0-17.5) gm/dL Hct (39.0-53.0) % Lymphocytes # (1.0-4.8) k/uL Sodium 131 L (137-145) mmol/L Carbon Dioxide 21 L (22-30) mmol/L Glucose 66 L (74-99) mg/dL Calcium 7.5 L (8.4-10.2) mg/dL Vitamin D 25-Hydroxy (30.0-100.0) ng/mL Assessment and Plan Assessment: Right femoral neck fracture status-post right hip hemiarthroplasty 08/14/2019. Postoperative day #1. Plan: - Weightbearing as tolerated on the right lower extremity. Up with assistance, up with a walker. - Physical therapy for gait and balance training. - Pain management as needed. - DVT prophylaxis will be deferred to internal medicine, as the patient takes Plavix and aspirin at home. - 2 doses of postoperative antibiotics complete. - Posterior hip precautions. Abduction pillow in place at all times while in bed. - Patient input from internal medicine. - Anticipate discharge to rehab and 2448 hours, pending medical clearance.
[2019-08-15 11:13] VITALS: BMI 18.9
[2019-08-15] MEDS: LACTATED RINGERS 1,000 ML IV SCH (12:07)
[2019-08-15] MEDS: ATORVASTATIN 80 MG TAB PO SCH (21:02)
[2019-08-15] MEDS: TAMSULOSIN 0.4 MG CAP.ER.24H PO SCH (21:02)
[2019-08-15] MEDS: SENNOSIDES-DOCUSATE SODIUM 1 EACH TAB PO SCH (21:02)
[2019-08-16] MEDS: LACTATED RINGERS 1,000 ML IV SCH (01:26)
[2019-08-16] MEDS: SODIUM CHLORIDE 0.9% 1,000 ML IV SCH (02:00)
[2019-08-16] MEDS: HYDROcodone/APAP 5-325MG 1 EACH TAB PO PRN ×4 (03:02→23:13)
[2019-08-16] MEDS: ASPIRIN 81 MG PO SCH (07:56)
[2019-08-16] MEDS: CHOLECALCIFEROL 1,000 UNIT TAB PO SCH (07:56)
[2019-08-16] MEDS: SERTRALINE 100 MG TAB PO SCH (07:56)
[2019-08-16] MEDS: METOPROLOL TARTRATE 25 MG TAB PO SCH ×2 (07:56→20:39)
[2019-08-16] MEDS: LISINOPRIL 10 MG TAB PO SCH (07:56)
[2019-08-16] MEDS: MIRTAZAPINE 15 MG TAB PO SCH (07:56)
[2019-08-16] MEDS: ENOXAPARIN 30 MG/0.3 ML SYRINGE SQ SCH ×2 (07:56→20:38)
[2019-08-16] MEDS: PANTOPRAZOLE 40 MG/10 ML VIAL IV SCH (07:57)
[2019-08-16] MEDS: NICOTINE 14MG/24HR PATCH TRANSDERM SCH (08:06)
--- NOTE | 2019-08-16 10:22 | P.PN ---
Subjective Progress Note Date: 08/16/19 This is a 74-year-old male patient of Dr. Kuo with past medical history significant for coronary artery disease status post three-vessel CABG in 2017, cardiac stent, gastroesophageal reflux disease, hypertension, hyperlipidemia, osteoarthritis generalized, benign prostatic hypertrophy, COPD, recurrent depression, tobacco use and dependence, history of alcohol abuse. Patient gives history that he had a fall he rolled out of bed on Tuesday early in the morning around 3:30. He thought he pulled a muscle and was able to ambulate until yesterday. He states he has been ambulating with a walker. He came into the hospital for evaluation and found to have mildly displaced femoral neck fracture. Right ankle showed no fracture, soft tissue swelling present. Right knee x-ray shows small joint effusion. No fracture. Chest x-ray revealed scarring at the left lung base. No acute lung disease. Patient presented with high blood pressure 244/108, afebrile, heart rate 87, pulse ox 96% on room air. Patient states that his blood pressure normally is well controlled. He did not take his blood pressure medications at all yesterday. Patient was resumed on his home medications which are lisinopril 10 mg daily, Lopressor 25 mg twice daily and both were repeated this morning as well as Vasotec 1.25 mg and additional dose of morphine IV given to improve blood pressure. 08/14: Patient states that he had a rough night. He was having hip pain currently at 7 out of 10. He denies having any chest pain or shortness of breath. He states he is passing gas and had a bowel movement. He states he gets a little nauseated from morphine but passes easily. Incentive spirometry will be added. Patient is status post right hemiarthroplasty of the, postop day #1. He has been afebrile, heart rate 83, blood pressure 115/54, pulse ox 92% on room air. Blood work reveals hemoglobin 9.3, sodium 131, potassium 4.6, chloride 101, CO2 21. Patient is on Lovenox for DVT prophylaxis. 08/15: Patient has been afebrile, heart rate 75, Blood pressure 126/63, pulse ox 94% on room air. Patient continues to have problems with pain control. He is utilizing incentive spirometry. His discharge plan is now to go to [facility]. Anticipate discharge to [facility] tomorrow. Objective - Vital Signs Vital signs: Vital Signs Temp 98.6 F 08/16/19 00:43 Pulse 75 08/16/19 00:43 Resp 14 08/16/19 00:43 BP 126/63 08/16/19 00:43 Pulse Ox 94 L 08/16/19 00:43 Intake & Output 08/15/19 08/16/19 08/16/19 18:59 06:59 18:59 Intake Total 1000 Output Total 350 Balance 1000 -350 Weight 54.885 kg Intake: Intake, IV Titration 800 Amount Sodium Chloride 0.9% 1, 800 000 ml @ 95 mls/hr IV . [id number] [facility] Rx#:[id number] Oral 200 Output: Urine 350 Other: Voiding Method Indwelling Catheter - Exam Review of Systems Constitutional: Denies anorexia, Denies chills, Denies fatigue, Denies fever, Denies lethargy, Denies malaise, Denies poor appetite, Denies weakness, Denies weight loss Eyes: denies blurred vision, denies pain Ears, nose, mouth and throat: Denies dysphagia, Denies headache, Denies nasal congestion, Denies nasal discharge, Denies sore throat, Denies vertigo Cardiovascular: Denies chest pain, Denies decreased exercise tolerance, Denies dyspnea on exertion, Denies edema, Denies leg edema, Denies shortness of breath, Denies syncope Respiratory: Denies cough, Denies cough with sputum, Denies dyspnea, Denies excessive sputum, Denies hemoptysis, Denies home oxygen, Denies respiratory infections, Denies wheezing Gastrointestinal: Denies abdominal pain, Denies diarrhea, Denies loss of appetite, Denies nausea, Denies vomiting Genitourinary: Denies dysuria, Denies urinary frequency, Denies urinary re tention Musculoskeletal: Denies frequent falls, Denies gait dysfunction, Denies muscle weakness, Denies myalgias Musculoskeletal: right: hip discomfort, hip stiffness, hip swelling Integumentary: Denies pruritus, Denies rash, Denies wounds Neurological: Denies change in mentation, Denies change in speech, Denies numbness, Denies weakness Psychiatric: Denies anxiety, Denies depression Endocrine: Denies fatigue, Denies weight change Physical Examination Gen: This is a 74-year-old male. He is is seen in bed and appears to be comfortable. HEENT: Head is atraumatic, normocephalic. Pupils equal, round. Sclerae is anicteric. NECK: Supple. No JVD. No lymphadenopathy. No thyromegaly. LUNGS: Clear to auscultation. No wheezes or rhonchi. No intercostal retractions. HEART: Regular rate and rhythm. No murmur. ABDOMEN: Soft. Bowel sounds are present. No masses. No tenderness. EXTREMITIES: No pedal edema. No calf tenderness. Right hip dressing in place. No breakthrough bleeding or drainage. No significant swelling. Dorsalis pedis +2 bilaterally. NEUROLOGICAL: Patient is awake, alert and oriented x3. Cranial nerves 2 through 12 are grossly intact. - Labs CBC & Chem 7: 08/15/19 07:06 08/15/19 07:06 Labs: Abnormal Lab Results - Last 24 Hours (Table) 08/15/19 08/15/19 Range/Units 07:06 07:06 RBC 3.01 L (4.30-5.90) m/uL Hgb 9.3 L D (13.0-17.5) gm/dL Hct 27.9 L (39.0-53.0) % Sodium 131 L (137-145) mmol/L Carbon Dioxide 21 L (22-30) mmol/L Glucose 66 L (74-99) mg/dL Calcium 7.5 L (8.4-10.2) mg/dL Assessment and Plan Plan: 1. Right femoral neck fracture. Patient has been admitted to the orthopedic service. Patient is cleared medically for surgical intervention most likely scheduled for this afternoon. Continue current pain management, obtain incentive spirometry to reduce incidence of atelectasis and hospital-acquired pneumonia, PT and OT, DVT prophylaxis with Lovenox. 2. Hypertensive emergency. Continue lisinopril 10 mg daily, Lopressor 25 mg twice daily, Vasotec 1.25 mg as necessary. 3. History of coronary artery disease status post 3 vessel CABG, stents. Hold aspirin 81 mg daily. Continue Lopressor, hold Plavix 75 mg daily and baby aspirin, continue Lipitor 80 mg daily. 4. History of left carotid endarterectomy, stable. 5. COPD without exacerbation. 6. Hyperlipidemia. Continue Lipitor. 7. Benign prostatic hypertrophy. Monitor for urinary retention, continue Flomax 0.4 mg at bedtime 8. Gastroesophageal reflux disease and GI prophylaxis. Continue Protonix daily. 9. Recurrent depression. Continue Remeron 30 mg daily, Zoloft 100 mg daily. 10. DVT prophylaxis. 11. Tobacco use and dependence, currently half pack per day. Nicotine patch added. 12. History of alcohol abuse. Patient quit drinking in October 2018. 13. COVID-19 infection not present. 14. Full CODE STATUS Discharge plan: Subacute rehab at [facility] on Tuesday Impression and plan of care have been directed as dictated by the signing physician. Cindi Edwards nurse practitioner acting as scribe for signing physician.
[2019-08-16 12:05] LABS: Basophils % (A) 0 %; Eosinophils # (A) 0.1 k/uL (0-0.7); Eosinophils % (A) 1 %; HCT 26.2 % (39.0-53.0); HGB 8.7 gm/dL (13.0-17.5); Lymphocytes # (A) 0.5 k/uL (1.0-4.8); Lymphocytes % (A) 5 %; MCH 31.1 pg (25.0-35.0); MCHC 33.2 g/dL (31.0-37.0); MCV 93.8 fL (80.0-100.0); Mean Platelet Volume 7.5; Monocytes # (A) 0.5 k/uL (0-1.0); Monocytes % (A) 5 %; Neutrophils # (A) 8.4 k/uL (1.3-7.7); Neutrophils % (A) 88 %; Platelet Count 248 k/uL (150-450); RDW 14.9 % (11.5-15.5); WBC 9.6 k/uL (3.8-10.6)
--- NOTE | 2019-08-16 14:03 | P.PN ---
Subjective Progress Note Date: 08/16/19 This patient is a 74-year-old male with a past medical history of coronary artery disease status-post CABG in 2017, cardiac stents, hypertension, hyperlipidemia, BPH, COPD, nicotine dependence, and history of alcohol abuse that is status-post right hip hemiarthroplasty on 08/14/[address] So. Today's postoperative day #2. The patient was examined bedside this morning. He has continued to experience moderate right hip pain. He states his pain is controlled with no motion of the right hip, although it becomes significant with weightbearing or moving the right hip. He was up to the bedside chair yesterday with physical therapy. He also complains he is tired, although he is unable to sleep last night. He states he is tolerating his diet. He has not had a bowel movement postoperatively. He denies abdominal pain. He denies chest pain, shortness breath, nausea, vomiting, fevers, chills. He denies numbness or tingling of the right lower extremity. Vital signs stable. Objective - Vital Signs Vital signs: Vital Signs Temp 98.3 F 08/16/19 07:10 Pulse 78 08/16/19 07:10 Resp 18 08/16/19 07:10 BP 150/65 08/16/19 07:10 Pulse Ox 97 08/16/19 07:10 Intake & Output 08/15/19 08/16/19 08/16/19 18:59 06:59 18:59 Intake Total 1000 Output Total 350 Balance 1000 -350 Weight 54.885 kg Intake: Intake, IV Titration 800 Amount Sodium Chloride 0.9% 1, 800 000 ml @ 95 mls/hr IV . [id number] [facility] Rx#:[id number] Oral 200 Output: Urine 350 Other: Voiding Method Indwelling Catheter - Exam On examination, the patient is lying in bed in no apparent distress. He is alert and oriented 3. On inspection of the right hip, there is clean, dry, intact Optifoam dressing in place. There is no drainage or bleeding through the dressing. There is moderate pain to palpation of the right hip. Thigh is soft and compressible. No pain on palpation of the right knee, calf, ankle, foot. Patient has good strength and range of motion of the right ankle. Motor and sensory function are intact of the right lower extremity. Dorsalis pedis pulse +2. Right lower extremity is warm and well perfused with brisk capillary refill distally. Abduction pillow in place. - Labs CBC & Chem 7: 08/16/19 11:33 08/15/19 07:06 Labs: Abnormal Lab Results - Last 24 Hours (Table) 08/16/19 Range/Units 11:33 RBC 2.80 L (4.30-5.90) m/uL Hgb 8.7 L (13.0-17.5) gm/dL Hct 26.2 L (39.0-53.0) % Neutrophils # 8.4 H (1.3-7.7) k/uL Lymphocytes # 0.5 L (1.0-4.8) k/uL Assessment and Plan Assessment: Right femoral neck fracture status-post right hip hemiarthroplasty 08/14/2019. Postoperative day #2. Plan: - Weightbearing as tolerated on the right lower extremity. Up with assistance, up with a walker. - Physical therapy for gait and balance training. - Pain management as needed. Truman 5/325mg q6 hours, decrease use of diluadid as tolerated. - DVT prophylaxis will be deferred to internal medicine, as the patient takes Plavix and aspirin at home. - 2 doses of postoperative antibiotics complete. - Posterior hip precautions. Abduction pillow in place at all times while in bed. - Patient input from internal medicine. - Anticipate discharge to rehab and 2448 hours, pending medical clearance.
[2019-08-16 17:12] LABS: Basophils % (A) 0 %; Eosinophils # (A) 0.1 k/uL (0-0.7); Eosinophils % (A) 1 %; HCT 24.5 % (39.0-53.0); HGB 8.3 gm/dL (13.0-17.5); Lymphocytes # (A) 0.4 k/uL (1.0-4.8); Lymphocytes % (A) 5 %; MCH 30.8 pg (25.0-35.0); MCV 90.6 fL (80.0-100.0); Mean Platelet Volume 7.2; Monocytes # (A) 0.4 k/uL (0-1.0); Monocytes % (A) 4 %; Neutrophils # (A) 8.2 k/uL (1.3-7.7); Neutrophils % (A) 89 %; Platelet Count 241 k/uL (150-450); RBC 2.71 m/uL (4.30-5.90); WBC 9.2 k/uL (3.8-10.6)
[2019-08-16] MEDS: ATORVASTATIN 80 MG TAB PO SCH (20:38)
[2019-08-16] MEDS: TAMSULOSIN 0.4 MG CAP.ER.24H PO SCH (20:39)
[2019-08-16] MEDS: SENNOSIDES-DOCUSATE SODIUM 1 EACH TAB PO SCH (20:39)
[2019-08-17] MEDS: HYDROcodone/APAP 5-325MG 1 EACH TAB PO PRN ×3 (05:35→14:05)
[2019-08-17] MEDS: CHOLECALCIFEROL 1,000 UNIT TAB PO SCH (07:26)
[2019-08-17] MEDS: SERTRALINE 100 MG TAB PO SCH (07:26)
[2019-08-17] MEDS: ASPIRIN 81 MG PO SCH (07:26)
[2019-08-17] MEDS: LISINOPRIL 10 MG TAB PO SCH (07:26)
[2019-08-17] MEDS: METOPROLOL TARTRATE 25 MG TAB PO SCH (07:26)
[2019-08-17] MEDS: NICOTINE 14MG/24HR PATCH TRANSDERM SCH (07:27)
[2019-08-17] MEDS: ENOXAPARIN 30 MG/0.3 ML SYRINGE SQ SCH (07:27)
[2019-08-17] MEDS: MIRTAZAPINE 15 MG TAB PO SCH (07:27)
[2019-08-17] MEDS: PANTOPRAZOLE 40 MG/10 ML VIAL IV SCH (07:28)
--- NOTE | 2019-08-17 07:44 | P.PN ---
Subjective Progress Note Date: 08/17/19 This is a 74-year-old male patient of Dr. Kuo with past medical history significant for coronary artery disease status post three-vessel CABG in 2017, cardiac stent, gastroesophageal reflux disease, hypertension, hyperlipidemia, osteoarthritis generalized, benign prostatic hypertrophy, COPD, recurrent depression, tobacco use and dependence, history of alcohol abuse. Patient gives history that he had a fall he rolled out of bed on Tuesday early in the morning around 3:30. He thought he pulled a muscle and was able to ambulate until yesterday. He states he has been ambulating with a walker. He came into the hospital for evaluation and found to have mildly displaced femoral neck fracture. Right ankle showed no fracture, soft tissue swelling present. Right knee x-ray shows small joint effusion. No fracture. Chest x-ray revealed scarring at the left lung base. No acute lung disease. Patient presented with high blood pressure 244/108, afebrile, heart rate 87, pulse ox 96% on room air. Patient states that his blood pressure normally is well controlled. He did not take his blood pressure medications at all yesterday. Patient was resumed on his home medications which are lisinopril 10 mg daily, Lopressor 25 mg twice daily and both were repeated this morning as well as Vasotec 1.25 mg and additional dose of morphine IV given to improve blood pressure. 08/14: Patient states that he had a rough night. He was having hip pain currently at 7 out of 10. He denies having any chest pain or shortness of breath. He states he is passing gas and had a bowel movement. He states he gets a little nauseated from morphine but passes easily. Incentive spirometry will be added. Patient is status post right hemiarthroplasty of the, postop day #1. He has been afebrile, heart rate 83, blood pressure 115/54, pulse ox 92% on room air. Blood work reveals hemoglobin 9.3, sodium 131, potassium 4.6, chloride 101, CO2 21. Patient is on Lovenox for DVT prophylaxis. 08/15: Patient has been afebrile, heart rate 75, Blood pressure 126/63, pulse ox 94% on room air. Patient continues to have problems with pain control. He is utilizing incentive spirometry. His discharge plan is now to go to [facility]. Anticipate discharge to [facility] tomorrow. 08/16: Patient is feeling better today, pain is well controlled. Patient feeling of change discharge plan to [facility]. He has been afebrile, heart rate 70, blood pressure this morning 173/69 pulse ox 97% on room air. Patient is cleared for discharge to [facility] under the care of Dr. Kuo. Patient will be on Lovenox and asa 81 mg for 10 days and then back on Plavix and asa. Objective - Vital Signs Vital signs: Vital Signs Temp 98.0 F 08/17/19 02:14 Pulse 73 08/17/19 02:14 Resp 18 08/16/19 15:18 BP 149/67 08/17/19 02:14 Pulse Ox 98 08/17/19 02:14 Intake & Output 08/16/19 08/17/19 08/17/19 18:59 06:59 18:59 Output Total 300 450 Balance -300 -450 Weight 54.885 kg Output: Urine 300 450 Other: Voiding Method Indwelling Catheter Urinal - Exam Review of Systems Constitutional: Denies anorexia, Denies chills, Denies fatigue, Denies fever, Denies lethargy, Denies malaise, Denies poor appetite, Denies weakness, Denies weight loss Eyes: denies blurred vision, denies pain Ears, nose, mouth and throat: Denies dysphagia, Denies headache, Denies nasal congestion, Denies nasal discharge, Denies sore throat, Denies vertigo Cardiovascular: Denies chest pain, Denies decreased exercise tolerance, Denies dyspnea on exertion, Denies edema, Denies leg edema, Denies shortness of breath, Denies syncope Respiratory: Denies cough, Denies cough with sputum, Denies dyspnea, Denies excessive sputum, Denies hemoptysis, Denies home oxygen, Denies respiratory infections, Denies wheezing Gastrointestinal: Denies abdominal pain, Denies diarrhea, Denies loss of appetite, Denies nausea, Denies vomiting Genitourinary: Denies dysuria, Denies urinary frequency, Denies urinary retention Musculoskeletal: Denies frequent falls, Denies gait dysfunction, Denies muscle weakness, Denies myalgias Musculoskeletal: right: hip discomfort, hip stiffness Integumentary: Denies pruritus, Denies rash, Denies wounds Neurological: Denies change in mentation, Denies change in speech, Denies numbness, Denies weakness Psychiatric: Denies anxiety, Denies depression Endocrine: Denies fatigue, Denies weight change Physical Examination Gen: This is a 74-year-old male. He is is seen in bed and appears to be comfortable. Pain is improved today. HEENT: Head is atraumatic, normocephalic. Pupils equal, round. Sclerae is anicteric. NECK: Supple. No JVD. No lymphadenopathy. No thyromegaly. LUNGS: Clear to auscultation. No wheezes or rhonchi. No intercostal retractions. HEART: Regular rate and rhythm. No murmur. ABDOMEN: Soft. Bowel sounds are present. No masses. No tenderness. EXTREMITIES: No pedal edema. No calf tenderness. Right hip dressing in place. No breakthrough bleeding or drainage. No significant swelling. Dorsalis pedis +2 bilaterally. NEUROLOGICAL: Patient is awake, alert and oriented x3. Cranial nerves 2 through 12 are grossly intact. - Labs CBC & Chem 7: 08/16/19 16:46 08/15/19 07:06 Labs: Abnormal Lab Results - Last 24 Hours (Table) 08/16/19 08/16/19 Range/Units 11:33 16:46 RBC 2.80 L 2.71 L (4.30-5.90) m/uL Hgb 8.7 L 8.3 L (13.0-17.5) gm/dL Hct 26.2 L 24.5 L (39.0-53.0) % Neutrophils # 8.4 H 8.2 H (1.3-7.7) k/uL Lymphocytes # 0.5 L 0.4 L (1.0-4.8) k/uL Assessment and Plan Plan: 1. Right femoral neck fracture. Patient has been admitted to the orthopedic service. Patient is cleared medically for surgical intervention most likely scheduled for this afternoon. Continue current pain management, obtain incentive spirometry to reduce incidence of atelectasis and hospital-acquired pneumonia, PT and OT, DVT prophylaxis with Lovenox for 10 days. 2. Hypertensive emergency. Continue lisinopril 10 mg daily, Lopressor 25 mg twice daily, Vasotec 1.25 mg as necessary. 3. History of coronary artery disease status post 3 vessel CABG, stents. Hold aspirin 81 mg daily. Continue Lopressor, hold Plavix 75 mg daily, continue Lipitor 80 mg daily. [facility] Plavix will be resumed in 10 days after Lovenox course is completed. 4. History of left carotid endarterectomy, stable. 5. COPD without exacerbation. 6. Hyperlipidemia. Continue Lipitor. 7. Benign prostatic hypertrophy. Monitor for urinary retention, continue Flomax 0.4 mg at bedtime 8. Gastroesophageal reflux disease and GI prophylaxis. Continue Protonix daily. 9. Recurrent depression. Continue Remeron 30 mg daily, Zoloft 100 mg daily. 10. DVT prophylaxis. 11. Tobacco use and dependence, currently half pack per day. Nicotine patch added. 12. History of alcohol abuse. Patient quit drinking in October 2018. 13. COVID-19 infection not present. 14. Full CODE STATUS Discharge plan: [facility] Impression and plan of care have been directed as dictated by the signing physician. Cindi Edwards nurse practitioner acting as scribe for signing physician.
[2019-08-17 08:24] VITALS: BP 173/69; PULSE 70; RESP 16; TEMP 98.4
--- NOTE | 2019-08-17 11:19 | P.DS ---
Providers Date of admission: 08/13/19 20:26 Expected date of discharge: 08/17/19 Attending physician: Levar So Consults: 08/13/19 20:26 Consult Physician Routine Consulting Provider: Clay Kuo Consult Reason/Comments: medicine consult Do you want consulting provider notified?: Yes Primary care physician: Clay Kuo [facility] Course: This patient is a 74-year-old male with past medical history of coronary artery disease status-post CABG in 2017, cardiac stents, hypertension, hyperlipidemia, BPH, COPD, nicotine dependence, and history of alcohol abuse the presented to [facility] emergency department 08/13/19 with complaints of right hip pain status-post fall. X-rays in the emergency department revealed a right femoral neck fracture. The patient was admitted under the care of Dr. So for surgical intervention with a consult placed to internal medicine for surgical clearance and perioperative medical management. Patient underwent a right hip hemiarthroplasty on 08/14/[address] So. The procedure was performed without complication or sequelae. The patient is doing fairly well postoperatively. Vital signs and labs are stable on posto perative day #3. Patient is examined bedside this morning. Patient states he is continuing to experience pain in the right hip, although he states it has improved slightly compared to yesterday. He states his pain is controlled while lying in bed. He states he does experience an increase of pain with ambulation. He was up with physical therapy yesterday to the chair. He states he does not have an appetite, although he is continuing to drink Ensure. He has not had a bowel movement postoperatively, he denies abdominal pain. He is voiding freely. He states he otherwise feels well. He denies chest pain, shortness of breath, nausea, vomiting, fevers, chills, numbness or tingling of the right lower extremity. On examination, the patient is sitting up in bed in no apparent distress. He is alert and oriented 3. On inspection of the right hip, there is a clean, dry, intact Optifoam dressing in place. There is no bleeding or drainage through the dressing. No ecchymosis of the hip. The thigh soft and compressible. Mild pain on palpation of the hip. Patient has good strength and range of motion of the right ankle. Motor and sensory function intact of the right lower extremity. Dorsalis pedis pulse +2. The right lower extremity is warm and well perfused with brisk capillary refill distally. Calf is soft and nontender to palpation. Abduction pillow in place. Patient is discharged to rehab today in good condition, pending medical clearance. Patient will follow-up in the office in 2 weeks. Please see med rec for accurate list of discharge medication. Patient Condition at Discharge: Fair Plan - Discharge Summary Discharge Rx Participant: No New Discharge Prescriptions: New Nicotine 14Mg/24Hr Patch [Habitrol] 1 patch TRANSDERM DAILY patch Enoxaparin [Lovenox] 30 mg SQ Q12HR syringe Sennosides-Docusate Sodium [Senokot-S] 2 each PO HS tab Ergocalciferol [Vitamin D2 (DRISDOL)] 50,000 unit PO Q72H cap Cholecalciferol [Vitamin D3 (25 Mcg = 1000 Iu)] 2,000 unit PO DAILY tab HYDROcodone/APAP 5-325MG [Embarrass 5-325] 1 tab PO Q6HR PRN 7 Days #30 tab PRN Reason: Pain Continue Tamsulosin [Flomax] 0.4 mg PO DAILY Pantoprazole [Protonix] 40 mg PO AC-BRKFST #30 tab Metoprolol Tartrate [Lopressor] 25 mg PO BID Lisinopril [Zestril] 10 mg PO DAILY Aspirin EC [Ecotrin Low Dose] 81 mg PO DAILY Mirtazapine 30 mg PO HS Sertraline HCl [Zoloft] 100 mg PO DAILY Atorvastatin Calcium [Lipitor] 80 mg PO DAILY Discontinued Clopidogrel Bisulfate [Plavix] 75 mg PO DAILY Discharge Medication List Tamsulosin [Flomax] 0.4 mg PO DAILY 07/16/16 [History] Pantoprazole [Protonix] 40 mg PO AC-BRKFST #30 tab 07/27/16 [Rx] Metoprolol Tartrate [Lopressor] 25 mg PO BID 05/12/18 [History] Lisinopril [Zestril] 10 mg PO DAILY 07/11/18 [History] Aspirin EC [Ecotrin Low Dose] 81 mg PO DAILY 12/02/18 [History] Mirtazapine 30 mg PO HS 12/03/18 [History] Atorvastatin Calcium [Lipitor] 80 mg PO DAILY 08/13/19 [History] Sertraline HCl [Zoloft] 100 mg PO DAILY 08/13/19 [History] Cholecalciferol [Vitamin D3 (25 Mcg = 1000 Iu)] 2,000 unit PO DAILY tab 08/17/19 [Rx] Enoxaparin [Lovenox] 30 mg SQ Q12HR syringe 08/17/19 [Rx] Ergocalciferol [Vitamin D2 (DRISDOL)] 50,000 unit PO Q72H cap 08/17/19 [Rx] HYDROcodone/APAP 5-325MG [Embarrass 5-325] 1 tab PO Q6HR PRN 7 Days #30 tab 08/17/19 [Rx] Nicotine 14Mg/24Hr Patch [Habitrol] 1 patch TRANSDERM DAILY patch 08/17/19 [Rx] Sennosides-Docusate Sodium [Senokot-S] 2 each PO HS tab 08/17/19 [Rx] Follow up Appointment(s)/Referral(s): Clay Kuo MD [Primary Care Provider] - 1 Week (at [facility]) Fabricio Mattson MD [STAFF PHYSICIAN] - 08/31/19 10:00 am Activity/Diet/Wound Care/Special Instructions: Hold Plavix while on Lovenox. Weight bear as tolerating on your operative leg. Up with assistance, up with a walker. Continue physical therapy for gait and balance training. Keep Optifoam dressing in place for 10 days. May shower over dressing. DVT prophylaxis per internal medicine. Take pain medications as prescribed. Follow-up in the office in 2 weeks. Call with any questions or concerns Discharge Disposition: TRANSFER TO SNF/ECF
== END 2019-08-17 14:00 | DRG 470 ==
LOC: EC 18:21 → 5NMEDONC 20:26 → 4SSUR 08-14 17:03
PROVIDERS: ADMIT Orthopaedic Surgery; ATTEND Orthopaedic Surgery
PROC: 0SRR0J9 Replacement of Right Hip Joint, Femoral Surface with Synthetic Substitute, Cemented, Open Approach (ICD-10-PCS; principal; 2019-08-14 09:30)
DX: S72.001A Fracture of unspecified part of neck of right femur, initial encounter for closed fracture (principal); F33.9 Major depressive disorder, recurrent, unspecified; I16.1 Hypertensive emergency; W06.XXXA Fall from bed, initial encounter; Y92.009 Unspecified place in unspecified non-institutional (private) residence as the place of occurrence of the external cause; I25.2 Old myocardial infarction; J44.9 Chronic obstructive pulmonary disease, unspecified; N40.0 Benign prostatic hyperplasia without lower urinary tract symptoms; E78.5 Hyperlipidemia, unspecified; F17.210 Nicotine dependence, cigarettes, uncomplicated; I10 Essential (primary) hypertension; I25.10 Atherosclerotic heart disease of native coronary artery without angina pectoris; Z79.82 Long term (current) use of aspirin; Z79.899 Other long term (current) drug therapy; Z82.3 Family history of stroke; Z82.49 Family history of ischemic heart disease and other diseases of the circulatory system; Z79.02 Long term (current) use of antithrombotics/antiplatelets; Z85.51 Personal history of malignant neoplasm of bladder; Z11.59 Encounter for screening for other viral diseases; Z95.1 Presence of aortocoronary bypass graft; Z95.5 Presence of coronary angioplasty implant and graft; Z98.42 Cataract extraction status, left eye; F10.11 Alcohol abuse, in remission; Z98.41 Cataract extraction status, right eye; F41.9 Anxiety disorder, unspecified; K21.9 Gastro-esophageal reflux disease without esophagitis; M19.90 Unspecified osteoarthritis, unspecified site; Z87.01 Personal history of pneumonia (recurrent)
CPT/HCPCS: 36415; 71045; 73501; 73502; 80048; 82306; 85025; 85027; 85610; 85730; 86850; 86900; 86901; 88305; 88311; 93005; 96361; 96374; 96375; 96376; 99285

== ENCOUNTER → 2021-08-13 | Outpatient (CLI) | payer MEDICARE ==
--- NOTE | 2021-08-13 20:37 | XR ---
EXAMINATION TYPE: XR chest 2V DATE OF EXAM: 08/13/2021 COMPARISON: X-ray dated 08/13/2019 HISTORY: Weakness and shortness of breath TECHNIQUE: Frontal and lateral views of the chest are obtained. FINDINGS: Flat left hemidiaphragm, appreciated previously. Small left pleural effusion cannot be excluded. Susp ected COPD changes. Left basal linear pulmonary atelectasis. Right apical linear calcifications, likely representing subclavian artery calcifications. No right-si ded pleural effusion or definite pneumothorax. No cardiomegaly. Aortic atherosclerotic calcifications. Sternotomy wire sutures. IMPRESSION: As above.
== END | disposition home or self-care (01) ==
LOC: RADXRMAIN 12:49
PROVIDERS: ATTEND Internal Medicine
DX: J90 Pleural effusion, not elsewhere classified (principal); I25.10 Atherosclerotic heart disease of native coronary artery without angina pectoris
CPT/HCPCS: 71046

== ENCOUNTER → 2022-02-02 | Outpatient (CLI) | payer MEDICARE ==
--- NOTE | 2022-02-02 11:32 | CTL ---
EXAMINATION TYPE: CT Low Dose Lung DATE OF EXAM ORDERED: 02/02/2022 HISTORY: . Lung cancer screening CT DLP: 73.[address] CTDI: 2.00 mGy Automated exposure control for dose reduction was used. SCREENING VISIT: COMPARISON: None TECHNIQUE: Low dose computed tomography scan was performed through the chest at 1 mm thick sections a nd reconstructed images in multiple planes at 1 mm and [address] DIAGNOSTIC QUALITY: Satisfactory FINDINGS: There are multiple a 5 mm nodules in the right lung apex one of which is calcified compatible with gr anuloma. 4 mm subpleural nodule in the right upper lobe noted. Moderate emphysematous changes are seen with no pleural effusion or pneumothorax. No focal pneumonia. Sternotomy changes are seen. Atherosclerotic change of the aorta with no evidence of aneurysm. Elizondo ry artery calcification noted. Heart size normal. Small hiatal hernia noted. There are small gallston es incidentally noted. Hypertrophic and degenerative change of the spine. Subsegmental linear changes involving the left marely g most old scar or atelectasis. A linear density posterior margin superior segment left upper lobe me asuring 6 mm IMPRESSION: 1. COPD with multiple sub-5 mm nodules too small to characterize but likely benign. 2. There is a 6 mm nodule axial image 141 in the superior segment left lower lobe for which short-ter m follow-up is recommended 3. Dense coronary artery calcification CT LUNG RAD AND CT CHEST RECOMMENDATION: Lung-Rad 3 Probably Benign: 6 month follow-up LDCT. S Modifier (other clinically significant findings): S
== END | disposition home or self-care (01) ==
LOC: RADCTMAIN 10:03
PROVIDERS: ATTEND Internal Medicine
DX: Z12.2 Encounter for screening for malignant neoplasm of respiratory organs (principal); J44.9 Chronic obstructive pulmonary disease, unspecified; I25.10 Atherosclerotic heart disease of native coronary artery without angina pectoris; R91.8 Other nonspecific abnormal finding of lung field; Z87.891 Personal history of nicotine dependence
CPT/HCPCS: 71271

== ENCOUNTER 2022-05-06 17:18 | Inpatient (IN) | payer MEDICARE ==
[2022-05-06] MEDS ORDERED: SODIUM CHLORIDE 0.9% 500 ML 500 ML IV STA (17:42)
[2022-05-06] MEDS ORDERED: MAGNESIUM SULFATE-D5W PMX 1 GM in DEXTROSE/WATER 1 100ML.BAG IVPB STA (17:42)
[2022-05-06] MEDS ORDERED: methylPREDNISolone SOD SUCCI 125 MG/2 ML VIAL IV STA (17:42)
[2022-05-06] MEDS ORDERED: ALBUTEROL HFA INHALER INHALATION STA (17:42)
[2022-05-06] MEDS ORDERED: ACETAMINOPHEN TAB 500 MG TAB PO STA (17:44)
[2022-05-06 17:56] LABS: Basophils % (A) 0 %; Eosinophils % (A) 1 %; HCT 34.3 % (39.0-53.0); HGB 11.5 gm/dL (13.0-17.5); Lymphocytes # (A) 0.4 k/uL (1.0-4.8); Lymphocytes % (A) 11 %; MCH 30.8 pg (25.0-35.0); MCHC 33.5 g/dL (31.0-37.0); MCV 91.8 fL (80.0-100.0); Mean Platelet Volume 8.7; Monocytes # (A) 0.4 k/uL (0-1.0); Monocytes % (A) 9 %; Neutrophils # (A) 3.1 k/uL (1.3-7.7); Neutrophils % (A) 77 %; Platelet Count 148 k/uL (150-450); RBC 3.74 m/uL (4.30-5.90); RDW 14.5 % (11.5-15.5)
[2022-05-06 18:09] LABS: ALT 19 U/L (4-49); AST 29 U/L (17-59); African American GFR (CKD) >90 (>60 ml/min/1.73 sqM); Albumin 3.8 g/dL (3.5-5.0); Alkaline Phosphatase 69 U/L (38-126); Anion Gap 9 mmol/L; Blood Urea Nitrogen 14 mg/dL (9-20); Calcium 8.5 mg/dL (8.4-10.2); Carbon Dioxide 27 mmol/L (22-30); Chloride 102 mmol/L (98-107); Glucose 90 mg/dL (74-99); INR 1.2 (<1.2); Magnesium 1.4 mg/dL (1.6-2.3); Non-African American GFR(CKD) 89 (>60 ml/min/1.73 sqM); Partial Thromboplastin Time 25.9 sec (22.0-30.0); Potassium 4.1 mmol/L (3.5-5.1); Prothrombin Time 12.3 sec (9.0-12.0); Sodium 138 mmol/L (137-145); Total Bilirubin 0.6 mg/dL (0.2-1.3); Total Protein 6.5 g/dL (6.3-8.2)
--- NOTE | 2022-05-06 18:36 | XR ---
EXAMINATION TYPE: XR chest 2V DATE OF EXAM: 05/06/2022 6:19 PM COMPARISON: Chest radiographs from 08/13/2021 TECHNIQUE: XR chest 2V Frontal and lateral views of the chest. CLINICAL INDICATION:Male, 76 years old with history of difficulty breathing; FINDINGS: Lungs/Pleura: There is flattening of the diaphragm with increased lucency of the lungs. No evidence o f pneumothorax, pleural effusion or focal consolidation. Pulmonary vascularity: Unremarkable. Heart/mediastinum: Cardiomediastinal silhouette is unremarkable. Atherosclerotic calcifications are seen in the aorta. Musculoskeletal: No acute osseous pathology. Midline sternotomy wires are noted. IMPRESSION: 1. No acute cardiopulmonary disease process. 2. COPD changes.
[2022-05-06] MEDS ORDERED: AZITHROMYCIN 500 MG in SODIUM CHLORIDE 0.9% 250 ML IVPB SCH (21:00)
[2022-05-06] MEDS ORDERED: ACETAMINOPHEN TAB 325 MG TAB PO PRN (21:02)
[2022-05-06] MEDS ORDERED: NALOXONE 0.4 MG/ML 1 ML VIAL IV PRN (21:02)
--- NOTE | 2022-05-06 21:11 | ED ---
General Adult HPI - General Chief complaint: Shortness of Breath Stated complaint: difficulty breathing Time Seen by Provider: 05/06/22 17:23 Source: patient, EMS, RN notes reviewed, old records reviewed Mode of arrival: EMS Limitations: no limitations - History of Present Illness Initial comments: Patient is a 76-year-old male with past medical history remarkable for tobacco use, CAD, GERD, hypertension, who presents emergency Department complaining of a 3 a history of progressive worsening shortness of breath. When EMS arrived, patient's hypoxic down to 85%. They gave him an updraft and placed by nasal cannula which did improve his oxygenation. Patient states he is a chronic tobacco smoker, but no formal diagnosis of COPD. He has never required inhalers in the past. He has endorsed no fevers, or chills. Does endorse a mildly productive cough which is atypical for him. Denies any chest pain, abdominal pain, nausea, vomiting, diarrhea. His no other acute like this time. No known sick contacts. Presents over concern for his increased work of breathing. It is worse with movement. No known orthopnea. No PND. No lower extremity edema. - Related Data Home Medications Medication Instructions Recorded Confirmed Tamsulosin [Flomax] 0.4 mg PO HS 07/16/16 05/06/22 lisinopriL [Zestril] 10 mg PO DAILY 07/11/18 05/06/22 Mirtazapine 30 mg PO HS 12/03/18 05/06/22 Atorvastatin Calcium [Lipitor] 80 mg PO HS 08/13/19 05/06/22 Sertraline HCl [Zoloft] 150 mg PO DAILY 08/13/19 05/06/22 Aspirin 325 mg PO DAILY 05/06/22 05/06/22 Clopidogrel [Plavix] 75 mg PO HS 05/06/22 05/06/22 Pantoprazole [Protonix] 40 mg PO DAILY 05/06/22 05/06/22 carvediloL [Coreg] 3.125 mg PO BID 05/06/22 05/06/22 Allergies Allergy/AdvReac Type Severity Reaction Status Date / Time No Known Allergies Allergy Verified 05/06/22 20:36 Review of Systems ROS Statement: Those systems with pertinent positive or pertinent negative responses have been documented in the HPI. Review of Systems: CONST: Denies fever EYES: Denies blurry vision ENT: Denies nasal congestion C/V: Denies Chest pain RESP: Endorses Shortness of breath GI: Denies abdominal pain : Denies dysuria SKIN: Denies rash. MSK: Denies joint pain. NEURO: Denies headache ROS Other: All systems not noted in ROS Statement are negative. Past Medical History Past Medical History: Coronary Artery Disease (CAD), Cancer, Chest Pain / Angina, GERD/Reflux, Hyperlipidemia, Hypertension, Myocardial Infarction (NE), Pneumonia, Prostate Disorder, Vascular Disorder Additional Past Medical History / Comment(s): 2014 bladder cancer with surgery/hematuria, anemia, BPH, past ETOH abuse with withdrawal tremors-pt has not drank since 10/2018. Last Myocardial Infarction Date:: 2014 History of Any Multi-Drug Resistant Organisms: None Reported Past Surgical History: Bladder Surgery, Coronary Bypass/CABG, Heart Catheterization, Heart Catheterization With Stent Additional Past Surgical History / Comment(s): 2016 CABG 3 vessel, TUR BT/resection, cystoscopy, R caratid endartectomy, EGD, colonoscopy, small bowel capsule, bilateral cataract removals Past Anesthesia/Blood Transfusion Reactions: No Reported Reaction Additional Past Anesthesia/Blood Transfusion Reaction / Comment(s): Pt has received blood in past without reaction. Date of Last Stent Placement:: 1996 Past Psychological History: Anxiety, Depression Smoking Status: Current every day smoker Past Alcohol Use History: Daily Past Drug Use History: None Reported - Past Family History Father Family Medical History: Coronary Artery Disease (CAD) Additional Family Medical History / Comment(s): Father at age 78 from heart disease. Mother Family Medical History: CVA/TIA, Hypertension Additional Family Medical History / Comment(s): Mother at age 85 from stroke with history of hypertension. Sister(s) Family Medical History: No Reported History Additional Family Medical History / Comment(s): Patient has 2 sisters and one has history of myocardial infarction. Second sister has nomajor medical problems. Patient does not have any brothers. Daughter(s) Family Medical History: No Reported History Additional Family Medical History / Comment(s): The patient has 2 daughters and one has had leg amputation secondary to osteomyelitis. Second daughter has no major medical problems. Patient has one son with no major medical problems. Son(s) Family Medical History: No Reported History General Exam - General Exam Comments Initial Comments: General: Appears in no acute distress. Febrile. HEAD: Normal with no signs of head trauma. EYES: PERRLA, EOMI, conjunctiva normal, no discharge. ENT: Hearing grossly intact, normal oropharynx. RESPIRATORY: Bilateral end expiratory wheezing. Hypoxia on room air to the low 90% at rest. No increased work of breathing. C/V: Regular rate and rhythm. S1 and S2 auscultated, no edema, peripheral pulses 2+ and intact throughout ABD: Abd is soft, nontender, nondistended EXT: Normal range of motion, no obvious deformity SKIN: No rashes or lesions observed on exposed skin. NEURO: Alert and oriented 4. Limitations: no limitations Course Vital Signs 05/06/22 05/06/22 05/06/22 17:23 18:42 19:44 Temperature 100.8 F H 98.5 F Pulse Rate 82 71 67 Respiratory 22 20 14 Rate Blood Pressure 157/77 145/57 116/80 O2 Sat by Pulse 97 100 94 L Oximetry 05/06/22 05/06/22 05/06/22 19:51 19:52 20:11 Temperature Pulse Rate 73 Respiratory 18 Rate Blood Pressure 146/86 O2 Sat by Pulse 86 L 93 L 97 Oximetry Medical Decision Making - Medical Decision Making Was pt. sent in by a medical professional or institution (, PA, POWER SAW OPERATOR, urgent care, hospital, or fci...) When possible be specific @ -No Did you speak to anyone other than the patient for history (EMS, parent, family, police, friend...)? What history was obtained from this source @ -No Did you review nursing and triage notes (agree or disagree)? Why? @ -I reviewed and agree with nursing and triage notes Were old charts reviewed (outside hosp., previous admission, EMS record, old EKG, old radiological studies, urgent care reports/EKG's, fci records)? Report findings @ -Yes, old charts were reviewed from 2020 Differential Diagnosis (chest pain, altered mental status, abdominal pain women, abdominal pain men, vaginal bleeding, weakness, fever, dyspnea, syncope, headache, dizziness, GI bleed, back pain, seizure, CVA, palpatations, mental health, musculoskeletal)? @ -Differential Dyspnea: Coronary syndrome, arrhythmia, tamponade, asthma, COPD, pulmonary embolism, p neumonia, pneumothorax, pulmonary effusion, anaphylaxis, diabetic ketoacidosis, flailed chest, pulmonary contusion, diaphragmatic rupture, anemia, neuromuscular, this is not meant to be an all-inclusive list. EKG interpreted by me (3pts min.). @ -As above X-rays interpreted by me (1pt min.). @ -Chest x-ray shows no acute cardiopulmonary process. CT interpreted by me (1pt min.). @ -None done U/S interpreted by me (1pt. min.). @ -None done What testing was considered but not performed or refused? (CT, X-rays, U/S, labs)? Why? @ -None What meds were considered but not given or refused? Why? @ -None Did you discuss the management of the patient with other professionals (professionals i.e. , PA, POWER SAW OPERATOR, lab, RT, psych nurse, nephrology social worker, weaving loom operator, teacher, senior compliance officer, case managers)? Give summary @ -Discussed with patient's admitting physician, Dr. Kuo who accepted the patient. Was smoking cessation discussed for >3mins.? @ -No Was critical care preformed (if so, how long)? @ -Yes, 35 minutes Were there social determinants of health that impacted care today? How? (Homelessness, low income, unemployed, alcoholism, drug addiction, transportation, low edu. Level, literacy, decrease access to med. care, half-way, rehab)? @ -No Was there de-escalation of care discussed even if they declined (Discuss DNR or withdrawal of care, Hospice)? DNR status @ -No What co-morbidities impacted this encounter? (DM, HTN, Smoking, COPD, CAD, Cancer, CVA, ARF, Chemo, Hep., AIDS, mental health diagnosis, sleep apnea, morbid obesity)? @ -Chronic tobacco use, CAD Was patient admitted / discharged? Hospital course, mention meds given and route, prescriptions, significant lab abnormalities, going to OR and other pertinent info. @ -Based on the patient's presentation and physical exam, I'm concerned for [place] exacerbation the patient cannot rule out infectious etiology at this time. Patient is febrile. He is hypoxic on room air which is atypical for him as he is clean not on oxygen. No formal diagnosis of COPD. We will treat his COPD exacerbation with albuterol inhaler, magnesium bolus, as well as IV steroids. Patient will receive a acetaminophen for his fever. We will obtain a cardiopulmonary labs as well as viral swabs of the chest x-ray. He was in agreement this plan. Chest x-ray showed no signs of acute pneumonia or infiltrate. EKG was within acceptable limits. Patient's labs are remarkable for chronic anemia with a hemoglobin 11.5, a mild hypomagnesemia 1.4, and a positive Covid swab. I updated the patient. He will be admitted as ambulatory pulse ox is still 88%. Wheezing is somewhat improved. He was in agreement this plan. I spoke with the admitting physician, who accepted the patient. He requested a pulmonology consult which was placed. Patient empirically started on azithromycin for possible bronchitis due to his COPD as well as his productive cough and fever. Undiagnosed new problem with uncertain prognosis? @ -No Drug Therapy requiring intensive monitoring for toxicity (Heparin, Nitro, Insu bo, Cardizem)? @ -No Were any procedures done? @ -No Diagnosis/symptom? @ -COPD exacerbation with bronchitis Acute, or Chronic, or Acute on Chronic? @ -Acute on chronic Uncomplicated (without systemic symptoms) or Complicated (systemic symptoms)? @ -Complicated Side effects of treatment? @ -No Exacerbation, Progression, or Severe Exacerbation? @ -Exacerbation Poses a threat to life or bodily function? How? (Chest pain, [place], NE, pneumonia, PE, COPD, DKA, ARF, appy, cholecystitis, CVA, Diverticulitis, Homicidal, Suicidal, threat to staff... and all critical care pts) @ -Yes, if untreated can result in significant morbidity and mortality. Diagnosis/symptom? @ -Covid 19 infection Acute, or Chronic, or Acute on Chronic? @ -Acute Uncomplicated (without systemic symptoms) or Complicated (systemic symptoms)? @ -Uncomplicated Side effects of treatment? @ -none Exacerbation, Progression, or Severe Exacerbation] @ -no Poses a threat to life or bodily function? @ -Yes, can progress to significant infection causing morbidity and mortality. Diagnosis/symptom? @ -Hypoxic respiratory failure requiring nasal cannula oxygen Acute, or Chronic, or Acute on Chronic? @ -Acute Uncomplicated (without systemic symptoms) or Complicated (systemic symptoms)? @ -Complicated Side effects of treatment? @ -none Exacerbation, Progression, or Severe Exacerbation] @ -no Poses a threat to life or bodily function? @ -Yes, can result in significant morbidity and mortality if untreated. - Lab Data Result diagrams: 05/06/22 17:45 05/06/22 17:45 Lab Results 05/06/22 05/06/22 05/06/22 Range/Units 17:45 17:45 17:45 WBC 4.0 (3.8-10.6) k/uL RBC 3.74 L (4.30-5.90) m/uL Hgb 11.5 L (13.0-17.5) gm/dL Hct 34.3 L (39.0-53.0) % MCV 91.8 (80.0-100.0) fL MCH 30.8 (25.0-35.0) pg MCHC 33.5 (31.0-37.0) g/dL RDW 14.5 (11.5-15.5) % Plt Count 148 L (150-450) k/uL MPV 8.7 Neutrophils % 77 % Lymphocytes % 11 % Monocytes % 9 % Eosinophils % 1 % Basophils % 0 % Neutrophils # 3.1 (1.3-7.7) k/uL Lymphocytes # 0.4 L (1.0-4.8) k/uL Monocytes # 0.4 (0-1.0) k/uL Eosinophils # 0.0 (0-0.7) k/uL Basophils # 0.0 (0-0.2) k/uL PT 12.3 H (9.0-12.0) sec INR 1.2 H (<1.2) APTT 25.9 (22.0-30.0) sec Sodium 138 (137-145) mmol/L Potassium 4.1 (3.5-5.1) mmol/L Chloride 102 (98-107) mmol/L Carbon Dioxide 27 (22-30) mmol/L Anion Gap 9 mmol/L BUN 14 (9-20) mg/dL Creatinine 0.76 (0.66-1.25) mg/dL Est GFR (CKD-EPI)AfAm >90 (>60 ml/min/1.73 sqM) Est GFR (CKD-EPI)NonAf 89 (>60 ml/min/1.73 sqM) Glucose 90 (74-99) mg/dL Calcium 8.5 (8.4-10.2) mg/dL Magnesium 1.4 L (1.6-2.3) mg/dL Total Bilirubin 0.6 (0.2-1.3) mg/dL AST 29 (17-59) U/L ALT 19 (4-49) U/L Alkaline Phosphatase 69 (38-126) U/L Total Protein 6.5 (6.3-8.2) g/dL Albumin 3.8 (3.5-5.0) g/dL Influenza Type A (PCR) (Not Detectd) Influenza Type B (PCR) (Not Detectd) RSV (PCR) (Not Detectd) SARS-CoV-2 (PCR) (Not Detectd) 05/06/22 Range/Units 17:45 WBC (3.8-10.6) k/uL RBC (4.30-5.90) m/uL Hgb (13.0-17.5) gm/dL Hct (39.0-53.0) % MCV (80.0-100.0) fL MCH (25.0-35.0) pg MCHC (31.0-37.0) g/dL RDW (11.5-15.5) % Plt Count (150-450) k/uL MPV Neutrophils % % Lymphocytes % % Monocytes % % Eosinophils % % Basophils % % Neutrophils # (1.3-7.7) k/uL Lymphocytes # (1.0-4.8) k/uL Monocytes # (0-1.0) k/uL Eosinophils # (0-0.7) k/uL Basophils # (0-0.2) k/uL PT (9.0-12.0) sec INR (<1.2) APTT (22.0-30.0) sec Sodium (137-145) mmol/L Potassium (3.5-5.1) mmol/L Chloride (98-107) mmol/L Carbon Dioxide (22-30) mmol/L Anion Gap mmol/L BUN (9-20) mg/dL Creatinine (0.66-1.25) mg/dL Est GFR (CKD-EPI)AfAm (>60 ml/min/1.73 sqM) Est GFR (CKD-EPI)NonAf (>60 ml/min/1.73 sqM) Glucose (74-99) mg/dL Calcium (8.4-10.2) mg/dL Magnesium (1.6-2.3) mg/dL Total Bilirubin (0.2-1.3) mg/dL AST (17-59) U/L ALT (4-49) U/L Alkaline Phosphatase (38-126) U/L Total Protein (6.3-8.2) g/dL Albumin (3.5-5.0) g/dL Influenza Type A (PCR) Not Detected (Not Detectd) Influenza Type B (PCR) Not Detected (Not Detectd) RSV (PCR) Not Detected (Not Detectd) SARS-CoV-2 (PCR) Detected A (Not Detectd) - EKG Data -: EKG Interpreted by Me EKG Comments: 12-lead Electrocardiogram Interpretation Note EKG was reviewed and interpreted by myself. 12-lead ECG performed at 1852 is interpreted by me as revealing normal sinus rhythm at a rate of 65 beats per minute. [place] is normal. NV interval is 183 ms, QRS duration is 90 ms, QTc is 424 ms.. There were no ST or T wave abnormalities to suggest myocardial ischemia or injury. R wave progression across the precordium was satisfactory. By my interpretation this EKG is non-diagnostic for acute ischemia. When Compar ed with EKG from July 2019, no significant change. Disposition Clinical Impression: COPD (chronic obstructive pulmonary disease), COVID-19, Bronchitis, Acute respiratory failure with hypoxia Disposition: ADMITTED IP TO THIS HOSP Condition: Serious Referrals: Clay Kuo MD [Primary Care Provider] - 1-2 days Time of Disposition: 20:05
[2022-05-06] MEDS: CLOPIDOGREL 75 MG TAB PO SCH (21:41)
[2022-05-06] MEDS: ATORVASTATIN 80 MG TAB PO SCH (21:41)
[2022-05-06] MEDS: carvediloL 3.125 MG TAB PO SCH (21:41)
[2022-05-06] MEDS: TAMSULOSIN 0.4 MG CAP.ER.24H PO SCH (21:41)
[2022-05-06] MEDS: MIRTAZAPINE 15 MG TAB PO SCH (21:41)
[2022-05-07 07:03] LABS: Basophils % (A) 0 %; Eosinophils % (A) 0 %; HCT 33.6 % (39.0-53.0); HGB 11.3 gm/dL (13.0-17.5); Lymphocytes # (A) 0.3 k/uL (1.0-4.8); Lymphocytes % (A) 10 %; MCH 31.5 pg (25.0-35.0); MCHC 33.6 g/dL (31.0-37.0); MCV 93.9 fL (80.0-100.0); Mean Platelet Volume 8.4; Monocytes # (A) 0.1 k/uL (0-1.0); Monocytes % (A) 2 %; Neutrophils # (A) 2.6 k/uL (1.3-7.7); Neutrophils % (A) 86 %; Platelet Count 149 k/uL (150-450); RBC 3.58 m/uL (4.30-5.90); RDW 14.2 % (11.5-15.5)
[2022-05-07 07:45] LABS: African American GFR (CKD) >90 (>60 ml/min/1.73 sqM); Anion Gap 7 mmol/L; Blood Urea Nitrogen 18 mg/dL (9-20); Calcium 8.4 mg/dL (8.4-10.2); Carbon Dioxide 25 mmol/L (22-30); Chloride 105 mmol/L (98-107); Glucose 131 mg/dL (74-99); Non-African American GFR(CKD) 90 (>60 ml/min/1.73 sqM); Potassium 4.2 mmol/L (3.5-5.1); Sodium 137 mmol/L (137-145)
[2022-05-07] MEDS: lisinopriL 10 MG TAB PO SCH (08:39)
[2022-05-07] MEDS: ASPIRIN 325 MG TAB PO SCH (08:39)
[2022-05-07] MEDS: SERTRALINE 50 MG TAB PO SCH (08:39)
[2022-05-07] MEDS: HEPARIN SODIUM,PORCINE/PF 5,000 UNIT/0.5 ML SYRINGE SQ SCH ×2 (08:39→20:47)
[2022-05-07] MEDS: carvediloL 3.125 MG TAB PO SCH ×2 (08:39→17:03)
[2022-05-07] MEDS: PANTOPRAZOLE 40 MG TABLET PO SCH (08:39)
[2022-05-07] MEDS: ALBUTEROL HFA INHALER INHALATION PRN ×2 (08:47→12:05)
[2022-05-07] MEDS ORDERED: methylPREDNISolone SOD SUCCI 40 MG/ML 1 ML VIAL IV SCH (09:00)
[2022-05-07] MEDS: ZINC SULFATE 220 MG CAP PO SCH (09:38)
[2022-05-07] MEDS: CHOLECALCIFEROL 25 MCG (1000 IU) TABLET PO SCH (09:38)
[2022-05-07] MEDS: ASCORBIC ACID 500 MG TAB PO SCH ×2 (09:38→20:46)
--- NOTE | 2022-05-07 12:40 | P.CNPUL ---
History of Present Illness Consult date: 05/07/22 Requesting physician: Clay Kuo Reason for consult: dyspnea Chief complaint: Shortness of breath History of present illness: This is a pleasant 76-year-old male patient with a known history of chronic obstructive pulmonary disease, chronic and ongoing tobacco dependence of 60 years, coronary artery disease with previous coronary artery bypass grafting and stent placements, hypertension, hyperlipidemia, carotid stenosis with previous right carotid endarterectomy, BPH with previous resection. He presented here to the emergency room yesterday with increasing shortness of breath, cough and congestion. EMS found him hypoxemic at 85% on room air. Chest x-ray reveals no acute cardiopulmonary process. Evidence of COPD. White count 3.0. Hemoglobin 11.3. Platelets 149. D-dimer 0.77. Sodium 137. Potassium 4.2. Bicarb 25. BUN 18. Creatinine 0.74. Glucose 131. Influenza screen negative. RSV screen negative. COVID-19 screen positive. He has been vaccinated and boosted times o ne. Denied any sick contacts. He is seen today in consultation on the regular medical floor. He is sitting up at the bedside. Awake and alert in no acute distress. Maintaining O2 saturations up to 100% on 3 L/m per nasal cannula. He is afebrile. Hemodynamically stable. He's been initiated on antibiotics in the form of azithromycin, vitamin supplements, IV Cymetra. Heparin for DVT prophyla xis. Review of Systems REVIEW OF SYSTEMS: CONSTITUTIONAL: Denies any recent significant weight loss or weight gain. EYES: Denies change in vision. EARS, NOSE, MOUTH, THROAT: Denies headaches, denies sore throat. CARDIOVASCULAR: Denies chest pain, palpitations or syncopal episodes. RESPIRATORY: Positive for shortness of breath, cough, congestion no hemoptysis. GASTROINTESTINAL: Denies change in appetite, denies abdominal pain GENITOURINARY: Denies hematuria, denies infections. MUSKULOSKELETAL: Denies pain, denies swelling. INTEGUMENTARY: Denies rash, denies eczema. NEUROLOGICAL: Denies recent memory loss, no recent seizure activity. PSYCHIATRIC: Denies anxiety, denies depression. HEMATOLOGIC/LYMPHATIC: Denies anemia, denies enlarged lymph nodes. Past Medical History Past Medical History: Coronary Artery Disease (CAD), Cancer, Chest Pain / Angina, GERD/Reflux, Hyperlipidemia, Hypertension, Myocardial Infarction ([place]), P neumonia, Prostate Disorder, Vascular Disorder Additional Past Medical History / Comment(s): 2014 bladder cancer with surgery/hematuria, anemia, BPH, past ETOH abuse with withdrawal tremors-pt has not drank since 10/2018. Last Myocardial Infarction Date:: 2014 History of Any Multi-Drug Resistant Organisms: None Reported Past Surgical History: Bladder Surgery, Coronary Bypass/CABG, Heart Catheteriza tion, Heart Catheterization With Stent Additional Past Surgical History / Comment(s): 2016 CABG 3 vessel, TUR BT/resection, cystoscopy, R caratid endartectomy, EGD, colonoscopy, small bowel capsule, bilateral cataract removals, hip surgery Past Anesthesia/Blood Transfusion Reactions: No Reported Reaction Additional Past Anesthesia/Blood Transfusion Reaction / Comment(s): Pt has received blood in past without reaction. Date of Last Stent Placement:: 1996 Past Psychological History: Anxiety, Depression Additional Psychological History / Comment(s): Pt resides with his spouse. He is independent. Smoking Status: Current every day smoker Past Alcohol Use History: Daily Additional Past Alcohol Use History / Comment(s): Patient has been a smoker since 20 years of age. He is currently smoking 0.5 ppd. He does have history of alcohol abuse and quit drinking completely in October 2018. He lives at home with his . Past Drug Use History: None Reported - Past Family History Father Family Medical History: Coronary Artery Disease (CAD) Additional Family Medical History / Comment(s): Father at age 78 from heart disease. Mother Family Medical History: CVA/TIA, Hypertension Additional Family Medical History / Comment(s): Mother at age 85 from stroke with history of hypertension. Sister(s) Family Medical History: No Reported History Additional Family Medical History / Comment(s): Patient has 2 sisters and one has history of myocardial infarction. Second sister has nomajor medical problems. Patient does not have any brothers. Daughter(s) Family Medical History: No Reported History Additional Family Medical History / Comment(s): The patient has 2 daughters and one has had leg amputation secondary to osteomyelitis. Second daughter has no major medical problems. Patient has one son with no major medical problems. Son(s) Family Medical History: No Reported History Medications and Allergies Home Medications Medication Instructions Recorded Confirmed Type Tamsulosin [Flomax] 0.4 mg PO HS 07/16/16 05/06/22 History lisinopriL [Zestril] 10 mg PO DAILY 07/11/18 05/06/22 History Mirtazapine 30 mg PO HS 12/03/18 05/06/22 History Atorvastatin Calcium [Lipitor] 80 mg PO HS 08/13/19 05/06/22 History Sertraline HCl [Zoloft] 150 mg PO DAILY 08/13/19 05/06/22 History Aspirin 325 mg PO DAILY 05/06/22 05/06/22 History Clopidogrel [Plavix] 75 mg PO HS 05/06/22 05/06/22 History Pantoprazole [Protonix] 40 mg PO DAILY 05/06/22 05/06/22 History carvediloL [Coreg] 3.125 mg PO BID 05/06/22 05/06/22 History Allergies Allergy/AdvReac Type Severity Reaction Status Date / Time No Known Allergies Allergy Verified 05/06/22 20:36 Physical Exam Vitals: Vital Signs Temp Pulse Pulse Resp BP BP Pulse Ox 05/07/22 08:47 99 05/07/22 07:07 97.7 F 52 L 17 152/77 100 05/07/22 02:28 97.5 F L 50 L 16 147/68 100 05/06/22 22:07 98.4 F 70 16 166/71 97 05/06/22 21:41 61 16 147/62 05/06/22 20:11 73 18 146/86 97 05/06/22 19:52 93 L 05/06/22 19:51 86 L 05/06/22 19:44 98.5 F 67 14 116/80 94 L 05/06/22 18:42 71 20 145/57 100 05/06/22 17:23 100.8 F H 82 22 157/77 97 Intake and Output 05/06/22 05/07/22 05/07/22 22:59 06:59 14:59 Intake Total 118 Balance 118 Intake: Oral 118 Other: Voiding Method Toilet # Voids 1 Weight 61.235 kg GENERAL EXAM: Alert, active, pleasant 76-year-old male, on 3 L nasal cannula, comfortable in no apparent distress. HEAD: Normocephalic. EYES: Normal reaction of pupils, equal size. NOSE: Clear with pink turbinates. THROAT: No erythema or exudates. NECK: No masses, no JVD. CHEST: No chest wall deformity. LUNGS: Equal air entry with no crackles, wheeze, rhonchi or dullness. Diminished. CVS: S1 and S2 normal with no audible murmur, regular rhythm. ABDOMEN: No hepatosplenomegaly, normal bowel sounds, no guarding or rigidity. SPINE: No scoliosis or deformity SKIN: No rashes CENTRAL NERVOUS SYSTEM: No focal deficits, tone is normal in all 4 extremities. EXTREMITIES: There is no peripheral edema. No clubbing, no cyanosis. Peripheral pulses are intact. Results - Laboratory Findings CBC and BMP: 05/07/22 06:20 05/07/22 06:20 PT/INR, D-dimer PT 12.3 sec (9.0-12.0) H 05/06/22 17:45 INR 1.2 (<1.2) H 05/06/22 17:45 D-Dimer 0.77 mg/L FEU (<0.60) H 05/07/22 07:59 Abnormal lab findings: Abnormal Labs 05/06/22 05/06/22 05/06/22 17:45 17:45 17:45 WBC RBC 3.74 L Hgb 11.5 L Hct 34.3 L Plt Count 148 L Lymphocytes # 0.4 L PT 12.3 H INR 1.2 H D-Dimer Glucose Magnesium 1.4 L SARS-CoV-2 (PCR) 05/06/22 05/07/22 05/07/22 17:45 06:20 06:20 WBC 3.0 L RBC 3.58 L Hgb 11.3 L Hct 33.6 L Plt Count 149 L Lymphocytes # 0.3 L PT INR D-Dimer Glucose 131 H Magnesium SARS-CoV-2 (PCR) Detected A 05/07/22 07:59 WBC RBC Hgb Hct Plt Count Lymphocytes # PT INR D-Dimer 0.77 H Glucose Magnesium SARS-CoV-2 (PCR) - Diagnostic Findings Chest x-ray: image reviewed Assessment and Plan Assessment: Acute exacerbation of chronic obstructive pulmonary disease and previous FEV1 value 60% of predicted COVID-19 infection without evidence of COVID-19 pneumonia Chronic and ongoing tobacco dependence Hypertension Hyperlipidemia History of coronary artery disease with previous coronary bypass grafting and stent placements BPH with previous TURP History of anxiety/depression History of carotid stenosis with previous right carotid endarterectomy History of bladder cancer status post surgery Plan: The patient was seen and evaluated Chest x-ray, labs and medications reviewed Increase IV Solu-Medrol to 40 mg every 8 hours Add Symbicort, continue albuterol Heparin for DVT prophylaxis Continue vitamin supplements Titrate down the FiO2 as tolerated Educated regarding the importance of complete smoking cessation NicoDerm patch will be offered We will continue to follow and make further recommendations based on his clinical status I have personally seen and examined the patient, performed the documentation and the assessment and plan as written. Number of minutes spent on the visit: 20.
[2022-05-07] MEDS: NICOTINE 14MG/24HR PATCH TRANSDERM SCH (13:35)
[2022-05-07] MEDS: methylPREDNISolone SOD SUCCI 40 MG/ML 1 ML VIAL IV SCH (17:04)
[2022-05-07] MEDS: CLOPIDOGREL 75 MG TAB PO SCH (20:46)
[2022-05-07] MEDS: TAMSULOSIN 0.4 MG CAP.ER.24H PO SCH (20:46)
[2022-05-07] MEDS: MIRTAZAPINE 15 MG TAB PO SCH (20:46)
[2022-05-07] MEDS: ATORVASTATIN 80 MG TAB PO SCH (20:46)
[2022-05-07] MEDS: AZITHROMYCIN 500 MG TAB PO SCH (20:47)
[2022-05-07] MEDS: SYMBICORT 160-4.5 MCG INHALER INHALATION SCH (21:49)
[2022-05-08] MEDS: methylPREDNISolone SOD SUCCI 40 MG/ML 1 ML VIAL IV SCH ×4 (00:13→23:44)
[2022-05-08] MEDS: HEPARIN SODIUM,PORCINE/PF 5,000 UNIT/0.5 ML SYRINGE SQ SCH ×2 (08:02→20:34)
[2022-05-08] MEDS: ASPIRIN 325 MG TAB PO SCH (08:02)
[2022-05-08] MEDS: carvediloL 3.125 MG TAB PO SCH ×2 (08:02→16:48)
[2022-05-08] MEDS: ASCORBIC ACID 500 MG TAB PO SCH ×2 (08:02→20:34)
[2022-05-08] MEDS: lisinopriL 10 MG TAB PO SCH (08:02)
[2022-05-08] MEDS: NICOTINE 14MG/24HR PATCH TRANSDERM SCH (08:02)
[2022-05-08] MEDS: CHOLECALCIFEROL 25 MCG (1000 IU) TABLET PO SCH (08:02)
[2022-05-08] MEDS: PANTOPRAZOLE 40 MG TABLET PO SCH (08:02)
[2022-05-08] MEDS: ZINC SULFATE 220 MG CAP PO SCH (08:02)
[2022-05-08] MEDS: SERTRALINE 50 MG TAB PO SCH ×2 (08:03→08:12)
[2022-05-08] MEDS: ALBUTEROL HFA INHALER INHALATION PRN ×2 (08:20→20:08)
[2022-05-08] MEDS: SYMBICORT 160-4.5 MCG INHALER INHALATION SCH ×2 (08:20→20:08)
[2022-05-08 09:52] LABS: Basophils # (A) 0.01 X 10*3/uL (0.00-0.10); Basophils % (A) 0.1 %; Eosinophils # (A) 0 X 10*3/uL (0.04-0.35); Eosinophils % (A) 0 %; HCT 31.6 % (39.6-50.0); HGB 10.3 g/dL (13.0-17.0); Immature Grans, Automated 0.5 %; Lymphocytes # (A) 0.58 X 10*3/uL (0.90-5.00); MCH 30.4 pg (27.0-32.0); MCHC 32.6 g/dL (32.0-37.0); MCV 93.2 fL (80.0-97.0); Mean Platelet Volume 11.4 fL (9.5-12.2); Monocytes # (A) 0.48 X 10*3/uL (0.20-1.00); NRBC Per 100 WBC 0 /100 WBCS (0.0-0.0); Neutrophils # (A) 8.54 X 10*3/uL (1.80-7.70); Neutrophils % (A) 88.4 %; Platelet Count 185 X 10*3/uL (140-440); RBC 3.39 X 10*6/uL (4.40-5.60); RDW 14.5 % (11.5-14.5); WBC 9.66 X 10*3/uL (4.50-10.00)
[2022-05-08 12:14] LABS: African American GFR (CKD) 98.6 (60.0-200.0); Albumin 3.6 g/dL (3.8-4.9); Albumin/Globulin Ratio 1.63 (1.60-3.17); Anion Gap 7.7 mmol/L (10.00-18.00); BUN/Creat Ratio 29.92 Ratio (12.00-20.00); Blood Urea Nitrogen 25.1 mg/dL (9.0-27.0); C Reactive Protein 1.4 mg/dL (0.00-0.80); Calcium 8.5 mg/dL (8.7-10.3); Carbon Dioxide 26.6 mmol/L (20.0-27.5); Ferritin 56.1 ng/mL (22.0-322.0); Globulin 2.2 g/dL (1.6-3.3); Non-African American GFR(CKD) 85.1 (60.0-200.0); Potassium 4.3 mmol/L (3.5-5.5); Total Bilirubin 0.2 mg/dL (0.30-1.20); Total Protein 5.8 g/dL (6.2-8.2)
--- NOTE | 2022-05-08 12:46 | P.PN ---
Subjective Progress Note Date: 05/08/22 This is a pleasant 76-year-old male patient with a known history of chronic obstructive pulmonary disease, chronic and ongoing tobacco dependence of 60 years, coronary artery disease with previous coronary artery bypass grafting and stent placements, hypertension, hyperlipidemia, carotid stenosis with previous right carotid endarterectomy, BPH with previous resection. He presented here to the emergency room yesterday with increasing shortness of breath, cough and congestion. EMS found him hypoxemic at 85% on room air. Chest x-ray reveals no acute cardiopulmonary process. Evidence of COPD. White count 3.0. Hemoglobin 11.3. Platelets 149. D-dimer 0.77. Sodium 137. Potassium 4.2. Bicarb 25. BUN 18. Creatinine 0.74. Glucose 131. Influenza screen negative. RSV screen negative. COVID-19 screen positive. He has been vaccinated and boosted times one. Denied any sick contacts. He is seen today in consultation on the regular medical floor. He is sitting up at the bedside. Awake and alert in no acute distress. Maintaining O2 saturations up to 100% on 3 L/m per nasal cannula. He is afebrile. Hemodynamically stable. He's been initiated on antibiotics in the form of azithromycin, vitamin supplements, IV Solu-Medrol. Heparin for DVT prophylaxis. The patient is seen today 05/08/2022 in follow-up on the regular medical floor. He is currently resting quite comfortably in bed. Awake and alert in no acute distress. Feeling better today compared to yesterday. He is maintaining good O2 saturations in the high 90s on 3 L/m per nasal cannula. No fever. Still with some expiratory wheeze. White count 9.6. Hemoglobin 10.3. D-dimer 0.71. Sodium 139. Potassium 4.3. BUN 25. Creatinine 0.8. C-reactive protein 1.4. He is continued on Symbicort, albuterol, IV Solu-Medrol. Maintained on vitamin supplements. Antibiotics in the form of azithromycin. Heparin for DVT prophylaxis. NicoDerm patches in place. Objective - Vital Signs Vital signs: Vital Signs Temp 97.7 F 05/08/22 06:51 Pulse 51 L 05/08/22 08:02 Resp 18 05/08/22 08:02 BP 164/80 05/08/22 06:51 Pulse Ox 99 05/08/22 08:21 FiO2 Intake & Output 05/07/22 05/08/22 05/08/22 18:59 06:59 18:59 Intake Total 472 240 Balance 472 240 Intake: Oral 472 240 Other: Voiding Method Toilet # Voids 2 2 # Bowel Movements 0 - Exam GENERAL EXAM: Alert, 76-year-old male patient, 3 L nasal cannula, comfortable in no apparent distress. HEAD: Normocephalic. EYES: Normal reaction of pupils, equal size. NOSE: Clear with pink turbinates. THROAT: No erythema or exudates. NECK: No masses, no JVD. CHEST: No chest wall deformity. LUNGS: Equal air entry with faint end expiratory wheeze, diminished. CVS: S1 and S2 normal with no audible murmur, regular rhythm. ABDOMEN: No hepatosplenomegaly, normal bowel sounds, no guarding or rigidity. SPINE: No scoliosis or deformity SKIN: No rashes CENTRAL NERVOUS SYSTEM: No focal deficits, tone is normal in all 4 extremities. EXTREMITIES: There is no peripheral edema. No clubbing, no cyanosis. Peripher al pulses are intact. - Labs CBC & Chem 7: 05/08/22 06:41 05/08/22 06:41 Labs: Abnormal Lab Results - Last 24 Hours (Table) 05/08/22 05/08/22 05/08/22 Range/Units 06:41 06:41 06:41 RBC 3.39 L (4.40-5.60) X 10*6/uL Hgb 10.3 L (13.0-17.0) g/dL Hct 31.6 L (39.6-50.0) % Immature Gran # 0.05 H (0.00-0.04) X 10*3/uL Neutrophils # 8.54 H (1.80-7.70) X 10*3/uL Lymphocytes # 0.58 L (0.90-5.00) X 10*3/uL Eosinophils # 0 L (0.04-0.35) X 10*3/uL D-Dimer 0.71 H (<0.60) mg/L FEU Anion Gap 7.70 L (10.00-18.00) mmol/L BUN/Creatinine Ratio 29.92 H (12.00-20.00) Ratio Glucose 138 H (70-110) mg/dL Calcium 8.5 L (8.7-10.3) mg/dL Total Bilirubin 0.20 L (0.30-1.20) mg/dL C-Reactive Protein 1.40 H (0.00-0.80) mg/dL Total Protein 5.8 L (6.2-8.2) g/dL Albumin 3.6 L (3.8-4.9) g/dL Assessment and Plan Assessment: Acute exacerbation of chronic obstructive pulmonary disease and previous FEV1 value 60% of predicted COVID-19 infection without evidence of COVID-19 pneumonia Chronic and ongoing tobacco dependence Hypertension Hyperlipidemia History of coronary artery disease with previous coronary bypass grafting and stent placements BPH with previous TURP History of anxiety/depression History of carotid stenosis with previous right carotid endarterectomy History of bladder cancer status post surgery Plan: The patient was seen and evaluated Labs and medications reviewed Continue Solu-Medrol Continue Symbicort, continue albuterol Heparin for DVT prophylaxis Continue vitamin supplements Titrate down the FiO2 as tolerated We will continue to follow I have personally seen and examined the patient, performed the documentation and the assessment and plan as written. Number of minutes spent on the visit: 10.
--- NOTE | 2022-05-08 14:53 | P.HPIM ---
History of Present Illness H&P Date: 05/07/22 Chief Complaint: COVID-19 infection/COPD exacerbation HISTORY OF PRESENT ILLNESS: This is a 76-year-old male patient of mine with past medical history significant for coronary artery disease status post three-vessel CABG in 2016 with GALLO to LAD, SVG to the ramus, SVG to the PDA that was in 07/23/2016, prior to that left heart catheterization with PCI of the ramus intermedius back in 06/30/1996 gastroesophageal reflux disease, hypertension, hyperlipidemia, os teoarthritis generalized, benign prostatic hypertrophy, COPD, recurrent depression, tobacco use and dependence, history of alcohol abuse that he quit in October 2018 patient presented to the emergency department at [facility] after he developed to have a significant upper respiratory tract infection with a sore throat started on Tuesday night, he did not feel that bad initially however he developed to have a significant shortness breath and increased cough and minimal from production associated with significant wheezing, patient ended up coming to the emergency department at [facility] and he was found to have positive COVID-19, along with COPD exacerbation, he was started on IV antibiotic as well as IV steroid, and he was placed on vitamin D vitamin C and zinc and he was placed in contact splashed droplet precautions with Pulmonary consultation. REVIEW OF SYSTEMS: Constitutional: positive for documented fever, no chills, no night sweats. No weight change. positive for weakness, positive for fatigue or lethargy. No daytime sleepiness. HEENT: No headache. No blurred vision or double vision, no loss of vision. No loss of Hearing, no ringing in the ears, no dizziness. No nasal drainage or congestion. No epistaxis. No sore throat. Lungs: positive for shortness of breath, positive for coughing, minimal sputum production. positive for wheezing. Reports dyspnea with activity. Cardiovascular: No chest pain, no lower extremity edema. No palpitations. No paroxysmal nocturnal dyspnea. No orthopnea. No lightheadedness or dizziness. No syncopal episodes. Abdominal: Reports no abdominal pain. No nausea, vomiting. No diarrhea. No constipation. No bloody or tarry stools reports loss of appetite. Genitourinary: No dysuria, increased frequency, urgency. No urinary retention. Musculoskeletal: No myalgias. positive for muscle weakness, no gait dysfunction, no frequent falls. No back pain. No neck pain. Integumentary: No wounds, no lesions. No rash or pruritus. No unusual bruising. No change in hair or nails. Neurologic: No aphasia. No facial droop. No change in mentation. No head injury. No headache. No paralysis. No paresthesia. Psychiatric: No depression. No anxiety. No mood swings. Endocrine: No abnormal blood sugars. No weight change. PAST MEDICAL HISTORY: CAD post CABG 3 with GALLO to LAD SVG to Ramus and SVG to the PDA 07/23/2016 Left heart catheterization with PCI of the ramus intermedius 06/30/1996 . Carotid artery disease status post right carotid endarterectomy. Hypertension and hypertensive cardio vascular disease. Hyperlipidemia. COPD. Chronic tobacco use. GERD with esophagitis. Enlarged prostate. Major depressive disorder. Bladder cancer status post surgery. PAST SURGICAL HISTORY: Left heart catheterization with PCI of the ramus intermedius 06/30/1996 CABG 3 with GALLO to LAD, SVG to the ramus and SVG to the PDA 07/23/2016 Right carotid endarterectomy. Left cataract surgery. Bladder resection surgery. Right intramedullary nail of the right hip 2020 Colonoscopy and EGD. SOCIAL HISTORY: Patient used to smoke about a pack every day since he was 20-year-old and currently smokes about a half pack every day, he used to be heavy drinker but quit drinking in October 2018, he lives with his daughter after his , and he is the primary caregiver for his daughter. FAMILY HISTORY: Father at age 78 from CAD, mother at age of 85 from CVA and had a history of hypertension, patient had 2 sisters one is alive and one with an ME patient has one son who is alive and 2 daughters one with one leg amputation due to osteomyelitis and currently is suffering from a hip fracture post surgery. PHYSICAL EXAMINATION: General: 76-year-old male sitting up in bed in minimal respiratory distress. HEENT: Head is atraumatic, normocephalic, pupils were equal round reactive to light and recommendation, extraocular muscle movement were intact, sclera nonicteric, conjunctivae were pale, mucous membranes of the mouth are somewhat dry. Neck: Supple, no JVP, decreased carotid upstroke bilaterally, no lymphadenopathy. Chest: Decreased breath sounds at the bases, few rhonchi, minimal expiratory wheezes, no chest wall tenderness, no intercostal retractions. Heart: First heart sound is normal, second heart sound is normal there is ISAIAH 2/6 located at the left sternal border. Abdomen: Soft, nontender, nondistended, positive bowel sounds, no hepatosplenomegaly Extremities: There is no edema no calf tenderness DP +1 bilaterally. Neurologic examination: Patient is awake alert and oriented X 3, cranial nerves II-12 appear grossly intact, muscle power were 5 out of 5 in upper extremities and 5 out of 5 in bilateral lower extremities, deep tendon reflexes normal bilaterally. ASSESSMENT AND PLAN: 1. Acute hypoxemic respiratory failure due to COVID-19 infection as well as COPD exacerbation. Continue Solu-Medrol 40 mg IV push every 8 hours, continue Zithromax 500 mg orally once every day, continue Symbicort 160/4.5 g 2 puffs inhalation twice every day, continue albuterol HFA 2 puffs inhalation 4-6 times every day, continue zinc 220 mg once every day, vitamin C 500 mg orally twice every day and vitamin D3 1000 units once every day, Pulmicort consultation patie nt. 2. Hypertensive and hypertensive cardiovascular disease. Continue lisinopril 10 mg daily, Lopressor 25 mg twice daily, continue to monitor the patient blood pressure very closely. 3. History of coronary artery disease status post 3 vessel CABG, stents. Continue carvedilol 3.125 mg orally twice every day, Plavix 75 mg daily, Lipitor 80 mg daily continue aspirin 325 mg orally once every day. , 4. History of left carotid endarterectomy, stable. his carotid duplex are up-to-date. 5. COPD without exacerbation. Continue treatment as in paragraph #1. 6. Hyperlipidemia. Continue Lipitor 80 mg once every day monitor the patient dependent, keep LDL 55-70. 7. Benign prostatic hypertrophy. Monitor for urinary retention, continue Flomax 0.4 mg at bedtime 8. Gastroesophageal reflux disease and GI prophylaxis. Continue Protonix 40 mg orally once every day .9. Recurrent depression. Continue Remeron 30 mg daily, Zoloft 150 mg daily. 10. DVT prophylaxis. heparin 5000 units subcutaneously every 12 hours. 11. Tobacco use and dependence. Continue nicotine patch 12. History of alcohol abuse. Patient quit drinking in October 2018. 13. Admit to inpatient. Estimate a length of stay 2 midnights. 14. Patient is full code. Past Medical History Past Medical History: Coronary Artery Disease (CAD), Cancer, Chest Pain / Angina, GERD/Reflux, Hyperlipidemia, Hypertension, Myocardial Infarction (ME), Pneumonia, Prostate Disorder, Vascular Disorder Additional Past Medical History / Comment(s): 2014 bladder cancer with surgery/hematuria, anemia, BPH, past ETOH abuse with withdrawal tremors-pt has not drank since 10/2018. Last Myocardial Infarction Date:: 2014 History of Any Multi-Drug Resistant Organisms: None Reported Past Surgical History: Bladder Surgery, Coronary Bypass/CABG, Heart Catheterization, Heart Catheterization With Stent Additional Past Surgical History / Comment(s): 2016 CABG 3 vessel, TUR BT/resection, cystoscopy, R caratid endartectomy, EGD, colonoscopy, small bowel capsule, bilateral cataract removals, hip surgery Past Anesthesia/Blood Transfusion Reactions: No Reported Reaction Additional Past Anesthesia/Blood Transfusion Reaction / Comment(s): Pt has received blood in past without reaction. Date of Last Stent Placement:: 1996 Past Psychological History: Anxiety, Depression Additional Psychological History / Comment(s): Pt resides with his spouse. He is independent. Smoking Status: Current every day smoker Past Alcohol Use History: Daily Additional Past Alcohol Use History / Comment(s): Patient has been a smoker since 20 years of age. He is currently smoking 0.5 ppd. He does have history of alcohol abuse and quit drinking completely in October 2018. He lives at home with his . Past Drug Use History: None Reported - Past Family History Father Family Medical History: Coronary Artery Disease (CAD) Additional Family Medical History / Comment(s): Father at age 78 from heart disease. Mother Family Medical History: CVA/TIA, Hypertension Additional Family Medical History / Comment(s): Mother at age 85 from stroke with history of hypertension. Sister(s) Family Medical History: No Reported History Additional Family Medical History / Comment(s): Patient has 2 sisters and one has history of myocardial infarction. Second sister has nomajor medical problems. Patient does not have any brothers. Daughter(s) Family Medical History: No Reported History Additional Family Medical History / Comment(s): The patient has 2 daughters and one has had leg amputation secondary to osteomyelitis. Second daughter has no major medical problems. Patient has one son with no major medical problems. Son(s) Family Medical History: No Reported History Medications and Allergies Home Medications Medication Instructions Recorded Confirmed Type Tamsulosin [Flomax] 0.4 mg PO HS 07/16/16 05/06/22 History lisinopriL [Zestril] 10 mg PO DAILY 07/11/18 05/06/22 History Mirtazapine 30 mg PO HS 12/03/18 05/06/22 History Atorvastatin Calcium [Lipitor] 80 mg PO HS 08/13/19 05/06/22 History Sertraline HCl [Zoloft] 150 mg PO DAILY 08/13/19 05/06/22 History Aspirin 325 mg PO DAILY 05/06/22 05/06/22 History Clopidogrel [Plavix] 75 mg PO HS 05/06/22 05/06/22 History Pantoprazole [Protonix] 40 mg PO DAILY 05/06/22 05/06/22 History carvediloL [Coreg] 3.125 mg PO BID 05/06/22 05/06/22 History Allergies Allergy/AdvReac Type Severity Reaction Status Date / Time No Known Allergies Allergy Verified 05/06/22 20:36 Physical Exam Vitals: Vital Signs Temp Pulse Pulse Resp BP BP Pulse Ox 05/07/22 07:07 97.7 F 52 L 17 152/77 100 05/07/22 02:28 97.5 F L 50 L 16 147/68 100 05/06/22 22:07 98.4 F 70 16 166/71 97 05/06/22 21:41 61 16 147/62 05/06/22 20:11 73 18 146/86 97 05/06/22 19:52 93 L 05/06/22 19:51 86 L 05/06/22 19:44 98.5 F 67 14 116/80 94 L 05/06/22 18:42 71 20 145/57 100 05/06/22 17:23 100.8 F H 82 22 157/77 97 Intake and Output 05/06/22 05/07/22 05/07/22 22:59 06:59 14:59 Other: Voiding Method Toilet # Voids 1 Weight 61.235 kg Results CBC & Chem 7: 05/08/22 06:41 05/08/22 06:41 Labs: Abnormal Lab Results - Last 24 Hours (Table) 05/06/22 05/06/22 05/06/22 Range/Units 17:45 17:45 17:45 WBC (3.8-10.6) k/uL RBC 3.74 L (4.30-5.90) m/uL Hgb 11.5 L (13.0-17.5) gm/dL Hct 34.3 L (39.0-53.0) % Plt Count 148 L (150-450) k/uL Lymphocytes # 0.4 L (1.0-4.8) k/uL PT 12.3 H (9.0-12.0) sec INR 1.2 H (<1.2) D-Dimer (<0.60) mg/L FEU Glucose (74-99) mg/dL Magnesium 1.4 L (1.6-2.3) mg/dL SARS-CoV-2 (PCR) (Not Detectd) 05/06/22 05/07/22 05/07/22 Range/Units 17:45 06:20 06:20 WBC 3.0 L (3.8-10.6) k/uL RBC 3.58 L (4.30-5.90) m/uL Hgb 11.3 L (13.0-17.5) gm/dL Hct 33.6 L (39.0-53.0) % Plt Count 149 L (150-450) k/uL Lymphocytes # 0.3 L (1.0-4.8) k/uL PT (9.0-12.0) sec INR (<1.2) D-Dimer (<0.60) mg/L FEU Glucose 131 H (74-99) mg/dL Magnesium (1.6-2.3) mg/dL SARS-CoV-2 (PCR) Detected A (Not Detectd) 05/07/22 Range/Units 07:59 WBC (3.8-10.6) k/uL RBC (4.30-5.90) m/uL Hgb (13.0-17.5) gm/dL Hct (39.0-53.0) % Plt Count (150-450) k/uL Lymphocytes # (1.0-4.8) k/uL PT (9.0-12.0) sec INR (<1.2) D-Dimer 0.77 H (<0.60) mg/L FEU Glucose (74-99) mg/dL Magnesium (1.6-2.3) mg/dL SARS-CoV-2 (PCR) (Not Detectd) Thrombosis Risk Factor Assmnt - Choose All That Apply Any of the Below Risk Factors Present?: Yes Each Factor Represents 1 point: Abnormal pulmonary function (COPD), Serious lung disease incl. pneumonia (< 1month) Other Risk Factors: Yes Each Risk Factor Represents 3 Points: Age 75 years or older Other congenital or acquired thrombophilia - If yes, enter type in comment: No Thrombosis Risk Factor Assessment Total Risk Factor Score: 5 Thrombosis Risk Factor Assessment Level: High Risk
--- NOTE | 2022-05-08 14:55 | P.PN ---
Subjective Progress Note Date: 05/08/22 HISTORY OF PRESENT ILLNESS: This is a 76-year-old male patient of mine with past medical history significant for coronary artery disease status post three-vessel CABG in 2016 with GALLO to LAD, SVG to the ramus, SVG to the PDA that was in 07/23/2016, prior to that left heart catheterization with PCI of the ramus intermedius back in 06/30/1996 gastroesophageal reflux disease, hypertension, hyperlipidemia, osteoarthritis generalized, benign prostatic hypertrophy, COPD, recurrent depression, tobacco use and dependence, history of alcohol abuse that he quit in October 2018 patient presented to the emergency department at [facility] after he developed to have a significant upper respiratory tract infection with a sore throat started on Tuesday night, he did not feel that bad initially however he developed to have a significant shortness breath and increased cough and minimal from production associated with significant wheezing, patient ended up coming to the emergency department at [facility] and he was found to have positive COVID-19, along with COPD exacerbation, he was started on IV antibiotic as well as IV steroid, and he was placed on vitamin D vitamin C and zinc and he was placed in contact splashed droplet precautions with Pulmonary consultation. 05/08: Patient is sitting up in a chair his feeling a lot better today, he is not even wearing his oxygen today, he denies any chest pain, less cough, less short of breath, no edema both lower extremity's, he continues to be on the same medication he was seen earlier by pulmonary medicine, he would be probably starting the hospital for another 1 or 2 days. REVIEW OF SYSTEMS: Constitutional: positive for documented fever, no chills, no night sweats. No weight change. positive for weakness, positive for fatigue or lethargy. No daytime sleepiness. HEENT: No headache. No blurred vision or double vision, no loss of vision. No loss of Hearing, no ringing in the ears, no dizziness. No nasal drainage or congestion. No epistaxis. No sore throat. Lungs: positive for shortness of breath, positive for coughing, minimal sputum production. positive for wheezing. Reports dyspnea with activity. Cardiovascular: No chest pain, no lower extremity edema. No palpitations. No paroxysmal nocturnal dyspnea. No orthopnea. No lightheadedness or dizziness. No syncopal episodes. Abdominal: Reports no abdominal pain. No nausea, vomiting. No diarrhea. No constipation. No bloody or tarry stools reports loss of appetite. Genitourinary: No dysuria, increased frequency, urgency. No urinary retention. Musculoskeletal: No myalgias. positive for muscle weakness, no gait dysfunction, no frequent falls. No back pain. No neck pain. Integumentary: No wounds, no lesions. No rash or pruritus. No unusual bruising. No change in hair or nails. Neurologic: No aphasia. No facial droop. No change in mentation. No head injury. No headache. No paralysis. No paresthesia. Psychiatric: No depression. No anxiety. No mood swings. Endocrine: No abnormal blood sugars. No weight change. PHYSICAL EXAMINATION: General: 76-year-old male sitting up in bed in minimal respiratory distress. HEENT: Head is atraumatic, normocephalic, pupils were equal round reactive to light and recommendation, extraocular muscle movement were intact, sclera nonicteric, conjunctivae were pale, mucous membranes of the mouth are somewhat dry. Neck: Supple, no JVP, decreased carotid upstroke bilaterally, no lymphadenopathy. Chest: Decreased breath sounds at the bases, few rhonchi, minimal expiratory w heezes, no chest wall tenderness, no intercostal retractions. Heart: First heart sound is normal, second heart sound is normal there is ISAIAH 2/6 located at the left sternal border. Abdomen: Soft, nontender, nondistended, positive bowel sounds, no hepatosplenomegaly Extremities: There is no edema no calf tenderness DP +1 bilaterally. Neurologic examination: Patient is awake alert and oriented X 3, cranial nerves II-12 appear grossly intact, muscle power were 5 out of 5 in upper extremities and 5 out of 5 in bilateral lower extremities, deep tendon reflexes normal bilaterally. ASSESSMENT AND PLAN: 1. Acute hypoxemic respiratory failure due to COVID-19 infection as well as COPD exacerbation. Continue Solu-Medrol 40 mg IV push every 8 hours, continue Zithromax 500 mg orally once every day, continue Symbicort 160/4.5 g 2 puffs inhalation twice every day, continue albuterol HFA 2 puffs inhalation 4-6 times every day, continue zinc 220 mg once every day, vitamin C 500 mg orally twice every day and vitamin D3 1000 units once every day, Pulmicort consultation patient. 2. Hypertensive and hypertensive cardiovascular disease. Continue lisinopril 10 mg daily, Lopressor 25 mg twice daily, continue to monitor the patient blood pressure very closely. 3. History of coronary artery disease status post 3 vessel CABG, stents. Continue carvedilol 3.125 mg orally twice every day, Plavix 75 mg daily, Lipitor 80 mg daily continue aspirin 325 mg orally once every day. , 4. History of left carotid endarterectomy, stable. his carotid duplex are up-to-date. 5. COPD without exacerbation. Continue treatment as in paragraph #1. 6. Hyperlipidemia. Continue Lipitor 80 mg once every day monitor the patient dependent, keep LDL 55-70. 7. Benign prostatic hypertrophy. Monitor for urinary retention, continue Flomax 0.4 mg at bedtime 8. Gastroesophageal reflux disease and GI prophylaxis. Continue Protonix 40 mg orally once every day .9. Recurrent depression. Continue Remeron 30 mg daily, Zoloft 150 mg daily. 10. DVT prophylaxis. heparin 5000 units subcutaneously every 12 hours. 11. Tobacco use and dependence. Continue nicotine patch 12. History of alcohol abuse. Patient quit drinking in October 2018. 13. Home on Tuesday. Objective - Vital Signs Vital signs: Vital Signs Temp 98.1 F 05/08/22 13:11 Pulse 54 L 05/08/22 13:11 Resp 19 05/08/22 13:11 BP 157/52 05/08/22 13:11 Pulse Ox 98 05/08/22 13:11 FiO2 Intake & Output 05/07/22 05/08/22 05/08/22 18:59 06:59 18:59 Intake Total 472 476 Balance 472 476 Intake: Oral 472 476 Other: Voiding Method Toilet # Voids 2 2 # Bowel Movements 0 - Labs CBC & Chem 7: 05/08/22 06:41 05/08/22 06:41 Labs: Abnormal Lab Results - Last 24 Hours (Table) 05/08/22 05/08/22 05/08/22 Range/Units 06:41 06:41 06:41 RBC 3.39 L (4.40-5.60) X 10*6/uL Hgb 10.3 L (13.0-17.0) g/dL Hct 31.6 L (39.6-50.0) % Immature Gran # 0.05 H (0.00-0.04) X 10*3/uL Neutrophils # 8.54 H (1.80-7.70) X 10*3/uL Lymphocytes # 0.58 L (0.90-5.00) X 10*3/uL Eosinophils # 0 L (0.04-0.35) X 10*3/uL D-Dimer 0.71 H (<0.60) mg/L FEU Anion Gap 7.70 L (10.00-18.00) mmol/L BUN/Creatinine Ratio 29.92 H (12.00-20.00) Ratio Glucose 138 H (70-110) mg/dL Calcium 8.5 L (8.7-10.3) mg/dL Total Bilirubin 0.20 L (0.30-1.20) mg/dL C-Reactive Protein 1.40 H (0.00-0.80) mg/dL Total Protein 5.8 L (6.2-8.2) g/dL Albumin 3.6 L (3.8-4.9) g/dL
[2022-05-08] MEDS: CLOPIDOGREL 75 MG TAB PO SCH (20:33)
[2022-05-08] MEDS: ATORVASTATIN 80 MG TAB PO SCH (20:33)
[2022-05-08] MEDS: TAMSULOSIN 0.4 MG CAP.ER.24H PO SCH (20:34)
[2022-05-08] MEDS: AZITHROMYCIN 500 MG TAB PO SCH (20:34)
[2022-05-08] MEDS: MIRTAZAPINE 15 MG TAB PO SCH (20:34)
[2022-05-09] MEDS: SYMBICORT 160-4.5 MCG INHALER INHALATION SCH ×2 (08:00→20:40)
[2022-05-09] MEDS: ALBUTEROL HFA INHALER INHALATION PRN ×3 (08:00→20:40)
[2022-05-09] MEDS: HEPARIN SODIUM,PORCINE/PF 5,000 UNIT/0.5 ML SYRINGE SQ SCH ×2 (08:16→20:53)
[2022-05-09] MEDS: NICOTINE 14MG/24HR PATCH TRANSDERM SCH (08:16)
[2022-05-09] MEDS: methylPREDNISolone SOD SUCCI 40 MG/ML 1 ML VIAL IV SCH (08:16)
[2022-05-09] MEDS: SERTRALINE 50 MG TAB PO SCH (08:17)
[2022-05-09] MEDS: ASCORBIC ACID 500 MG TAB PO SCH ×2 (08:17→20:53)
[2022-05-09] MEDS: CHOLECALCIFEROL 25 MCG (1000 IU) TABLET PO SCH (08:17)
[2022-05-09] MEDS: carvediloL 3.125 MG TAB PO SCH ×2 (08:17→18:04)
[2022-05-09] MEDS: ZINC SULFATE 220 MG CAP PO SCH (08:17)
[2022-05-09] MEDS: lisinopriL 10 MG TAB PO SCH (08:17)
[2022-05-09] MEDS: PANTOPRAZOLE 40 MG TABLET PO SCH (08:17)
[2022-05-09] MEDS: ASPIRIN 325 MG TAB PO SCH (08:17)
[2022-05-09 09:42] LABS: Basophils # (A) 0.01 X 10*3/uL (0.00-0.10); Basophils % (A) 0.1 %; Eosinophils # (A) 0 X 10*3/uL (0.04-0.35); Eosinophils % (A) 0 %; HCT 29.7 % (39.6-50.0); HGB 9.7 g/dL (13.0-17.0); Immature Grans, Automated 0.5 %; Lymphocytes # (A) 0.62 X 10*3/uL (0.90-5.00); MCH 30.1 pg (27.0-32.0); MCHC 32.7 g/dL (32.0-37.0); MCV 92.2 fL (80.0-97.0); Mean Platelet Volume 11.4 fL (9.5-12.2); Monocytes # (A) 0.32 X 10*3/uL (0.20-1.00); Monocytes % (A) 3.6 %; NRBC Per 100 WBC 0 /100 WBCS (0.0-0.0); Neutrophils # (A) 7.86 X 10*3/uL (1.80-7.70); Neutrophils % (A) 88.8 %; Platelet Count 190 X 10*3/uL (140-440); RBC 3.22 X 10*6/uL (4.40-5.60); RDW 14.7 % (11.5-14.5); WBC 8.85 X 10*3/uL (4.50-10.00)
[2022-05-09 09:48] LABS: ALT 14 U/L (10-49); AST 19 U/L (14-35); African American GFR (CKD) 96.5 (60.0-200.0); Albumin 3.4 g/dL (3.8-4.9); Albumin/Globulin Ratio 1.67 (1.60-3.17); Alkaline Phosphatase 54 U/L (41-126); Blood Urea Nitrogen 27.4 mg/dL (9.0-27.0); Calcium 8.7 mg/dL (8.7-10.3); Carbon Dioxide 26.5 mmol/L (20.0-27.5); Chloride 105 mmol/L (96-109); Glucose 138 mg/dL (70-110); Non-African American GFR(CKD) 83.3 (60.0-200.0); Potassium 4.3 mmol/L (3.5-5.5); Sodium 139 mmol/L (135-145); Total Bilirubin <0.15 mg/dL (0.30-1.20); Total Protein 5.4 g/dL (6.2-8.2)
--- NOTE | 2022-05-09 11:22 | P.PN ---
Subjective Progress Note Date: 05/09/22 HISTORY OF PRESENT ILLNESS: This is a 76-year-old male patient of [facility] with past medical history significant for coronary artery disease status post three-vessel CABG in 2016 with GALLO to LAD, SVG to the ramus, SVG to the PDA that was in 07/23/2016, prior to that left heart catheterization with PCI of the ramus intermedius back in 06/30/1996 gastroesophageal reflux disease, hypertension, hyperlipidemia, osteoarthritis generalized, benign prostatic hypertrophy, COPD, recurrent depression, tobacco use and dependence, history of alcohol abuse that he quit in October 2018 patient presented to the emergency department at [facility] after he developed to have a significant upper respiratory tract infection with a sore throat started on Tuesday night, he did not feel that bad initially however he developed to have a significant shortness breath and increased cough and minimal from production associated with significant wheezing, patient ended up coming to the emergency department at [facility] and he was found to have positive COVID-19, along with COPD exacerbation, he was started on IV antibiotic as well as IV steroid, and he was placed on vitamin D vitamin C and zinc and he was placed in contact splashed droplet precautions with Pulmonary consultation. 05/08: Patient is sitting up in a chair his feeling a lot better today, he is not even wearing his oxygen today, he denies any chest pain, less cough, less short of breath, no edema both lower extremity's, he continues to be on the same medication he was seen earlier by pulmonary medicine, he would be probably starting the hospital for another 1 or 2 days. 05/09: Patient went to bed yesterday with no oxygen on him woke up in the morning with no oxygen saturation in the 80s, patient was placed back in his oxygen, he continues to have minimal expiratory wheezes, he continues to have minimal coughing, he does not appear to be in significant distress, however he would be kept in the hospital for another 24 hours, hopefully reevaluate the patient tomorrow morning, check his oxygen level with ambulation he may need to go on home oxygen. REVIEW OF SYSTEMS: Constitutional: positive for documented fever, no chills, no night sweats. No weight change. positive for weakness, positive for fatigue or lethargy. No daytime sleepiness. HEENT: No headache. No blurred vision or double vision, no loss of vision. No loss of Hearing, no ringing in the ears, no dizziness. No nasal drainage or congestion. No epistaxis. No sore throat. Lungs: positive for shortness of breath, positive for coughing, minimal sputum production. positive for wheezing. Reports dyspnea with activity. Cardiovascular: No chest pain, no lower extremity edema. No palpitations. No paroxysmal nocturnal dyspnea. No orthopnea. No lightheadedness or dizziness. No syncopal episodes. Abdominal: Reports no abdominal pain. No nausea, vomiting. No diarrhea. No constipation. No bloody or tarry stools reports loss of appetite. Genitourinary: No dysuria, increased frequency, urgency. No urinary retention. Musculoskeletal: No myalgias. positive for muscle weakness, no gait dysfunction, no frequent falls. No back pain. No neck pain. Integumentary: No wounds, no lesions. No rash or pruritus. No unusual bru ising. No change in hair or nails. Neurologic: No aphasia. No facial droop. No change in mentation. No head injury. No headache. No paralysis. No paresthesia. Psychiatric: No depression. No anxiety. No mood swings. Endocrine: No abnormal blood sugars. No weight change. PHYSICAL EXAMINATION: General: 76-year-old male sitting up in bed in minimal respiratory distress. HEENT: Head is atraumatic, normocephalic, pupils were equal round reactive to light and recommendation, extraocular muscle movement were intact, sclera nonicteric, conjunctivae were pale, mucous membranes of the mouth are somewhat dry. Neck: Supple, no JVP, decreased carotid upstroke bilaterally, no lymphadenop athy. Chest: Decreased breath sounds at the bases, few rhonchi, minimal expiratory wheezes, no chest wall tenderness, no intercostal retractions. Heart: First heart sound is normal, second heart sound is normal there is ISAIAH 2/6 located at the left sternal border. Abdomen: Soft, nontender, nondistended, positive bowel sounds, no hepatosplenomegaly Extremities: There is no edema no calf tenderness DP +1 bilaterally. Neurologic examination: Patient is awake alert and oriented X 3, cranial nerves II-12 appear grossly intact, muscle power were 5 out of 5 in upper extremities and 5 out of 5 in bilateral lower extremities, deep tendon reflexes normal bilaterally. ASSESSMENT AND PLAN: 1. Acute hypoxemic respiratory failure due to COVID-19 infection as well as COPD exacerbation. Continue Solu-Medrol 60 mg IV push every 6 hours, continue Zithromax 500 mg orally once every day, continue Symbicort 160/4.5 g 2 puffs inhalation twice every day, continue albuterol HFA 2 puffs inhalation 4-6 times every day, continue zinc 220 mg once every day, vitamin C 500 mg orally twice every day and vitamin D3 1000 units once every day, Pulmicort consultation patient. 2. Hypertensive and hypertensive cardiovascular disease. Continue lisinopril 10 mg daily, Lopressor 25 mg twice daily, continue to monitor the patient blood pressure very closely. 3. History of coronary artery disease status post 3 vessel CABG, stents. Continue carvedilol 3.125 mg orally twice every day, Plavix 75 mg daily, Lipitor 80 mg daily continue aspirin 325 mg orally once every day. , 4. History of left carotid endarterectomy, stable. his carotid duplex are up-to-date. 5. COPD without exacerbation. Continue treatment as in paragraph #1. 6. Hyperlipidemia. Continue Lipitor 80 mg once every day monitor the patient dependent, keep LDL 55-70. 7. Benign prostatic hypertrophy. Monitor for urinary retention, continue Flomax 0.4 mg at bedtime 8. Gastroesophageal reflux disease and GI prophylaxis. Continue Protonix 40 mg orally once every day .9. Recurrent depression. Continue Remeron 30 mg daily, Zoloft 150 mg daily. 10. DVT prophylaxis. heparin 5000 units subcutaneously every 12 hours. 11. Tobacco use and dependence. Continue nicotine patch 12. History of alcohol abuse. Patient quit drinking in October 2018. 13. We will continue to monitor. Hopefully home in the next 24 hours. Objective - Vital Signs Vital signs: Vital Signs Temp 97.4 F L 05/09/22 07:30 Pulse 53 L 05/09/22 08:16 Resp 16 05/09/22 08:16 BP 156/75 05/09/22 07:30 Pulse Ox 97 05/09/22 08:00 FiO2 Intake & Output 05/08/22 05/09/22 05/09/22 18:59 06:59 18:59 Intake Total 716 Balance 716 Intake: Oral 716 Other: Voiding Method Toilet Toilet Toilet # Voids 2 3 # Bowel Movements 0 - Labs CBC & Chem 7: 05/09/22 05:31 05/09/22 05:31 Labs: Abnormal Lab Results - Last 24 Hours (Table) 05/08/22 05/09/22 05/09/22 Range/Units 06:41 05:31 05:31 RBC 3.22 L (4.40-5.60) X 10*6/uL Hgb 9.7 L (13.0-17.0) g/dL Hct 29.7 L (39.6-50.0) % RDW 14.7 H (11.5-14.5) % Neutrophils # 7.86 H (1.80-7.70) X 10*3/uL Lymphocytes # 0.62 L (0.90-5.00) X 10*3/uL Eosinophils # 0 L (0.04-0.35) X 10*3/uL Anion Gap 7.70 L 6.90 L (10.00-18.00) mmol/L BUN 27.4 H (9.0-27.0) mg/dL BUN/Creatinine Ratio 29.92 H 31.00 H (12.00-20.00) Ratio Glucose 138 H 138 H (70-110) mg/dL Calcium 8.5 L (8.7-10.3) mg/dL Total Bilirubin 0.20 L <0.15 L (0.30-1.20) mg/dL C-Reactive Protein 1.40 H (0.00-0.80) mg/dL Total Protein 5.8 L 5.4 L (6.2-8.2) g/dL Albumin 3.6 L 3.4 L (3.8-4.9) g/dL
[2022-05-09] MEDS: methylPREDNISolone SOD SUCCI 125 MG/2 ML VIAL IV SCH ×3 (13:38→23:52)
--- NOTE | 2022-05-09 13:52 | P.PN ---
Subjective Progress Note Date: 05/09/22 This is a pleasant 76-year-old male patient with a known history of chronic obstructive pulmonary disease, chronic and ongoing tobacco dependence of 60 years, coronary artery disease with previous coronary artery bypass grafting and stent placements, hypertension, hyperlipidemia, carotid stenosis with previous right carotid endarterectomy, BPH with previous resection. He presented here to the emergency room yesterday with increasing shortness of breath, cough and congestion. EMS found him hypoxemic at 85% on room air. Chest x-ray reveals no acute cardiopulmonary process. Evidence of COPD. White count 3.0. Hemoglobin 11.3. Platelets 149. D-dimer 0.77. Sodium 137. Potassium 4.2. Bicarb 25. BUN 18. Creatinine 0.74. Glucose 131. Influenza screen negative. RSV screen negative. COVID-19 screen positive. He has been vaccinated and boosted times one. Denied any sick contacts. He is seen today in consultation on the regular medical floor. He is sitting up at the bedside. Awake and alert in no acute distress. Maintaining O2 saturations up to 100% on 3 L/m per nasal cannula. He is afebrile. Hemodynamically stable. He's been initiated on antibiotics in the form of azithromycin, vitamin supplements, IV Solu-Medrol. Heparin for DVT prophylaxis. The patient is seen today 05/08/2022 in follow-up on the regular medical floor. He is currently resting quite comfortably in bed. Awake and alert in no acute distress. Feeling better today compared to yesterday. He is maintaining good O2 saturations in the high 90s on 3 L/m per nasal cannula. No fever. Still with some expiratory wheeze. White count 9.6. Hemoglobin 10.3. D-dimer 0.71. Sodium 139. Potassium 4.3. BUN 25. Creatinine 0.8. C-reactive protein 1.4. He is continued on Symbicort, albuterol, IV Solu-Medrol. Maintained on vitamin supplements. Antibiotics in the form of azithromycin. Heparin for DVT prophylaxis. NicoDerm patches in place. The patient is seen today 05/09/2022 in follow-up on the regular medical floor. He remains awake and alert in no acute distress. Breathing nearly back to his baseline. O2 saturations in the on 2 L/m per nasal cannula Still with some spasm and wheezing. He is on acyclovir, Symbicort, bronchodilators. NicoDerm patches in place. Remains on vitamin supplements. Heparin for DVT prophylaxis. White count 8.8. Hemoglobin 9.7. Platelets 190. Sodium 139. Potassium 4.3. Bicarb 26. BUN 27. Creatinine 0.9. Glucose 138. Objective - Vital Signs Vital signs: Vital Signs Temp 97.7 F 05/09/22 13:46 Pulse 59 L 05/09/22 13:46 Resp 16 05/09/22 13:46 BP 158/81 05/09/22 13:46 Pulse Ox 96 05/09/22 13:46 FiO2 Intake & Output 05/08/22 05/09/22 05/09/22 18:59 06:59 18:59 Intake Total 716 Balance 716 Intake: Oral 716 Other: Voiding Method Toilet Toilet Toilet # Voids 2 3 2 # Bowel Movements 0 - Exam GENERAL EXAM: Alert, 76-year-old male patient, remains on 3 L nasal cannula, comfortable in no apparent distress. HEAD: Normocephalic. EYES: Normal reaction of pupils, equal size. NOSE: Clear with pink turbinates. THROAT: No erythema or exudates. NECK: No masses, no JVD. CHEST: No chest wall deformity. LUNGS: Equal air entry with faint end expiratory wheeze, diminished. CVS: S1 and S2 normal with no audible murmur, regular rhythm. ABDOMEN: No hepatosplenomegaly, normal bowel sounds, no guarding or rigidity. SPINE: No scoliosis or deformity SKIN: No rashes CENTRAL NERVOUS SYSTEM: No focal deficits, tone is normal in all 4 extremities. EXTREMITIES: There is no peripheral edema. No clubbing, no cyanosis. Peripheral pulses are intact. - Labs CBC & Chem 7: 05/09/22 05:31 05/09/22 05:31 Labs: Abnormal Lab Results - Last 24 Hours (Table) 05/09/22 05/09/22 Range/Units 05:31 05:31 RBC 3.22 L (4.40-5.60) X 10*6/uL Hgb 9.7 L (13.0-17.0) g/dL Hct 29.7 L (39.6-50.0) % RDW 14.7 H (11.5-14.5) % Neutrophils # 7.86 H (1.80-7.70) X 10*3/uL Lymphocytes # 0.62 L (0.90-5.00) X 10*3/uL Eosinophils # 0 L (0.04-0.35) X 10*3/uL Anion Gap 6.90 L (10.00-18.00) mmol/L BUN 27.4 H (9.0-27.0) mg/dL BUN/Creatinine Ratio 31.00 H (12.00-20.00) Ratio Glucose 138 H (70-110) mg/dL Total Bilirubin <0.15 L (0.30-1.20) mg/dL Total Protein 5.4 L (6.2-8.2) g/dL Albumin 3.4 L (3.8-4.9) g/dL Assessment and Plan Assessment: Acute exacerbation of chronic obstructive pulmonary disease and previous FEV1 value 60% of predicted COVID-19 infection without evidence of COVID-19 pneumonia Chronic and ongoing tobacco dependence Hypertension Hyperlipidemia History of coronary artery disease with previous coronary bypass grafting and stent placements BPH with previous TURP History of anxiety/depression History of carotid stenosis with previous right carotid endarterectomy History of bladder cancer status post surgery Plan: The patient was seen and evaluated Labs and medications reviewed Continue Solu-Medrol Continue Symbicort, albuterol Heparin for DVT prophylaxis Continue vitamin supplements Titrate down the FiO2 as tolerated Probable discharge in a.m. May require home oxygen We will continue to follow I have personally seen and examined the patient, performed the documentation and the assessment and plan as written. Number of minutes spent on the visit: 10.
[2022-05-09] MEDS: MIRTAZAPINE 15 MG TAB PO SCH (20:53)
[2022-05-09] MEDS: CLOPIDOGREL 75 MG TAB PO SCH (20:53)
[2022-05-09] MEDS: TAMSULOSIN 0.4 MG CAP.ER.24H PO SCH (20:53)
[2022-05-09] MEDS: ATORVASTATIN 80 MG TAB PO SCH (20:53)
[2022-05-10] MEDS: methylPREDNISolone SOD SUCCI 125 MG/2 ML VIAL IV SCH (06:01)
[2022-05-10] MEDS: SERTRALINE 50 MG TAB PO SCH (08:06)
[2022-05-10] MEDS: HEPARIN SODIUM,PORCINE/PF 5,000 UNIT/0.5 ML SYRINGE SQ SCH ×2 (08:06→21:14)
[2022-05-10] MEDS: ASCORBIC ACID 500 MG TAB PO SCH ×2 (08:07→20:57)
[2022-05-10] MEDS: PANTOPRAZOLE 40 MG TABLET PO SCH (08:07)
[2022-05-10] MEDS: carvediloL 3.125 MG TAB PO SCH ×2 (08:07→17:15)
[2022-05-10] MEDS: ASPIRIN 325 MG TAB PO SCH (08:07)
[2022-05-10] MEDS: CHOLECALCIFEROL 25 MCG (1000 IU) TABLET PO SCH (08:07)
[2022-05-10] MEDS: ZINC SULFATE 220 MG CAP PO SCH (08:07)
[2022-05-10] MEDS: NICOTINE 14MG/24HR PATCH TRANSDERM SCH (08:07)
[2022-05-10] MEDS: lisinopriL 10 MG TAB PO SCH (08:07)
[2022-05-10] MEDS: ALBUTEROL HFA INHALER INHALATION PRN ×2 (08:16→20:32)
[2022-05-10] MEDS: SYMBICORT 160-4.5 MCG INHALER INHALATION SCH ×2 (08:17→20:32)
[2022-05-10 10:12] LABS: Basophils % (A) 0 %; Eosinophils % (A) 0 %; HCT 35.2 % (39.0-53.0); HGB 11.7 gm/dL (13.0-17.5); Lymphocytes # (A) 0.5 k/uL (1.0-4.8); Lymphocytes % (A) 5 %; MCH 30.6 pg (25.0-35.0); MCHC 33.1 g/dL (31.0-37.0); MCV 92.5 fL (80.0-100.0); Mean Platelet Volume 8.7; Monocytes # (A) 0.3 k/uL (0-1.0); Monocytes % (A) 3 %; Neutrophils % (A) 91 %; Platelet Count 201 k/uL (150-450); RBC 3.81 m/uL (4.30-5.90); RDW 14.8 % (11.5-15.5); WBC 9.9 k/uL (3.8-10.6)
[2022-05-10 10:18] LABS: ALT 20 U/L (4-49); AST 24 U/L (17-59); African American GFR (CKD) >90 (>60 ml/min/1.73 sqM); Albumin 3.8 g/dL (3.5-5.0); Albumin/Globulin Ratio 1.4; Alkaline Phosphatase 65 U/L (38-126); Anion Gap 8 mmol/L; Blood Urea Nitrogen 28 mg/dL (9-20); Calcium 8.8 mg/dL (8.4-10.2); Carbon Dioxide 26 mmol/L (22-30); Chloride 104 mmol/L (98-107); Globulin 2.7 g/dL; Glucose 134 mg/dL (74-99); Non-African American GFR(CKD) 90 (>60 ml/min/1.73 sqM); Potassium 3.9 mmol/L (3.5-5.1); Sodium 138 mmol/L (137-145); Total Bilirubin 0.5 mg/dL (0.2-1.3); Total Protein 6.5 g/dL (6.3-8.2)
--- NOTE | 2022-05-10 14:32 | P.PN ---
Subjective Progress Note Date: 05/10/22 HISTORY OF PRESENT ILLNESS: This is a 76-year-old male patient of [facility] with past medical history significant for coronary artery disease status post three-vessel CABG in 2016 with GALLO to LAD, SVG to the ramus, SVG to the PDA that was in 07/23/2016, prior to that left heart catheterization with PCI of the ramus intermedius back in 06/30/1996 gastroesophageal reflux disease, hypertension, hyperlipidemia, osteoarthritis generalized, benign prostatic hypertrophy, COPD, recurrent depression, tobacco use and dependence, history of alcohol abuse that he quit in October 2018 patient presented to the emergency department at [facility] after he developed to have a significant upper respiratory tract infection with a sore throat started on Tuesday night, he did not feel that bad initially however he developed to have a significant shortness breath and increased cough and minimal from production associated with significant wheezing, patient ended up coming to the emergency department at [facility] and he was found to have positive COVID-19, along with COPD exacerbation, he was started on IV antibiotic as well as IV steroid, and he was placed on vitamin D vitamin C and zinc and he was placed in contact splashed droplet precautions with Pulmonary consultation. 05/08: Patient is sitting up in a chair his feeling a lot better today, he is not even wearing his oxygen today, he denies any chest pain, less cough, less short of breath, no edema both lower extremity's, he continues to be on the same medication he was seen earlier by pulmonary medicine, he would be probably starting the hospital for another 1 or 2 days. 05/09: Patient went to bed yesterday with no oxygen on him woke up in the morning with no oxygen saturation in the 80s, patient was placed back in his oxygen, he continues to have minimal expiratory wheezes, he continues to have minimal coughing, he does not appear to be in significant distress, however he would be kept in the hospital for another 24 hours, hopefully reevaluate the patient tomorrow morning, check his oxygen level with ambulation he may need to go on home oxygen. 05/10: Patient remains afebrile, heart rate in the 50s, blood pressure 168/67 and 192/78, pulse ox 93% on 2 L nasal cannula. Home oxygen assessment will be obtained today and oxygen will be arranged for home if needed. He is followed by social scientist. We will decrease Solu-Medrol to 40 mg every 8 hours. REVIEW OF SYSTEMS: Constitutional: positive for documented fever, no chills, no night sweats. No weight change. positive for weakness, positive for fatigue or lethargy. No daytime sleepiness. HEENT: No headache. No blurred vision or double vision, no loss of vision. No loss of Hearing, no ringing in the ears, no dizziness. No nasal drainage or congestion. No epistaxis. No sore throat. Lungs: positive for shortness of breath-improving slowly, positive for coughing, minimal sputum production. positive for wheezing. Reports dyspnea with activity. Cardiovascular: No chest pain, no lower extremity edema. No palpitations. No paroxysmal nocturnal dyspnea. No orthopnea. No lightheadedness or dizziness. No syncopal episodes. Abdominal: Reports no abdominal pain. No nausea, vomiting. No diarrhea. No constipation. No bloody or tarry stools reports loss of appetite. Genitourinary: No dysuria, increased frequency, urgency. No urinary retention. Musculoskeletal: No myalgias. positive for muscle weakness, no gait dysfunction, no frequent falls. No back pain. No neck pain. Integumentary: No wounds, no lesions. No rash or pruritus. No unusual bruising. No change in hair or nails. Neurologic: No aphasia. No facial droop. No change in mentation. No head injury. No headache. No paralysis. No paresthesia. Psychiatric: No depression. No anxiety. No mood swings. Endocrine: No abnormal blood sugars. No weight change. PHYSICAL EXAMINATION: General: 76-year-old male sitting up in bed in minimal respiratory distress. HEENT: Head is atraumatic, normocephalic, pupils were equal round reactive to light and recommendation, extraocular muscle movement were intact, sclera nonicteric, conjunctivae were pale, mucous membranes of the mouth are somewhat dry. Neck: Supple, no JVP, decreased carotid upstroke bilaterally, no lymphadenopathy. Chest: Decreased breath sounds at the bases, few rhonchi, minimal expiratory wheezes, no chest wall tenderness, no intercostal retractions. Heart: First heart sound is normal, second heart sound is normal there is ISAIAH 2/6 located at the left sternal border. Abdomen: Soft, nontender, nondistended, positive bowel sounds, no hepatosplenomegaly Extremities: There is no edema no calf tenderness DP +1 bilaterally. Neurologic examination: Patient is awake alert and oriented X 3, cranial nerves II-12 appear grossly intact, muscle power were 5 out of 5 in upper extremities and 5 out of 5 in bilateral lower extremities, deep tendon reflexes normal bilaterally. ASSESSMENT AND PLAN: 1. Acute hypoxemic respiratory failure due to COVID-19 infection as well as COPD exacerbation. Continue Solu-Medrol decreased to 40 mg every 8 hours, continue Symbicort 160/4.5 g 2 puffs inhalation twice every day, continue albuterol HFA 2 puffs inhalation 4-6 times every day, continue zinc 220 mg once every day, vitamin C 500 mg orally twice every day and vitamin D3 1000 units onc e every day, pulmonary consultation appreciated. 2. Hypertensive and hypertensive cardiovascular disease. Continue lisinopril 10 mg daily, Lopressor 25 mg twice daily, continue to monitor the patient blood pressure very closely. 3. History of coronary artery disease status post 3 vessel CABG, stents. Continue carvedilol 3.125 mg orally twice every day, Plavix 75 mg daily, Lipitor 80 mg daily continue aspirin 325 mg orally once every day. , 4. History of left carotid endarterectomy, stable. his carotid duplex are up-to-date. 5. COPD without exacerbation. Continue treatment as in paragraph #1. 6. Hyperlipidemia. Continue Lipitor 80 mg once every day monitor the patient dependent, keep LDL 55-70. 7. Benign prostatic hypertrophy. Monitor for urinary retention, continue F montserrat 0.4 mg at bedtime 8. Gastroesophageal reflux disease and GI prophylaxis. Continue Protonix 40 mg orally once every day .9. Recurrent depression. Continue Remeron 30 mg daily, Zoloft 150 mg daily. 10. DVT prophylaxis. heparin 5000 units subcutaneously every 12 hours. 11. Tobacco use and dependence. Continue nicotine patch 12. History of alcohol abuse. Patient quit drinking in October 2018. 13. We will continue to monitor. Hopefully home in the next 24 hours. Impression and plan of care have been directed as dictated by the signing physician. Cindi Edwards nurse practitioner acting as scribe for signing physician. Objective - Vital Signs Vital signs: Vital Signs Temp 97.2 F L 05/10/22 06:52 Pulse 54 L 05/10/22 06:52 Resp 17 05/10/22 08:05 BP 192/78 05/10/22 06:52 Pulse Ox 93 L 05/10/22 08:18 FiO2 Intake & Output 05/09/22 05/10/22 05/10/22 18:59 06:59 18:59 Intake Total 1080 Balance 1080 Intake: Oral 1080 Other: Voiding Method Toilet Toilet Toilet # Voids 3 2 - Labs CBC & Chem 7: 05/10/22 09:30 05/10/22 09:30 Labs: Abnormal Lab Results - Last 24 Hours (Table) 05/10/22 05/10/22 Range/Units 09:30 09:30 RBC 3.81 L (4.30-5.90) m/uL Hgb 11.7 L (13.0-17.5) gm/dL Hct 35.2 L (39.0-53.0) % Neutrophils # 9.0 H (1.3-7.7) k/uL Lymphocytes # 0.5 L (1.0-4.8) k/uL BUN 28 H (9-20) mg/dL Glucose 134 H (74-99) mg/dL
--- NOTE | 2022-05-10 15:30 | P.PN ---
Subjective Progress Note Date: 05/10/22 This is a pleasant 76-year-old male patient with a known history of chronic obstructive pulmonary disease, chronic and ongoing tobacco dependence of 60 years, coronary artery disease with previous coronary artery bypass grafting and stent placements, hypertension, hyperlipidemia, carotid stenosis with previous right carotid endarterectomy, BPH with previous resection. He presented here to the emergency room yesterday with increasing shortness of breath, cough and congestion. EMS found him hypoxemic at 85% on room air. Chest x-ray reveals no acute cardiopulmonary process. Evidence of COPD. White count 3.0. Hemoglobin 11.3. Platelets 149. D-dimer 0.77. Sodium 137. Potassium 4.2. Bicarb 25. BUN 18. Creatinine 0.74. Glucose 131. Influenza screen negative. RSV screen negative. COVID-19 screen positive. He has been vaccinated and boosted times one. Denied any sick contacts. He is seen today in consultation on the regular medical floor. He is sitting up at the bedside. Awake and alert in no acute distress. Maintaining O2 saturations up to 100% on 3 L/m per nasal cannula. He is afebrile. Hemodynamically stable. He's been initiated on antibiotics in the form of azithromycin, vitamin supplements, IV Solu-Medrol. Heparin for DVT prophylaxis. The patient is seen today 05/08/2022 in follow-up on the regular medical floor. He is currently resting quite comfortably in bed. Awake and alert in no acute distress. Feeling better today compared to yesterday. He is maintaining good O2 saturations in the high 90s on 3 L/m per nasal cannula. No fever. Still with some expiratory wheeze. White count 9.6. Hemoglobin 10.3. D-dimer 0.71. Sodium 139. Potassium 4.3. BUN 25. Creatinine 0.8. C-reactive protein 1.4. He is continued on Symbicort, albuterol, IV Solu-Medrol. Maintained on vitamin supplements. Antibiotics in the form of azithromycin. Heparin for DVT prophylaxis. NicoDerm patches in place. The patient is seen today 05/09/2022 in follow-up on the regular medical floor. He remains awake and alert in no acute distress. Breathing nearly back to his baseline. O2 saturations in the on 2 L/m per nasal cannula Still with some spasm and wheezing. He is on acyclovir, Symbicort, bronchodilators. NicoDerm patches in place. Remains on vitamin supplements. Heparin for DVT prophylaxis. White count 8.8. Hemoglobin 9.7. Platelets 190. Sodium 139. Potassium 4.3. Bicarb 26. BUN 27. Creatinine 0.9. Glucose 138. The patient is seen today 05/10/2022 in follow-up on the regular medical floor. He is currently sitting up having lunch. Awake and alert in no acute distress. Denies any worsening shortness of breath, cough or congestion. Feeling nearly back to his baseline. Maintaining O2 saturations in the upper 90s on 2 L/m per nasal cannula. He is afebrile. Hemodynamically stable. White count 9.9. Hemoglobin 11.7. Platelets 201. Sodium 138. Potassium 3.9. Bicarb 26. BUN 28. Creatinine 0.74. Glucose 134. Continued on Symbicort, albuterol, IV Solu- Medrol. NicoDerm patch in place. Remains on vitamin supplements. Heparin for DVT prophylaxis. Objective - Vital Signs Vital signs: Vital Signs Temp 97.5 F L 05/10/22 13:49 Pulse 51 L 05/10/22 13:49 Resp 18 05/10/22 13:49 BP 172/72 05/10/22 13:49 Pulse Ox 99 05/10/22 13:49 FiO2 Intake & Output 05/09/22 05/10/22 05/10/22 18:59 06:59 18:59 Intake Total 1080 Balance 1080 Intake: Oral 1080 Other: Voiding Method Toilet Toilet Toilet # Voids 3 2 - Exam GENERAL EXAM: Alert, 76-year-old male, sitting up at the bedside, on 2 L nasal cannula, comfortable in no apparent distress. HEAD: Normocephalic. EYES: Normal reaction of pupils, equal size. NOSE: Clear with pink turbinates. THROAT: No erythema or exudates. NECK: No masses, no JVD. CHEST: No chest wall deformity. LUNGS: Equal air entry with faint end expiratory wheeze, diminished. CVS: S1 and S2 normal with no audible murmur, regular rhythm. ABDOMEN: No hepatosplenomegaly, normal bowel sounds, no guarding or rigidity. SPINE: No scoliosis or deformity SKIN: No rashes CENTRAL NERVOUS SYSTEM: No focal deficits, tone is normal in all 4 extremities. EXTREMITIES: There is no peripheral edema. No clubbing, no cyanosis. Peripheral pulses are intact. - Labs CBC & Chem 7: 05/10/22 09:30 05/10/22 09:30 Labs: Abnormal Lab Results - Last 24 Hours (Table) 05/10/22 05/10/22 Range/Units 09:30 09:30 RBC 3.81 L (4.30-5.90) m/uL Hgb 11.7 L (13.0-17.5) gm/dL Hct 35.2 L (39.0-53.0) % Neutrophils # 9.0 H (1.3-7.7) k/uL Lymphocytes # 0.5 L (1.0-4.8) k/uL BUN 28 H (9-20) mg/dL Glucose 134 H (74-99) mg/dL Assessment and Plan Assessment: Acute exacerbation of chronic obstructive pulmonary disease and previous FEV1 value 60% of predicted COVID-19 infection without evidence of COVID-19 pneumonia Chronic and ongoing tobacco dependence Hypertension Hyperlipidemia History of coronary artery disease with previous coronary bypass grafting and stent placements BPH with previous TURP History of anxiety/depression History of carotid stenosis with previous right carotid endarterectomy History of bladder cancer status post surgery Plan: The patient was seen and evaluated Labs and medications reviewed Continue steroids, bronchodilators Continue vitamin supplements Titrate down the FiO2 as tolerated May require home oxygen Probable discharge in the a.m. We will continue to follow I have personally seen and examined the patient, performed the documentation and the assessment and plan as written. Number of minutes spent on the visit: 10.
[2022-05-10] MEDS: methylPREDNISolone SOD SUCCI 40 MG/ML 1 ML VIAL IV SCH (17:09)
[2022-05-10] MEDS: CLOPIDOGREL 75 MG TAB PO SCH (20:57)
[2022-05-10] MEDS: ATORVASTATIN 80 MG TAB PO SCH (20:57)
[2022-05-10] MEDS: MIRTAZAPINE 15 MG TAB PO SCH (20:57)
[2022-05-11] MEDS: TAMSULOSIN 0.4 MG CAP.ER.24H PO SCH (00:02)
[2022-05-11] MEDS: methylPREDNISolone SOD SUCCI 40 MG/ML 1 ML VIAL IV SCH ×2 (00:02→09:23)
[2022-05-11] MEDS: PANTOPRAZOLE 40 MG TABLET PO SCH (07:50)
[2022-05-11] MEDS: ASCORBIC ACID 500 MG TAB PO SCH (07:50)
[2022-05-11] MEDS: carvediloL 3.125 MG TAB PO SCH (07:50)
[2022-05-11] MEDS: ASPIRIN 325 MG TAB PO SCH (07:50)
[2022-05-11] MEDS: ZINC SULFATE 220 MG CAP PO SCH (07:50)
[2022-05-11] MEDS: CHOLECALCIFEROL 25 MCG (1000 IU) TABLET PO SCH (07:51)
[2022-05-11] MEDS: HEPARIN SODIUM,PORCINE/PF 5,000 UNIT/0.5 ML SYRINGE SQ SCH (07:51)
[2022-05-11] MEDS: SERTRALINE 50 MG TAB PO SCH (07:52)
[2022-05-11] MEDS: NICOTINE 14MG/24HR PATCH TRANSDERM SCH (07:58)
[2022-05-11] MEDS: lisinopriL 10 MG TAB PO SCH (07:59)
[2022-05-11] MEDS: ALBUTEROL HFA INHALER INHALATION PRN (10:14)
[2022-05-11] MEDS: SYMBICORT 160-4.5 MCG INHALER INHALATION SCH (10:14)
--- NOTE | 2022-05-11 13:02 | P.DS ---
Providers Date of admission: 05/06/22 21:05 Expected date of discharge: 05/11/22 Attending physician: Clay Kuo Consults: 05/06/22 21:02 Consult Physician Routine Consulting Provider: Vivek Grimes Consult Reason/Comments: copd, covid, bronchitis Do you want consulting provider notified?: Yes Primary care physician: Clay Kuo Hospital Course: HISTORY OF PRESENT ILLNESS: This is a 76-year-old male patient of mine with past medical history significant for coronary artery disease status post three-vessel CABG in 2016 with GALLO to LAD, SVG to the ramus, SVG to the PDA that was in 07/23/2016, prior to that left heart catheterization with PCI of the ramus intermedius back in 06/30/1996 gastroesophageal reflux disease, hypertension, hyperlipidemia, osteoarthritis generalized, benign prostatic hypertrophy, COPD, recurrent depression, tobacco use and dependence, history of alcohol abuse that he quit in October 2018 patient presented to the emergency department at [facility] after he developed to have a significant upper respiratory tract infection with a sore throat started on Tuesday night, he did not feel that bad initially however he developed to have a significant shortness breath and increased cough and minimal from production associated with significant wheezing, patient ended up coming to the emergency department at [facility] and he was found to have positive COVID-19, along with COPD exacerbation, he was started on IV antibiotic as well as IV steroid, and he was placed on vitamin D vitamin C and zinc and he was placed in contact splashed droplet precautions with Pulmonary consultation. 05/08: Patient is sitting up in a chair his feeling a lot better today, he is not even wearing his oxygen today, he denies any chest pain, less cough, less short of breath, no edema both lower extremity's, he continues to be on the same medication he was seen earlier by pulmonary medicine, he would be probably starting the hospital for another 1 or 2 days. 05/09: Patient went to bed yesterday with no oxygen on him woke up in the morning with no oxygen saturation in the 80s, patient was placed back in his oxygen, he continues to have minimal expiratory wheezes, he continues to have minimal coughing, he does not appear to be in significant distress, however he would be kept in the hospital for another 24 hours, hopefully reevaluate the patient tomorrow morning, check his oxygen level with ambulation he may need to go on home oxygen. 05/10: Patient remains afebrile, heart rate in the 50s, blood pressure 168/67 and 192/78, pulse ox 93% on 2 L nasal cannula. Home oxygen assessment will be obtained today and oxygen will be arranged for home if needed. He is followed by social work supervisor. We will decrease Solu-Medrol to 40 mg every 8 hours. 05/11: Patient denies shortness of breath. He was able to ambulate in the hallway and back and did not require home oxygen. Cough is improved. He remains afebrile, heart rate in the 50s, blood pressure 167/62. He has been seen by pulmonary medicine and cleared for discharge today. Patient will be discharged home today in stable condition. DISCHARGE DIAGNOSES 1. Acute hypoxemic respiratory failure due to COVID-19 infection as well as COPD exacerbation. 2. Hypertensive and hypertensive cardiovascular disease. 3. History of coronary artery disease status post 3 vessel CABG, stents. 4. History of left carotid endarterectomy, stable. his carotid duplex are up-to-date. 5. COPD with exacerbation. 6. Hyperlipidemia. 7. Benign prostatic hypertrophy. 8. Gastroesophageal reflux disease 9. Recurrent depression. 10. Tobacco use and dependence. 11. History of alcohol abuse. Greater than 35 minutes was utilized and coordinating patient's discharge. Impression and plan of care have been directed as dictated by the signing physician. Cindi Edwards nurse practitioner acting as scribe for signing physician. Patient Condition at Discharge: Serious Plan - Discharge Summary Discharge Rx Participant: Yes New Discharge Prescriptions: New Albuterol Inhaler [Ventolin Hfa Inhaler] 2 puff INHALATION RT-QID PRN #0 each PRN Reason: Shortness Of Breath Or Wheezing Ascorbic Acid [Vitamin C] 500 mg PO BID tab Cholecalciferol [Vitamin D3 (25 Mcg = 1000 Iu)] 25 mcg PO DAILY tab Nicotine 14Mg/24Hr Patch [Habitrol] 1 patch TRANSDERM DAILY #30 patch Zinc Sulfate [Orazinc] 220 mg PO DAILY cap predniSONE 0 mg PO DIRECTED #30 tab Budesonide-Formot 160-4.5 Mcg [Symbicort 160-4.5 Mcg Inhaler] 2 puff INHALATION RT-BID #0 each Azithromycin [Zithromax Tri-Dale (3 tabs)] 500 mg PO DAILY 3 Days #3 tab Continue Tamsulosin [Flomax] 0.4 mg PO HS lisinopriL [Zestril] 10 mg PO DAILY Mirtazapine 30 mg PO HS Sertraline HCl [Zoloft] 150 mg PO DAILY Atorvastatin Calcium [Lipitor] 80 mg PO HS Clopidogrel [Plavix] 75 mg PO HS Aspirin 325 mg PO DAILY carvediloL [Coreg] 3.125 mg PO BID Pantoprazole [Protonix] 40 mg PO DAILY Discharge Medication List Tamsulosin [Flomax] 0.4 mg PO HS 07/16/16 [History] lisinopriL [Zestril] 10 mg PO DAILY 07/11/18 [History] Mirtazapine 30 mg PO HS 12/03/18 [History] Atorvastatin Calcium [Lipitor] 80 mg PO HS 08/13/19 [History] Sertraline HCl [Zoloft] 150 mg PO DAILY 08/13/19 [History] Aspirin 325 mg PO DAILY 05/06/22 [History] Clopidogrel [Plavix] 75 mg PO HS 05/06/22 [History] Pantoprazole [Protonix] 40 mg PO DAILY 05/06/22 [History] carvediloL [Coreg] 3.125 mg PO BID 05/06/22 [History] Albuterol Inhaler [Ventolin Hfa Inhaler] 2 puff INHALATION RT-QID PRN #0 each 05/11/22 [Rx] Ascorbic Acid [Vitamin C] 500 mg PO BID tab 05/11/22 [Rx] Azithromycin [Zithromax Tri-Dale (3 tabs)] 500 mg PO DAILY 3 Days #3 tab 05/11/22 [Rx] Budesonide-Formot 160-4.5 Mcg [Symbicort 160-4.5 Mcg Inhaler] 2 puff INHALATION RT-BID #0 each 05/11/22 [Rx] Cholecalciferol [Vitamin D3 (25 Mcg = 1000 Iu)] 25 mcg PO DAILY tab 05/11/22 [Rx] Nicotine 14Mg/24Hr Patch [Habitrol] 1 patch TRANSDERM DAILY #30 patch 05/11/22 [Rx] Zinc Sulfate [Orazinc] 220 mg PO DAILY cap 05/11/22 [Rx] predniSONE 0 mg PO DIRECTED #30 tab 03/21/23 [Rx] Follow up Appointment(s)/Referral(s): Clay Kuo MD [Primary Care Provider] - 05/18/22 3:30 pm Chirag Marquez MD [STAFF PHYSICIAN] - 1 Week Patient Instructions/Handouts: COPD (Chronic Obstructive Pulmonary Disease) (DC), COVID-19 (Coronavirus Disease 2019) (DC) Discharge Disposition: HOME SELF-CARE
[2022-05-11 14:03] VITALS: BP 149/60; PULSE 56; RESP 14; TEMP 98
--- NOTE | 2022-05-11 15:18 | P.PN ---
Subjective Progress Note Date: 05/11/22 This is a pleasant 76-year-old male patient with a known history of chronic obstructive pulmonary disease, chronic and ongoing tobacco dependence of 60 years, coronary artery disease with previous coronary artery bypass grafting and stent placements, hypertension, hyperlipidemia, carotid stenosis with previous right carotid endarterectomy, BPH with previous resection. He presented here to the emergency room yesterday with increasing shortness of breath, cough and congestion. EMS found him hypoxemic at 85% on room air. Chest x-ray reveals no acute cardiopulmonary process. Evidence of COPD. White count 3.0. Hemoglobin 11.3. Platelets 149. D-dimer 0.77. Sodium 137. Potassium 4.2. Bicarb 25. BUN 18. Creatinine 0.74. Glucose 131. Influenza screen negative. RSV screen negative. COVID-19 screen positive. He has been vaccinated and boosted times one. Denied any sick contacts. He is seen today in consultation on the regular medical floor. He is sitting up at the bedside. Awake and alert in no acute distress. Maintaining O2 saturations up to 100% on 3 L/m per nasal cannula. He is afebrile. Hemodynamically stable. He's been initiated on antibiotics in the form of azithromycin, vitamin supplements, IV Solu-Medrol. Heparin for DVT prophylaxis. The patient is seen today 05/08/2022 in follow-up on the regular medical floor. He is currently resting quite comfortably in bed. Awake and alert in no acute distress. Feeling better today compared to yesterday. He is maintaining good O2 saturations in the high 90s on 3 L/m per nasal cannula. No fever. Still with some expiratory wheeze. White count 9.6. Hemoglobin 10.3. D-dimer 0.71. Sodium 139. Potassium 4.3. BUN 25. Creatinine 0.8. C-reactive protein 1.4. He is continued on Symbicort, albuterol, IV Solu-Medrol. Maintained on vitamin supplements. Antibiotics in the form of azithromycin. Heparin for DVT prophylaxis. NicoDerm patches in place. The patient is seen today 05/09/2022 in follow-up on the regular medical floor. He remains awake and alert in no acute distress. Breathing nearly back to his baseline. O2 saturations in the on 2 L/m per nasal cannula Still with some spasm and wheezing. He is on acyclovir, Symbicort, bronchodilators. NicoDerm patches in place. Remains on vitamin supplements. Heparin for DVT prophylaxis. White count 8.8. Hemoglobin 9.7. Platelets 190. Sodium 139. Potassium 4.3. Bicarb 26. BUN 27. Creatinine 0.9. Glucose 138. The patient is seen today 05/10/2022 in follow-up on the regular medical floor. He is currently sitting up having lunch. Awake and alert in no acute distress. Denies any worsening shortness of breath, cough or congestion. Feeling nearly back to his baseline. Maintaining O2 saturations in the upper 90s on 2 L/m per nasal cannula. He is afebrile. Hemodynamically stable. White count 9.9. Hemoglobin 11.7. Platelets 201. Sodium 138. Potassium 3.9. Bicarb 26. BUN 28. Creatinine 0.74. Glucose 134. Continued on Symbicort, albuterol, IV Solu- Medrol. NicoDerm patch in place. Remains on vitamin supplements. Heparin for DVT prophylaxis. The patient is seen today 05/11/2022 in follow-up on the regular medical floor. He is currently sitting up in bed. Awake and alert in no acute distress. Denies any worsening shortness of breath, cough or congestion. No fever or chills. He is maintaining good O2 saturations in the 90s on room air. Continued on Symbicort, albuterol, IV Solu-Medrol. NicoDerm patch in place. Remains on vitamin supplements. Heparin for DVT prophylaxis. No new labs today. Objective - Vital Signs Vital signs: Vital Signs Temp 98.0 F 05/11/22 13:01 Pulse 56 L 05/11/22 13:01 Resp 14 05/11/22 13:01 BP 149/60 05/11/22 13:01 Pulse Ox 99 05/11/22 13:01 FiO2 Intake & Output 05/10/22 05/11/22 05/11/22 18:59 06:59 18:59 Intake Total 500 Balance 500 Intake: Oral 500 Other: Voiding Method Toilet Toilet # Voids 3 3 - Exam GENERAL EXAM: Alert, very pleasant 76-year-old male, sitting up at the bedside, on room air, comfortable in no apparent distress. HEAD: Normocephalic. EYES: Normal reaction of pupils, equal size. NOSE: Clear with pink turbinates. THROAT: No erythema or exudates. NECK: No masses, no JVD. CHEST: No chest wall deformity. LUNGS: Equal air entry with faint end expiratory wheeze, diminished. CVS: S1 and S2 normal with no audible murmur, regular rhythm. ABDOMEN: No hepatosplenomegaly, normal bowel sounds, no guarding or rigidity. SPINE: No scoliosis or deformity SKIN: No rashes CENTRAL NERVOUS SYSTEM: No focal deficits, tone is normal in all 4 extremities. EXTREMITIES: There is no peripheral edema. No clubbing, no cyanosis. Peripheral pulses are intact. - Labs CBC & Chem 7: 05/10/22 09:30 05/10/22 09:30 Assessment and Plan Assessment: Acute hypoxemic respiratory failure secondary to an acute exacerbation of chronic obstructive pulmonary disease and previous FEV1 value 60% of predicted. Recovered and on room air. COVID-19 infection without evidence of COVID-19 pneumonia Chronic and ongoing tobacco dependence Hypertension Hyperlipidemia History of coronary artery disease with previous coronary bypass grafting and stent placements BPH with previous TURP History of anxiety/depression History of carotid stenosis with previous right carotid endarterectomy History of bladder cancer status post surgery Plan: The patient was seen and evaluated Medications reviewed Cleared for discharge from the pulmonary standpoint Stable and on room air Continue bronchodilators, prednisone taper Educated again regarding the importance of complete smoking cessation Would benefit from a follow-up in our office in 1 week with pulmonary function testing I have personally seen and examined the patient, performed the documentation and the assessment and plan as written. Number of minutes spent on the visit: 10.
--- NOTE | 2022-05-19 09:15 | CDI ---
Documentation Clarification Form Date: 05/19/2022 8:26:25 AM From: Italia Boyd RN, CCDS Admit Date: 05/06/2022 9:05:00 PM Patient Name: Santo Canchola Visit Number: [id number] Discharge Date: 05/11/2022 1:36:00 PM ATTENTION: The Clinical Documentation Specialists (CDI) and [facility] Coding Staff appreciate your assistance in clarifying documentation. Please respond to the clarification below the line at the bottom and electronically sign. The CDI & [facility] Coding staff will review the response and follow-up if needed. Please note: Queries are made part of the Legal Health Record. If you have any questions, please contact the author of this message via ITS. Dr. Clay Kuo The patients principal diagnosis the diagnosis that was chiefly responsible for the admission - has not been clearly identified and clarification is requested. The patient presented with progressive worsening shortness of breath. When EMS arrived, patients was hypoxic down to 85 %. He was treated with updrafts and nasal cannula with improvement. History/Risk factors: Coronary artery disease, Hypertension, Hyperlipidemia, Bladder cancer GERD, current everyday tobacco smoker Clinical Indicators: 76-year-old male present with shortness of breathe. Respiratory: Bilateral end respiratory wheezing. Hypoxia on room air to the low 90% at rest. He has a productive cough ED assessment: will treat for COPD exacerbation with 05/06 Lab findings: WBC 4.0, COVID-19 Positive, 05/06 CXR: No signs of acute pneumonia or infiltrate 05/06 Vital Signs: 157/77 82 22 100.8 86 % ED assessment: will treat for COPD, COVID-19, Bronchitis, Acute respiratory failure with hypoxia. 05/07 pulmonary consult: Acute exacerbation of chronic obstructive pulmonary disease and previousFEV1 value 60% of predicted. COVID-19 infection without evidence of COVID-19 pneumonia. Treatment: Albuterol inhaler 2 puffs 4-6 times every day Symbicort Inhaler 2 puff BID 05/07-05/11 IV Solu-Medrol 125 MG IV Once, 40 MG IV q 12, Q 8 HRS (titrate per orders) Azithromycin 500MG PO Daily 05/06 x 3 bags Zinc 220 MG PO Daily, Vitamin C 500MG PO BID, Vitamin D3 1000 Units Once Daily In your professional opinion, can you please clarify which diagnosis, after study, was the reason chiefly responsible for the admission? [ X ] COVID-19 [ ] COPD Exacerbation [ ] Other, please specify [ ] Unable to determine (Template Last Revised: April 2020) MTDD
== END 2022-05-11 13:36 | disposition home or self-care (01) | DRG 177 ==
LOC: EC 17:18 → 4SSUR 21:05
PROVIDERS: ADMIT Internal Medicine; ATTEND Internal Medicine
DX: U07.1 COVID-19 (principal); J96.01 Acute respiratory failure with hypoxia; J44.1 Chronic obstructive pulmonary disease with (acute) exacerbation; F33.9 Major depressive disorder, recurrent, unspecified; I11.9 Hypertensive heart disease without heart failure; F10.11 Alcohol abuse, in remission; D53.9 Nutritional anemia, unspecified; I25.10 Atherosclerotic heart disease of native coronary artery without angina pectoris; F17.210 Nicotine dependence, cigarettes, uncomplicated; E83.42 Hypomagnesemia; F41.9 Anxiety disorder, unspecified; M15.9 Polyosteoarthritis, unspecified; K21.00 Gastro-esophageal reflux disease with esophagitis, without bleeding; E78.5 Hyperlipidemia, unspecified; N40.0 Benign prostatic hyperplasia without lower urinary tract symptoms; Z95.1 Presence of aortocoronary bypass graft; Z95.5 Presence of coronary angioplasty implant and graft; I25.2 Old myocardial infarction; Z85.51 Personal history of malignant neoplasm of bladder; Z79.899 Other long term (current) drug therapy; Z79.82 Long term (current) use of aspirin; Z79.02 Long term (current) use of antithrombotics/antiplatelets; Z86.79 Personal history of other diseases of the circulatory system; Z90.79 Acquired absence of other genital organ(s)
CPT/HCPCS: 36415; 71046; 80048; 80053; 82728; 83735; 85025; 85379; 85610; 85730; 86140; 87636; 93005; 94640; 94760; 96361; 96365; 96366; 96375; 99291

== ENCOUNTER 2022-05-19 14:47 | Inpatient (IN) | payer MEDICARE ==
[2022-05-19] MEDS ORDERED: IPRATROPIUM-ALBUTEROL 3 ML NEB INHALATION STA (15:13)
--- NOTE | 2022-05-19 15:18 | ED ---
SOB HPI - General Chief Complaint: Shortness of Breath Stated Complaint: SOB Source: patient, EMS Mode of arrival: EMS Limitations: no limitations - History of Present Illness Initial Comments: This patient is a 77-year-old man who presents to have evaluation for shortness of breath. He states he has underlying history of COPD and that he had been admitted in the hospital May 06 after he was found to have covid infection. The patient states that he went to see today as routine follow-up. He was sent over here from the physician's office. He states that he is not back to his baseline. He is still a little short of breath at baseline, very short of breath if he does any exertion at all. He is not having fevers or chills. No chest pain. He states that he does occasionally cough but it is much improved from his admission. He is continuing to take a steroid he says and he believes he just finished a course of antibiotics. He denies any change in u rination. He did have a couple of days with some bloody stools after the hospital admission but states that that resolved. No tarry or dark stools now. No leg pain or swelling. MD Complaint: shortness of breath -: days(s) Severity scale (1-10): 0 Consistency: constant Improves With: nothing Worsens With: exertion Known History Of: COPD Context: recent URI Associated Symptoms: cough Treatments Prior to Arrival: none - Related Data Home Oxygen Therapy: No Home Medications Medication Instructions Recorded Confirmed Tamsulosin [Flomax] 0.4 mg PO HS 07/16/16 05/19/22 lisinopriL [Zestril] 10 mg PO DAILY 07/11/18 05/19/22 Mirtazapine 30 mg PO HS 12/03/18 05/19/22 Atorvastatin Calcium [Lipitor] 80 mg PO HS 08/13/19 05/19/22 Sertraline HCl [Zoloft] 150 mg PO DAILY 08/13/19 05/19/22 Pantoprazole [Protonix] 40 mg PO DAILY 05/06/22 05/19/22 carvediloL [Coreg] 3.125 mg PO BID 05/06/22 05/19/22 Previous Rx's Medication Instructions Recorded Albuterol Inhaler [Ventolin Hfa 2 puff INHALATION RT-QID PRN #0 05/11/22 Inhaler] each Ascorbic Acid [Vitamin C] 500 mg PO BID tab 05/11/22 Budesonide-Formot 160-4.5 Mcg 2 puff INHALATION RT-BID #0 each 05/11/22 [Symbicort 160-4.5 Mcg Inhaler] Cholecalciferol [Vitamin D3 (25 25 mcg PO DAILY tab 05/11/22 Mcg = 1000 Iu)] Nicotine 14Mg/24Hr Patch [Habitrol] 1 patch TRANSDERM DAILY #30 patch 05/11/22 Zinc Sulfate [Orazinc] 220 mg PO DAILY cap 05/11/22 Amoxic-Pot Clav 875-125Mg 1 each PO Q12HR #10 tab 05/24/22 [Augmentin 875-125] Ipratropium-Albuterol Nebulize 3 ml INHALATION RT-QID #120 each 05/24/22 [Duoneb 0.5 mg-3 mg/3 ml Soln] Allergies Allergy/AdvReac Type Severity Reaction Status Date / Time No Known Allergies Allergy Verified 05/19/22 17:35 Review of Systems ROS Statement: Those systems with pertinent positive or pertinent negative responses have been documented in the HPI. ROS Other: All systems not noted in ROS Statement are negative. Constitutional: Reports: weakness. Denies: fever, chills Respiratory: Denies: cough, dyspnea Cardiovascular: Reports: dyspnea on exertion. Denies: chest pain, palpitations, orthopnea, edema, syncope Gastrointestinal: Denies: abdominal pain, nausea, vomiting, diarrhea, melena, hematochezia Genitourinary: Denies: dysuria, hematuria Musculoskeletal: Denies: back pain Skin: Denies: rash Neurological: Denies: headache, weakness, numbness Past Medical History Past Medical History: Coronary Artery Disease (CAD), Cancer, Chest Pain / Angina, GERD/Reflux, Hyperlipidemia, Hypertension, Myocardial Infarction (MA), Pneumonia, Prostate Disorder, Vascular Disorder Additional Past Medical History / Comment(s): 2014 bladder cancer with surgery/hematuria, anemia, BPH, past ETOH abuse with withdrawal tremors-pt has not drank since 10/2018. Last Myocardial Infarction Date:: 2014 History of Any Multi-Drug Resistant Organisms: None Reported Past Surgical History: Bladder Surgery, Coronary Bypass/CABG, Heart Catheterization, Heart Catheterization With Stent Additional Past Surgical History / Comment(s): 2017 CABG 3 vessel, TUR BT/resection, cystoscopy, R caratid endartectomy, EGD, colonoscopy, small bowel capsule, bilateral cataract removals, hip surgery Past Anesthesia/Blood Transfusion Reactions: No Reported Reaction Additional Past Anesthesia/Blood Transfusion Reaction / Comment(s): Pt has received blood in past without reaction. Date of Last Stent Placement:: 1996 Past Psychological History: Anxiety, Depression Smoking Status: Current every day smoker Past Alcohol Use History: Daily Past Drug Use History: None Reported - Past Family History Father Family Medical History: Coronary Artery Disease (CAD) Additional Family Medical History / Comment(s): Father at age 78 from heart disease. Mother Family Medical History: CVA/TIA, Hypertension Additional Family Medical History / Comment(s): Mother at age 85 from stroke with history of hypertension. Sister(s) Family Medical History: No Reported History Additional Family Medical History / Comment(s): Patient has 2 sisters and one has history of myocardial infarction. Second sister has nomajor medical problems. Patient does not have any brothers. Daughter(s) Family Medical History: No Reported History Additional Family Medical History / Comment(s): The patient has 2 daughters and one has had leg amputation secondary to osteomyelitis. Second daughter has no major medical problems. Patient has one son with no major medical problems. Son(s) Family Medical History: No Reported History General Exam Limitations: no limitations General appearance: alert, in no apparent distress Head exam: Present: atraumatic, normocephalic Eye exam: Present: normal appearance. Absent: scleral icterus, conjunctival injection Neck exam: Present: normal inspection Respiratory exam: Present: wheezes. Absent: respiratory distress, rales, rhonchi, stridor, accessory muscle use Cardiovascular Exam: Present: regular rate, normal rhythm, normal heart sounds. Absent: systolic murmur, diastolic murmur, rubs, gallop GI/Abdominal exam: Present: soft. Absent: distended, tenderness, guarding, rebound, rigid, mass Extremities exam: Present: normal inspection, normal capillary refill. Absent: pedal edema, calf tenderness Back exam: Present: normal inspection. Absent: CVA tenderness (R), CVA tenderness (L) Neurological exam: Present: alert Skin exam: Present: warm, dry, intact, normal color. Absent: rash Course Vital Signs 05/19/22 05/19/22 05/19/22 14:52 15:09 15:44 Temperature 98.1 F Pulse Rate 88 70 Respiratory 20 Rate Blood Pressure 126/49 O2 Sat by Pulse 99 Oximetry 05/19/22 05/19/22 05/19/22 15:57 17:00 18:34 Temperature Pulse Rate 77 69 73 Respiratory 19 18 Rate Blood Pressure 106/44 118/69 O2 Sat by Pulse 89 L 99 Oximetry 05/19/22 19:19 Temperature Pulse Rate 71 Respiratory 18 Rate Blood Pressure 103/53 O2 Sat by Pulse 97 Oximetry Medical Decision Making - Medical Decision Making This patient is 77-year-old man coming to the hospital for evaluation for shortness of breath. The patient had chest x-ray which I interpreted as not showing pneumothorax, congestive heart failure or bony injury. The patient did have an elevated d- dimer on the workup and therefore CT chest is ordered which I interpreted as not showing acute pulmonary embolism however there is a pulmonic infiltrate noted. Case is discussed with the patient's primary physician and he'll be admitted for further treatment for pneumonia. While the patient was being admitted, he did pass heme positive stool Was pt. sent in by a medical professional or institution ([facility], [facility], urgent care, hospital, or [facility]...) When possible be specific @ -[This patient sent by primary physician Did you speak to anyone other than the patient for history (EMS, parent, family, police, friend...)? What history was obtained from this source @ -[Family Did you review nursing and triage notes (agree or disagree)? Why? @ -[I reviewed and agree with nursing and triage notes] Were old charts reviewed (outside hosp., previous admission, EMS record, old EKG, old radiological studies, urgent care reports/EKG's, [facility] records)? Report findings @ -[old charts were reviewed] Differential Diagnosis (chest pain, altered mental status, abdominal pain women, abdominal pain men, vaginal bleeding, weakness, fever, dyspnea, syncope, headache, dizziness, GI bleed, back pain, seizure, CVA, palpatations, mental health, musculoskeletal)? @ -[Differential Dyspnea: Coronary syndrome, arrhythmia, tamponade, asthma, COPD, pulmonary embolism, pneumonia, pneumothorax, pulmonary effusion, anaphylaxis, diabetic ketoacidosis, flailed chest, pulmonary contusion, diaphragmatic rupture, anemia, neuromuscular, this is not meant to be an all-inclusive list. EKG interpreted by me (3pts min.). @ -[As above] X-rays interpreted by me (1pt min.). @ -[As above CT interpreted by me (1pt min.). @ -[As above U/S interpreted by me (1pt. min.). @ -[None done] What testing was considered but not performed or refused? (CT, X-rays, U/S, labs)? Why? @ -[None] What meds were considered but not given or refused? Why? @ -[None] Did you discuss the management of the patient with other professionals (professionals i.e. , PA, [facility], lab, RT, psych nurse, social security specialist, suspect artist supervisor, teacher, [employer] plans staff officer, assistant case manager)? Give summary @ -[Case discussed with admitting physician Was smoking cessation discussed for >3mins.? @ -[No] Was critical care preformed (if so, how long)? @ -[No] Were there social determinants of health that impacted care today? How? (Homelessness, low income, unemployed, alcoholism, drug addiction, transportation, low edu. Level, literacy, decrease access to med. care, custodial, rehab)? @ -[No] Was there de-escalation of care discussed even if they declined (Discuss DNR or withdrawal of care, Hospice)? DNR status @ -[No] What co-morbidities impacted this encounter? (DM, HTN, Smoking, COPD, CAD, Cancer, CVA, ARF, Chemo, Hep., AIDS, mental health diagnosis, sleep apnea, morbid obesity)? @ -[COPD Was patient admitted / discharged? Hospital course, mention meds given and rou te, prescriptions, significant lab abnormalities, going to OR and other pertinent info. @ -[Patient admitted to have antibiotic therapy as well as consultation with pulmonology Undiagnosed new problem with uncertain prognosis? @ -[No] Drug Therapy requiring intensive monitoring for toxicity (Heparin, Nitro, Insulin, Cardizem)? @ -[No] Were any procedures done? @ -[No] Diagnosis/symptom? @ -[1. Dyspnea, acute on chronic 2. COPD exacerbation, acute on chronic 3. Acute pneumonia 4. Anemia 5. GI bleeding Acute, or Chronic, or Acute on Chronic? @ -[default] Uncomplicated (without systemic symptoms) or Complicated (systemic symptoms)? @ -[Complicated Side effects of treatment? @ -[No] Exacerbation, Progression, or Severe Exacerbation? @ -[Exacerbation of COPD Poses a threat to life or bodily function? How? (Chest pain, USA, MA, pneumonia, PE, COPD, DKA, ARF, appy, cholecystitis, CVA, Diverticulitis, Homicidal, Suicidal, threat to staff... and all critical care pts) @ -[Yes, patient has multitude of conditions putting him at risk of worsening condition and - Lab Data Result diagrams: 05/24/22 06:48 05/24/22 06:48 Lab Results 05/19/22 05/19/22 05/19/22 Range/Units 16:01 16:01 16:01 WBC 14.0 H (3.8-10.6) k/uL RBC 3.05 L (4.30-5.90) m/uL Hgb 9.2 L D (13.0-17.5) gm/dL Hct 27.6 L (39.0-53.0) % MCV 90.6 (80.0-100.0) fL MCH 30.3 (25.0-35.0) pg MCHC 33.5 (31.0-37.0) g/dL RDW 15.0 (11.5-15.5) % Plt Count 335 (150-450) k/uL MPV 8.1 Neutrophils % 87 % Lymphocytes % 8 % Monocytes % 3 % Eosinophils % 1 % Basophils % 0 % Neutrophils # 12.2 H (1.3-7.7) k/uL Lymphocytes # 1.1 (1.0-4.8) k/uL Monocytes # 0.4 (0-1.0) k/uL Eosinophils # 0.1 (0-0.7) k/uL Basophils # 0.0 (0-0.2) k/uL PT 11.1 (9.0-12.0) sec INR 1.1 (<1.2) APTT 21.5 L (22.0-30.0) sec D-Dimer 3.40 H (<0.60) mg/L FEU Sodium 135 L (137-145) mmol/L Potassium 4.6 (3.5-5.1) mmol/L Chloride 102 (98-107) mmol/L Carbon Dioxide 24 (22-30) mmol/L Anion Gap 9 mmol/L BUN 28 H (9-20) mg/dL Creatinine 0.91 (0.66-1.25) mg/dL Est GFR (CKD-EPI)AfAm >90 (>60 ml/min/1.73 sqM) Est GFR (CKD-EPI)NonAf 81 (>60 ml/min/1.73 sqM) Glucose 85 (74-99) mg/dL Plasma Lactic Acid Js (0.7-2.0) mmol/L Calcium 8.5 (8.4-10.2) mg/dL Magnesium 1.6 (1.6-2.3) mg/dL Total Bilirubin 0.6 (0.2-1.3) mg/dL AST 25 (17-59) U/L ALT 20 (4-49) U/L Alkaline Phosphatase 53 (38-126) U/L Troponin I (0.000-0.034) ng/mL NT-Pro-B Natriuret Pep pg/mL Total Protein 5.9 L (6.3-8.2) g/dL Albumin 3.2 L (3.5-5.0) g/dL Procalcitonin (0.02-0.09) ng/mL 05/19/22 05/19/22 05/19/22 Range/Units 16:01 16:01 16:01 WBC (3.8-10.6) k/uL RBC (4.30-5.90) m/uL Hgb (13.0-17.5) gm/dL Hct (39.0-53.0) % MCV (80.0-100.0) fL MCH (25.0-35.0) pg MCHC (31.0-37.0) g/dL RDW (11.5-15.5) % Plt Count (150-450) k/uL MPV Neutrophils % % Lymphocytes % % Monocytes % % Eosinophils % % Basophils % % Neutrophils # (1.3-7.7) k/uL Lymphocytes # (1.0-4.8) k/uL Monocytes # (0-1.0) k/uL Eosinophils # (0-0.7) k/uL Basophils # (0-0.2) k/uL PT (9.0-12.0) sec INR (<1.2) APTT (22.0-30.0) sec D-Dimer (<0.60) mg/L FEU Sodium (137-145) mmol/L Potassium (3.5-5.1) mmol/L Chloride (98-107) mmol/L Carbon Dioxide (22-30) mmol/L Anion Gap mmol/L BUN (9-20) mg/dL Creatinine (0.66-1.25) mg/dL Est GFR (CKD-EPI)AfAm (>60 ml/min/1.73 sqM) Est GFR (CKD-EPI)NonAf (>60 ml/min/1.73 sqM) Glucose (74-99) mg/dL Plasma Lactic Acid Js 1.8 (0.7-2.0) mmol/L Calcium (8.4-10.2) mg/dL Magnesium (1.6-2.3) mg/dL Total Bilirubin (0.2-1.3) mg/dL AST (17-59) U/L ALT (4-49) U/L Alkaline Phosphatase (38-126) U/L Troponin I <0.012 (0.000-0.034) ng/mL NT-Pro-B Natriuret Pep 532 pg/mL Total Protein (6.3-8.2) g/dL Albumin (3.5-5.0) g/dL Procalcitonin (0.02-0.09) ng/mL 05/19/22 Range/Units 17:41 WBC (3.8-10.6) k/uL RBC (4.30-5.90) m/uL Hgb (13.0-17.5) gm/dL Hct (39.0-53.0) % MCV (80.0-100.0) fL MCH (25.0-35.0) pg MCHC (31.0-37.0) g/dL RDW (11.5-15.5) % Plt Count (150-450) k/uL MPV Neutrophils % % Lymphocytes % % Monocytes % % Eosinophils % % Basophils % % Neutrophils # (1.3-7.7) k/uL Lymphocytes # (1.0-4.8) k/uL Monocytes # (0-1.0) k/uL Eosinophils # (0-0.7) k/uL Basophils # (0-0.2) k/uL PT (9.0-12.0) sec INR (<1.2) APTT (22.0-30.0) sec D-Dimer (<0.60) mg/L FEU Sodium (137-145) mmol/L Potassium (3.5-5.1) mmol/L Chloride (98-107) mmol/L Carbon Dioxide (22-30) mmol/L Anion Gap mmol/L BUN (9-20) mg/dL Creatinine (0.66-1.25) mg/dL Est GFR (CKD-EPI)AfAm (>60 ml/min/1.73 sqM) Est GFR (CKD-EPI)NonAf (>60 ml/min/1.73 sqM) Glucose (74-99) mg/dL Plasma Lactic Acid Js (0.7-2.0) mmol/L Calcium (8.4-10.2) mg/dL Magnesium (1.6-2.3) mg/dL Total Bilirubin (0.2-1.3) mg/dL AST (17-59) U/L ALT (4-49) U/L Alkaline Phosphatase (38-126) U/L Troponin I (0.000-0.034) ng/mL NT-Pro-B Natriuret Pep pg/mL Total Protein (6.3-8.2) g/dL Albumin (3.5-5.0) g/dL Procalcitonin 0.13 H (0.02-0.09) ng/mL - EKG Data -: EKG Interpreted by Sd EKG shows normal: sinus rhythm (With sinus arrhythmia), axis (Normal), intervals (Normal), QRS complexes (Normal), ST-T waves Rate: normal (Rate 72 bpm) Interpretation: other (Possible old septal infarct.) Disposition Clinical Impression: Pneumonia Disposition: ADMITTED IP TO THIS HOSP
--- NOTE | 2022-05-19 15:43 | XR ---
EXAMINATION TYPE: XR chest 2V DATE OF EXAM: 05/19/2022 3:29 PM COMPARISON: Chest radiographs from 05/06/2022 TECHNIQUE: XR chest 2V Frontal and lateral views of the chest. CLINICAL INDICATION:Male, 77 years old with history of difficulty breathing; FINDINGS: Lungs/Pleura: Small left pleural effusion. No evidence of focal consolidation or pneumothorax. Airspa ce opacities project over the spine on lateral view which is new from 05/06/2022 Pulmonary vascularity: Unremarkable. Heart/mediastinum: Cardiomediastinal silhouette is unremarkable. Musculoskeletal: No acute osseous pathology. Midline sternotomy wires are noted. IMPRESSION: 1. Airspace opacities project over the spine lateral view correlate for pneumonia. 2. Trace left pleural effusion.
[2022-05-19 16:33] LABS: Basophils % (A) 0 %; Eosinophils # (A) 0.1 k/uL (0-0.7); Eosinophils % (A) 1 %; HCT 27.6 % (39.0-53.0); Lymphocytes # (A) 1.1 k/uL (1.0-4.8); Lymphocytes % (A) 8 %; MCH 30.3 pg (25.0-35.0); MCHC 33.5 g/dL (31.0-37.0); MCV 90.6 fL (80.0-100.0); Mean Platelet Volume 8.1; Monocytes # (A) 0.4 k/uL (0-1.0); Monocytes % (A) 3 %; Neutrophils # (A) 12.2 k/uL (1.3-7.7); Neutrophils % (A) 87 %; Platelet Count 335 k/uL (150-450); RBC 3.05 m/uL (4.30-5.90)
[2022-05-19 16:34] LABS: ALT 20 U/L (4-49); AST 25 U/L (17-59); African American GFR (CKD) >90 (>60 ml/min/1.73 sqM); Albumin 3.2 g/dL (3.5-5.0); Alkaline Phosphatase 53 U/L (38-126); Anion Gap 9 mmol/L; Blood Urea Nitrogen 28 mg/dL (9-20); Calcium 8.5 mg/dL (8.4-10.2); Carbon Dioxide 24 mmol/L (22-30); Chloride 102 mmol/L (98-107); Glucose 85 mg/dL (74-99); Magnesium 1.6 mg/dL (1.6-2.3); Non-African American GFR(CKD) 81 (>60 ml/min/1.73 sqM); Potassium 4.6 mmol/L (3.5-5.1); Sodium 135 mmol/L (137-145); Total Bilirubin 0.6 mg/dL (0.2-1.3); Total Protein 5.9 g/dL (6.3-8.2)
[2022-05-19 16:36] LABS: HGB 9.2 gm/dL (13.0-17.5)
[2022-05-19] MEDS ORDERED: PNEUMONIA PROTOCOL UTILIZED 1 EACH MISC PO PRN (17:39)
[2022-05-19] MEDS ORDERED: AZITHROMYCIN 500 MG TAB PO ONE (18:00)
[2022-05-19] MEDS ORDERED: PANTOPRAZOLE 40 MG/10 ML VIAL IVP SCH (18:30)
[2022-05-19 18:32] LABS: INR 1.1 (<1.2); Prothrombin Time 11.1 sec (9.0-12.0)
[2022-05-19 18:33] LABS: Partial Thromboplastin Time 21.5 sec (22.0-30.0)
--- NOTE | 2022-05-19 19:47 | CT ---
EXAMINATION TYPE: CT chest angio for PE DATE OF EXAM: 05/19/2022 COMPARISON: 12/02/2018 and 02/02/2022 HISTORY: SOB CT DLP: 243 mGycm Automated exposure control for dose reduction was used. CONTRAST: Performed with IV Contrast, patient injected with 100 mL of Isovue 370. Images obtained from the thoracic inlet to the diaphragm with the IV contrast. There are Three-D post processed images. There is some mild pulmonary emphysema. There is some coalescent interstitial and airspace infiltrate at the lung bases bilaterally. No pleural effusion. Heart size is normal. No pericardial effusion. T here is no mediastinal adenopathy. There are no hilar masses. The thoracic spine is intact. Sternum is intact. There is T12 20% anterior wedging which is unchanged . There is no evidence of filling defect in the pulmonary arteries. The upper abdominal soft tissues ar e intact. IMPRESSION: Pulmonary emphysema. Extensive bilateral lower lobe pulmonary infiltrates are new compared to old exa m and consistent with pneumonia. No evidence of pulmonary embolism.
[2022-05-19] MEDS: BUDESONIDE 1 MG/2 ML NEBU INHALATION SCH (21:05)
[2022-05-19] MEDS: IPRATROPIUM-ALBUTEROL 3 ML NEB INHALATION SCH (21:05)
[2022-05-19] MEDS: carvediloL 3.125 MG TAB PO SCH (21:39)
[2022-05-19] MEDS: TAMSULOSIN 0.4 MG CAP.ER.24H PO SCH (21:39)
[2022-05-19] MEDS: PANTOPRAZOLE 40 MG/10 ML VIAL IVP SCH (21:39)
[2022-05-19] MEDS: MIRTAZAPINE 15 MG TAB PO SCH (21:39)
[2022-05-19] MEDS: ATORVASTATIN 80 MG TAB PO SCH (21:39)
--- NOTE | 2022-05-20 02:56 | P.CNPUL ---
History of Present Illness Consult date: 05/20/22 Requesting physician: Rafal Denise Reason for consult: dyspnea, hypoxemia Chief complaint: Shortness of breath History of present illness: I'm seeing this patient in new consultation today 05/20/2022 on the general medical floor. Patient is a 77-year-old white male with past medical history of moderate COPD with a baseline FEV1 of 53% of predicted, chronic and ongoing tobacco dependence of 50 years, coronary artery disease with previous coronary artery bypass graft and stents, hypertension, hyperlipidemia, carotid artery stenosis with previous right carotid endarterectomy, BPH with previous TURP. Patient did have a recent hospital admission for acute exacerbation of COPD secondary to COVID-19 infection. Patient was discharged on 05/11 with azithromycin, prednisone Dosepak, albuterol nebulizations, and Symbicort. Patient had a follow-up visit with his primary care provider Dr. Kuo, who felt the patient to be in at least some mild respiratory distress. Patient was referred back to [facility] yesterday. Patient is currently resting comfortably on 3 L nasal cannula, in no acute distress. He states that his symptoms never really resolved or improved since his hospital discharge. He does report an associated nonproductive cough. He denies any fever, chills, chest pain, hemoptysis. Chest x-ray on arrival showed some lower lobe infiltrates on the lateral view and a trace left pleural effusion was also seen. D-dimer was elevated at 3.4. A follow-up chest CTA showed no evidence of pulmonary embolism, but did show extensive bilateral lower lobe pulmonary infi ltrates which were new compared to old exam. There was also some background emphysema. CBC on arrival shows some mild leukocytosis with a WBC count of 14, hemoglobin 9.2, hematocrit 27.6, platelets 335,000. Procalcitonin level was mildly elevated at 0.13. Patient is empirically covered on Rocephin and Zithromax. Has been afebrile. Patient's BMP was essentially normal. Troponins negative 1. BNP low at 532. Vital signs are stable. Review of Systems REVIEW OF SYSTEMS: CONSTITUTIONAL: Denies any recent significant weight loss or weight gain. EYES: Denies change in vision. EARS, NOSE, MOUTH, THROAT: Denies headaches, denies sore throat. CARDIOVASCULAR: Denies chest pain, palpitations or syncopal episodes. RESPIRATORY: See HPI GASTROINTESTINAL: Denies change in appetite, abdominal pain, nausea and vomiting, or diarrhea GENITOURINARY: Denies hematuria, denies infections. MUSKULOSKELETAL: Denies pain, denies swelling. INTEGUMENTARY: Denies rash, denies eczema. NEUROLOGICAL: Denies recent memory loss, no recent seizure activity. PSYCHIATRIC: Denies anxiety, denies depression. HEMATOLOGIC/LYMPHATIC: Denies anemia, denies enlarged lymph node Past Medical History Past Medical History: Coronary Artery Disease (CAD), Cancer, Chest Pain / Angina, GERD/Reflux, Hyperlipidemia, Hypertension, Myocardial Infarction ([place]), Pneumonia, Prostate Disorder, Vascular Disorder Additional Past Medical History / Comment(s): 2014 bladder cancer with surgery/hematuria, anemia, BPH, past ETOH abuse with withdrawal tremors-pt has not drank since 10/2018. Last Myocardial Infarction Date:: 2014 History of Any Multi-Drug Resistant Organisms: None Reported Past Surgical History: Bladder Surgery, Coronary Bypass/CABG, Heart Catheterization, Heart Catheterization With Stent Additional Past Surgical History / Comment(s): 2016 CABG 3 vessel, TUR BT/resection, cystoscopy, R caratid endartectomy, EGD, colonoscopy, small bowel capsule, bilateral cataract removals, hip surgery Past Anesthesia/Blood Transfusion Reactions: No Reported Reaction Additional Past Anesthesia/Blood Transfusion Reaction / Comment(s): Pt has received blood in past without reaction. Date of Last Stent Placement:: 1996 Past Psychological History: Anxiety, Depression Additional Psychological History / Comment(s): Pt resides with his spouse. He is independent. Smoking Status: Current every day smoker Past Alcohol Use History: Daily Additional Past Alcohol Use History / Comment(s): Patient has been a smoker since 20 years of age. He is currently smoking 0.5 ppd. He does have history of alcohol abuse and quit drinking completely in October 2018. He lives at home with his . Past Drug Use History: None Reported - Past Family History Father Family Medical History: Coronary Artery Disease (CAD) Additional Family Medical History / Comment(s): Father at age 78 from heart disease. Mother Family Medical History: CVA/TIA, Hypertension Additional Family Medical History / Comment(s): Mother at age 85 from stroke with history of hypertension. Sister(s) Family Medical History: No Reported History Additional Family Medical History / Comment(s): Patient has 2 sisters and one has history of myocardial infarction. Second sister has nomajor medical problems. Patient does not have any brothers. Daughter(s) Family Medical History: No Reported History Additional Family Medical History / Comment(s): The patient has 2 daughters and one has had leg amputation secondary to osteomyelitis. Second daughter has no major medical problems. Patient has one son with no major medical problems. Son(s) Family Medical History: No Reported History Medications and Allergies Home Medications Medication Instructions Recorded Confirmed Type Tamsulosin [Flomax] 0.4 mg PO HS 07/16/16 05/19/22 History lisinopriL [Zestril] 10 mg PO DAILY 07/11/18 05/19/22 History Mirtazapine 30 mg PO HS 12/03/18 05/19/22 History Atorvastatin Calcium [Lipitor] 80 mg PO HS 08/13/19 05/19/22 History Sertraline HCl [Zoloft] 150 mg PO DAILY 08/13/19 05/19/22 History Aspirin 325 mg PO DAILY 05/06/22 05/19/22 History Clopidogrel [Plavix] 75 mg PO HS 05/06/22 05/19/22 History Pantoprazole [Protonix] 40 mg PO DAILY 05/06/22 05/19/22 History carvediloL [Coreg] 3.125 mg PO BID 05/06/22 05/19/22 History Albuterol Inhaler [Ventolin Hfa 2 puff INHALATION RT-QID PRN #0 05/11/22 05/19/22 Rx Inhaler] each Ascorbic Acid [Vitamin C] 500 mg PO BID tab 05/11/22 05/19/22 Rx Budesonide-Formot 160-4.5 Mcg 2 puff INHALATION RT-BID #0 each 05/11/22 05/19/22 Rx [Symbicort 160-4.5 Mcg Inhaler] Cholecalciferol [Vitamin D3 (25 25 mcg PO DAILY tab 05/11/22 05/19/22 Rx Mcg = 1000 Iu)] Nicotine 14Mg/24Hr Patch [Habitrol] 1 patch TRANSDERM DAILY #30 patch 05/11/22 05/19/22 Rx Zinc Sulfate [Orazinc] 220 mg PO DAILY cap 05/11/22 05/19/22 Rx predniSONE See Taper PO DIRECTED 05/19/22 05/19/22 History Allergies Allergy/AdvReac Type Severity Reaction Status Date / Time No Known Allergies Allergy Verified 05/19/22 17:35 Physical Exam Vitals: Vital Signs Temp Pulse Pulse Resp BP BP Pulse Ox 05/19/22 21:21 70 05/19/22 21:07 68 05/19/22 19:55 97.8 F 67 17 127/65 96 05/19/22 19:19 71 18 103/53 97 05/19/22 18:34 73 18 118/69 99 05/19/22 17:00 69 19 106/44 89 L 05/19/22 15:57 77 05/19/22 15:44 70 05/19/22 15:09 98.1 F 05/19/22 14:52 88 20 126/49 99 Intake and Output 05/19/22 05/19/22 05/20/22 14:59 22:59 06:59 Other: Voiding Method Toilet Weight 63.049 kg 63.049 kg GENERAL EXAM: Alert, 77-year-old white male , comfortable in no apparent distress. HEAD: Normocephalic and atraumatic EYES: Normal reaction of pupils, equal size. NOSE: Clear with pink turbinates. THROAT: No erythema or exudates. NECK: No masses, no JVD. CHEST: No chest wall deformity. LUNGS: Equal air entry with bilateral posterior lower lobe crackles. No wheeze, rhonchi or dullness. On 3 L nasal cannula. No conversational dyspnea or accessory muscle use.. CVS: S1 and S2 normal with no audible murmur, regular rhythm. No extra heart sounds ABDOMEN: No hepatosplenomegaly, active bowel sounds, no guarding or rigidity. SPINE: No scoliosis or deformity SKIN: No rashes CENTRAL NERVOUS SYSTEM: No focal deficits, tone is normal in all 4 extremities. EXTREMITIES: There is no peripheral edema, clubbing, or cyanosis. Peripheral pulses are intact. Results - Laboratory Findings CBC and BMP: 05/20/22 06:41 05/19/22 16:01 PT/INR, D-dimer PT 11.1 sec (9.0-12.0) 05/19/22 16:01 INR 1.1 (<1.2) 05/19/22 16:01 D-Dimer 3.40 mg/L FEU (<0.60) H 05/19/22 16:01 Abnormal lab findings: Abnormal Labs 05/19/22 05/19/22 05/19/22 16:01 16:01 16:01 WBC 14.0 H RBC 3.05 L Hgb 9.2 L D Hct 27.6 L Neutrophils # 12.2 H APTT 21.5 L D-Dimer 3.40 H Sodium 135 L BUN 28 H Total Protein 5.9 L Albumin 3.2 L Procalcitonin 05/19/22 17:41 WBC RBC Hgb Hct Neutrophils # APTT D-Dimer Sodium BUN Total Protein Albumin Procalcitonin 0.13 H - Diagnostic Findings Chest x-ray: image reviewed CT scan - chest: image reviewed Assessment and Plan Assessment: Acute exacerbation of COPD secondary to recent COVID-19 infection and possible superimposed bilateral pneumonia. Acute hypoxemic respiratory failure secondary to above, currently on 3 L of oxygen by nasal cannula Acute upper GI bleeding Acute drop in hemoglobin down to 7.3 secondary to upper GI bleed Worsening shortness of breath secondary to above and drop in hemoglobin Hypertension Hyperlipidemia Coronary artery disease with previous stents and coronary artery bypass grafts History of carotid stenosis with previous right carotid endarterectomy BPH with previous TURP Previous bladder cancer post surgery Current smoker History of alcoholism. No recent drinks reported since 2019 Plan: Patient's medications, labs, chest x-ray, chest CT were reviewed Continue supplemental oxygen to maintain oxygen saturation 92% or greater Continue empiric antibiotics Pro calcitonin level was mildly elevated at 0.13 Blood and sputum cultures ordered Urine Legionella antigen ordered Continue bronchodilators Start budesonide and formoterol inhalation Start Solu-Medrol Repeat chest x-ray in the morning Nicotine replacement offered We will continue to follow I have personally seen and examined the patient, performed the documentation and the assessment and plan as written. Number of minutes spent on the visit This is a joint evaluation that was done along with the nurse practitioner. I met the patient is also talked to him and talked to his sister the bedside. He is recovered from the Covid 19 pneumonia. He has significant COPD. There is some residual lower lobe pulmonary infiltrates. Nevertheless, his oxygen patient is stable on 3 L nasal cannula. His pulse ox is currently in the order of 98%. He is having active acute upper GI bleeding. The patient is a need for a EGD to evaluate for the GI bleed and possibly controlled the bleeding. His hemoglobin has dropped down to 7.8 which probably contributed further for his ongoing shortness of breath. His hemoglobin during his last admission was essentially within normal limits. The patient will be kept nothing by mouth for now. He'll be placed on IV Protonix. Discontinue the IV Solu-Medrol. Discontinue the Rocephin and Zithromax. Pro-calcitonin level is at 0.13. Put the patient on IV Zosyn covering for any aspiration especially the pulmonary infiltrate on the lower lobes bilaterally and this can be switched to Augmentin at time of discharge. The patient is cleared for his endoscopy from the pulmonary standpoint. Time with Patient: Greater than 30
[2022-05-20] MEDS ORDERED: methylPREDNISolone SOD SUCCI 125 MG/2 ML VIAL IV SCH (06:00)
[2022-05-20] MEDS: carvediloL 3.125 MG TAB PO SCH ×2 (06:47→17:43)
[2022-05-20] MEDS: FORMOTEROL FUMARATE 20 MCG/2 ML NEBU INHALATION SCH ×2 (08:02→20:54)
[2022-05-20] MEDS: IPRATROPIUM-ALBUTEROL 3 ML NEB INHALATION SCH ×4 (08:02→20:54)
[2022-05-20] MEDS: BUDESONIDE 1 MG/2 ML NEBU INHALATION SCH ×2 (08:02→20:54)
--- NOTE | 2022-05-20 08:30 | XR ---
EXAMINATION TYPE: XR chest 2V DATE OF EXAM: 05/20/2022 COMPARISON: 05/19/2022 INDICATION: Pneumonia TECHNIQUE: Frontal and lateral views of the chest are obtained. FINDINGS: The heart size is normal. The pulmonary vasculature is normal. There is an infiltrate at the left base. Small left pleural effusion is present. Findings are worseni ng from comparison.. IMPRESSION: 1. Worsening left lower lobe consolidation. Correlate for pneumonia. 2. Small left pleural effusion
[2022-05-20] MEDS ORDERED: AZITHROMYCIN 500 MG TAB PO SCH (09:00)
[2022-05-20] MEDS: PANTOPRAZOLE 40 MG/10 ML VIAL IVP SCH ×2 (09:52→20:36)
[2022-05-20] MEDS: CHOLECALCIFEROL 25 MCG (1000 IU) TABLET PO SCH (09:53)
[2022-05-20] MEDS: ZINC SULFATE 220 MG CAP PO SCH (09:53)
[2022-05-20] MEDS: NICOTINE 14MG/24HR PATCH TRANSDERM SCH (09:53)
[2022-05-20] MEDS: lisinopriL 10 MG TAB PO SCH (09:53)
[2022-05-20] MEDS: SERTRALINE 50 MG TAB PO SCH (09:55)
[2022-05-20 11:11] LABS: Basophils # (A) 0.01 X 10*3/uL (0.00-0.10); Basophils % (A) 0.1 %; Eosinophils # (A) 0.16 X 10*3/uL (0.04-0.35); Eosinophils % (A) 1.5 %; HCT 24.4 % (39.6-50.0); HGB 7.8 g/dL (13.0-17.0); Lymphocytes # (A) 1.23 X 10*3/uL (0.90-5.00); Lymphocytes % (A) 11.7 %; MCH 30.5 pg (27.0-32.0); MCV 95.3 fL (80.0-97.0); Mean Platelet Volume 10.8 fL (9.5-12.2); Monocytes # (A) 0.77 X 10*3/uL (0.20-1.00); Monocytes % (A) 7.3 %; NRBC Per 100 WBC 0 /100 WBCS (0.0-0.0); Neutrophils # (A) 8.21 X 10*3/uL (1.80-7.70); Neutrophils % (A) 78.4 %; Platelet Count 271 X 10*3/uL (140-440); RBC 2.56 X 10*6/uL (4.40-5.60); RDW 14.9 % (11.5-14.5); WBC 10.48 X 10*3/uL (4.50-10.00)
--- NOTE | 2022-05-20 11:13 | P.GSCN ---
History of Present Illness Consult date: 05/20/22 History of present illness: CHIEF COMPLAINT: Shortness of breath Reason for consult upper GI bleed HISTORY OF PRESENT ILLNESS: This is a 77-year-old male who presented to the hospital with complaints of worsening shortness of breath. He was found to have COPD exacerbation secondary to recent COVID-19 infection and possible pneumonia. Patient does complain of cough. He started on IV antibiotics IV steroids. Surgical service has been consulted in regards to lower GI bleed. Patient started having black stools last Tuesday reports that the last black stool was We of this week. He denies any abdominal pain. Denies any nausea or vomiting. Denies any prior history of GI bleed. He takes no NSAIDs. He is on Plavix and aspirin at home. Last colonoscopy was about 10 years ago. Patient reports that it was normal. He's had EGD he thinks in 2014 and reports that was negative. He his last Cologaurd was 3 years ago. Patient has history of COPD, coronary disease with CABG, cardiac stents. History of alcohol abuse last alcoholic beverage 2018. PAST MEDICAL HISTORY: See below PAST SURGICAL HISTORY: See below MEDICATIONS: See below ALLERGIES: See below SOCIAL HISTORY: No illicit drug use. REVIEW OF SYSTEMS: CONSTITUTIONAL: Denies fever or chills. HEENT: Denies blurred vision, vision changes, or eye pain. Denies hemoptysis CARDIOVASCULAR: Denies chest pain or pressure. RESPIRATORY: No shortness of breath. GASTROINTESTINAL: See HPI for pertinent findings HEMATOLOGIC: Denies bleeding disorders. GENITOURINARY: Denies any blood in urine or increased urinary frequency. SKIN: Denies pruitis. Denies rash. PHYSICAL EXAM: VITAL SIGNS: Reviewed GENERAL: Well-developed in no acute distress. HEENT: No sclera icterus. Extraocular movements grossly intact. Moist buccal mucosa. Head is atraumatic, normocephalic. No nasal drainage. ABDOMEN: Soft. Nondistended. Nontender NEUROLOGIC: Alert and oriented. Cranial nerves II through XII grossly intact. LABORATORY DATA: WBC 14 Hgb 9.2 platelets 335 INR 1.1 Elevated d-dimer 3.40 Sodium is 135 potassium 4.6 creatinine 0.91 Lactic acid 1.8 LFTs normal Stool for occult blood positive IMAGING: chest CTA pulmonary emphysema. Extensive bilateral lower lobe pulmonary infiltr ates are new compared to old exam and consistent with pneumonia. No evidence of PE. Chest x-ray worsening left lower lobe consolidation. Correlate for pneumonia. Small pleural effusion ASSESSMENT: 1. Upper GI bleed with black stools 2. Anemia 3. COPD exacerbation 4. Pneumonia PLAN: -Await pulmonary clearance before proceeding with endoscopy -Continue IV Protonix -Continue to hold Plavix and aspirin -Continue to monitor hemoglobin -Continue to monitor for any signs or symptoms of bleeding Physician Heatset Winder Operator note has been reviewed by physician. Signing provider agrees with the documented findings, assessment, and plan of care. I have personally seen and examined the patient, reviewed the BOTTLE FEEDER /PAs history, exam and MDM and agree with the assessment and plan as written. Based on total visit time, I have performed more than 50% of the visit. As above: Patient with black colored stools. Drop in hemoglobin. We'll proceed with upper endoscopy tomorrow. Continue to hold anticoagulation. Continue antiacids. Patient states he is not interested in colonoscopy at this time. Past Medical History Past Medical History: Coronary Artery Disease (CAD), Cancer, Chest Pain / Angina, GERD/Reflux, Hyperlipidemia, Hypertension, Myocardial Infarction ([place]), Pneumonia, Prostate Disorder, Vascular Disorder Additional Past Medical History / Comment(s): 2014 bladder cancer with surgery/hematuria, anemia, BPH, past ETOH abuse with withdrawal tremors-pt has not drank since 10/2018. Last Myocardial Infarction Date:: 2014 History of Any Multi-Drug Resistant Organisms: None Reported Past Surgical History: Bladder Surgery, Coronary Bypass/CABG, Heart Catheterization, Heart Catheterization With Stent Additional Past Surgical History / Comment(s): 2016 CABG 3 vessel, TUR BT/resection, cystoscopy, R caratid endartectomy, EGD, colonoscopy, small bowel capsule, bilateral cataract removals, hip surgery Past Anesthesia/Blood Transfusion Reactions: No Reported Reaction Additional Past Anesthesia/Blood Transfusion Reaction / Comm: Pt has received blood in past without reaction. Date of Last Stent Placement:: 1996 Past Psychological History: Anxiety, Depression Additional Psychological History / Comment(s): Pt resides with his spouse. He is independent. Smoking Status: Current every day smoker Past Alcohol Use History: Daily Additional Past Alcohol Use History / Comment(s): Patient has been a smoker since 20 years of age. He is currently smoking 0.5 ppd. He does have history of alcohol abuse and quit drinking completely in October 2018. He lives at home with his . Past Drug Use History: None Reported - Past Family History Father Family Medical History: Coronary Artery Disease (CAD) Additional Family Medical History / Comment(s): Father at age 78 from heart disease. Mother Family Medical History: CVA/TIA, Hypertension Additional Family Medical History / Comment(s): Mother at age 85 from stroke with history of hypertension. Sister(s) Family Medical History: No Reported History Additional Family Medical History / Comment(s): Patient has 2 sisters and one has history of myocardial infarction. Second sister has nomajor medical problems. Patient does not have any brothers. Daughter(s) Family Medical History: No Reported History Additional Family Medical History / Comment(s): The patient has 2 daughters and one has had leg amputation secondary to osteomyelitis. Second daughter has no major medical problems. Patient has one son with no major medical problems. Son(s) Family Medical History: No Reported History Medications and Allergies Home Medications Medication Instructions Recorded Confirmed Type Tamsulosin [Flomax] 0.4 mg PO HS 07/16/16 05/19/22 History lisinopriL [Zestril] 10 mg PO DAILY 07/11/18 05/19/22 History Mirtazapine 30 mg PO HS 12/03/18 05/19/22 History Atorvastatin Calcium [Lipitor] 80 mg PO HS 08/13/19 05/19/22 History Sertraline HCl [Zoloft] 150 mg PO DAILY 08/13/19 05/19/22 History Aspirin 325 mg PO DAILY 05/06/22 05/19/22 History Clopidogrel [Plavix] 75 mg PO HS 05/06/22 05/19/22 History Pantoprazole [Protonix] 40 mg PO DAILY 05/06/22 05/19/22 History carvediloL [Coreg] 3.125 mg PO BID 05/06/22 05/19/22 History Albuterol Inhaler [Ventolin Hfa 2 puff INHALATION RT-QID PRN #0 05/11/22 05/19/22 Rx Inhaler] each Ascorbic Acid [Vitamin C] 500 mg PO BID tab 05/11/22 05/19/22 Rx Budesonide-Formot 160-4.5 Mcg 2 puff INHALATION RT-BID #0 each 05/11/22 05/19/22 Rx [Symbicort 160-4.5 Mcg Inhaler] Cholecalciferol [Vitamin D3 (25 25 mcg PO DAILY tab 05/11/22 05/19/22 Rx Mcg = 1000 Iu)] Nicotine 14Mg/24Hr Patch [Habitrol] 1 patch TRANSDERM DAILY #30 patch 05/11/22 05/19/22 Rx Zinc Sulfate [Orazinc] 220 mg PO DAILY cap 05/11/22 05/19/22 Rx predniSONE See Taper PO DIRECTED 05/19/22 05/19/22 History Allergies Allergy/AdvReac Type Severity Reaction Status Date / Time No Known Allergies Allergy Verified 05/19/22 17:35 Surgical - Exam Vital Signs Pulse Resp BP Pulse Ox 88 20 126/49 99 05/19/22 14:52 05/19/22 14:52 05/19/22 14:52 05/19/22 14:52 Results - Labs 05/20/22 06:41 05/20/22 06:41 Abnormal Lab Results - Last 24 Hours (Table) 05/19/22 05/19/22 05/19/22 Range/Units 16:01 16:01 16:01 WBC 14.0 H (3.8-10.6) k/uL RBC 3.05 L (4.30-5.90) m/uL Hgb 9.2 L D (13.0-17.5) gm/dL Hct 27.6 L (39.0-53.0) % Neutrophils # 12.2 H (1.3-7.7) k/uL APTT 21.5 L (22.0-30.0) sec D-Dimer 3.40 H (<0.60) mg/L FEU Sodium 135 L (137-145) mmol/L BUN 28 H (9-20) mg/dL Total Protein 5.9 L (6.3-8.2) g/dL Albumin 3.2 L (3.5-5.0) g/dL Procalcitonin (0.02-0.09) ng/mL 05/19/22 Range/Units 17:41 WBC (3.8-10.6) k/uL RBC (4.30-5.90) m/uL Hgb (13.0-17.5) gm/dL Hct (39.0-53.0) % Neutrophils # (1.3-7.7) k/uL APTT (22.0-30.0) sec D-Dimer (<0.60) mg/L FEU Sodium (137-145) mmol/L BUN (9-20) mg/dL Total Protein (6.3-8.2) g/dL Albumin (3.5-5.0) g/dL Procalcitonin 0.13 H (0.02-0.09) ng/mL Diabetes panel 05/19/22 Range/Units 16:01 Sodium 135 L (137-145) mmol/L Potassium 4.6 (3.5-5.1) mmol/L Chloride 102 (98-107) mmol/L Carbon Dioxide 24 (22-30) mmol/L BUN 28 H (9-20) mg/dL Creatinine 0.91 (0.66-1.25) mg/dL Glucose 85 (74-99) mg/dL Calcium 8.5 (8.4-10.2) mg/dL AST 25 (17-59) U/L ALT 20 (4-49) U/L Alkaline Phosphatase 53 (38-126) U/L Total Protein 5.9 L (6.3-8.2) g/dL Albumin 3.2 L (3.5-5.0) g/dL Calcium panel 05/19/22 Range/Units 16:01 Calcium 8.5 (8.4-10.2) mg/dL Albumin 3.2 L (3.5-5.0) g/dL Pituitary panel 05/19/22 Range/Units 16:01 Sodium 135 L (137-145) mmol/L Potassium 4.6 (3.5-5.1) mmol/L Chloride 102 (98-107) mmol/L Carbon Dioxide 24 (22-30) mmol/L BUN 28 H (9-20) mg/dL Creatinine 0.91 (0.66-1.25) mg/dL Glucose 85 (74-99) mg/dL Calcium 8.5 (8.4-10.2) mg/dL Adrenal panel 05/19/22 Range/Units 16:01 Sodium 135 L (137-145) mmol/L Potassium 4.6 (3.5-5.1) mmol/L Chloride 102 (98-107) mmol/L Carbon Dioxide 24 (22-30) mmol/L BUN 28 H (9-20) mg/dL Creatinine 0.91 (0.66-1.25) mg/dL Glucose 85 (74-99) mg/dL Calcium 8.5 (8.4-10.2) mg/dL Total Bilirubin 0.6 (0.2-1.3) mg/dL AST 25 (17-59) U/L ALT 20 (4-49) U/L Alkaline Phosphatase 53 (38-126) U/L Total Protein 5.9 L (6.3-8.2) g/dL Albumin 3.2 L (3.5-5.0) g/dL
[2022-05-20 12:03] LABS: African American GFR (CKD) 74.7 (60.0-200.0); Albumin 2.9 g/dL (3.8-4.9); Albumin/Globulin Ratio 1.45 (1.60-3.17); Anion Gap 7.1 mmol/L (10.00-18.00); BUN/Creat Ratio 22.09 Ratio (12.00-20.00); Blood Urea Nitrogen 24.3 mg/dL (9.0-27.0); Calcium 8.6 mg/dL (8.7-10.3); Carbon Dioxide 25.9 mmol/L (20.0-27.5); Non-African American GFR(CKD) 64.4 (60.0-200.0); Potassium 4.6 mmol/L (3.5-5.5); Total Bilirubin 0.3 mg/dL (0.30-1.20); Total Protein 4.9 g/dL (6.2-8.2)
[2022-05-20] MEDS: PIPERACILLIN-TAZOBACTAM 3.375 GM in SODIUM CHLORIDE 0.9% 100 ML IVPB SCH ×2 (12:41→20:35)
--- NOTE | 2022-05-20 20:12 | P.HPIM ---
History of Present Illness H&P Date: 05/20/22 Chief Complaint: COPD exacerbation/left loer lobe neumonia HISTORY OF PRESENT ILLNESS: This is a 76-year-old male patient of mine with past medical history significant for coronary artery disease status post three-vessel CABG in 2016 with GALLO to LAD, SVG to the ramus, SVG to the PDA that was in 07/23/2016, prior to that left heart catheterization with PCI of the ramus intermedius back in 06/30/1996 gastroesophageal reflux disease, hypertension, hyperlipidemia, osteoarthritis generalized, benign prostatic hypertrophy, COPD, recurrent depression, tobacco use and dependence, history of alcohol abuse that he quit in October 2018 patient was recently hospitalized at [facility] after he was admitted for acute exacerbation of chronic obstructive pulmonary disease as well as COVID-19 pneumonia, he was doing fine and he was left the hospital on 05/06/2022, patient presented to my office yesterday for a follow-up visit he was discharged on no oxygen, he did receive a 7 day course of Levaquin as well as a prednisone burst and a taper, he shouldn't became quite hypoxemic in the office with oxygen saturation 84% on room air, he was placed immediately on oxygen 3 L a candidate his oxygen improved to 91%, I've contacted EMS, the patient was transported to the hospital for evaluation he was seen in the ER and he was found to have a bilateral lower lobe pneumonia and acute exacerbation of COPD, he was initially placed on Rocephin and Zithromax however because of his recent presentation to the hospital he shouldn't have coverage for gram-negative pneumonia he was started on Zosyn 3.375 g IV piggyback every 6 hours, sputum culture were obtained, urine Legionella antigen was obtained, patient also was seen in consultation by poor medicine patient stated that he has been having some bleeding per rectum with maroon colored stool, his hemoglobin did drop and the because of that his guaiac was positive, he was admitted to the hospital to telemetry unit, consultation from general surgery was obtained for EGD tomorrow morning, patient was place on Protonix 40 mg IV push every 12 hours he was taken off aspirin and Plavix and prednisone altogether. REVIEW OF SYSTEMS: Constitutional: positive for documented fever, no chills, no night sweats. No weight change. positive for weakness, positive for fatigue or lethargy. No daytime sleepiness. HEENT: No headache. No blurred vision or double vision, no loss of vision. No loss of Hearing, no ringing in the ears, no dizziness. No nasal drainage or congestion. No epistaxis. No sore throat. Lungs: positive for shortness of breath, positive for coughing, minimal sputum production. positive for wheezing. Reports dyspnea with activity. Cardiovascular: No chest pain, no lower extremity edema. No palpitations. No paroxysmal nocturnal dyspnea. No orthopnea. No lightheadedness or dizziness. No syncopal episodes. Abdominal: Reports mid abdominal pain. No nausea, vomiting. No diarrhea. No constipation. positive for bloody and tarry stools reports loss of appetite. Genitourinary: No dysuria, increased frequency, urgency. No urinary retention. Musculoskeletal: No myalgias. positive for muscle weakness, no gait dysfunction, no frequent falls. No back pain. No neck pain. Integumentary: No wounds, no lesions. No rash or pruritus. No unusual bruising. No change in hair or nails. Neurologic: No aphasia. No facial droop. No change in mentation. No head injury. No headache. No paralysis. No paresthesia. Psychiatric: No depression. No anxiety. No mood swings. Endocrine: No abnormal blood sugars. No weight change. PAST MEDICAL HISTORY: CAD post CABG 3 with GALLO to LAD SVG to Ramus and SVG to the PDA 07/23/2016 Left heart catheterization with PCI of the ramus intermedius 06/30/1996 . Carotid artery disease status post right carotid endarterectomy. Hypertension and hypertensive cardio vascular disease. Hyperlipidemia. COPD. Chronic tobacco use. GERD with esophagitis. Enlarged prostate. Major depressive disorder. Bladder cancer status post surgery. PAST SURGICAL HISTORY: Left heart catheterization with PCI of the ramus intermedius 06/30/1996 CABG 3 with GALLO to LAD, SVG to the ramus and SVG to the PDA 07/23/2016 Right carotid endarterectomy. Left cataract surgery. Bladder resection surgery. Right intramedullary nail of the right hip 2020 Colonoscopy and EGD. SOCIAL HISTORY: Patient used to smoke about a pack every day since he was 20-year-old and currently smokes about a half pack every day, he used to be heavy drinker but quit drinking in October 2018, he lives with his daughter after his , and he is the primary caregiver for his daughter. FAMILY HISTORY: Father at age 78 from CAD, mother at age of 85 from CVA and had a history of hypertension, patient had 2 sisters one is alive and one with an [place] patient has one son who is alive and 2 daughters one with one leg amputation due to osteomyelitis and currently is suffering from a hip fracture post surgery. PHYSICAL EXAMINATION: General: 76-year-old male sitting up in bed in minimal respiratory distress. HEENT: Head is atraumatic, normocephalic, pupils were equal round reactive to light and recommendation, extraocular muscle movement were intact, sclera nonicteric, conjunctivae were pale, mucous membranes of the mouth are somewhat dry. Neck: Supple, no JVP, decreased carotid upstroke bilaterally, no lymphadenopathy. Chest: Decreased breath sounds at the bases, few rhonchi, minimal expiratory wheezes, no chest wall tenderness, no intercostal retractions. Heart: First heart sound is normal, second heart sound is normal there is ISAIAH 2/6 located at the left sternal border. Abdomen: Soft, nontender, nondistended, positive bowel sounds, no hepatosplenomegaly Extremities: There is no edema no calf tenderness DP +1 bilaterally. Neurologic examination: Patient is awake alert and oriented X 3, cranial nerves II-12 appear grossly intact, muscle power were 5 out of 5 in upper extremities and 5 out of 5 in bilateral lower extremities, deep tendon reflexes normal bilaterally. ASSESSMENT AND PLAN: 1. Acute hypoxemic respiratory failure due to bilateral lower lobe pneumonia likely gram-negative as well as COPD exacerbation. patient was started on Zosyn 3.375 g IV piggyback every 6 hours, oxygen 3 given is a cannula, sputum culture, urine Legionella antigen, patient also was started on budesonide 1 mg nebulization twice every day as well as Formeterol twice every day primary consultation was obtained. 2. Upper GI bleed likely peptic ulcer disease. Discontinue aspirin, discontinue Plavix, type and cross and placed on hold 2 units of packed red blood cells, start the patient on Protonix 40 mg IV push every 12 hours, discontinue steroid. Consult Dr. blanchard. 3. Acute blood loss anemia due to upper GI bleed. Monitor the patient hemoglobin and the next 24 hours, transfuse for hemoglobin is 7, consult general surgery for EGD tomorrow morning. 4. Hypertensive and hypertensive cardiovascular disease. Continue lisinopril 10 mg daily, Lopressor 25 mg twice daily, continue to monitor the patient blood pressure very closely. 5. History of coronary artery disease status post 3 vessel CABG, stents. Buck webb carvedilol 3.125 mg orally twice every day, Lipitor 80 mg daily . , 6. History of left carotid endarterectomy, stable. his carotid duplex are up-to-date. 7. COPD without exacerbation. Continue treatment as in paragraph #1. 8. Hyperlipidemia. Continue Lipitor 80 mg once every day monitor the patient dependent, keep LDL 55-70. 9. Benign prostatic hypertrophy. Monitor for urinary retention, continue Flomax 0.4 mg at bedtime 10. Gastroesophageal reflux disease and GI prophylaxis. Continue Protonix 40 mg IVP every 12 hours. 11. Recurrent depression. Continue Remeron 30 mg daily, Zoloft 150 mg daily. 12. DVT prophylaxis. Bilateral knee-high YUE hose 13. Tobacco use and dependence. Continue nicotine patch 14. History of alcohol abuse. Patient quit drinking in October 2018. 15. Admit to inpatient. Estimate a length of stay 2 midnights. 16. Patient is full code. Past Medical History Past Medical History: Coronary Artery Disease (CAD), Cancer, Chest Pain / Angina, GERD/Reflux, Hyperlipidemia, Hypertension, Myocardial Infarction ([place]), Pneumonia, Prostate Disorder, Vascular Disorder Additional Past Medical History / Comment(s): 2014 bladder cancer with surgery/hematuria, anemia, BPH, past ETOH abuse with withdrawal tremors-pt has not drank since 10/2018. Last Myocardial Infarction Date:: 2014 History of Any Multi-Drug Resistant Organisms: None Reported Past Surgical History: Bladder Surgery, Coronary Bypass/CABG, Heart Catheterization, Heart Catheterization With Stent Additional Past Surgical History / Comment(s): 2016 CABG 3 vessel, TUR BT/resection, cystoscopy, R caratid endartectomy, EGD, colonoscopy, small bowel capsule, bilateral cataract removals, hip surgery Past Anesthesia/Blood Transfusion Reactions: No Reported Reaction Additional Past Anesthesia/Blood Transfusion Reaction / Comment(s): Pt has received blood in past without reaction. Date of Last Stent Placement:: 1996 Past Psychological History: Anxiety, Depression Smoking Status: Current every day smoker Past Alcohol Use History: Daily Past Drug Use History: None Reported - Past Family History Father Family Medical History: Coronary Artery Disease (CAD) Additional Family Medical History / Comment(s): Father at age 78 from heart disease. Mother Family Medical History: CVA/TIA, Hypertension Additional Family Medical History / Comment(s): Mother at age 85 from stroke with history of hypertension. Sister(s) Family Medical History: No Reported History Additional Family Medical History / Comment(s): Patient has 2 sisters and one has history of myocardial infarction. Second sister has nomajor medical problems. Patient does not have any brothers. Daughter(s) Family Medical History: No Reported History Additional Family Medical History / Comment(s): The patient has 2 daughters and one has had leg amputation secondary to osteomyelitis. Second daughter has no major medical problems. Patient has one son with no major medical problems. Son(s) Family Medical History: No Reported History Medications and Allergies Home Medications Medication Instructions Recorded Confirmed Type Tamsulosin [Flomax] 0.4 mg PO HS 07/16/16 05/19/22 History lisinopriL [Zestril] 10 mg PO DAILY 07/11/18 05/19/22 History Mirtazapine 30 mg PO HS 12/03/18 05/19/22 History Atorvastatin Calcium [Lipitor] 80 mg PO HS 08/13/19 05/19/22 History Sertraline HCl [Zoloft] 150 mg PO DAILY 08/13/19 05/19/22 History Aspirin 325 mg PO DAILY 05/06/22 05/19/22 History Clopidogrel [Plavix] 75 mg PO HS 05/06/22 05/19/22 History Pantoprazole [Protonix] 40 mg PO DAILY 05/06/22 05/19/22 History carvediloL [Coreg] 3.125 mg PO BID 05/06/22 05/19/22 History Albuterol Inhaler [Ventolin Hfa 2 puff INHALATION RT-QID PRN #0 05/11/22 05/19/22 Rx Inhaler] each Ascorbic Acid [Vitamin C] 500 mg PO BID tab 05/11/22 05/19/22 Rx Budesonide-Formot 160-4.5 Mcg 2 puff INHALATION RT-BID #0 each 05/11/22 05/19/22 Rx [Symbicort 160-4.5 Mcg Inhaler] Cholecalciferol [Vitamin D3 (25 25 mcg PO DAILY tab 05/11/22 05/19/22 Rx Mcg = 1000 Iu)] Nicotine 14Mg/24Hr Patch [Habitrol] 1 patch TRANSDERM DAILY #30 patch 05/11/22 05/19/22 Rx Zinc Sulfate [Orazinc] 220 mg PO DAILY cap 05/11/22 05/19/22 Rx predniSONE See Taper PO DIRECTED 05/19/22 05/19/22 History Allergies Allergy/AdvReac Type Severity Reaction Status Date / Time No Known Allergies Allergy Verified 05/19/22 17:35 Physical Exam Vitals: Vital Signs Temp Pulse Resp BP Pulse Ox 05/19/22 17:00 69 19 106/44 89 L 05/19/22 15:57 77 05/19/22 15:44 70 05/19/22 15:09 98.1 F 05/19/22 14:52 88 20 126/49 99 Intake and Output 05/19/22 05/19/22 05/19/22 06:59 14:59 22:59 Other: Weight 63.049 kg Results CBC & Chem 7: 05/20/22 06:41 05/20/22 06:41 Labs: Abnormal Lab Results - Last 24 Hours (Table) 05/19/22 05/19/22 Range/Units 16:01 16:01 WBC 14.0 H (3.8-10.6) k/uL RBC 3.05 L (4.30-5.90) m/uL Hgb 9.2 L D (13.0-17.5) gm/dL Hct 27.6 L (39.0-53.0) % Neutrophils # 12.2 H (1.3-7.7) k/uL Sodium 135 L (137-145) mmol/L BUN 28 H (9-20) mg/dL Total Protein 5.9 L (6.3-8.2) g/dL Albumin 3.2 L (3.5-5.0) g/dL
[2022-05-20] MEDS: MIRTAZAPINE 15 MG TAB PO SCH (20:36)
[2022-05-20] MEDS: ATORVASTATIN 80 MG TAB PO SCH (20:36)
[2022-05-20] MEDS: TAMSULOSIN 0.4 MG CAP.ER.24H PO SCH (20:36)
[2022-05-21] MEDS: PIPERACILLIN-TAZOBACTAM 3.375 GM in SODIUM CHLORIDE 0.9% 100 ML IVPB SCH ×3 (04:48→20:37)
[2022-05-21] MEDS: carvediloL 3.125 MG TAB PO SCH ×2 (07:39→18:34)
[2022-05-21] MEDS ORDERED: ENOXAPARIN 40 MG/0.4 ML SYRINGE SQ SCH (09:00)
[2022-05-21] MEDS: FORMOTEROL FUMARATE 20 MCG/2 ML NEBU INHALATION SCH ×2 (09:18→21:37)
[2022-05-21] MEDS: IPRATROPIUM-ALBUTEROL 3 ML NEB INHALATION SCH ×4 (09:18→21:37)
[2022-05-21] MEDS: BUDESONIDE 1 MG/2 ML NEBU INHALATION SCH ×2 (09:18→21:36)
[2022-05-21] MEDS: ZINC SULFATE 220 MG CAP PO SCH (10:02)
[2022-05-21] MEDS: lisinopriL 10 MG TAB PO SCH (10:02)
[2022-05-21] MEDS: NICOTINE 14MG/24HR PATCH TRANSDERM SCH (10:02)
[2022-05-21] MEDS: CHOLECALCIFEROL 25 MCG (1000 IU) TABLET PO SCH (10:02)
[2022-05-21] MEDS: PANTOPRAZOLE 40 MG/10 ML VIAL IVP SCH ×2 (10:02→20:38)
[2022-05-21] MEDS: SERTRALINE 50 MG TAB PO SCH (10:02)
[2022-05-21 10:11] LABS: Basophils % (A) 0 %; Eosinophils % (A) 0 %; HCT 22.4 % (39.0-53.0); Lymphocytes # (A) 1.2 k/uL (1.0-4.8); Lymphocytes % (A) 12 %; MCH 29.9 pg (25.0-35.0); MCHC 32.8 g/dL (31.0-37.0); MCV 91.3 fL (80.0-100.0); Mean Platelet Volume 8.2; Monocytes # (A) 0.3 k/uL (0-1.0); Monocytes % (A) 4 %; Neutrophils # (A) 8.1 k/uL (1.3-7.7); Neutrophils % (A) 83 %; Platelet Count 266 k/uL (150-450); RBC 2.45 m/uL (4.30-5.90); RDW 15.2 % (11.5-15.5); WBC 9.8 k/uL (3.8-10.6)
[2022-05-21 10:18] LABS: HGB 7.3 gm/dL (13.0-17.5)
--- NOTE | 2022-05-21 12:11 | P.PN ---
Subjective Progress Note Date: 05/21/22 I'm seeing this patient in new consultation today 05/20/2022 on the general medical floor. Patient is a 77-year-old white male with past medical history of moderate COPD with a baseline FEV1 of 53% of predicted, chronic and ongoing tobacco dependence of 50 years, coronary artery disease with previous coronary artery bypass graft and stents, hypertension, hyperlipidemia, carotid artery stenosis with previous right carotid endarterectomy, BPH with previous TURP. Patient did have a recent hospital admission for acute exacerbation of COPD secondary to COVID-19 infection. Patient was discharged on 05/11 with azithromycin, prednisone Dosepak, albuterol nebulizations, and Symbicort. Patient had a follow-up visit with his primary care provider Dr. Kuo, who felt the patient to be in at least some mild respiratory distress. Patient was referred back to [place] yesterday. Patient is currently resting comfortably on 3 L nasal cannula, in no acute distress. He states that his symptoms never really resolved or improved since his hospital discharge. He does report an associated nonproductive cough. He denies any fever, chills, chest pain, hemoptysis. Chest x-ray on arrival showed some lower lobe infiltrates on the lateral view and a trace left pleural effusion was also seen. D-dimer was elevated at 3.4. A follow-up chest CTA showed no evidence of pulmonary embolism, but did show extensive bilateral lower lobe pulmonary infiltrates which were new compared to old exam. There was also some background emphysema. CBC on arrival shows some mild leukocytosis with a WBC count of 14, hemoglobin 9.2, hematocrit 27.6, platelets 335,000. Procalcitonin level was mildly elevated at 0.13. Patient is empirically covered on Rocephin and Zithromax. Has been afebrile. Patient's BMP was essentially normal. Troponins negative 1. BNP low at 532. Vital signs are stable. On today's evaluation of 05/21/2022, the patient is calm and comfortable, his condition is stable, patient is improved. He has not expressed any further episodes of GI bleed since yesterday and hemoglobin is stable at 7.3. Meanwhile, the patient was seen by general surgery. Aspirin and Plavix has been discontinued. The patient remains nothing by mouth. The patient is currently on IV Protonix. The patient is also receiving bronchodilators and steroids regarding his acute COPD exacerbation. No other significant events otherwise for now.WAC count is at 9.8 with a hemoglobin of 7.3 and a platelet count of 266. Legionella urine antigen was negative. Chest x-rays indicating a left lower lobe pulmonary infiltrate and a CAT scan of the chest showed extensive emphysema with extensive lower lobe pulmonary infiltrates mainly in the lung bases posteriorly. The patient remains on IV Zosyn. He pro calcitonin level is at 0.13. Objective - Vital Signs Vital signs: Vital Signs Temp 98.3 F 05/20/22 19:21 Pulse 70 05/21/22 09:47 Resp 17 05/21/22 09:00 BP 94/54 05/20/22 19:21 Pulse Ox 99 05/21/22 09:19 FiO2 Intake & Output 05/20/22 05/21/22 05/21/22 18:59 06:59 18:59 Other: Voiding Method Toilet Toilet # Voids 2 - Exam GENERAL EXAM: Alert, 77-year-old white male , comfortable in no apparent distress. HEAD: Normocephalic and atraumatic EYES: Normal reaction of pupils, equal size. NOSE: Clear with pink turbinates. THROAT: No erythema or exudates. NECK: No masses, no JVD. CHEST: No chest wall deformity. LUNGS: Equal air entry with bilateral posterior lower lobe crackles. No wheeze, rhonchi or dullness. On 3 L nasal cannula. No conversational dyspnea or accessory muscle use.. CVS: S1 and S2 normal with no audible murmur, regular rhythm. No extra heart sounds ABDOMEN: No hepatosplenomegaly, active bowel sounds, no guarding or rigidity. SPINE: No scoliosis or deformity SKIN: No rashes CENTRAL NERVOUS SYSTEM: No focal deficits, tone is normal in all 4 extremities. EXTREMITIES: There is no peripheral edema, clubbing, or cyanosis. Peripheral pulses are intact. - Labs CBC & Chem 7: 05/21/22 08:59 05/20/22 06:41 Labs: Abnormal Lab Results - Last 24 Hours (Table) 05/21/22 Range/Units 08:59 RBC 2.45 L (4.30-5.90) m/uL Hgb 7.3 L D (13.0-17.5) gm/dL Hct 22.4 L (39.0-53.0) % Neutrophils # 8.1 H (1.3-7.7) k/uL Microbiology - Last 24 Hours (Table) 05/19/22 18:10 Blood Culture - Preliminary Blood No Growth after 24 hours 05/19/22 18:20 Blood Culture - Preliminary Blood No Growth after 24 hours Assessment and Plan Assessment: Acute exacerbation of COPD secondary to recent COVID-19 infection and possible superimposed bilateral pneumonia. The pro-calcitonin level is mildly elevated at 0.13 and the patient is currently on IV Zosyn., Blood cultures are negative thus far Bilateral lower lobe pulmonary infiltrate/pneumonia Acute hypoxemic respiratory failure secondary to above, currently on 3 L of oxygen by nasal cannula Acute upper GI bleeding, hemoglobin is at 7.3 and the patient is currently nothing by mouth, taken off aspirin and Plavix and the patient is awaiting a surgical evaluation for EGD Acute drop in hemoglobin down to 7.3 secondary to upper GI bleed, currently inactive and stable Worsening shortness of breath secondary to above and drop in hemoglobin Hypertension Hyperlipidemia Coronary artery disease with previous stents and coronary artery bypass grafts History of carotid stenosis with previous right carotid endarterectomy BPH with previous TURP Previous bladder cancer post surgery Current smoker History of alcoholism. No recent drinks reported since 2019 Plan: Continue bronchodilators Continue steroids Continue IV Zosyn Discussed the case with the surgical team and decide on the timing of the EGD. From the pulmonary standpoint, the patient be able to withstand the EGD at this point in time. If no EGD is being planned for today, should be able to receive some clear liquid diet if this is cleared by surgery. Legionella urine antigen is negative Pro calcitonin level is at 0.13 No other complaints otherwise or now. We'll continue to follow.
--- NOTE | 2022-05-21 13:45 | P.PN ---
Subjective Progress Note Date: 05/21/22 HISTORY OF PRESENT ILLNESS: This is a 76-year-old male patient of [employer] [facility]) with past medical history significant for coronary artery disease status post three-vessel CABG in 2016 with GALLO to LAD, SVG to the ramus, SVG to the PDA that was in 07/23/2016, prior to that left heart catheterization with PCI of the ramus intermedius back in 06/30/1996 gastroesophageal reflux disease, hypertension, hyperlipidemia, osteoarthritis generalized, benign prostatic hypertrophy, COPD, recurrent depression, tobacco use and dependence, history of alcohol abuse that he quit in October 2018 patient was recently hospitalized at [facility] after he was admitted for acute exacerbation of chronic obstructive pulmonary disease as well as COVID-19 pneumonia, he was doing fine and he was left the hospital on 05/06/2022, patient presented to my office yesterday for a follow-up visit he was discharged on no oxygen, he did receive a 7 day course of Levaquin as well as a prednisone burst and a taper, he shouldn't became quite hypoxemic in the office with oxygen saturation 84% on room air, he was placed immediately on oxygen 3 L a candidate his oxygen improved to 91%, I've contacted EMS, the patient was transported to the hospital for evaluation he was seen in the ER and he was found to have a bilateral lower lobe pneumonia and acute exacerbation of COPD, he was initially placed on Rocephin and Zithromax however because of his recent presentation to the hospital he shouldn't have coverage for gram-negative pneumonia he was started on Zosyn 3.375 g IV piggyback every 6 hours, sputum culture were obtained, urine Legionella antigen was obtained, patient also was seen in consultation by poor medicine patient stated that he has been having some bleeding per rectum with maroon colored stool, his hemoglobin did drop and the because of that his guaiac was positive, he was admitted to the hospital to telemetry unit, consultation from general surgery was obtained for EGD tomorrow morning, patient was place on Protonix 40 mg IV push every 12 hours he was taken off aspirin and Plavix and prednisone altogether. 05/21: Patient has been seen and followed by pulmonary medicine for COPD exacerbation maintained on Pulmicort, performance, DuoNeb, IV Zosyn. Breathing status is improved. He's had no further episodes of GI bleeding. Hemoglobin is stable at 7.3. Aspirin and Plavix are on hold and patient is nothing by mouth. He is on IV Protonix. He is scheduled for EGD today with Dr. Snyder. WBC 9.8, hemoglobin 7.3, platelet count 266. Legionella negative. REVIEW OF SYSTEMS: Constitutional: positive for documented fever, no chills, no night sweats. No weight change. positive for weakness, positive for fatigue or lethargy. No daytime sleepiness. HEENT: No headache. No blurred vision or double vision, no loss of vision. No loss of Hearing, no ringing in the ears, no dizziness. No nasal drainage or congestion. No epistaxis. No sore throat. Lungs: positive for shortness of breath, positive for coughing, minimal sputum production. positive for wheezing. Reports dyspnea with activity. Cardiovascular: No chest pain, no lower extremity edema. No palpitations. No paroxysmal nocturnal dyspnea. No orthopnea. No lightheadedness or dizziness. No syncopal episodes. Abdominal: Denies mid abdominal pain. No nausea, vomiting. No diarrhea. No constipation. Denies continued for bloody and tarry stools reports loss of appetite. Genitourinary: No dysuria, increased frequency, urgency. No urinary retention. Musculoskeletal: No myalgias. positive for muscle weakness, no gait dysfunction, no frequent falls. No back pain. No neck pain. Integumentary: No wounds, no lesions. No rash or pruritus. No unusual bruising. No change in hair or nails. Neurologic: No aphasia. No facial droop. No change in mentation. No head injury. No headache. No paralysis. No paresthesia. Psychiatric: No depression. No anxiety. No mood swings. Endocrine: No abnormal blood sugars. No weight change. PHYSICAL EXAMINATION: General: 76-year-old male sitting up in bed in no respiratory distress. HEENT: Head is atraumatic, normocephalic, pupils were equal round reactive to light and recommendation, extraocular muscle movement were intact, sclera nonicteric, conjunctivae were pale, mucous membranes of the mouth are somewhat dry. Neck: Supple, no JVP, decreased carotid upstroke bilaterally, no lymphadenopathy. Chest: Decreased breath sounds at the bases, few rhonchi, minimal expiratory wheezes, no chest wall tenderness, no intercostal retractions. Heart: First heart sound is normal, second heart sound is normal there is ISAIAH 2/6 located at the left sternal border. Abdomen: Soft, nontender, nondistended, positive bowel sounds, no hepatosplenomegaly Extremities: There is no edema no calf tenderness DP +1 bilaterally. Neurologic examination: Patient is awake alert and oriented X 3, cranial nerves II-12 appear grossly intact, muscle power were 5 out of 5 in upper extremities and 5 out of 5 in bilateral lower extremities, deep tendon reflexes normal bilaterally. ASSESSMENT AND PLAN: 1. Acute hypoxemic respiratory failure due to bilateral lower lobe pneumonia likely gram-negative as well as COPD exacerbation. patient was started on Zosyn 3.375 g IV piggyback every 6 hours, oxygen 3 given is a cannula, sputum culture, urine Legionella antigen is negative, continue patient on budesonide 1 mg nebulization twice every day as well as Formeterol twice every day primary consultation appreciated. 2. Upper GI bleed likely peptic ulcer disease. Discontinue aspirin, discontinue Plavix, type and cross and placed on hold 2 units of packed red blood cells, start the patient on Protonix 40 mg IV push every 12 hours, discontinue steroid. Consult Dr. Snyder and he is scheduled for EGD today. 3. Acute blood loss anemia due to upper GI bleed. Monitor the patient hemoglobin and the next 24 hours, transfuse for hemoglobin is 7, plan for EGD today. 4. Hypertensive and hypertensive cardiovascular disease. Continue lisinopril 10 mg daily, Lopressor 25 mg twice daily, continue to monitor the patient blood pressure very closely. 5. History of coronary artery disease status post 3 vessel CABG, stents. Continue carvedilol 3.125 mg orally twice every day, Lipitor 80 mg daily . , 6. History of left carotid endarterectomy, stable. his carotid duplex are up-to-date. 7. COPD without exacerbation. Continue treatment as in paragraph #1. 8. Hyperlipidemia. Continue Lipitor 80 mg once every day monitor the patient dependent, keep LDL 55-70. 9. Benign prostatic hypertrophy. Monitor for urinary retention, continue Flomax 0.4 mg at bedtime 10. Gastroesophageal reflux disease and GI prophylaxis. Continue Protonix 40 mg IVP every 12 hours. 11. Recurrent depression. Continue Remeron 30 mg daily, Zoloft 150 mg daily. 12. DVT prophylaxis. Bilateral knee-high YUE hose 13. Tobacco use and dependence. Continue nicotine patch 14. History of alcohol abuse. Patient quit drinking in October 2018. 15. Patient is full code. Impression and plan of care have been directed as dictated by the signing physi cian. Cindi Edwards nurse practitioner acting as scribe for signing physician. Objective - Vital Signs Vital signs: Vital Signs Temp 98.2 F 05/21/22 13:23 Pulse 57 L 05/21/22 13:23 Resp 14 05/21/22 13:23 BP 131/48 05/21/22 13:23 Pulse Ox 100 05/21/22 13:23 FiO2 Intake & Output 05/20/22 05/21/22 05/21/22 18:59 06:59 18:59 Other: Voiding Method Toilet Toilet # Voids 2 - Labs CBC & Chem 7: 05/21/22 08:59 05/20/22 06:41 Labs: Abnormal Lab Results - Last 24 Hours (Table) 05/21/22 Range/Units 08:59 RBC 2.45 L (4.30-5.90) m/uL Hgb 7.3 L D (13.0-17.5) gm/dL Hct 22.4 L (39.0-53.0) % Neutrophils # 8.1 H (1.3-7.7) k/uL Microbiology - Last 24 Hours (Table) 05/19/22 18:10 Blood Culture - Preliminary Blood No Growth after 24 hours 05/19/22 18:20 Blood Culture - Preliminary Blood No Growth after 24 hours
[2022-05-21] MEDS ORDERED: LIDOCAINE 2% INJ 20 MG/ML (2 ML VIAL) ONE (14:08)
[2022-05-21] MEDS ORDERED: PROPOFOL 10 MG/ML 20 ML VIAL IV ONE (14:08)
[2022-05-21] MEDS ORDERED: IV FLUID CONTINUATION 1,000 ML IV ONE ×2 (14:09)
--- NOTE | 2022-05-21 14:22 | P.PCN ---
Date of Procedure: 05/21/22 Procedure(s) Performed: Preoperative Dx: GI bleeding Postoperative Dx: Mild gastritis, small hiatal hernia Procedure: EGD with Bx Anesthesia: Sedation Endoscopist: Dr. Snyder Specimens: Antrum Endoscopic Procedure: The patient was on the endoscopy table in the left decubitus position. The Olympus gastroscope was inserted into the oropharynx and passed under direct visualization to the region of the third portion of the duodenum. From that point the scope was slowly withdrawn inspecting all surfaces carefully. There were no neoplastic inflammatory or polypoid lesions throughout the duodenum. The pylorus was widely patent. The stomach was carefully inspected. There was mild gastritis present. A biopsy of the antrum took place to rule out H. pylori. Retroflexion revealed a small sliding hiatal hernia. The GE junction was present 1.5 cm above the diaphragmatic hiatus. There was no significant inflammatory changes present. The esophagus was then carefully examined. There were no neoplastic inflammatory or polypoid lesions throughout the visualized esophagus. The patient was then taken to the recovery room in stable condition per anesthesia guidelines. Recommendations: Patient is not interested in colonoscopy at this time. No further bleeding. I would be comfortable with discharge with outpatient colonoscopy to complete the workup.
[2022-05-21 15:09] LABS: ALT 15 U/L (10-49); AST 14 U/L (14-35); African American GFR (CKD) 67.2 (60.0-200.0); Albumin 2.9 g/dL (3.8-4.9); Albumin/Globulin Ratio 1.32 (1.60-3.17); Alkaline Phosphatase 48 U/L (41-126); BUN/Creat Ratio 14.92 Ratio (12.00-20.00); Blood Urea Nitrogen 17.9 mg/dL (9.0-27.0); Calcium 8.7 mg/dL (8.7-10.3); Carbon Dioxide 21.7 mmol/L (20.0-27.5); Chloride 106 mmol/L (96-109); Globulin 2.2 g/dL (1.6-3.3); Glucose 89 mg/dL (70-110); Potassium 4.6 mmol/L (3.5-5.5); Sodium 140 mmol/L (135-145); Total Bilirubin <0.15 mg/dL (0.30-1.20); Total Protein 5.1 g/dL (6.2-8.2)
[2022-05-21] MEDS: ATORVASTATIN 80 MG TAB PO SCH (20:37)
[2022-05-21] MEDS: TAMSULOSIN 0.4 MG CAP.ER.24H PO SCH (20:38)
[2022-05-21] MEDS: MIRTAZAPINE 15 MG TAB PO SCH (20:38)
[2022-05-22] MEDS: PIPERACILLIN-TAZOBACTAM 3.375 GM in SODIUM CHLORIDE 0.9% 100 ML IVPB SCH ×3 (05:51→21:18)
[2022-05-22] MEDS: carvediloL 3.125 MG TAB PO SCH ×2 (05:51→17:34)
[2022-05-22] MEDS: NICOTINE 14MG/24HR PATCH TRANSDERM SCH (09:10)
[2022-05-22] MEDS: ZINC SULFATE 220 MG CAP PO SCH (09:10)
[2022-05-22] MEDS: lisinopriL 10 MG TAB PO SCH (09:10)
[2022-05-22] MEDS: PANTOPRAZOLE 40 MG/10 ML VIAL IVP SCH ×2 (09:10→21:18)
[2022-05-22] MEDS: SERTRALINE 50 MG TAB PO SCH (09:11)
[2022-05-22] MEDS: CHOLECALCIFEROL 25 MCG (1000 IU) TABLET PO SCH (09:11)
--- NOTE | 2022-05-22 09:31 | P.PN ---
Progress Note - Text Progress Note Date: 05/22/22 Patient Louann stable. It is unclear if he is being discharged home today. On exam vital signs are stable. Abdomen is soft. It. Patient will follow-up with Dr. Brewer for outpatient colonoscopy.
[2022-05-22] MEDS: IPRATROPIUM-ALBUTEROL 3 ML NEB INHALATION SCH ×4 (09:53→18:50)
[2022-05-22] MEDS: BUDESONIDE 1 MG/2 ML NEBU INHALATION SCH ×2 (09:53→18:50)
[2022-05-22] MEDS: FORMOTEROL FUMARATE 20 MCG/2 ML NEBU INHALATION SCH ×2 (09:53→18:50)
--- NOTE | 2022-05-22 10:42 | P.PN ---
Subjective Progress Note Date: 05/22/22 I'm seeing this patient in new consultation today 05/20/2022 on the general medical floor. Patient is a 77-year-old white male with past medical history of moderate COPD with a baseline FEV1 of 53% of predicted, chronic and ongoing tobacco dependence of 50 years, coronary artery disease with previous coronary artery bypass graft and stents, hypertension, hyperlipidemia, carotid artery stenosis with previous right carotid endarterectomy, BPH with previous TURP. Patient did have a recent hospital admission for acute exacerbation of COPD secondary to COVID-19 infection. Patient was discharged on 05/11 with azithromycin, prednisone Dosepak, albuterol nebulizations, and Symbicort. Patient had a follow-up visit with his primary care provider Dr. Kuo, who felt the patient to be in at least some mild respiratory distress. Patient was referred back to [place] yesterday. Patient is currently resting comfortably on 3 L nasal cannula, in no acute distress. He states that his symptoms never really resolved or improved since his hospital discharge. He does report an associated nonproductive cough. He denies any fever, chills, chest pain, hemoptysis. Chest x-ray on arrival showed some lower lobe infiltrates on the lateral view and a trace left pleural effusion was also seen. D-dimer was elevated at 3.4. A follow-up chest CTA showed no evidence of pulmonary embolism, but did show extensive bilateral lower lobe pulmonary infiltrates which were new compared to old exam. There was also some background emphysema. CBC on arrival shows some mild leukocytosis with a WBC count of 14, hemoglobin 9.2, hematocrit 27.6, platelets 335,000. Procalcitonin level was mildly elevated at 0.13. Patient is empirically covered on Rocephin and Zithromax. Has been afebrile. Patient's BMP was essentially normal. Troponins negative 1. BNP low at 532. Vital signs are stable. On today's evaluation of 05/21/2022, the patient is calm and comfortable, his condition is stable, patient is improved. He has not expressed any further episodes of GI bleed since yesterday and hemoglobin is stable at 7.3. Meanwhile, the patient was seen by general surgery. Aspirin and Plavix has been discontinued. The patient remains nothing by mouth. The patient is currently on IV Protonix. The patient is also receiving bronchodilators and steroids regarding his acute COPD exacerbation. No other significant events otherwise for now.WAC count is at 9.8 with a hemoglobin of 7.3 and a platelet count of 266. Legionella urine antigen was negative. Chest x-rays indicating a left lower lobe pulmonary infiltrate and a CAT scan of the chest showed extensive emphysema with extensive lower lobe pulmonary infiltrates mainly in the lung bases posteriorly. The patient remains on IV Zosyn. He pro calcitonin level is at 0.13. On 05/22/2022, the patient is being seen for a follow-up. Hemoglobin was as low as 7.3 yesterday. The patient underwent a EGD that showed mild gastritis and small hiatal hernia. The patient will ultimately need a colonoscopy and is being planned to be done outpatient basis. Awaiting a repeat hemoglobin from today. He is currently having brown bowel movement he also has brown sputum. Otherwise no other new complaints for now. Objective - Vital Signs Vital signs: Vital Signs Temp 98.2 F 05/22/22 08:00 Pulse 76 05/22/22 10:15 Resp 19 05/22/22 08:00 BP 109/64 05/22/22 08:00 Pulse Ox 92 L 05/22/22 09:54 FiO2 Intake & Output 05/21/22 05/22/22 05/22/22 18:59 06:59 18:59 Intake Total 100 118 Balance 100 118 Intake: IV 100 Oral 118 Other: Voiding Method Toilet Toilet Toilet # Voids 1 - Exam GENERAL EXAM: Alert, 77-year-old white male , comfortable in no apparent distress. HEAD: Normocephalic and atraumatic EYES: Normal reaction of pupils, equal size. NOSE: Clear with pink turbinates. THROAT: No erythema or exudates. NECK: No masses, no JVD. CHEST: No chest wall deformity. LUNGS: Equal air entry with bilateral posterior lower lobe crackles. No wheeze, rhonchi or dullness. On 3 L nasal cannula. No conversational dyspnea or accessory muscle use.. CVS: S1 and S2 normal with no audible murmur, regular rhythm. No extra heart sounds ABDOMEN: No hepatosplenomegaly, active bowel sounds, no guarding or rigidity. SPINE: No scoliosis or deformity SKIN: No rashes CENTRAL NERVOUS SYSTEM: No focal deficits, tone is normal in all 4 extremities. EXTREMITIES: There is no peripheral edema, clubbing, or cyanosis. Peripheral pulses are intact. - Labs CBC & Chem 7: 05/21/22 08:59 05/21/22 08:59 Labs: Abnormal Lab Results - Last 24 Hours (Table) 05/21/22 Range/Units 08:59 Est GFR (CKD-EPI)NonAf 58.0 L (60.0-200.0) Total Bilirubin <0.15 L (0.30-1.20) mg/dL Total Protein 5.1 L (6.2-8.2) g/dL Albumin 2.9 L (3.8-4.9) g/dL Albumin/Globulin Ratio 1.32 L (1.60-3.17) g/dL Microbiology - Last 24 Hours (Table) 05/19/22 18:20 Blood Culture - Preliminary Blood No Growth after 48 hours 05/19/22 18:10 Blood Culture - Preliminary Blood No Growth after 48 hours Assessment and Plan Assessment: Acute exacerbation of COPD secondary to recent COVID-19 infection and possible superimposed bilateral pneumonia. The pro-calcitonin level is mildly elevated at 0.13 and the patient is currently on IV Zosyn., Blood cultures are negative thus far Bilateral lower lobe pulmonary infiltrate/pneumonia Acute hypoxemic respiratory failure secondary to above, currently on 3 L of oxygen by nasal cannula Acute upper GI bleeding, hemoglobin is at 7.3 and the patient is currently nothing by mouth, taken off aspirin and Plavix and the patient underwent EGD that showed mild gastritis and a small hiatal hernia. Awaiting follow-up hemoglobin from today. Acute drop in hemoglobin down to 7.3 secondary to upper GI bleed, currently inactive and stable Worsening shortness of breath secondary to above and drop in hemoglobin Hypertension Hyperlipidemia Coronary artery disease with previous stents and coronary artery bypass grafts History of carotid stenosis with previous right carotid endarterectomy BPH with previous TURP Previous bladder cancer post surgery Current smoker History of alcoholism. No recent drinks reported since 2019 Plan: Awaiting hemoglobin today EGD was done No active upper GI bleed Continue bronchodilators Continue steroids Continue IV Zosyn . Legionella urine antigen is negative Pro calcitonin level is at 0.13 No other complaints otherwise or now. We'll continue to follow.
[2022-05-22] MEDS ORDERED: SODIUM FERRIC GLUCONAT-SUCROSE 125 MG in SODIUM CHLORIDE 0.9% 100 ML IVPB ONE (11:00)
--- NOTE | 2022-05-22 12:06 | P.PN ---
Subjective Progress Note Date: 05/22/22 HISTORY OF PRESENT ILLNESS: This is a 76-year-old male patient of [employer] with past medical history significant for coronary artery disease status post three-vessel CABG in 2016 with GALLO to LAD, SVG to the ramus, SVG to the PDA that was in 07/23/2016, prior to that left heart catheterization with PCI of the ramus intermedius back in 06/30/1996 gastroesophageal reflux disease, hypertension, hyperlipidemia, osteoarthritis generalized, benign prostatic hypertrophy, COPD, recurrent depression, tobacco use and dependence, history of alcohol abuse that he quit in October 2018 patient was recently hospitalized at [facility] after he was admitted for acute exacerbation of chronic obstructive pulmonary disease as well as COVID-19 pneumonia, he was doing fine and he was left the hospital on 05/06/2022, patient presented to my office yesterday for a follow-up visit he was discharged on no oxygen, he did receive a 7 day course of Levaquin as well as a prednisone burst and a taper, he shouldn't became quite hypoxemic in the office with oxygen saturation 84% on room air, he was placed immediately on oxygen 3 L a candidate his oxygen improved to 91%, I've contacted EMS, the patient was transported to the hospital for evaluation he was seen in the ER and he was found to have a bilateral lower lobe pneumonia and acute exacerbation of COPD, he was initially placed on Rocephin and Zithromax however because of his recent presentation to the hospital he shouldn't have coverage for gram-negative pneumonia he was started on Zosyn 3.375 g IV piggyback every 6 hours, sputum culture were obtained, urine Legionella antigen was obtained, patient also was seen in consultation by poor medicine patient stated that he has been having some bleeding per rectum with maroon colored stool, his hemoglobin did drop and the because of that his guaiac was positive, he was admitted to the hospital to telemetry unit, consultation from general surgery was obtained for EGD tomorrow morning, patient was place on Protonix 40 mg IV push every 12 hours he was taken off aspirin and Plavix and prednisone altogether. 05/21: Patient has been seen and followed by pulmonary medicine for COPD exacerbation maintained on Pulmicort, performance, DuoNeb, IV Zosyn. Breathing status is improved. He's had no further episodes of GI bleeding. Hemoglobin is stable at 7.3. Aspirin and Plavix are on hold and patient is nothing by mouth. He is on IV Protonix. He is scheduled for EGD today with Dr. Snyder. WBC 9.8, hemoglobin 7.3, platelet count 266. Legionella negative. 05/22: Patient is laying down in bed in no acute distress, he is feeling better today, he continues to be on oxygen, he continues to be on Zosyn, he has been followed by general surgery as well as pulmonary medicine, he did have an EGD that did not show evidence of acute bleed, patient would need to have another colonoscopy that would be done as an outpatient, his hemoglobin is down 7.3, he would be given iron infusion today and possibly tomorrow repeat a CBC tomorrow morning. REVIEW OF SYSTEMS: Constitutional: positive for documented fever, no chills, no night sweats. No weight change. positive for weakness, positive for fatigue or lethargy. No daytime sleepiness. HEENT: No headache. No blurred vision or double vision, no loss of vision. No loss of Hearing, no ringing in the ears, no dizziness. No nasal drainage or congestion. No epistaxis. No sore throat. Lungs: positive for shortness of breath, positive for coughing, minimal sputum production. positive for wheezing. Reports dyspnea with activity. Cardiovascular: No chest pain, no lower extremity edema. No palpitations. No paroxysmal nocturnal dyspnea. No orthopnea. No lightheadedness or dizziness. No syncopal episodes. Abdominal: Denies mid abdominal pain. No nausea, vomiting. No diarrhea. No constipation. Denies continued for bloody and tarry stools reports loss of appetite. Genitourinary: No dysuria, increased frequency, urgency. No urinary retention. Musculoskeletal: No myalgias. positive for muscle weakness, no gait dy sfunction, no frequent falls. No back pain. No neck pain. Integumentary: No wounds, no lesions. No rash or pruritus. No unusual bruising. No change in hair or nails. Neurologic: No aphasia. No facial droop. No change in mentation. No head injury. No headache. No paralysis. No paresthesia. Psychiatric: No depression. No anxiety. No mood swings. Endocrine: No abnormal blood sugars. No weight change. PHYSICAL EXAMINATION: General: 76-year-old male sitting up in bed in no respiratory distress. HEENT: Head is atraumatic, normocephalic, pupils were equal round reactive to light and recommendation, extraocular muscle movement were intact, sclera nonicteric, conjunctivae were pale, mucous membranes of the mouth are somewhat dry. Neck: Supple, no JVP, decreased carotid upstroke bilaterally, no lymphadenopathy. Chest: Decreased breath sounds at the bases, few rhonchi, minimal expiratory wheezes, no chest wall tenderness, no intercostal retractions. Heart: First heart sound is normal, second heart sound is normal there is ISAIAH 2/6 located at the left sternal border. Abdomen: Soft, nontender, nondistended, positive bowel sounds, no hepatosplenomegaly Extremities: There is no edema no calf tenderness DP +1 bilaterally. Neurologic examination: Patient is awake alert and oriented X 3, cranial nerves II-12 appear grossly intact, muscle power were 5 out of 5 in upper extremities and 5 out of 5 in bilateral lower extremities, deep tendon reflexes normal bilaterally. ASSESSMENT AND PLAN: 1. Acute hypoxemic respiratory failure due to bilateral lower lobe pneumonia likely gram-negative as well as COPD exacerbation. patient was started on Zosyn 3.375 g IV piggyback every 6 hours, oxygen 3 given is a cannula, sputum culture, urine Legionella antigen is negative, continue patient on budesonide 1 mg nebulization twice every day as well as Formeterol twice every day primary consultation appreciated. 2. Upper GI bleed likely peptic ulcer disease. Discontinue aspirin, discontinue Plavix, type and cross and placed on hold 2 units of packed red blood cells, start the patient on Protonix 40 mg IV push every 12 hours, discontinue steroid. Consult Dr. Snyder and he is scheduled for EGD today. 3. Acute blood loss anemia due to upper GI bleed. Monitor the patient hemoglobin and the next 24 hours, transfuse for hemoglobin is 7, we'll give the patient iron infusion today. 4. Hypertensive and hypertensive cardiovascular disease. Continue lisinopril 10 mg daily, Lopressor 25 mg twice daily, continue to monitor the patient blood pressure very closely. 5. History of coronary artery disease status post 3 vessel CABG, stents. Continue carvedilol 3.125 mg orally twice every day, Lipitor 80 mg daily . , 6. History of left carotid endarterectomy, stable. his carotid duplex are up-to-date. 7. COPD without exacerbation. Continue treatment as in paragraph #1. 8. Hyperlipidemia. Continue Lipitor 80 mg once every day monitor the patient dependent, keep LDL 55-70. 9. Benign prostatic hypertrophy. Monitor for urinary retention, continue F montserrat 0.4 mg at bedtime 10. Gastroesophageal reflux disease and GI prophylaxis. Continue Protonix 40 mg IVP every 12 hours. 11. Recurrent depression. Continue Remeron 30 mg daily, Zoloft 150 mg daily. 12. DVT prophylaxis. Bilateral knee-high YUE hose 13. Tobacco use and dependence. Continue nicotine patch 14. History of alcohol abuse. Patient quit drinking in October 2018. 15. Patient is full code. Objective - Vital Signs Vital signs: Vital Signs Temp 98.2 F 05/22/22 08:00 Pulse 76 05/22/22 10:15 Resp 19 05/22/22 08:00 BP 109/64 05/22/22 08:00 Pulse Ox 92 L 05/22/22 09:54 FiO2 Intake & Output 05/21/22 05/22/22 05/22/22 18:59 06:59 18:59 Intake Total 100 118 Balance 100 118 Intake: IV 100 Oral 118 Other: Voiding Method Toilet Toilet Toilet # Voids 1 - Labs CBC & Chem 7: 05/21/22 08:59 05/21/22 08:59 Labs: Abnormal Lab Results - Last 24 Hours (Table) 05/21/22 Range/Units 08:59 Est GFR (CKD-EPI)NonAf 58.0 L (60.0-200.0) Total Bilirubin <0.15 L (0.30-1.20) mg/dL Total Protein 5.1 L (6.2-8.2) g/dL Albumin 2.9 L (3.8-4.9) g/dL Albumin/Globulin Ratio 1.32 L (1.60-3.17) g/dL Microbiology - Last 24 Hours (Table) 05/19/22 18:20 Blood Culture - Preliminary Blood No Growth after 48 hours 05/19/22 18:10 Blood Culture - Preliminary Blood No Growth after 48 hours
[2022-05-22] MEDS: MIRTAZAPINE 15 MG TAB PO SCH (21:18)
[2022-05-22] MEDS: ATORVASTATIN 80 MG TAB PO SCH (21:18)
[2022-05-22] MEDS: TAMSULOSIN 0.4 MG CAP.ER.24H PO SCH (21:19)
[2022-05-23] MEDS: carvediloL 3.125 MG TAB PO SCH ×2 (04:58→17:04)
[2022-05-23] MEDS: PIPERACILLIN-TAZOBACTAM 3.375 GM in SODIUM CHLORIDE 0.9% 100 ML IVPB SCH ×2 (04:58→12:43)
[2022-05-23] MEDS: lisinopriL 10 MG TAB PO SCH (08:12)
[2022-05-23] MEDS: CHOLECALCIFEROL 25 MCG (1000 IU) TABLET PO SCH (08:12)
[2022-05-23] MEDS: ZINC SULFATE 220 MG CAP PO SCH (08:12)
[2022-05-23] MEDS: SERTRALINE 50 MG TAB PO SCH (08:14)
[2022-05-23] MEDS: PANTOPRAZOLE 40 MG/10 ML VIAL IVP SCH (08:15)
[2022-05-23] MEDS: FORMOTEROL FUMARATE 20 MCG/2 ML NEBU INHALATION SCH ×2 (09:27→19:16)
[2022-05-23] MEDS: IPRATROPIUM-ALBUTEROL 3 ML NEB INHALATION SCH ×4 (09:27→19:16)
[2022-05-23] MEDS: BUDESONIDE 1 MG/2 ML NEBU INHALATION SCH ×2 (09:27→19:16)
--- NOTE | 2022-05-23 10:44 | P.PN ---
Subjective Progress Note Date: 05/23/22 I'm seeing this patient in new consultation today 05/20/2022 on the general medical floor. Patient is a 77-year-old white male with past medical history of moderate COPD with a baseline FEV1 of 53% of predicted, chronic and ongoing tobacco dependence of 50 years, coronary artery disease with previous coronary artery bypass graft and stents, hypertension, hyperlipidemia, carotid artery stenosis with previous right carotid endarterectomy, BPH with previous TURP. Patient did have a recent hospital admission for acute exacerbation of COPD secondary to COVID-19 infection. Patient was discharged on 05/11 with azithromycin, prednisone Dosepak, albuterol nebulizations, and Symbicort. Patient had a follow-up visit with his primary care provider Dr. Kuo, who felt the patient to be in at least some mild respiratory distress. Patient was referred back to [place] yesterday. Patient is currently resting comfortably on 3 L nasal cannula, in no acute distress. He states that his symptoms never really resolved or improved since his hospital discharge. He does report an associated nonproductive cough. He denies any fever, chills, chest pain, hemoptysis. Chest x-ray on arrival showed some lower lobe infiltrates on the lateral view and a trace left pleural effusion was also seen. D-dimer was elevated at 3.4. A follow-up chest CTA showed no evidence of pulmonary embolism, but did show extensive bilateral lower lobe pulmonary infiltrates which were new compared to old exam. There was also some background emphysema. CBC on arrival shows some mild leukocytosis with a WBC count of 14, hemoglobin 9.2, hematocrit 27.6, platelets 335,000. Procalcitonin level was mildly elevated at 0.13. Patient is empirically covered on Rocephin and Zithromax. Has been afebrile. Patient's BMP was essentially normal. Troponins negative 1. BNP low at 532. Vital signs are stable. On today's evaluation of 05/21/2022, the patient is calm and comfortable, his condition is stable, patient is improved. He has not expressed any further episodes of GI bleed since yesterday and hemoglobin is stable at 7.3. Meanwhile, the patient was seen by general surgery. Aspirin and Plavix has been discontinued. The patient remains nothing by mouth. The patient is currently on IV Protonix. The patient is also receiving bronchodilators and steroids regarding his acute COPD exacerbation. No other significant events otherwise for now.WAC count is at 9.8 with a hemoglobin of 7.3 and a platelet count of 266. Legionella urine antigen was negative. Chest x-rays indicating a left lower lobe pulmonary infiltrate and a CAT scan of the chest showed extensive emphysema with extensive lower lobe pulmonary infiltrates mainly in the lung bases posteriorly. The patient remains on IV Zosyn. He pro calcitonin level is at 0.13. On 05/22/2022, the patient is being seen for a follow-up. Hemoglobin was as low as 7.3 yesterday. The patient underwent a EGD that showed mild gastritis and small hiatal hernia. The patient will ultimately need a colonoscopy and is being planned to be done outpatient basis. Awaiting a repeat hemoglobin from today. He is currently having brown bowel movement he also has brown sputum. Otherwise no other new complaints for now. 05/23/2022, the patient is doing well and is stable. Is currently on oxygen at 3 L nasal cannula. No significant shortness of breath. No chest tightness. Occasional wheeze. No signs of any respiratory distress and his breathing is essentially nonlabored. The patient underwent EGD that showed no evidence of any acute source of bleeding. The patient was found to have small hiatal hernia and some mild gastritis. His hemoglobin has not been checked and needs to be followed up. Most recent hemoglobin from 05/21/2022 was 7.3. The patient is going to have an outpatient colonoscopy at the later stage. Legionella urine antigen was negative. The patient is currently on oxygen at 3 L. 10 IV Zosyn regarding lower lobe pneumonia. Is on DuoNeb nebulized treatments [id number]. Objective - Vital Signs Vital signs: Vital Signs Temp 98.7 F 05/23/22 08:00 Pulse 77 05/23/22 09:50 Resp 19 05/23/22 08:00 BP 128/70 05/23/22 08:00 Pulse Ox 97 05/23/22 09:28 FiO2 Intake & Output 05/22/22 05/23/22 05/23/22 18:59 06:59 18:59 Intake Total 472 Balance 472 Intake: Oral 472 Other: Voiding Method Toilet Toilet # Voids 3 3 # Bowel Movements 1 - Exam GENERAL EXAM: Alert, 77-year-old white male , comfortable in no apparent distress. HEAD: Normocephalic and atraumatic EYES: Normal reaction of pupils, equal size. NOSE: Clear with pink turbinates. THROAT: No erythema or exudates. NECK: No masses, no JVD. CHEST: No chest wall deformity. LUNGS: Equal air entry with bilateral posterior lower lobe crackles. No wheeze, rhonchi or dullness. On 3 L nasal cannula. No conversational dyspnea or accessory muscle use.. CVS: S1 and S2 normal with no audible murmur, regular rhythm. No extra heart sounds ABDOMEN: No hepatosplenomegaly, active bowel sounds, no guarding or rigidity. SPINE: No scoliosis or deformity SKIN: No rashes CENTRAL NERVOUS SYSTEM: No focal deficits, tone is normal in all 4 extremities. EXTREMITIES: There is no peripheral edema, clubbing, or cyanosis. Peripheral pulses are intact. - Labs CBC & Chem 7: 05/21/22 08:59 05/21/22 08:59 Labs: Microbiology - Last 24 Hours (Table) 05/19/22 18:20 Blood Culture - Preliminary Blood No Growth after 72 hours 05/19/22 18:10 Blood Culture - Preliminary Blood No Growth after 72 hours Assessment and Plan Assessment: Acute exacerbation of COPD secondary to recent COVID-19 infection and possible superimposed bilateral pneumonia. The pro-calcitonin level is mildly elevated at 0.13 and the patient is currently on IV Zosyn., Blood cultures are negative thus far, clinically improved Bilateral lower lobe pulmonary infiltrate/pneumonia , currently on IV Zosyn Acute hypoxemic respiratory failure secondary to above, currently on 3 L of oxygen by nasal cannula Acute upper GI bleeding, hemoglobin is at 7.3 and the patient is currently nothing by mouth, taken off aspirin and Plavix and the patient underwent EGD that showed mild gastritis and a small hiatal hernia. Awaiting follow-up hemoglobin from today. Labs were just sent Acute drop in hemoglobin down to 7.3 secondary to upper GI bleed, currently inactive and stable Worsening shortness of breath secondary to above and drop in hemoglobin Hypertension Hyperlipidemia Coronary artery disease with previous stents and coronary artery bypass grafts History of carotid stenosis with previous right carotid endarterectomy BPH with previous TURP Previous bladder cancer post surgery Current smoker History of alcoholism. No recent drinks reported since 2019 Plan: Discontinue IV Zosyn and put the patient on Augmentin 875 mg twice a day for the next 7 days Oxygen at 3 L nasal cannula Continue bronchodilators Awaiting hemoglobin today EGD was done No active upper GI bleed Continue bronchodilators Continue steroids Legionella urine antigen is negative Pro calcitonin level is at 0.13 No other complaints otherwise or now. We'll continue to follow. Possible home within next 24 hours.
[2022-05-23] MEDS: NICOTINE 14MG/24HR PATCH TRANSDERM SCH (10:45)
[2022-05-23 10:59] LABS: Basophils # (A) 0.01 X 10*3/uL (0.00-0.10); Basophils % (A) 0.2 %; Eosinophils % (A) 1.7 %; HCT 22.9 % (39.6-50.0); HGB 7.3 g/dL (13.0-17.0); Immature Grans, Automated 0.8 %; Lymphocytes # (A) 0.77 X 10*3/uL (0.90-5.00); Lymphocytes % (A) 12.8 %; MCH 30.3 pg (27.0-32.0); MCHC 31.9 g/dL (32.0-37.0); Mean Platelet Volume 10.5 fL (9.5-12.2); Monocytes # (A) 0.48 X 10*3/uL (0.20-1.00); NRBC Per 100 WBC 0 /100 WBCS (0.0-0.0); Neutrophils % (A) 76.5 %; Platelet Count 222 X 10*3/uL (140-440); RBC 2.41 X 10*6/uL (4.40-5.60); RDW 14.7 % (11.5-14.5); WBC 6.01 X 10*3/uL (4.50-10.00)
[2022-05-23 11:09] LABS: African American GFR (CKD) 82.8 (60.0-200.0); Albumin 2.6 g/dL (3.8-4.9); Albumin/Globulin Ratio 1.19 (1.60-3.17); Anion Gap 8.2 mmol/L (10.00-18.00); BUN/Creat Ratio 12.28 Ratio (12.00-20.00); Blood Urea Nitrogen 12.4 mg/dL (9.0-27.0); Calcium 7.9 mg/dL (8.7-10.3); Globulin 2.1 g/dL (1.6-3.3); Non-African American GFR(CKD) 71.4 (60.0-200.0); Potassium 4.1 mmol/L (3.5-5.5); Total Bilirubin 0.3 mg/dL (0.30-1.20); Total Protein 4.7 g/dL (6.2-8.2)
--- NOTE | 2022-05-23 11:11 | P.PN ---
Progress Note - Text Progress Note Date: 05/23/22 Patient remains stable. There are no acute changes. On exam vitals are still. Abdomen soft. Patient will be discharged home per the medical service. He'll plan for outpatient colonoscopy with Dr. Brewer.
[2022-05-23] MEDS ORDERED: SODIUM FERRIC GLUCONAT-SUCROSE 125 MG in SODIUM CHLORIDE 0.9% 100 ML IVPB ONE (13:00)
--- NOTE | 2022-05-23 13:15 | P.PN ---
Subjective Progress Note Date: 05/23/22 HISTORY OF PRESENT ILLNESS: This is a 76-year-old male patient of [employer] with past medical history significant for coronary artery disease status post three-vessel CABG in 2016 with GALLO to LAD, SVG to the ramus, SVG to the PDA that was in 07/23/2016, prior to that left heart catheterization with PCI of the ramus intermedius back in 06/30/1996 gastroesophageal reflux disease, hypertension, hyperlipidemia, osteoarthritis generalized, benign prostatic hypertrophy, COPD, recurrent depression, tobacco use and dependence, history of alcohol abuse that he quit in October 2018 patient was recently hospitalized at [facility] after he was admitted for acute exacerbation of chronic obstructive pulmonary disease as well as COVID-19 pneumonia, he was doing fine and he was left the hospital on 05/06/2022, patient presented to my office yesterday for a follow-up visit he was discharged on no oxygen, he did receive a 7 day course of Levaquin as well as a prednisone burst and a taper, he shouldn't became quite hypoxemic in the office with oxygen saturation 84% on room air, he was placed immediately on oxygen 3 L a candidate his oxygen improved to 91%, I've contacted EMS, the patient was transported to the hospital for evaluation he was seen in the ER and he was found to have a bilateral lower lobe pneumonia and acute exacerbation of COPD, he was initially placed on Rocephin and Zithromax however because of his recent presentation to the hospital he shouldn't have coverage for gram-negative pneumonia he was started on Zosyn 3.375 g IV piggyback every 6 hours, sputum culture were obtained, urine Legionella antigen was obtained, patient also was seen in consultation by poor medicine patient stated that he has been having some bleeding per rectum with maroon colored stool, his hemoglobin did drop and the because of that his guaiac was positive, he was admitted to the hospital to telemetry unit, consultation from general surgery was obtained for EGD tomorrow morning, patient was place on Protonix 40 mg IV push every 12 hours he was taken off aspirin and Plavix and prednisone altogether. 05/21: Patient has been seen and followed by pulmonary medicine for COPD exacerbation maintained on Pulmicort, performance, DuoNeb, IV Zosyn. Breathing status is improved. He's had no further episodes of GI bleeding. Hemoglobin is stable at 7.3. Aspirin and Plavix are on hold and patient is nothing by mouth. He is on IV Protonix. He is scheduled for EGD today with Dr. Snyder. WBC 9.8, hemoglobin 7.3, platelet count 266. Legionella negative. 05/22: Patient is laying down in bed in no acute distress, he is feeling better today, he continues to be on oxygen, he continues to be on Zosyn, he has been followed by general surgery as well as pulmonary medicine, he did have an EGD that did not show evidence of acute bleed, patient would need to have another colonoscopy that would be done as an outpatient, his hemoglobin is down 7.3, he would be given iron infusion today and possibly tomorrow repeat a CBC tomorrow morning. 05/23: Patient sitting up at the edge of the bed, he does not appear to be in acute distress, is currently on 3 L nasal cannula, he was seen earlier by pulmonary medicine recommended to switch the patient to Augmentin twice every day for 7 days, he was taken off Zosyn, patient will likely be discharged home in the next 24 hours, no more GI bleed, EGD was done, colonoscopy would be scheduled as an outpatient, Legionella antigen is negative. Smoking cessation REVIEW OF SYSTEMS: Constitutional: positive for documented fever, no chills, no night sweats. No weight change. positive for weakness, positive for fatigue or lethargy. No daytime sleepiness. HEENT: No headache. No blurred vision or double vision, no loss of vision. No loss of Hearing, no ringing in the ears, no dizziness. No nasal drainage or congestion. No epistaxis. No sore throat. Lungs: positive for shortness of breath, positive for coughing, minimal sputum production. positive for wheezing. Reports dyspnea with activity. Cardiovascular: No chest pain, no lower extremity edema. No palpitations. No paroxysmal nocturnal dyspnea. No orthopnea. No lightheadedness or dizziness. No syncopal episodes. Abdominal: Denies mid abdominal pain. No nausea, vomiting. No diarrhea. No constipation. Denies continued for bloody and tarry stools reports loss of appetite. Genitourinary: No dysuria, increased frequency, urgency. No urinary retention. Musculoskeletal: No myalgias. positive for muscle weakness, no gait dysfunction, no frequent falls. No back pain. No neck pain. Integumentary: No wounds, no lesions. No rash or pruritus. No unusual bruisi ng. No change in hair or nails. Neurologic: No aphasia. No facial droop. No change in mentation. No head injury. No headache. No paralysis. No paresthesia. Psychiatric: No depression. No anxiety. No mood swings. Endocrine: No abnormal blood sugars. No weight change. PHYSICAL EXAMINATION: General: 76-year-old male sitting up in bed in no respiratory distress. HEENT: Head is atraumatic, normocephalic, pupils were equal round reactive to light and recommendation, extraocular muscle movement were intact, sclera nonicteric, conjunctivae were pale, mucous membranes of the mouth are somewhat dry. Neck: Supple, no JVP, decreased carotid upstroke bilaterally, no lymphadenopathy. Chest: Decreased breath sounds at the bases, few rhonchi, minimal expiratory wheezes, no chest wall tenderness, no intercostal retractions. Heart: First heart sound is normal, second heart sound is normal there is ISAIAH 2/6 located at the left sternal border. Abdomen: Soft, nontender, nondistended, positive bowel sounds, no hepatosplenomegaly Extremities: There is no edema no calf tenderness DP +1 bilaterally. Neurologic examination: Patient is awake alert and oriented X 3, cranial nerves II-12 appear grossly intact, muscle power were 5 out of 5 in upper extremities and 5 out of 5 in bilateral lower extremities, deep tendon reflexes normal bilaterally. ASSESSMENT AND PLAN: 1. Acute hypoxemic respiratory failure due to bilateral lower lobe pneumonia likely gram-negative as well as COPD exacerbation. patient was started on Augmentin 875 mg po bid for 7 days , O2 3 L NC , sputum culture, urine Legionella antigen is negative, continue patient on budesonide 1 mg nebulization twice every day as well as Formeterol twice every day primary consultation appreciated. 2. Upper GI bleed likely peptic ulcer disease. Discontinue aspirin, discontinue Plavix, post EGD and no more GI bleed. 3. Acute blood loss anemia due to upper GI bleed. Monitor the patient hemoglobin and the next 24 hours. iron infusion today. 4. Hypertensive and hypertensive cardiovascular disease. Continue lisinopril 10 mg daily, Lopressor 25 mg twice daily, continue to monitor the patient blood pressure very closely. 5. History of coronary artery disease status post 3 vessel CABG, stents. Continue carvedilol 3.125 mg orally twice every day, Lipitor 80 mg daily . , 6. History of left carotid endarterectomy, stable. his carotid duplex are up-to-date. 7. COPD without exacerbation. Continue treatment as in paragraph #1. 8. Hyperlipidemia. Continue Lipitor 80 mg once every day monitor the patient dependent, keep LDL 55-70. 9. Benign prostatic hypertrophy. Monitor for urinary retention, continue Flomax 0.4 mg at bedtime 10. Gastroesophageal reflux disease and GI prophylaxis. Continue Protonix 40 mg and switched to oral once every day. 11. Recurrent depression. Continue Remeron 30 mg daily, Zoloft 150 mg daily. 12. DVT prophylaxis. Bilateral knee-high YUE hose 13. Tobacco use and dependence. Continue nicotine patch 14. History of alcohol abuse. Patient quit drinking in October 2018. 15. Discharge patient home tomorrow morning on oxygen 3 L cannula. Objective - Vital Signs Vital signs: Vital Signs Temp 98.7 F 05/23/22 08:00 Pulse 77 05/23/22 09:50 Resp 19 05/23/22 08:00 BP 128/70 05/23/22 08:00 Pulse Ox 97 05/23/22 09:28 FiO2 Intake & Output 05/22/22 05/23/22 05/23/22 18:59 06:59 18:59 Intake Total 472 Balance 472 Intake: Oral 472 Other: Voiding Method Toilet Toilet Toilet # Voids 3 3 # Bowel Movements 1 - Labs CBC & Chem 7: 05/23/22 07:36 05/23/22 07:36 Labs: Abnormal Lab Results - Last 24 Hours (Table) 05/23/22 05/23/22 Range/Units 07:36 07:36 RBC 2.41 L (4.40-5.60) X 10*6/uL Hgb 7.3 L (13.0-17.0) g/dL Hct 22.9 L (39.6-50.0) % MCHC 31.9 L (32.0-37.0) g/dL RDW 14.7 H (11.5-14.5) % Immature Gran # 0.05 H (0.00-0.04) X 10*3/uL Lymphocytes # 0.77 L (0.90-5.00) X 10*3/uL Anion Gap 8.20 L (10.00-18.00) mmol/L Calcium 7.9 L (8.7-10.3) mg/dL Total Protein 4.7 L (6.2-8.2) g/dL Albumin 2.6 L (3.8-4.9) g/dL Albumin/Globulin Ratio 1.19 L (1.60-3.17) g/dL Microbiology - Last 24 Hours (Table) 05/19/22 18:20 Blood Culture - Preliminary Blood No Growth after 72 hours 05/19/22 18:10 Blood Culture - Preliminary Blood No Growth after 72 hours
[2022-05-23 16:04] VITALS: RESP 18
[2022-05-23] MEDS: ATORVASTATIN 80 MG TAB PO SCH (20:57)
[2022-05-23] MEDS: TAMSULOSIN 0.4 MG CAP.ER.24H PO SCH (20:57)
[2022-05-23] MEDS: AMOXIC-POT CLAV 875-125MG 1 EACH TAB PO SCH (20:57)
[2022-05-23] MEDS: MIRTAZAPINE 15 MG TAB PO SCH (20:57)
[2022-05-24] MEDS ORDERED: PANTOPRAZOLE 40 MG TABLET PO SCH (07:30)
[2022-05-24] MEDS: IPRATROPIUM-ALBUTEROL 3 ML NEB INHALATION SCH ×2 (09:11→12:47)
[2022-05-24] MEDS: FORMOTEROL FUMARATE 20 MCG/2 ML NEBU INHALATION SCH (09:12)
[2022-05-24] MEDS: BUDESONIDE 1 MG/2 ML NEBU INHALATION SCH (09:12)
[2022-05-24 10:15] VITALS: BP 146/77; PULSE 61; TEMP 98.2
--- NOTE | 2022-05-24 10:48 | P.DS ---
Providers Date of admission: 05/19/22 17:44 Expected date of discharge: 05/24/22 Attending physician: Clay Kuo Consults: 05/19/22 17:39 Consult Physician Routine Consulting Provider: Vivek Grimes Consult Reason/Comments: Pneumonia with room air hypoxemia Do you want consulting provider notified?: Yes 05/19/22 18:21 Consult Physician Routine Consulting Provider: Bucky Snyder Consult Reason/Comments: Upper GI bleed Do you want consulting provider notified?: Yes Primary care physician: Clay Kuo Hospital Course: HISTORY OF PRESENT ILLNESS: This is a 76-year-old male patient of [employer] with past medical history significant for coronary artery disease status post three-vessel CABG in 2016 with GALLO to LAD, SVG to the ramus, SVG to the PDA that was in 07/23/2016, prior to that left heart catheterization with PCI of the ramus intermedius back in 06/30/1996 gastroesophageal reflux disease, hypertension, hyperlipidemia, osteoarthritis generalized, benign prostatic hypertrophy, COPD, recurrent depression, tobacco use and dependence, history of alcohol abuse that he quit in October 2018 patient was recently hospitalized at [facility] after he was admitted for acute exacerbation of chronic obstructive pulmonary disease as well as COVID-19 pneumonia, he was doing fine and he was left the hospital on 05/06/2022, patient presented to my office yesterday for a follow-up visit he was discharged on no oxygen, he did receive a 7 day course of Levaquin as well as a prednisone burst and a taper, he shouldn't became quite hypoxemic in the office with oxygen saturation 84% on room air, he was placed immediately on oxygen 3 L a candidate his oxygen improved to 91%, I've contacted EMS, the patient was transported to the hospital for evaluation he was seen in the ER and he was found to have a bilateral lower lobe pneumonia and acute exacerbation of COPD, he was initially placed on Rocephin and Zithromax however because of his recent presentation to the hospital he shouldn't have coverage for gram-negative pneumonia he was started on Zosyn 3.375 g IV piggyback every 6 hours, sputum culture were obtained, urine Legionella antigen was obtained, patient also was seen in consultation by poor medicine patient stated that he has been having some bleeding per rectum with maroon colored stool, his hemoglobin did drop and the because of that his guaiac was positive, he was admitted to the hospital to telemetry unit, consultation from general surgery was obtained for EGD tomorrow morning, patient was place on Protonix 40 mg IV push every 12 hours he was taken off aspirin and Plavix and prednisone altogether. 05/21: Patient has been seen and followed by pulmonary medicine for COPD exacerbation maintained on Pulmicort, performance, DuoNeb, IV Zosyn. Breathing status is improved. He's had no further episodes of GI bleeding. Hemoglobin is stable at 7.3. Aspirin and Plavix are on hold and patient is nothing by mouth. He is on IV Protonix. He is scheduled for EGD today with Dr. Snyder. WBC 9.8, hemoglobin 7.3, platelet count 266. Legionella negative. 05/22: Patient is laying down in bed in no acute distress, he is feeling better today, he continues to be on oxygen, he continues to be on Zosyn, he has been followed by general surgery as well as pulmonary medicine, he did have an EGD that did not show evidence of acute bleed, patient would need to have another colonoscopy that would be done as an outpatient, his hemoglobin is down 7.3, he would be given iron infusion today and possibly tomorrow repeat a CBC tomorrow morning. 05/23: Patient sitting up at the edge of the bed, he does not appear to be in acute distress, is currently on 3 L nasal cannula, he was seen earlier by pulmonary medicine recommended to switch the patient to Augmentin twice every day for 7 days, he was taken off Zosyn, patient will likely be discharged home in the next 24 hours, no more GI bleed, EGD was done, colonoscopy would be scheduled as an outpatient, Legionella antigen is negative. Smoking cessation 05/24: Patient is resting comfortably and appears to be in no acute distress. Of home oxygen assessment has been done and patient will require home oxygen therapy in order to perform his ADLs. His pulse ox dropped down to 88% with activity while on room air. Patient remains afebrile, heart rate in the 70s, blood pressure 146/77. Hemoglobin yesterday was 7.3 stable from the day before. Repeat blood work today has not been reported at the time of this dictation. Plan is for patient to return home. Home oxygen therapy will be arranged by the social worker aide and patient will be discharged home today in stable condition. DISCHARGE DIAGNOSES 1. Acute hypoxemic respiratory failure due to bilateral lower lobe pneumonia likely gram-negative as well as COPD exacerbation. 2. Upper GI bleed likely peptic ulcer disease. 3. Acute blood loss anemia due to upper GI bleed. 4. Hypertensive and hypertensive cardiovascular disease. 5. History of coronary artery disease status post 3 vessel CABG, stents. 6. History of left carotid endarterectomy, stable. 7. COPD exacerbation. 8. Hyperlipidemia. 9. Benign prostatic hypertrophy. 10. Gastroesophageal reflux disease. 11. Recurrent depression. 12. Tobacco use and dependence. 13. History of alcohol abuse. Discharge patient home today on oxygen 3 L cannula. Greater than 35 minutes was utilized and coordinating patient's discharge. Impression and plan of care have been directed as dictated by the signing physician. Cindi Edwards nurse practitioner acting as scribe for signing physician. Plan - Discharge Summary Discharge Rx Participant: Yes New Discharge Prescriptions: New Amoxic-Pot Clav 875-125Mg [Augmentin 875-125] 1 each PO Q12HR #10 tab Ipratropium-Albuterol Nebulize [Duoneb 0.5 mg-3 mg/3 ml Soln] 3 ml INHALATION RT-QID #120 each Continue Tamsulosin [Flomax] 0.4 mg PO HS lisinopriL [Zestril] 10 mg PO DAILY Mirtazapine 30 mg PO HS Sertraline HCl [Zoloft] 150 mg PO DAILY Atorvastatin Calcium [Lipitor] 80 mg PO HS Albuterol Inhaler [Ventolin Hfa Inhaler] 2 puff INHALATION RT-QID PRN #0 each PRN Reason: Shortness Of Breath Or Wheezing Ascorbic Acid [Vitamin C] 500 mg PO BID tab Cholecalciferol [Vitamin D3 (25 Mcg = 1000 Iu)] 25 mcg PO DAILY tab carvediloL [Coreg] 3.125 mg PO BID Pantoprazole [Protonix] 40 mg PO DAILY Nicotine 14Mg/24Hr Patch [Habitrol] 1 patch TRANSDERM DAILY #30 patch Zinc Sulfate [Orazinc] 220 mg PO DAILY cap Budesonide-Formot 160-4.5 Mcg [Symbicort 160-4.5 Mcg Inhaler] 2 puff INHALATION RT-BID #0 each Discontinued Clopidogrel [Plavix] 75 mg PO HS Aspirin 325 mg PO DAILY predniSONE See Taper PO DIRECTED Discharge Medication List Tamsulosin [Flomax] 0.4 mg PO HS 07/16/16 [History] lisinopriL [Zestril] 10 mg PO DAILY 07/11/18 [History] Mirtazapine 30 mg PO HS 12/03/18 [History] Atorvastatin Calcium [Lipitor] 80 mg PO HS 08/13/19 [History] Sertraline HCl [Zoloft] 150 mg PO DAILY 08/13/19 [History] Pantoprazole [Protonix] 40 mg PO DAILY 05/06/22 [History] carvediloL [Coreg] 3.125 mg PO BID 05/06/22 [History] Albuterol Inhaler [Ventolin Hfa Inhaler] 2 puff INHALATION RT-QID PRN #0 each 05/11/22 [Rx] Ascorbic Acid [Vitamin C] 500 mg PO BID tab 05/11/22 [Rx] Budesonide-Formot 160-4.5 Mcg [Symbicort 160-4.5 Mcg Inhaler] 2 puff INHALATION RT-BID #0 each 05/11/22 [Rx] Cholecalciferol [Vitamin D3 (25 Mcg = 1000 Iu)] 25 mcg PO DAILY tab 05/11/22 [Rx] Nicotine 14Mg/24Hr Patch [Habitrol] 1 patch TRANSDERM DAILY #30 patch 05/11/22 [Rx] Zinc Sulfate [Orazinc] 220 mg PO DAILY cap 05/11/22 [Rx] Amoxic-Pot Clav 875-125Mg [Augmentin 875-125] 1 each PO Q12HR #10 tab 05/24/22 [Rx] Ipratropium-Albuterol Nebulize [Duoneb 0.5 mg-3 mg/3 ml Soln] 3 ml INHALATION RT-QID #120 each 05/24/22 [Rx] Follow up Appointment(s)/Referral(s): Bucky Snyder MD [Medical Doctor] - 2 Weeks Clay Kuo MD [Primary Care Provider] - 1 Week Discharge Disposition: HOME SELF-CARE
[2022-05-24 10:54] LABS: African American GFR (CKD) 95.1 (60.0-200.0); Anion Gap 7.3 mmol/L (10.00-18.00); BUN/Creat Ratio 10.56 Ratio (12.00-20.00); Blood Urea Nitrogen 9.5 mg/dL (9.0-27.0); Calcium 8.3 mg/dL (8.7-10.3); Carbon Dioxide 23.7 mmol/L (20.0-27.5); Non-African American GFR(CKD) 82.1 (60.0-200.0); Potassium 4.1 mmol/L (3.5-5.5)
[2022-05-24 10:57] LABS: Basophils # (A) 0.01 X 10*3/uL (0.00-0.10); Basophils % (A) 0.2 %; Eosinophils # (A) 0.13 X 10*3/uL (0.04-0.35); Eosinophils % (A) 2.1 %; HCT 24.6 % (39.6-50.0); HGB 7.8 g/dL (13.0-17.0); Immature Grans, Automated 0.6 %; Lymphocytes # (A) 0.69 X 10*3/uL (0.90-5.00); Lymphocytes % (A) 11.1 %; MCH 30.5 pg (27.0-32.0); MCHC 31.7 g/dL (32.0-37.0); MCV 96.1 fL (80.0-97.0); Monocytes # (A) 0.56 X 10*3/uL (0.20-1.00); NRBC Per 100 WBC 0 /100 WBCS (0.0-0.0); Neutrophils # (A) 4.81 X 10*3/uL (1.80-7.70); Platelet Count 231 X 10*3/uL (140-440); RBC 2.56 X 10*6/uL (4.40-5.60); RDW 14.6 % (11.5-14.5); WBC 6.24 X 10*3/uL (4.50-10.00)
[2022-05-24] MEDS: NICOTINE 14MG/24HR PATCH TRANSDERM SCH (11:03)
[2022-05-24] MEDS: carvediloL 3.125 MG TAB PO SCH (11:03)
[2022-05-24] MEDS: lisinopriL 10 MG TAB PO SCH (11:04)
[2022-05-24] MEDS: AMOXIC-POT CLAV 875-125MG 1 EACH TAB PO SCH (11:04)
[2022-05-24] MEDS: ZINC SULFATE 220 MG CAP PO SCH (11:04)
[2022-05-24] MEDS: SERTRALINE 50 MG TAB PO SCH (11:04)
[2022-05-24] MEDS: CHOLECALCIFEROL 25 MCG (1000 IU) TABLET PO SCH (11:04)
--- NOTE | 2022-05-24 11:10 | P.PN ---
Subjective Progress Note Date: 05/24/22 CHIEF COMPLAINT: GI bleeding HISTORY OF PRESENT ILLNESS: Patient is status post EGD revealing mild gastritis and small hiatal hernia. He had declined colonoscopy. Patient's hemoglobin is stable. He's had no blood reported in his stools. Patient overall is feeling better. He is scheduled for discharge today. Afebrile. WBC 6.2 hgb stable at 7.8 platelets 231 sodium is 136 potassium 4.1 creatinine 0.9 PHYSICAL EXAM: VITAL SIGNS: Reviewed. GENERAL: Well-developed in no acute distress. HEENT: No sclera icterus. Extraocular movements grossly intact. Moist buccal mucosa. Head is atraumatic, normocephalic. ABDOMEN: Soft. Nondistended. Nontender. NEUROLOGIC: Alert and oriented. Cranial nerves II through XII grossly intact. ASSESSMENT: 1. GI bleed with black stools 2. Anemia 3. COPD exacerbation 4. Pneumonia PLAN: -Patient can be discharged from surgical standpoint. Hemoglobin stable. No further bleeding noted -Recommend colonoscopy outpatient -Continue PPI -Agree with holding Plavix and aspirin Physician Fiber Technician note has been reviewed by physician. Signing provider agrees with the documented findings, assessment, and plan of care. I have personally seen and examined the patient, reviewed the [employer] /PAs history, exam and MDM and agree with the assessment and plan as written. Based on total visit time, I have performed more than 50% of the visit. As above: Patient doing well at this time. No further bleeding. May discharge. Outpatient colonoscopy plan. Objective - Vital Signs Vital signs: Vital Signs Temp 98.2 F 05/24/22 07:05 Pulse 70 05/24/22 09:37 Resp 18 05/24/22 07:05 BP 146/77 05/24/22 07:05 Pulse Ox 92 L 05/24/22 10:16 FiO2 Intake & Output 05/23/22 05/24/22 05/24/22 18:59 06:59 18:59 Intake Total 1200 480 Balance 1200 480 Intake: Oral 1200 480 Other: Voiding Method Toilet # Voids 3 3 - Labs CBC & Chem 7: 05/24/22 06:48 05/24/22 06:48 Labs: Abnormal Lab Results - Last 24 Hours (Table) 05/23/22 05/24/22 05/24/22 Range/Units 07:36 06:48 06:48 RBC 2.56 L (4.40-5.60) X 10*6/uL Hgb 7.8 L (13.0-17.0) g/dL Hct 24.6 L (39.6-50.0) % MCHC 31.7 L (32.0-37.0) g/dL RDW 14.6 H (11.5-14.5) % Lymphocytes # 0.69 L (0.90-5.00) X 10*3/uL Anion Gap 8.20 L 7.30 L (10.00-18.00) mmol/L BUN/Creatinine Ratio 10.56 L (12.00-20.00) Ratio Calcium 7.9 L 8.3 L (8.7-10.3) mg/dL Total Protein 4.7 L (6.2-8.2) g/dL Albumin 2.6 L (3.8-4.9) g/dL Albumin/Globulin Ratio 1.19 L (1.60-3.17) g/dL Microbiology - Last 24 Hours (Table) 05/19/22 18:20 Blood Culture - Preliminary Blood No Growth after 96 hours 05/19/22 18:10 Blood Culture - Preliminary Blood No Growth after 96 hours
--- NOTE | 2022-05-24 14:46 | P.PN ---
Subjective Progress Note Date: 05/24/22 The patient is seen today 05/24/2022 in follow-up on the regular medical floor. He is currently sitting up in bed. Awake and alert in no acute distress. Feeling back to his baseline. No worsening shortness of breath, cough or congestion. He did drop to 88% FiO2 while being ambulated on room air and re covered to 96% with 3 L. Blood cultures reveal no growth. White count 6.2. Hemoglobin 7.8. Platelets 231. Sodium 136. Potassium 4.1. Bicarb 24. BUN 9.5. Creatinine 0.9. He is continued on bronchodilators. NicoDerm patch in place. Completing a course of antibiotics. Objective - Vital Signs Vital signs: Vital Signs Temp 98.2 F 05/24/22 07:05 Pulse 70 05/24/22 09:37 Resp 18 05/24/22 07:05 BP 146/77 05/24/22 07:05 Pulse Ox 92 L 05/24/22 10:16 FiO2 Intake & Output 05/23/22 05/24/22 05/24/22 18:59 06:59 18:59 Intake Total 1200 480 Balance 1200 480 Intake: Oral 1200 480 Other: Voiding Method Toilet # Voids 3 3 - Exam GENERAL EXAM: Alert, pleasant 77-year-old gentleman, on 3 L nasal cannula, fairly comfortable in no apparent distress. HEAD: Normocephalic. EYES: Normal reaction of pupils, equal size. NOSE: Clear with pink turbinates. THROAT: No erythema or exudates. NECK: No masses, no JVD. CHEST: No chest wall deformity. LUNGS: Equal air entry with no crackles, wheeze, rhonchi or dullness. Diminished CVS: S1 and S2 normal with no audible murmur, regular rhythm. ABDOMEN: No hepatosplenomegaly, normal bowel sounds, no guarding or rigidity. SPINE: No scoliosis or deformity SKIN: No rashes. Areas of ecchymosis CENTRAL NERVOUS SYSTEM: No focal deficits, tone is normal in all 4 extremities. EXTREMITIES: There is no peripheral edema. No clubbing, no cyanosis. Peripheral pulses are intact. - Labs CBC & Chem 7: 05/24/22 06:48 05/24/22 06:48 Labs: Abnormal Lab Results - Last 24 Hours (Table) 05/24/22 05/24/22 Range/Units 06:48 06:48 RBC 2.56 L (4.40-5.60) X 10*6/uL Hgb 7.8 L (13.0-17.0) g/dL Hct 24.6 L (39.6-50.0) % MCHC 31.7 L (32.0-37.0) g/dL RDW 14.6 H (11.5-14.5) % Lymphocytes # 0.69 L (0.90-5.00) X 10*3/uL Anion Gap 7.30 L (10.00-18.00) mmol/L BUN/Creatinine Ratio 10.56 L (12.00-20.00) Ratio Calcium 8.3 L (8.7-10.3) mg/dL Microbiology - Last 24 Hours (Table) 05/19/22 18:20 Blood Culture - Preliminary Blood No Growth after 96 hours 05/19/22 18:10 Blood Culture - Preliminary Blood No Growth after 96 hours Assessment and Plan Assessment: Acute exacerbation of chronic obstructive pulmonary disease with recent COVID-19 infection and possible superimposed bilateral pneumonia. Continued on Zosyn. Acute hypoxemic respiratory failure secondary to bone currently on 3 L nasal cannula Acute upper GI bleed. EGD revealed mild gastritis and small hiatal hernia. No active bleeding. Acute anemia secondary to above Hypertension Hyperlipidemia Coronary disease with previous stents and coronary artery bypass surgery History of carotid stenosis with previous right carotid endarterectomy History of BPH with previous TURP Previous bladder cancer status post surgery Chronic and ongoing tobacco dependence History of alcoholism however quit back in 2019 Plan: The patient was seen and evaluated Medications and labs reviewed Cleared for discharge from the pulmonary standpoint Continue home pulmonary medications Evaluated for possible home oxygen Complete course of antibiotics Complete a prednisone taper Follow-up in our office in 1 week I have personally seen and examined the patient, performed the documentation and the assessment and plan as written. Number of minutes spent on the visit: 10.
== END 2022-05-24 14:00 | disposition home or self-care (01) | DRG 177 ==
LOC: EC 14:47 → 4SSUR 17:44
PROVIDERS: ADMIT Internal Medicine; ATTEND Internal Medicine
PROC: 0DB78ZX Excision of Stomach, Pylorus, Via Natural or Artificial Opening Endoscopic, Diagnostic (ICD-10-PCS; principal; 2022-05-21 14:55)
DX: J15.6 Pneumonia due to other Gram-negative bacteria (principal); J96.01 Acute respiratory failure with hypoxia; K27.4 Chronic or unspecified peptic ulcer, site unspecified, with hemorrhage; D62 Acute posthemorrhagic anemia; F33.9 Major depressive disorder, recurrent, unspecified; I11.9 Hypertensive heart disease without heart failure; I25.2 Old myocardial infarction; U09.9 Post COVID-19 condition, unspecified; E78.5 Hyperlipidemia, unspecified; F10.21 Alcohol dependence, in remission; F41.9 Anxiety disorder, unspecified; I25.10 Atherosclerotic heart disease of native coronary artery without angina pectoris; J43.9 Emphysema, unspecified; K21.9 Gastro-esophageal reflux disease without esophagitis; K29.70 Gastritis, unspecified, without bleeding; K44.9 Diaphragmatic hernia without obstruction or gangrene; M15.9 Polyosteoarthritis, unspecified; Z90.6 Acquired absence of other parts of urinary tract; Z90.79 Acquired absence of other genital organ(s); Z79.02 Long term (current) use of antithrombotics/antiplatelets; Z79.51 Long term (current) use of inhaled steroids; Z79.82 Long term (current) use of aspirin; Z79.899 Other long term (current) drug therapy; Z82.49 Family history of ischemic heart disease and other diseases of the circulatory system; Z85.51 Personal history of malignant neoplasm of bladder; Z95.1 Presence of aortocoronary bypass graft; Z95.5 Presence of coronary angioplasty implant and graft
CPT/HCPCS: 36415; 43239; 71046; 71275; 80048; 80053; 82272; 83605; 83735; 83880; 84145; 84484; 85025; 85379; 85610; 85730; 87040; 87449; 88305; 93005; 94640; 94760; 96365; 99285

== ENCOUNTER → 2023-02-23 | Outpatient (CLI) | payer MEDICARE ==
--- NOTE | 2023-02-25 08:20 | CTL ---
EXAMINATION TYPE: CT Low Dose Lung DATE OF EXAM ORDERED: 02/23/2023 HISTORY: Pulmonary nodule. Lung cancer screening CT DLP: 73.[address] CTDI: 2.0 mGy Automated exposure control for dose reduction was used. SCREENING VISIT: First after baseline COMPARISON: Prior study February 02, 2022 TECHNIQUE: Low dose computed tomography scan was performed through the chest at 1 mm thick sections a nd reconstructed images in multiple planes at 1 mm and [address] DIAGNOSTIC QUALITY: Satisfactory FINDINGS: LUNG NODULES: Present, detailed below: Tiny nodules predominantly in the right lung apex are redemonstrated. No new or enlarging greater teresita n 5 mm pulmonary nodules. LUNGS: COPD: Severity: Moderate Fibrosis: Severity: Mild Lymph nodes: None Other findings: None RIGHT PLEURAL SPACE: Effusion: None Calcification: None Thickening: None Pneumothorax: None LEFT PLEURAL SPACE: Effusion: None Calcification: None Thickening: Mild Pneumothorax: None HEART: Heart Size: Normal Coronary Calcification: Large Post-CABG changes are redemonstrated Pericardial Effusion: None OTHER FINDINGS: Upper abdomen: None Bony thorax: None Supraclavicular region: None Other: None IMPRESSION: No new or enlarging greater than [address] LUNG RAD AND CT CHEST RECOMMENDATION: Lung-Rad 2 Benign Appearance or Behavior: Continue annual sc reening with LDCT in 12 months. S Modifier (other clinically significant findings): None
== END | disposition home or self-care (01) ==
LOC: RADCTMAIN 11:44
PROVIDERS: ATTEND Internal Medicine
DX: Z12.2 Encounter for screening for malignant neoplasm of respiratory organs (principal); F17.210 Nicotine dependence, cigarettes, uncomplicated; R91.1 Solitary pulmonary nodule
CPT/HCPCS: 71271

== ENCOUNTER 2024-01-02 18:23 | Inpatient (IN) | payer MEDICARE ==
[2024-01-02 19:40] LABS: Basophils % (A) 0 %; Eosinophils # (A) 0.2 k/uL (0-0.7); Eosinophils % (A) 2 %; HCT 38.7 % (39.0-53.0); HGB 12.8 gm/dL (13.0-17.5); Lymphocytes % (A) 12 %; MCH 31.3 pg (25.0-35.0); Mean Platelet Volume 7.8; Monocytes # (A) 0.4 k/uL (0-1.0); Monocytes % (A) 5 %; Neutrophils % (A) 81 %; Platelet Count 213 k/uL (150-450); RBC 4.07 m/uL (4.30-5.90); RDW 13.5 % (11.5-15.5); WBC 8.7 k/uL (3.8-10.6)
[2024-01-02 19:48] LABS: INR 1.1 (<1.2); Partial Thromboplastin Time 24.5 sec (22.0-30.0); Prothrombin Time 12.2 sec (10.0-12.5)
[2024-01-02 19:50] LABS: ALT 17 U/L (4-49); African American GFR (CKD) >90 (>60 ml/min/1.73 sqM); Albumin 4.3 g/dL (3.5-5.0); Anion Gap 12 mmol/L; Blood Urea Nitrogen 12 mg/dL (9-20); Calcium 9.3 mg/dL (8.4-10.2); Carbon Dioxide 22 mmol/L (22-30); Chloride 100 mmol/L (98-107); Glucose 79 mg/dL (74-99); Non-African American GFR(CKD) >90 (>60 ml/min/1.73 sqM); Sodium 134 mmol/L (137-145); Total Bilirubin 0.9 mg/dL (0.2-1.3)
[2024-01-02 20:00] LABS: AST 32 U/L (17-59); Alkaline Phosphatase 72 U/L (38-126); Potassium 4.4 mmol/L (3.5-5.1)
--- NOTE | 2024-01-02 20:26 | XR ---
EXAMINATION TYPE: XR Hip LT and AP Pelvis DATE OF EXAM: 01/02/2024 7:15 PM COMPARISON: 08/13/2019 CLINICAL INDICATION: Male, 78 years old with history of fall/pain, TECHNIQUE: XR Hip LT and AP Pelvis view(s) obtained. FINDINGS: Right hip prosthesis is present. Left femoral head articulates with the acetabulum There is a new lucency within the medial left femoral neck extending towards the intertrochanteric re gion. A partial fracture is visualized. This may extend to the greater trochanter. IMPRESSION: 1. Suspected nondisplaced fracture left femoral neck. [facility], , 01/02/2024 8:23 PM
--- NOTE | 2024-01-02 20:32 | ED ---
General Adult HPI - General Chief complaint: Fall Stated complaint: Fall- Left Hip Pain Time Seen by Provider: 01/02/24 18:27 Source: patient, RN notes reviewed, old records reviewed Mode of arrival: ambulatory Limitations: no limitations - History of Present Illness Initial comments: 78-year-old male presents after mechanical fall with left hip pain. Patient states he stood and tripped falling onto his left hip. He had sudden pain and was unable to bear weight. No head or neck trauma. No anticoagulation. Patient was transported by paramedics and did not require pain medication during transport. He states that as long as he does not move he does not have significant pain. - Related Data Home Medications Medication Instructions Recorded Confirmed Tamsulosin [Flomax] 0.4 mg PO HS 07/16/16 05/19/22 lisinopriL [Zestril] 10 mg PO DAILY 07/11/18 05/19/22 Mirtazapine 30 mg PO HS 12/03/18 05/19/22 Atorvastatin Calcium [Lipitor] 80 mg PO HS 08/13/19 05/19/22 Sertraline HCl [Zoloft] 150 mg PO DAILY 08/13/19 05/19/22 Pantoprazole [Protonix] 40 mg PO DAILY 05/06/22 05/19/22 carvediloL [Coreg] 3.125 mg PO BID 05/06/22 05/19/22 Previous Rx's Medication Instructions Recorded Albuterol Inhaler [Ventolin Hfa 2 puff INHALATION RT-QID PRN #0 05/11/22 Inhaler] each Ascorbic Acid [Vitamin C] 500 mg PO BID tab 05/11/22 Budesonide-Formot 160-4.5 Mcg 2 puff INHALATION RT-BID #0 each 05/11/22 [Symbicort 160-4.5 Mcg Inhaler] Cholecalciferol [Vitamin D3 (25 25 mcg PO DAILY tab 05/11/22 Mcg = 1000 Iu)] Nicotine 14Mg/24Hr Patch [Habitrol] 1 patch TRANSDERM DAILY #30 patch 05/11/22 Zinc Sulfate [Orazinc] 220 mg PO DAILY cap 05/11/22 Amoxic-Pot Clav 875-125Mg 1 each PO Q12HR #10 tab 05/24/22 [Augmentin 875-125] Ipratropium-Albuterol Nebulize 3 ml INHALATION RT-QID #120 each 05/24/22 [Duoneb 0.5 mg-3 mg/3 ml Soln] Allergies Allergy/AdvReac Type Severity Reaction Status Date / Time No Known Allergies Allergy Verified 05/19/22 17:35 Review of Systems ROS Statement: Those systems with pertinent positive or pertinent negative responses have been documented in the HPI. ROS Other: All systems not noted in ROS Statement are negative. Past Medical History Past Medical History: Coronary Artery Disease (CAD), Cancer, Chest Pain / Angina, GERD/Reflux, Hyperlipidemia, Hypertension, Myocardial Infarction ([place]), Pneumonia, Prostate Disorder, Vascular Disorder Additional Past Medical History / Comment(s): 2014 bladder cancer with surgery/hematuria, anemia, BPH, past ETOH abuse with withdrawal tremors-pt has not drank since 10/2018. Last Myocardial Infarction Date:: 2014 History of Any Multi-Drug Resistant Organisms: None Reported Past Surgical History: Bladder Surgery, Coronary Bypass/CABG, Heart Catheterization, Heart Catheterization With Stent Additional Past Surgical History / Comment(s): 2016 CABG 3 vessel, TUR BT/resection, cystoscopy, R caratid endartectomy, EGD, colonoscopy, small bowel capsule, bilateral cataract removals, hip surgery Past Anesthesia/Blood Transfusion Reactions: No Reported Reaction Additional Past Anesthesia/Blood Transfusion Reaction / Comment(s): Pt has received blood in past without reaction. Date of Last Stent Placement:: 1996 Past Psychological History: Anxiety, Depression Smoking Status: Current every day smoker Past Alcohol Use History: Occasional, Rare Past Drug Use History: None Reported - Past Family History Father Family Medical History: Coronary Artery Disease (CAD) Additional Family Medical History / Comment(s): Father at age 78 from heart disease. Mother Family Medical History: CVA/TIA, Hypertension Additional Family Medical History / Comment(s): Mother at age 85 from stroke with history of hypertension. Sister(s) Family Medical History: No Reported History Additional Family Medical History / Comment(s): Patient has 2 sisters and one has history of myocardial infarction. Second sister has nomajor medical problems. Patient does not have any brothers. Daughter(s) Family Medical History: No Reported History Additional Family Medical History / Comment(s): The patient has 2 daughters and one has had leg amputation secondary to osteomyelitis. Second daughter has no major medical problems. Patient has one son with no major medical problems. Son(s) Family Medical History: No Reported History General Exam Limitations: no limitations General appearance: alert, in no apparent distress Head exam: Present: atraumatic, normocephalic Eye exam: Present: normal appearance, PERRL ENT exam: Present: normal exam Neck exam: Present: normal inspection. Absent: tenderness, meningismus Respiratory exam: Present: normal lung sounds bilaterally. Absent: respiratory distress, wheezes Cardiovascular Exam: Present: regular rate, normal rhythm GI/Abdominal exam: Present: soft. Absent: distended, tenderness Extremities exam: Absent: full ROM (Pain with range of motion of the left hip) Neurological exam: Present: alert, oriented X3 Psychiatric exam: Present: normal affect, normal mood Course Vital Signs 01/02/24 18:27 Pulse Rate 76 Respiratory 18 Rate Blood Pressure 180/95 O2 Sat by Pulse 98 Oximetry - Reevaluation(s) Reevaluation #1: 01/02/24 20:31 Patient initially denied pain medication but subsequently request pain medication. Medical Decision Making - Medical Decision Making Was pt. sent in by a medical professional or institution (, PA, PAGEANT DIRECTOR, urgent c are, hospital, or detention...) When possible be specific @ -No Did you speak to anyone other than the patient for history (EMS, parent, family, police, friend...)? What history was obtained from this source @ -No Did you review nursing and triage notes (agree or disagree)? Why? @ -I reviewed and agree with nursing and triage notes Were old charts reviewed (outside hosp., previous admission, EMS record, old EKG, old radiological studies, urgent care reports/EKG's, detention records)? Report findings @ -No old charts were reviewed Differential Musculoskeletal Muscular strain, contusion, ligament sprain, fracture, arthritis, septic arthritis, bursitis, cellulitis, muscle spasm, nerve compression, DVT, arterial occlusion, herpes zoster, electrolyte abnormality, tumor.... This is not meant to be in all inclusive list EKG interpreted by me (3pts min.). @Sinus rhythm rate of 70, WA interval 189, QRS duration 100, QTc 427 artifact in V3 but otherwise no ST segment elevation X-rays interpreted by me (1pt min.). @ -X-ray of the left hip shows a nondisplaced fracture of the femoral neck CT interpreted by me (1pt min.). @ -CT confirming left subcapital femoral neck fracture U/S interpreted by me (1pt. min.). @ -None done What testing was considered but not performed or refused? (CT, X-rays, U/S, labs)? Why? @ -None What meds were considered but not given or refused? Why? @ -None Did you discuss the management of the patient with other professionals (professionals i.e. DrAlysa, PA, PAGEANT DIRECTOR, lab, RT, psych nurse, social worker psychiatric, cath lab nurse, teacher, money position officer, case briefer)? Give summary @Case discussed with Dr. Saray santoro for orthopedics and Dr. Kuo the patient's primary care doctor Was smoking cessation discussed for >3mins.? @ -No Was critical care preformed (if so, how long)? @ -No Were there social determinants of health that impacted care today? How? (Ho melessness, low income, unemployed, alcoholism, drug addiction, transportation, low edu. Level, literacy, decrease access to med. care, group home, rehab)? @ -No Was there de-escalation of care discussed even if they declined (Discuss DNR or withdrawal of care, Hospice)? DNR status @ -No What co-morbidities impacted this encounter? (DM, HTN, Smoking, COPD, CAD, Cancer, CVA, ARF, Chemo, Hep., AIDS, mental health diagnosis, sleep apnea, morbid obesity)? @ -[Hypertension, coronary artery disease Was patient admitted / discharged? Hospital course, mention meds given and route, prescriptions, significant lab abnormalities, going to OR and other pertinent info. @ -78-year-old male with mechanical fall, left hip pain. X-ray shows nondisplaced femoral neck fracture confirmed by CT. Preoperative laboratory tests are obtained. Case discussed with both orthopedics and the patient's primary care doctor. Patient admitted for further evaluation and management. Undiagnosed new problem with uncertain prognosis? @ -No Drug Therapy requiring intensive monitoring for toxicity (Heparin, Nitro, Insuli n, Cardizem)? @ -No Were any procedures done? @ -No Diagnosis/symptom? @ -Left femoral neck fracture Acute, or Chronic, or Acute on Chronic? @ -Acute Uncomplicated (without systemic symptoms) or Complicated (systemic symptoms)? @ -Default Side effects of treatment? @ -No Exacerbation, Progression, or Severe Exacerbation? @ -No Poses a threat to life or bodily function? How? (Chest pain, USA, NV, pneumonia, PE, COPD, DKA, ARF, appy, cholecystitis, CVA, Diverticulitis, Homicidal, Suicidal, threat to staff... and all critical care pts) @ -Yes, orthopedic injury - Lab Data Result diagrams: 01/02/24 19:28 01/02/24 19: Lab Results 01/02/24 01/02/24 01/02/24 Range/Units 19:28 19: 19:28 WBC 8.7 (3.8-10.6) k/uL RBC 4.07 L (4.30-5.90) m/uL Hgb 12.8 L (13.0-17.5) gm/dL Hct 38.7 L (39.0-53.0) % MCV 95.0 (80.0-100.0) fL MCH 31.3 (25.0-35.0) pg MCHC 33.0 (31.0-37.0) g/dL RDW 13.5 (11.5-15.5) % Plt Count 213 (150-450) k/uL MPV 7.8 Neutrophils % 81 % Lymphocytes % 12 % Monocytes % 5 % Eosinophils % 2 % Basophils % 0 % Neutrophils # 7.0 (1.3-7.7) k/uL Lymphocytes # 1.0 (1.0-4.8) k/uL Monocytes # 0.4 (0-1.0) k/uL Eosinophils # 0.2 (0-0.7) k/uL Basophils # 0.0 (0-0.2) k/uL PT 12.2 (10.0-12.5) sec INR 1.1 (<1.2) APTT 24.5 (22.0-30.0) sec Sodium 134 L (137-145) mmol/L Potassium 4.4 (3.5-5.1) mmol/L Chloride 100 (98-107) mmol/L Carbon Dioxide 22 (22-30) mmol/L Anion Gap 12 mmol/L BUN 12 (9-20) mg/dL Creatinine 0.71 (0.66-1.25) mg/dL Est GFR (CKD-EPI)AfAm >90 (>60 ml/min/1.73 sqM) Est GFR (CKD-EPI)NonAf >90 (>60 ml/min/1.73 sqM) Glucose 79 (74-99) mg/dL Calcium 9.3 (8.4-10.2) mg/dL Total Bilirubin 0.9 (0.2-1.3) mg/dL AST 32 (17-59) U/L ALT 17 (4-49) U/L Alkaline Phosphatase 72 (38-126) U/L Total Protein 7.0 (6.3-8.2) g/dL Albumin 4.3 (3.5-5.0) g/dL Disposition Clinical Impression: Femoral neck fracture Disposition: ADMITTED IP TO THIS [facility] Condition: Stable Is patient prescribed a controlled substance at d/c from ED?: No Referrals: Clay Kuo MD [Primary Care Provider] - 1-2 days Time of Disposition: 21:24
[2024-01-02] MEDS: HYDROmorphone 0.5 MG/0.5 ML SYRINGE IVP STA (20:41)
[2024-01-02] MEDS ORDERED: NALOXONE 0.4 MG/ML 1 ML VIAL IV PRN (20:55)
[2024-01-02] MEDS ORDERED: ACETAMINOPHEN TAB 325 MG TAB PO PRN (20:55)
--- NOTE | 2024-01-02 21:03 | CT ---
EXAMINATION TYPE: CT hip LT wo con DATE OF EXAM: 01/02/2024 8:43 PM COMPARISON: Left hip earlier today CLINICAL INDICATION: Male, 78 years old with history of pain/fall, left hip injury post slip and fall ., Lung cancer screening, History of tobacco use. TECHNIQUE: Contrast used: mL of , (none if empty) Oral contrast used: (none if empty) FINDINGS: There is a lucency along the inferior left femoral neck extending from the subcapital region. This ap pears to extend to the subcutaneous capital region superiorly and extends anteriorly into the femoral neck. This may be incomplete (best visualized coronal plane with some fair visualization sagittal pl ane. Femoral head articulates with the acetabulum. No additional areas suspicious for fracture are evident . Muscular signal appears normal. IMPRESSION: 1. INCOMPLETE NONDISPLACED SUBCAPITAL FRACTURE LEFT HIP [facility], , 01/02/2024 9:01 PM
[2024-01-02] MEDS: SODIUM CHLORIDE 0.9% 1,000 ML IV SCH (21:29)
[2024-01-02] MEDS: HYDROmorphone 0.5 MG/0.5 ML SYRINGE IVP PRN (22:51)
[2024-01-03] MEDS: HYDROmorphone 1 MG/ML 1 ML SYRINGE IVP PRN (02:43)
--- NOTE | 2024-01-03 07:46 | P.HPOR ---
History of Present Illness H&P Date: 01/03/24 The patient is a very pleasant 78-year-old male with multiple medical problems including being a current every day cigarette smoker who sustained a ground- level fall resulting in a left hip fracture. The patient was brought to the emergency department where x-rays and computed tomography scan showed a minimally displaced subcapital femoral neck fracture. At the time of my evaluation the patient is complaining of pain in the left hip and an inability to ambulate. He has no other complaints. Of note the patient underwent a right hip hemiarthroplasty in 2019 and did relatively well with this. He has minimal pain in the right hip. Past Medical History Past Medical History: Coronary Artery Disease (CAD), Cancer, Chest Pain / Angina, GERD/Reflux, Hyperlipidemia, Hypertension, Myocardial Infarction ([place]), Pneumonia, Prostate Disorder, Vascular Disorder Additional Past Medical History / Comment(s): 2014 bladder cancer with mclain rgery/hematuria, anemia, BPH, past ETOH abuse with withdrawal tremors-pt has not drank since 10/2018. Last Myocardial Infarction Date:: 2014 History of Any Multi-Drug Resistant Organisms: None Reported Past Surgical History: Bladder Surgery, Coronary Bypass/CABG, Heart Catheterization, Heart Catheterization With Stent Additional Past Surgical History / Comment(s): 2016 CABG 3 vessel, TUR BT/resection, cystoscopy, R caratid endartectomy, EGD, colonoscopy, small bowel capsule, bilateral cataract removals, hip surgery Past Anesthesia/Blood Transfusion Reactions: No Reported Reaction Additional Past Anesthesia/Blood Transfusion Reaction / Comment(s): Pt has received blood in past without reaction. Date of Last Stent Placement:: 1996 Past Psychological History: Anxiety, Depression Smoking Status: Current every day smoker Past Alcohol Use History: Occasional, Rare Past Drug Use History: None Reported - Past Family History Father Family Medical History: Coronary Artery Disease (CAD) Additional Family Medical History / Comment(s): Father at age 78 from heart disease. Mother Family Medical History: CVA/TIA, Hypertension Additional Family Medical History / Comment(s): Mother at age 85 from stroke with history of hypertension. Sister(s) Family Medical History: No Reported History Additional Family Medical History / Comment(s): Patient has 2 sisters and one has history of myocardial infarction. Second sister has nomajor medical problems. Patient does not have any brothers. Daughter(s) Family Medical History: No Reported History Additional Family Medical History / Comment(s): The patient has 2 daughters and one has had leg amputation secondary to osteomyelitis. Second daughter has no major medical problems. Patient has one son with no major medical problems. Son(s) Family Medical History: No Reported History Medications and Allergies Home Medications Medication Instructions Recorded Confirmed Type Tamsulosin [Flomax] 0.4 mg PO HS 07/16/16 05/19/22 History lisinopriL [Zestril] 10 mg PO DAILY 07/11/18 05/19/22 History Mirtazapine 30 mg PO HS 12/03/18 05/19/22 History Atorvastatin Calcium [Lipitor] 80 mg PO HS 08/13/19 05/19/22 History Sertraline HCl [Zoloft] 150 mg PO DAILY 08/13/19 05/19/22 History Pantoprazole [Protonix] 40 mg PO DAILY 05/06/22 05/19/22 History carvediloL [Coreg] 3.125 mg PO BID 05/06/22 05/19/22 History Albuterol Inhaler [Ventolin Hfa 2 puff INHALATION RT-QID PRN #0 05/11/22 05/19/22 Rx Inhaler] each Ascorbic Acid [Vitamin C] 500 mg PO BID tab 05/11/22 05/19/22 Rx Budesonide-Formot 160-4.5 Mcg 2 puff INHALATION RT-BID #0 each 05/11/22 05/19/22 Rx [Symbicort 160-4.5 Mcg Inhaler] Cholecalciferol [Vitamin D3 (25 25 mcg PO DAILY tab 05/11/22 05/19/22 Rx Mcg = 1000 Iu)] Nicotine 14Mg/24Hr Patch [Habitrol] 1 patch TRANSDERM DAILY #30 patch 05/11/22 05/19/22 Rx Zinc Sulfate [Orazinc] 220 mg PO DAILY cap 05/11/22 05/19/22 Rx Amoxic-Pot Clav 875-125Mg 1 each PO Q12HR #10 tab 05/24/22 Rx [Augmentin 875-125] Ipratropium-Albuterol Nebulize 3 ml INHALATION RT-QID #120 each 05/24/22 Rx [Duoneb 0.5 mg-3 mg/3 ml Soln] Allergies Allergy/AdvReac Type Severity Reaction Status Date / Time No Known Allergies Allergy Verified 05/19/22 17:35 Physical Examination The patient is resting comfortably in the emergency department [facility]. He is alert and able to answer questions. His head is normocephalic and atraumatic. She does treat nonoperatively with symmetric chest expansion. His abdomen is soft and nonobese. He has palpable pulses. He has no obvious deformities and no tenderness to palpation in both upper extremities and the right lower extremity. A focused exam of the left lower extremity was conducted. On inspection there is no overlying skin lesions scars over the left hip. His thigh is soft. He has pain with any passive range of motion of the left hip. The knee and ankle are nontender. He can actively plantarflex and dorsiflex his ankle and his toes. Results X-rays and computed tomography scan of the left hip show a minimally displaced subcapital femoral neck fracture. - Labs Labs: Abnormal Lab Results - Last 24 Hours (Table) 01/02/24 01/02/24 Range/Units 19:28 19:28 RBC 4.07 L (4.30-5.90) m/uL Hgb 12.8 L (13.0-17.5) gm/dL Hct 38.7 L (39.0-53.0) % Sodium 134 L (137-145) mmol/L H & H 01/02/24 Range/Units 19:28 Hgb 12.8 L (13.0-17.5) gm/dL Hct 38.7 L (39.0-53.0) % Coagulation 01/02/24 Range/Units 19:28 INR 1.1 (<1.2) Result Diagrams: 01/02/24 19:28 01/02/24 19:28 Assessment and Plan Assessment: Left intracapsular femoral neck fracture Current every day cigarette smoker Status post right hip hemiarthroplasty for femoral neck fracture Medical medical problems Plan: I would recommend a cemented left direct anterior hip hemiarthroplasty to treat the patient's intracapsular femoral neck fracture. Having previously undergone a hip hemiarthroplasty the patient understands the procedure, risks, and recovery. We briefly discussed the risks again. Internal medicine is been consulted for preoperative clearance and perioperative medical management. The patient is to remain on bedrest and strictly nonweightbearing until surgery. We will plan on surgery tomorrow afternoon. Time with Patient: Greater than 30
--- NOTE | 2024-01-03 16:25 | P.CONS ---
History of Present Illness - Reason for Consult Consult date: 01/03/24 Medical management Requesting physician: Levar So - Chief Complaint Subcapital fracture of the left hip - History of Present Illness HISTORY OF PRESENT ILLNESS: This is a 78-year-old male patient of mine with past medical history significant for coronary artery disease status post three-vessel CABG in 2017 with GALLO to LAD, SVG to the ramus, SVG to the PDA that was in 07/23/2016, prior to that left heart catheterization with PCI of the ramus intermedius back in 06/30/1996 gastroesophageal reflux disease, hypertension, hyperlipidemia, osteoarthritis generalized, benign prostatic hypertrophy, COPD, recurrent depression, tobacco use and dependence, history of alcohol abuse that he quit in October 2018 patient was seen in my office yesterday for a checkup, he was doing fine, and he went home, apparently he tripped at the edge of the rug and he landed on the left side of his hip, and he ended up with a tremendous amount of pain in the left hip area, he was transported to the emergency department at [facility], had a CT scan of the hip that showed incomplete nondisplaced left subcapital hip fracture he was admitted and orthopedic surgery were asked to see the patient for medical management and preoperative medical clearance for surgical intervention tomorrow morning. Patient did have a twelve-lead EKG did not show evidence of acute abnormalities, patient appears to have some minimal wheezing, he will will be started on DuoNeb 3 mL nebulization 4 times every day as needed, he was also on carvedilol 6.25 mg orally twice every day we will continue with that, we will monitor the patient very closely, patient has no contraindication for the proposed surgical intervention at this point in time, surgery may carry the risk for a few complications that the patient is aware of and willing to proceed, there is no evidence of any acute congestive heart failure at this point in time, or any evidence of any unstable angina. REVIEW OF SYSTEMS: Constitutional: positive for documented fever, no chills, no night sweats. No weight change. positive for weakness, positive for fatigue or lethargy. No daytime sleepiness. HEENT: No headache. No blurred vision or double vision, no loss of vision. No loss of Hearing, no ringing in the ears, no dizziness. No nasal drainage or congestion. No epistaxis. No sore throat. Lungs: no shortness of breath, positive for occasional coughing, minimal sputum production. positive for wheezing. Reports dyspnea with activity. Cardiovascular: No chest pain, no lower extremity edema. No palpitations. No paroxysmal nocturnal dyspnea. No orthopnea. No lightheadedness or dizziness. No syncopal episodes. Abdominal: Reports no abdominal pain. No nausea, vomiting. No diarrhea. No constipation. positive for loss of appetite Genitourinary: No dysuria, increased frequency, urgency. No urinary retention. Musculoskeletal: No myalgias. positive for muscle weakness, positive for gait dysfunction,positive for frequent falls. No back pain. No neck pain., left hip pain Integumentary: No wounds, no lesions. No rash or pruritus. No unusual bruising. No change in hair or nails. Neurologic: No aphasia. No facial droop. No change in mentation. No head injury. No headache. No paralysis. No paresthesia. Psychiatric: positive for depression. positive for anxiety. No mood swings. Endocrine: No abnormal blood sugars. No weight change. PAST MEDICAL HISTORY: CAD post CABG 3 with GALLO to LAD SVG to Ramus and SVG to the PDA 07/23/2016 Left heart catheterization with PCI of the ramus intermedius 06/30/1996 . Carotid artery disease status post right carotid endarterectomy. Hypertension and hypertensive cardio vascular disease. Hyperlipidemia. COPD. Chronic tobacco use. GERD with esophagitis. Enlarged prostate. Major depressive disorder. Bladder cancer status post surgery. PAST SURGICAL HISTORY: Left heart catheterization with PCI of the ramus intermedius 06/30/1996 CABG 3 with GALLO to LAD, SVG to the ramus and SVG to the PDA 07/23/2016 Right carotid endarterectomy. Left cataract surgery. Bladder resection surgery. Right intramedullary nail of the right hip 2020 Colonoscopy and EGD. SOCIAL HISTORY: Patient used to smoke about a pack every day since he was 20-year-old and currently smokes about a half pack every day, he used to be heavy drinker but quit drinking in October 2018, he lives with his daughter after his , and he is the primary caregiver for his daughter. FAMILY HISTORY: Father at age 78 from CAD, mother at age of 85 from CVA and had a history of hypertension, patient had 2 sisters one is alive and one with an ID patient has one son who is alive and 2 daughters one with one leg amputation due to osteomyelitis and currently is suffering from a hip fracture post surgery. PHYSICAL EXAMINATION: General: 78-year-old male sitting up in bed in no distress HEENT: Head is atraumatic, normocephalic, pupils were equal round reactive to light and recommendation, extraocular muscle movement were intact, sclera nonicteric, conjunctivae were pale, mucous membranes of the mouth are somewhat dry. Neck: Supple, no JVP, decreased carotid upstroke bilaterally, no lymphadenopathy. Chest: Decreased breath sounds at the bases, few rhonchi, minimal expiratory wheezes, no chest wall tenderness, no intercostal retractions. Heart: First heart sound is normal, second heart sound is normal there is ISAIAH 2/6 located at the left sternal border. Abdomen: Soft, nontender, nondistended, positive bowel sounds, no hepatosplenomegaly Extremities: There is no edema no calf tenderness DP +1 bilaterally, left lower extremity is tender to palpation. Neurologic examination: Patient is awake alert and oriented X 3, cranial nerves II-12 appear grossly intact, muscle power were 4 out of 5 in upper extremities a nd 4 out of 5 in the right lower extremity left lower extremity could not be examined due to the fracture. ASSESSMENT AND PLAN: 1. Status post a fall with left hip nondisplaced subcapital fracture. Continue with current pain management between Dilaudid 0.5 to 1 mg IV push every 4 hours as needed, and hydrocodone 7.5/325 1 tablet every 6 hours as needed, keep the patient on IV fluid resuscitation in the form of normal saline 75 cc an hour, patient is to be maintained on beta-wes in the form of carvedilol 3..125 mg orally twice every day lisinopril 10 mg once every day, continue with olga lidia rvastatin, hold aspirin overnight, patient is scheduled for surgical intervention tomorrow morning, there is no contraindication for surgery at this point in time, patient did have a myocardial perfusion imaging about a year ago with Dr. Nielson that was negative for stress-induced ischemia. 2. Mild hyponatremia likely due to hypovolemia continue IV fluid resuscitation in the form of normal saline 75 cc an hour. Repeat CMP tomorrow morning. 3. History of COPD. Start the patient on DuoNeb 3 mL nebulization 4 times every day, continue oxygen support as needed. Chest x-ray will be obtained. 4. Hypertensive and hypertensive cardiovascular disease. Continue lisinopril 10 mg daily, carvedilol 3.125 mg orally twice every day, monitor the patient blood pressure very closely. 5. History of coronary artery disease status post 3 vessel CABG, stents. Continue carvedilol 3.125 mg orally twice every day, Lipitor 80 mg daily . , 6. History of left carotid endarterectomy, stable. his carotid duplex are up-to-date. 7. COPD without exacerbation. Continue treatment as in paragraph # 3 8. Hyperlipidemia. Continue Lipitor 80 mg once every day monitor the patient dependent, keep LDL 55-70. 9. Benign prostatic hypertrophy. Monitor for urinary retention, continue Flomax 0.4 mg at bedtime 10. Gastroesophageal reflux disease and GI prophylaxis. Continue Protonix 40 mg orally once every day. 11. Recurrent depression. Continue Remeron 30 mg daily, Zoloft 50 mg daily. 12. DVT prophylaxis. Start the patient on Lovenox 30 mg subcutaneous every 12 hours postsurgical interventio 13. GI prophylaxis. Continue patient on Protonix 40 mg once every day. 14. Thank you Dr. So for the consult we will follow the patient with you. Past Medical History Past Medical History: Coronary Artery Disease (CAD), Cancer, Chest Pain / Angina, GERD/Reflux, Hyperlipidemia, Hypertension, Myocardial Infarction (ID), Pneumonia, Prostate Disorder, Vascular Disorder Additional Past Medical History / Comment(s): 2014 bladder cancer with surgery/hematuria, anemia, BPH, past ETOH abuse with withdrawal tremors-pt has not drank since 10/2018. Last Myocardial Infarction Date:: 2014 History of Any Multi-Drug Resistant Organisms: None Reported Past Surgical History: Bladder Surgery, Coronary Bypass/CABG, Heart Catheterization, Heart Catheterization With Stent Additional Past Surgical History / Comment(s): 2017 CABG 3 vessel, TUR BT/resection, cystoscopy, R caratid endartectomy, EGD, colonoscopy, small bowel capsule, bilateral cataract removals, hip surgery Past Anesthesia/Blood Transfusion Reactions: No Reported Reaction Additional Past Anesthesia/Blood Transfusion Reaction / Comm: Pt has received blood in past without reaction. Date of Last Stent Placement:: 1996 Past Psychological History: Anxiety, Depression Smoking Status: Current every day smoker Past Alcohol Use History: Occasional, Rare Past Drug Use History: None Reported - Past Family History Father Family Medical History: Coronary Artery Disease (CAD) Additional Family Medical History / Comment(s): Father at age 78 from heart disease. Mother Family Medical History: CVA/TIA, Hypertension Additional Family Medical History / Comment(s): Mother at age 85 from stroke with history of hypertension. Sister(s) Family Medical History: No Reported History Additional Family Medical History / Comment(s): Patient has 2 sisters and one has history of myocardial infarction. Second sister has nomajor medical problems. Patient does not have any brothers. Daughter(s) Family Medical History: No Reported History Additional Family Medical History / Comment(s): The patient has 2 daughters and one has had leg amputation secondary to osteomyelitis. Second daughter has no major medical problems. Patient has one son with no major medical problems. Son(s) Family Medical History: No Reported History Medications and Allergies Home Medications Medication Instructions Recorded Confirmed Type Tamsulosin [Flomax] 0.4 mg PO HS 07/16/16 01/03/24 History lisinopriL [Zestril] 10 mg PO DAILY 07/11/18 01/03/24 History Mirtazapine 30 mg PO HS 12/03/18 01/03/24 History Atorvastatin Calcium [Lipitor] 80 mg PO HS 08/13/19 01/03/24 History Pantoprazole [Protonix] 40 mg PO DAILY 05/06/22 01/03/24 History carvediloL [Coreg] 3.125 mg PO BID 05/06/22 01/03/24 History Aspirin EC [Ecotrin Low Dose] 81 mg PO DAILY 01/03/24 01/03/24 History Allergies Allergy/AdvReac Type Severity Reaction Status Date / Time No Known Allergies Allergy Verified 01/03/24 07:43 Physical Exam Vitals: Vital Signs Temp Pulse Resp BP Pulse Ox 01/03/24 15:30 68 16 155/83 99 01/03/24 14:28 69 16 155/83 01/03/24 10:05 69 16 183/65 94 L 01/03/24 07:44 98.6 F 66 18 185/84 98 01/03/24 07:06 74 18 163/82 97 01/03/24 03:04 74 18 147/77 95 01/02/24 23:03 71 16 134/75 95 01/02/24 18:27 76 18 180/95 98 Intake and Output 01/03/24 01/03/24 01/03/24 06:59 14:59 22:59 Output Total 600 Balance -600 Output: Urine 600 Uretheral (Kathleen) 600 Results CBC & Chem 7: 01/02/24 19:28 01/02/24 19:28 Labs: Abnormal Lab Results - Last 24 Hours (Table) 01/02/24 01/02/24 Range/Units 19:28 19:28 RBC 4.07 L (4.30-5.90) m/uL Hgb 12.8 L (13.0-17.5) gm/dL Hct 38.7 L (39.0-53.0) % Sodium 134 L (137-145) mmol/L
--- NOTE | 2024-01-03 16:54 | XR ---
EXAMINATION TYPE: XR chest 1V DATE OF EXAM: 01/03/2024 4:45 PM COMPARISON: Chest radiographs from 05/20/2022 CLINICAL INDICATION: Male, 78 years old with history of cough; TECHNIQUE: XR chest 1V Frontal view of the chest. FINDINGS: Lungs/Pleura: There is no evidence of pleural effusion, focal consolidation, or pneumothorax. Pulmonary vascularity: Unremarkable. Heart/mediastinum: Cardiomediastinal silhouette is unremarkable. Atherosclerotic calcifications are seen in the aorta. Musculoskeletal: No acute osseous pathology. Midline sternotomy wires are noted. IMPRESSION: No acute cardiopulmonary disease/process. [facility] Danii Cortes, , 01/03/2024 4:51 PM
[2024-01-03] MEDS: lisinopriL 10 MG TAB PO SCH (17:12)
[2024-01-03] MEDS: ATORVASTATIN 80 MG TAB PO SCH (20:54)
[2024-01-03] MEDS: MIRTAZAPINE 15 MG TAB PO SCH (20:54)
[2024-01-03] MEDS: carvediloL 3.125 MG TAB PO SCH (20:54)
[2024-01-03] MEDS: TAMSULOSIN 0.4 MG CAP.ER.24H PO SCH (20:54)
[2024-01-03] MEDS: IPRATROPIUM-ALBUTEROL 3 ML NEB INHALATION SCH (22:07)
[2024-01-04] MEDS: ONDANSETRON 4 MG/2 ML VIAL IVP ONE (08:22)
[2024-01-04] MEDS: DEXAMETHASONE SOD PHOSPHATE 4 MG/ML 1 ML VIAL IV ONE (08:22)
[2024-01-04] MEDS: LACTATED RINGERS 1,000 ML IV SCH (08:22)
[2024-01-04] MEDS: PANTOPRAZOLE 40 MG TABLET PO SCH (08:22)
[2024-01-04] MEDS: carvediloL 6.25 MG TAB PO SCH (08:57)
[2024-01-04] MEDS: lisinopriL 20 MG TAB PO SCH (08:57)
[2024-01-04] MEDS: hydrALAZINE HCL 20 MG/ML 1 ML VIAL IVP PRN (08:58)
[2024-01-04] MEDS: HYDROcodone/APAP 7.5-325MG 1 EACH TAB PO PRN (10:51)
--- NOTE | 2024-01-04 11:49 | CDI ---
Documentation Clarification Form Date: 01/04/2024 From: aSnia Marinelli RN CCDS Phone: [phone] Admit Date: 01/02/2024 08:55:00 PM Patient Name: Santo Canchola Visit Number: [id number] Discharge Date: ATTENTION: The Clinical Documentation Specialists (CDI) and [facility] Coding Staff appreciate your assistance in clarifying documentation. Please respond to the clarification below the line at the bottom and electronically sign. The CDI & [facility] Coding staff will review the response and follow-up if needed. Please note: Queries are made part of the Legal Health Record. If you have any questions, please contact the author of this message via ITS. Doctor/Provider: Clay Kuo MD: Patient has a documented BMI of 18.5 on 01/01. Additional clarification is requested. History/Risk Factors: 78-year-old male with a history of CAD s/p CABG, GERD, HTN, who presents after fall and found to have left hip fracture Clinical Indicators: 01/01 Patients weight is 53.52kg Patients height is 5ft 7in Calculated BMI is 18.5 01/01 Total Protein: 7.0 Treatments: 01/02, 01/13 NPO after midnight for surgery Monitor total protein Please clarify, is there is an additional diagnosis that is clinically appropriate for this patient? [ X ] Underweight [ ] No additional diagnosis/not clinically significant [ ] Other, please specify [ ] Unable to determine MTDD
--- NOTE | 2024-01-04 14:26 | P.PN ---
Subjective Progress Note Date: 01/04/24 HISTORY OF PRESENT ILLNESS: This is a 78-year-old male patient of [facility] with past medical history significant for coronary artery disease status post three-vessel CABG in 2016 with GALLO to LAD, SVG to the ramus, SVG to the PDA that was in 07/23/2016, prior to that left heart catheterization with PCI of the ramus intermedius back in 06/30/1996 gastroesophageal reflux disease, hypertension, hyperlipidemia, osteoarthritis generalized, benign prostatic hypertrophy, COPD, recurrent depression, tobacco use and dependence, history of alcohol abuse that he quit in October 2018 patient was seen in my office yesterday for a checkup, he was doing fine, and he went home, apparently he tripped at the edge of the rug and he landed on the left side of his hip, and he ended up with a tremendous amount of pain in the left hip area, he was transported to the emergency department at [facility], had a CT scan of the hip that showed incomplete nondisplaced left subcapital hip fracture he was admitted and orthopedic surgery were asked to see the patient for medical management and preoperative medical clearance for surgical intervention tomorrow morning. Patient did have a twelve-lead EKG did not show evidence of acute abnormalities, patient appears to have some minimal wheezing, he will will be started on DuoNeb 3 mL nebulization 4 times every day as needed, he was also on carvedilol 6.25 mg orally twice every day we will continue with that, we will monitor the patient very closely, patient has no contraindication for the proposed surgical intervention at this point in time, surgery may carry the risk for a few complications that the patient is aware of and willing to proceed, there is no evidence of any acute congestive heart failure at this point in time, or any evidence of any unstable angina. 01/03: Patient is laying down in bed in no apparent distress, he is receiving 2 L oxygen, his oxygen saturation was 95% on 2 L, he has been getting nebulized treatment, chest x-ray did not show evidence of acute abnormalities, twelve-lead EKG showed normal sinus rhythm with nonspecific ST-T wave changes, patient is scheduled to go for surgical intervention this afternoon, patient has no calcification for the proposed surgical intervention as stated earlier patient did have a myocardial perfusion imaging MPI that was done in March 09, 2023 that was negative for stress-induced ischemia, he has been following up with Dr. Gamez on a regular basis, he also has moderate stenosis of the left internal carotid artery and mild disease of the right internal carotid artery and the last ultrasound of the carotid was done in March 09, 2023. REVIEW OF SYSTEMS: Constitutional: positive for documented fever, no chills, no night sweats. No weight change. positive for weakness, positive for fatigue or lethargy. No daytime sleepiness. HEENT: No headache. No blurred vision or double vision, no loss of vision. No loss of Hearing, no ringing in the ears, no dizziness. No nasal drainage or congestion. No epistaxis. No sore throat. Lungs: no shortness of breath, positive for occasional coughing, minimal sputum production. positive for wheezing. Reports dyspnea with activity. Cardiovascular: No chest pain, no lower extremity edema. No palpitations. No paroxysmal nocturnal dyspnea. No orthopnea. No lightheadedness or dizziness. No syncopal episodes. Abdominal: Reports no abdominal pain. No nausea, vomiting. No diarrhea. No constipation. positive for loss of appetite Genitourinary: No dysuria, increased frequency, urgency. No urinary retention. Musculoskeletal: No myalgias. positive for muscle weakness, positive for gait dysfunction,positive for frequent falls. No back pain. No neck pain., left hip pain Integumentary: No wounds, no lesions. No rash or pruritus. No unusual bruising. No change in hair or nails. Neurologic: No aphasia. No facial droop. No change in mentation. No head injury. No headache. No paralysis. No paresthesia. Psychiatric: positive for depression. positive for anxiety. No mood swings. Endocrine: No abnormal blood sugars. No weight change. FAMILY HISTORY: Father at age 78 from CAD, mother at age of 85 from CVA and had a history of hypertension, patient had 2 sisters one is alive and one with an LA patient has one son who is alive and 2 daughters one with one leg amputation due to osteomyelitis and currently is suffering from a hip fracture post surgery. PHYSICAL EXAMINATION: General: 78-year-old male sitting up in bed in no distress HEENT: Head is atraumatic, normocephalic, pupils were equal round reactive to light and recommendation, extraocular muscle movement were intact, sclera nonicteric, conjunctivae were pale, mucous membranes of the mouth are somewhat dry. Neck: Supple, no JVP, decreased carotid upstroke bilaterally, no lymphadenopathy. Chest: Decreased breath sounds at the bases, few rhonchi, minimal expiratory wheezes, no chest wall tenderness, no intercostal retractions. Heart: First heart sound is normal, second heart sound is normal there is ISAIAH 2/6 located at the left sternal border. Abdomen: Soft, nontender, nondistended, positive bowel sounds, no hepatosplenomegaly Extremities: There is no edema no calf tenderness DP +1 bilaterally, left lower extremity is tender to palpation. Neurologic examination: Patient is awake alert and oriented X 3, cranial nerves II-12 appear grossly intact, muscle power were 4 out of 5 in upper extremities and 4 out of 5 in the right lower extremity left lower extremity could not be examined due to the fracture. ASSESSMENT AND PLAN: 1. Status post a fall with left hip nondisplaced subcapital fracture. Continue with current pain management between Dilaudid 0.5 to 1 mg IV push every 4 hours as needed, and hydrocodone 7.5/325 1 tablet every 6 hours as needed, keep the patient on IV fluid resuscitation in the form of normal saline 75 cc an hour, patient is to be maintained on beta-wes in the form of carvedilol and increase to 6.25 mg mg orally twice every day lisinopril increased to 20 mg once every day, continue with atorvastatin, hold aspirin overnight, patient is scheduled for surgical intervention tomorrow morning, there is no contraindication for surgery at this point in time, patient did have a myocardial perfusion imaging March 09, 2023 that was negative for stress- induced ischemia. 2. Mild hyponatremia likely due to hypovolemia continue IV fluid resuscitation in the form of normal saline 75 cc an hour. Repeat CMP tomorrow morning. 3. History of COPD. Start the patient on DuoNeb 3 mL nebulization 4 times every day, continue oxygen support as needed. Chest x-ray will be obtained. 4. Hypertensive and hypertensive cardiovascular disease. Increase lisinopril to 20 mg once every day, carvedilol 6.25 mg orally twice every day, start the patient on hydralazine 20 mg IV push every 4 hours as needed for systolic greater than 160. 5. History of coronary artery disease status post 3 vessel CABG, stents. Continue carvedilol 6.25 mg orally twice every day, Lipitor 80 mg daily . , 6. History of left carotid endarterectomy, stable. his carotid duplex are up- to-date. March 09, 2023. 7. COPD without exacerbation. Continue treatment as in paragraph # 3 8. Hyperlipidemia. Continue Lipitor 80 mg once every day monitor the patient dependent, keep LDL 55-70. 9. Benign prostatic hypertrophy. Monitor for urinary retention, continue Flomax 0.4 mg at bedtime 10. Gastroesophageal reflux disease and GI prophylaxis. Continue Protonix 40 mg orally once every day. 11. Recurrent depression. Continue Remeron 30 mg daily, Zoloft 50 mg daily. 12. DVT prophylaxis. Start the patient on Lovenox 30 mg subcutaneous every 12 hours postsurgical interventio 13. GI prophylaxis. Continue patient on Protonix 40 mg once every day. 14. We will continue to follow the patient with you Objective - Vital Signs Vital signs: Vital Signs Temp 98.8 F 01/04/24 04:48 Pulse 81 01/04/24 13:00 Resp 18 01/04/24 13:00 BP 141/68 01/04/24 13:00 Pulse Ox 96 01/04/24 13:00 FiO2 Intake & Output 01/03/24 01/04/24 01/04/24 18:59 06:59 18:59 Output Total 600 700 Balance -600 -700 Output: Urine 600 700 Uretheral (Katlheen) 600 - Labs CBC & Chem 7: 01/02/24 19:28 01/02/24 19:28
[2024-01-04] MEDS: IV FLUID CONTINUATION 1,000 ML IV ONE (14:48)
[2024-01-04] MEDS: ONDANSETRON 4 MG/2 ML VIAL IVP STA (15:18)
[2024-01-04] MEDS: MIDAZOLAM 2 MG/2 ML VIAL IV ONE (15:28)
[2024-01-04] MEDS: fentaNYL (PF) 50 MCG/ML 2 ML AMP IVP STA (15:29)
--- NOTE | 2024-01-04 15:33 | P.ANPRN ---
Procedure Note - Anesthesia - Nerve Block Performed Left Sylvain Single Time Out Performed: Yes Date of Procedure: 01/04/24 Procedure Start Time: : Procedure Stop Time: : Location of Patient: PreOp Indication: Acute Post-Operative Pain, Requested by Surgeon Sedation Type: Sedate with meaningful contact maintained Preparation: Sterile Prep Position: Supine Needle Types: Pajunk Needle Gauge: 21 Ultrasound used to visualize needle placement: Yes Ultrasound used to observe medication spread: Yes Injectate: 0.5% Ropivacaine (see comment for volume) (20 ml + 10 ml NS + 4 mg Dexamethasone) Blood Aspirated: No Pain Paresthesia on Injection Noted: No Resistance on Injection: Normal Image Stored and Saved: Yes Events: Uneventful and Well Tolerated
[2024-01-04] MEDS ORDERED: ceFAZolin 1 GM/50 ML BAG (PMX) ONE (15:50)
[2024-01-04] MEDS ORDERED: ROCURONIUM 10 MG/ML (5 ML VIAL) IV ONE (15:50)
[2024-01-04] MEDS ORDERED: SUCCINYLCHOLINE CHLORIDE 200 MG/10 ML VIAL IV ONE (15:50)
[2024-01-04] MEDS ORDERED: LIDOCAINE 1% INJ 10MG/ML (20 ML MDV) ONE (15:50)
[2024-01-04] MEDS ORDERED: NEOSTIGMINE 1 MG/ML 10 ML VIAL ONE (15:50)
[2024-01-04] MEDS ORDERED: fentaNYL (PF) 50 MCG/ML 2 ML AMP ONE (15:50)
[2024-01-04] MEDS ORDERED: DEXAMETHASONE SOD PHOSPHATE 4 MG/ML 1 ML VIAL ONE (15:50)
[2024-01-04] MEDS ORDERED: TRANEXAMIC 1,000 MG/100ML-NACL PREMIX BAG ONE (15:50)
[2024-01-04] MEDS ORDERED: SODIUM CHLORIDE 0.9% (PF) 10 ML VIAL ONE (15:50)
[2024-01-04] MEDS ORDERED: ROPIVACAINE 5 MG/ML 30 ML VIAL ONE (15:50)
[2024-01-04] MEDS ORDERED: PROPOFOL 10 MG/ML 20 ML VIAL IV ONE (15:50)
[2024-01-04] MEDS ORDERED: ePHEDrine 50 MG/ML 1 ML VIAL ONE (15:50)
[2024-01-04] MEDS ORDERED: GLYCOPYRROLATE 0.2 MG/ML 2 ML VIAL ONE (15:50)
[2024-01-04] MEDS: SODIUM CHLORIDE 0.9% 100 ML with ceFAZolin 2,000 MG IV ONE (15:55)
[2024-01-04] MEDS: ROPIVACAINE/EPI/CLONIDINE/KET 50 ML SYRINGE MISCELLANE PRN (16:36)
--- NOTE | 2024-01-04 17:25 | P.OP ---
Date of Procedure: 01/04/24 Preoperative Diagnosis: Left femoral neck fracture Postoperative Diagnosis: Same Procedure(s) Performed: Left direct anterior hip hemiarthroplasty Implants: Babs Accolade C Size #4 STD offset, 47 mm OD head, 28 mm ID head, +4 mm neck Anesthesia: arnold VILLA Surgeon: Levar So Precision Lens Polisher #1: Davy Garcia Estimated Blood Loss (ml): 100 IV fluids (ml): 800 Pathology: none sent Condition: stable Disposition: PACU Indications for Procedure: I met with the patient and their family to discuss treatment options. The patient has a displaced femoral neck fracture and based on their age, activity level, and medical comorbidities I recommended a hip hemiarthroplasty to facilitate early mobilization. My recommendation was to perform the hemiarthroplasty through a direct anterior approach to help lower the risk of dislocation and improve postoperative recovery and use cemented fixation of the femoral component to reduce the risk of fracture and postoperative thigh pain. We discussed the potential risks and complications of a hemiarthroplasty for displaced femoral neck fracture at length. Risks discussed include are certainly not limited to risks from anesthesia, superficial infection requiring local wound care and possibly surgical debridement, deep periprosthetic joint infection and the treatment for this, damage to local blood vessels or nerves particularly the lateral femoral cutaneous nerve, intraoperative fracture, postoperative periprosthetic fracture, leg length discrepancy, hip dislocation, aseptic loosening, groin pain, thigh pain, progression of arthritis requiring conversion to total hip arthroplasty, complications related to cementing the component, an inability to regain preinjury level of function, DVT, PE, acute coronary event, stroke, pneumonia, urinary tract infection, failure to thrive, and possibly . The patient and their family understand that while these are the most common complications other less common complications are possible. They provided their verbal and written consent to go forward with surgery. Operative Findings: Hemarthrosis consistent with an acute femoral neck fracture. Partially displac ed subcapital femoral neck fracture Description of Procedure: The patient was identified in the preoperative holding area and the correct hip was marked with my initials. I reviewed the procedure and consent with the patient. All of their questions were answered. The patient was then brought back into the operating room by anesthesia. While on the [facility] anesthesia was administered by the anesthesia team. Preoperative antibiotics and tranexamic acid were also given. After the patient was under anesthesia I examined their ankles to determine their preoperative leg length discrepancy. The skin over the anterior aspect of the hip was shaved to remove hair over the site of planned incision. Both feet and ankles were padded with webril and boots for the [place] were applied. The patient was then carefully transferred onto the [place] table. A perineal post was immediately placed. The arms were placed on arm holders and were well-padded. Both boots were secured to the spars on the [place] table. The patient was positioned so that the pelvis was centered over the post. Nonsterile drapes were applied. A timeout was performed identifying the correct patient, operative extremity, and procedure. At this point fluoroscopy was brought in to take preoperative images of the pelvis and operative hip. A metallic bar was used to create a bi-ischial line for use as a reference to leg length adjustments during the procedure. Global offset was also measured on both the operative and nonoperative leg. Fluoroscopy was then brought out and a pre-scrub using a chlorhexidine scrub brush was performed. The operative limb was then prepped and draped in the standard sterile fashion. An anterior longitudinal incision was made lateral and distal to the ASIS. The skin and subcutaneous tissues were incised sharply. The underlying tensor fascia was identified and incised in its midportion. The fascia was dissected free from the underlying muscle and the muscle belly was retracted. A blunt tipped cobra retractor was placed over the superior neck under the muscle fibers of the gluteus minimus. The deep enveloping fascia of the tensor was incised. The anterior leash of vessels were then identified and cauterized. The fascia between the rectus and the capsule was then incised and the pre-capsular fat was excised. A second Cobra was placed inferior to the neck. The interval between the rectus and iliocapsularis and the hip capsule was developed and a retractor was placed carefully over the anterior rim of the acetabulum. A T-shaped anterior capsulotomy was performed. A hemarthrosis consistent with a femoral neck fracture was identified. The superior capsular leaflet was left in place in the inferior capsular flap was excised. The Cobra retractors were placed intracapsularly. A displaced femoral neck fracture was then identified. We then made a femoral neck osteotomy according to preoperative and intraoperative templating and confirmed the level of the osteotomy using fluoroscopic imaging. The femoral head was removed, passed off to the back table, and sized. The superior capsular flap was excised. On inspection of the acetabulum there were minimal degenerative changes with intact cartilage. Attention was then turned to the femur. The remnant dorsal lateral capsule was excised. The short external rotators were visible and protected. A bone hook was used to confirm appropriate translation of the trochanter away from the acetabulum. The leg was then extended and adducted and the bone hook was used to elevate the femur for broaching. A box osteotome and blunt tipped canal sound was then utilized to gain access to the femoral canal. We then sequentially broached the femur in appropriate anteversion until torsional stability was achieved and the implant was felt to have reached the appropriate size to allow trialing. The neck cut was brought flush to the trial broach with a calcar planar. A trial neck and head were then placed onto the broach and the hip was atraumatically reduced under direct visualization. External rotation to 90 was performed to assess stability. Fluoroscopy was brought in. An AP and lateral fluoroscopic image of the proximal femur was obtained to assess position and fill of the trial broach. An AP of the pelvis was then obtained and matched to the preoperative image taken. A bi-ischial bar was then placed and measurements were taken to assess changes in length and offset. The hip was then carefully dislocated, the proximal femur was exposed, and the trial implants were removed. The proximal femur was then prepared for cementing. The canal was thoroughly irrigated with pulsatile lavage to remove blood and marrow contents. A cement restrictor was placed to a depth just distal to the tip of the final implant. Epinephrine-soaked gauze was then packed into the proximal femur. 2 bags of cement with antibiotics were then mixed using a centrifuge and placed into a cement gun. Anesthesia was notified that cementing was about to commence to make sure the patient was appropriately ventilated and hydrated. Once the cement had reached appropriate consistency, the cement gun was used to fill the canal in a retrograde fashion starting at the restrictor. Cement was then pressurized into the canal with a blue tipped visual manager. The stem was then carefully introduced into the cement taking care to guide the implant into appropriate version. The stem was held in position until the cement had fully set. All extra cement was removed while the cement was hardening. The trunnion was cleansed and the final head was tapped into place to engage the Reed taper. The acetabulum was irrigated and visualized to be free of debris. The hip was carefully reduced. Stability was checked clinically with external rotation to 90 and there was no evidence of instability. Final fluoroscopic images were taken. The wound was then thoroughly irrigated with Irrisept. 3 L of sterile saline was irrigated through the wound using pulsatile lavage. Local anesthetic cocktail was injected into the soft tissues around the surgical field. The wound was then closed in layers. A sterile dressing was placed over the surgical incision. The drapes were taken down and the patient was carefully transferred off of the Beth[place] table. Following removal of the boots the leg lengths felt acceptable. The patient was then taken to recovery room having tolerated the procedure well. Davy Garcia PA-C required as a skilled assistant dean of students due to the complexity of surgery for patient positioning, draping, exposure, retraction, closure of wound, and application of dressing PLAN: The patient can weight-bear as tolerated on the operative extremity. 2 doses of postoperative antibiotics. DVT prophylaxis with aspirin 81 mg twice a day based on preoperative risk stratification. Physical therapy for gait training.
[2024-01-04] MEDS ORDERED: ONDANSETRON 4 MG/2 ML VIAL IVP PRN (17:26)
[2024-01-04] MEDS ORDERED: HYDROmorphone 0.5 MG/0.5 ML SYRINGE IVP PRN (17:26)
[2024-01-04] MEDS ORDERED: NALOXONE 0.4 MG/ML 1 ML VIAL IV PRN (17:26)
[2024-01-04] MEDS: LACTATED RINGERS 1,000 ML IV ONE (17:35)
--- NOTE | 2024-01-04 18:00 | FL ---
EXAMINATION TYPE: FL guidance operating room, XR Hip Limited LT DATE OF EXAM: 01/04/2024 5:54 PM COMPARISON: Pre Operative Images if available both CT/MRI or plain film CLINICAL INDICATION: Male, 78 years old with history of Lt Hip-Ant; TECHNIQUE: FL guidance operating room, XR Hip Limited LT, multiple fluoroscopic images provided for p rocedure. Total fluoroscopy time: 19 seconds Total submitted images to PACS: 5 DAP: 0.6309 mGym2 Gycm2 uGym2 cGycm2 or equivalent. FINDINGS: Fluoroscopic images during internal fixation/arthroplasty demonstrate fixation hardware in appropriat e position. Hardware appears intact. No immediate complication identified. IMPRESSION: 1. No evidence for intraoperative complication. 2. Please see the operative/procedural note for further details. [facility], , 01/04/2024 5:58 PM
[2024-01-04] MEDS: SERTRALINE 50 MG TAB PO SCH (19:54)
[2024-01-04 20:00] LABS: Basophils % (A) 0 %; Eosinophils % (A) 0 %; HCT 38.6 % (39.0-53.0); HGB 12.4 gm/dL (13.0-17.5); Lymphocytes # (A) 0.4 k/uL (1.0-4.8); Lymphocytes % (A) 3 %; MCHC 32.1 g/dL (31.0-37.0); MCV 99.5 fL (80.0-100.0); Mean Platelet Volume 7.3; Monocytes # (A) 0.3 k/uL (0-1.0); Monocytes % (A) 2 %; Neutrophils # (A) 11.6 k/uL (1.3-7.7); Neutrophils % (A) 94 %; Platelet Count 158 k/uL (150-450); RBC 3.87 m/uL (4.30-5.90); RDW 13.5 % (11.5-15.5); WBC 12.3 k/uL (3.8-10.6)
[2024-01-05] MEDS: HYDROcodone/APAP 5-325MG 1 EACH TAB PO PRN (04:00)
[2024-01-05] MEDS: SODIUM CHLORIDE 0.9% 1,000 ML IV SCH (04:01)
[2024-01-05] MEDS: ASPIRIN 81 MG PO SCH (08:00)
--- NOTE | 2024-01-05 08:11 | P.PN ---
Subjective Progress Note Date: 01/05/24 Principal diagnosis: Left femoral neck fracture Status post left DA hip hemiarthroplasty for left femoral neck fracture on 01/04/[address] So No acute events overnight. Patient's Kathleen catheter was removed. Patient had not urinated by this morning per nursing staff. Patient was examined at bedside. Patient states they have very mild pain in their left hip. Patient was eating breakfast. Objective - Vital Signs Vital signs: Vital Signs Temp 97.6 F 01/05/24 00:44 Pulse 55 L 01/05/24 00:44 Resp 15 01/05/24 00:44 BP 120/62 01/05/24 00:44 Pulse Ox 95 01/05/24 00:44 FiO2 Intake & Output 01/04/24 01/05/24 01/05/24 18:59 06:59 18:59 Intake Total 1000 1660 Output Total 300 200 Balance 700 1460 Weight 53.524 kg 58 kg Intake: IV 1000 Oral 1660 Output: Urine 200 200 Estimated Blood Loss 100 - Exam Patient was examined at bedside. Patient was eating breakfast. Patient is resting comfortably in bed. No apparent distress. They are awake, alert and able to answer questions. On inspection the left surgical hip dressing is intact, there is no drainage or strikethrough. The skin surrounding the dressing is free of erythema. There is mild swelling in the operative thigh. Operative femoral nerve function is intact. The patient is able to actively plantarflex and dorsiflex their operative ankle and toes. Their operative foot appears well perfused. - Labs CBC & Chem 7: 01/04/24 19:36 01/02/24 19:28 Labs: Abnormal Lab Results - Last 24 Hours (Table) 01/04/24 Range/Units 19:36 WBC 12.3 H (3.8-10.6) k/uL RBC 3.87 L (4.30-5.90) m/uL Hgb 12.4 L (13.0-17.5) gm/dL Hct 38.6 L (39.0-53.0) % Neutrophils # 11.6 H (1.3-7.7) k/uL Lymphocytes # 0.4 L (1.0-4.8) k/uL Assessment and Plan Assessment: Postop day #1 status post left DA hip hemiarthroplasty for left femoral neck fracture on 01/04/[address] So Plan: Leave surgical dressing in place. Patient will work with physical therapy. Con lucretiaue pain control. Appreciate medical team for postop medical management. Disposition: Discussed with patient, patient states if her pain is controlled and they are able to ambulate they would like to go home tomorrow but they live alone. We discussed that they will be evaluated by physical therapy and disposition will be pending their recommendations. Dictation was produced using [employer] software. Please excuse any grammatical, word or spelling errors.
[2024-01-05 08:48] LABS: HCT 29.1 % (39.6-50.0); HGB 9.8 g/dL (13.0-17.0); MCH 31.4 pg (27.0-32.0); MCHC 33.7 g/dL (32.0-37.0); MCV 93.3 FL (80.0-97.0); Mean Platelet Volume 10.3 FL (9.5-12.2); NRBC Per 100 WBC 0 X 10*3/uL (0.00-0.01); Platelet Count 159 X 10*3/uL (140-440); RBC 3.12 X 10*6/uL (4.40-5.60); RDW 13.8 % (11.5-14.5)
[2024-01-05 08:49] LABS: Basophils # (A) 0.01 X 10*3/uL (0.00-0.10); Basophils % (A) 0.1 %; Eosinophils # (A) 0 X 10*3/uL (0.04-0.35); Eosinophils % (A) 0 %; Lymphocytes # (A) 0.41 X 10*3/uL (0.90-5.00); Lymphocytes % (A) 3.7 %; Monocytes % (A) 6.3 %; Neutrophils % (A) 89.2 %
[2024-01-05 08:54] LABS: ALT 11 U/L (10-49); AST 40 U/L (14-35); Albumin/Globulin Ratio 1.67 Ratio (1.60-3.17); Alkaline Phosphatase 56 U/L (41-126); BUN/Creat Ratio 22.62 Ratio (12.00-20.00); Blood Urea Nitrogen 18.1 mg/dL (9.0-27.0); Calcium 8.3 mg/dL (8.7-10.3); Carbon Dioxide 21.8 mmol/L (21.6-31.8); Chloride 100 mmol/L (96-109); Globulin 1.8 g/dL (1.6-3.3); Glucose 150 mg/dL (70-110); Potassium 4.1 mmol/L (3.5-5.5); Sodium 133 mmol/L (135-145); Total Bilirubin 0.3 mg/dL (0.3-1.2); Total Protein 4.8 g/dL (6.2-8.2)
--- NOTE | 2024-01-05 19:27 | P.PN ---
Subjective Progress Note Date: 01/05/24 HISTORY OF PRESENT ILLNESS: This is a 78-year-old male patient of [employer] with past medical history significant for coronary artery disease status post three-vessel CABG in 2016 with GALLO to LAD, SVG to the ramus, SVG to the PDA that was in 07/23/2016, prior to that left heart catheterization with PCI of the ramus intermedius back in 06/30/1996 gastroesophageal reflux disease, hypertension, hyperlipidemia, osteoarthritis generalized, benign prostatic hypertrophy, COPD, recurrent depression, tobacco use and dependence, history of alcohol abuse that he quit in October 2018 patient was seen in my office yesterday for a checkup, he was doing fine, and he went home, apparently he tripped at the edge of the rug and he landed on the left side of his hip, and he ended up with a tremendous amount of pain in the left hip area, he was transported to the emergency department at [facility], had a CT scan of the hip that showed incomplete nondisplaced left subcapital hip fracture he was admitted and orthopedic surgery were asked to see the patient for medical management and preoperative medical clearance for surgical intervention tomorrow morning. Patient did have a twelve-lead EKG did not show evidence of acute abnormalities, patient appears to have some minimal wheezing, he will will be started on DuoNeb 3 mL nebulization 4 times every day as needed, he was also on carvedilol 6.25 mg orally twice every day we will continue with that, we will monitor the patient very closely, patient has no contraindication for the proposed surgical intervention at this point in time, surgery may carry the risk for a few complications that the patient is aware of and willing to proceed, there is no evidence of any acute congestive heart failure at this point in time, or any evidence of any unstable angina. 01/03: Patient is laying down in bed in no apparent distress, he is receiving 2 L oxygen, his oxygen saturation was 95% on 2 L, he has been getting nebulized treatment, chest x-ray did not show evidence of acute abnormalities, twelve-lead EKG showed normal sinus rhythm with nonspecific ST-T wave changes, patient is scheduled to go for surgical intervention this afternoon, patient has no calcification for the proposed surgical intervention as stated earlier patient did have a myocardial perfusion imaging MPI that was done in March 09, 2023 that was negative for stress-induced ischemia, he has been following up with Dr. Gamez on a regular basis, he also has moderate stenosis of the left internal carotid artery and mild disease of the right internal carotid artery and the last ultrasound of the carotid was done in March 09, 2023. 01/04: Patient underwent left hemiarthroplasty that was done successfully by Dr. So yesterday patient denies any chest pain, shortness of breath at this time, he has occasional cough, he has no abdominal pain, nausea vomiting or diarrhea he seems to have tolerated treatment very well, his vital signs are very stable at this time, physical therapy evaluation, likely require subacute rehabilitation. REVIEW OF SYSTEMS: Constitutional: positive for documented fever, no chills, no night sweats. No weight change. positive for weakness, positive for fatigue or lethargy. No daytime sleepiness. HEENT: No headache. No blurred vision or double vision, no loss of vision. No loss of Hearing, no ringing in the ears, no dizziness. No nasal drainage or congestion. No epistaxis. No sore throat. Lungs: no shortness of breath, positive for occasional coughing, minimal sputum production. positive for wheezing. Reports dyspnea with activity. Cardiovascular: No chest pain, no lower extremity edema. No palpitations. No paroxysmal nocturnal dyspnea. No orthopnea. No lightheadedness or dizziness. No syncopal episodes. Abdominal: Reports no abdominal pain. No nausea, vomiting. No diarrhea. No constipation. positive for loss of appetite Genitourinary: No dysuria, increased frequency, urgency. No urinary retention. Musculoskeletal: No myalgias. positive for muscle weakness, positive for gait dysfunction,positive for frequent falls. No back pain. No neck pain., left hip pain Integumentary: No wounds, no lesions. No rash or pruritus. No unusual bruising. No change in hair or nails. Neurologic: No aphasia. No facial droop. No change in mentation. No head injury. No headache. No paralysis. No paresthesia. Psychiatric: positive for depression. positive for anxiety. No mood swings. Endocrine: No abnormal blood sugars. No weight change. FAMILY HISTORY: Father at age 78 from CAD, mother at age of 85 from CVA and had a history of hypertension, patient had 2 sisters one is alive and one with an NE patient has one son who is alive and 2 daughters one with one leg amputation due to osteomyelitis and currently is suffering from a hip fracture post surgery. PHYSICAL EXAMINATION: General: 78-year-old male sitting up in bed in no distress HEENT: Head is atraumatic, normocephalic, pupils were equal round reactive to light and recommendation, extraocular muscle movement were intact, sclera nonicteric, conjunctivae were pale, mucous membranes of the mouth are somewhat dry. Neck: Supple, no JVP, decreased carotid upstroke bilaterally, no lymphadenopathy. Chest: Decreased breath sounds at the bases, few rhonchi, minimal expiratory wheezes, no chest wall tenderness, no intercostal retractions. Heart: First heart sound is normal, second heart sound is normal there is ISAIAH 2/6 located at the left sternal border. Abdomen: Soft, nontender, nondistended, positive bowel sounds, no hepatosplenomegaly Extremities: There is no edema no calf tenderness DP +1 bilaterally, left lower extremity is tender to palpation. Neurologic examination: Patient is awake alert and oriented X 3, cranial nerves II-12 appear grossly intact, muscle power were 4 out of 5 in upper extremities and 4 out of 5 in the right lower extremity left lower extremity could not be examined due to the fracture. ASSESSMENT AND PLAN: 1. Postoperative day #1 status post left hemiarthroplasty due to left subcapital hip fracture. Continue patient on incentive spirometer, continue DuoNeb 3 mL nebulization 4 times every day, continue oxygen support, continue pain management, physical therapy evaluation, monitor the patient very closely. 2. Mild hyponatremia likely due to hypovolemia continue IV fluid resuscitation in the form of normal saline 75 cc an hour. Monitor the patient CMP 3. History of COPD. Start the patient on DuoNeb 3 mL nebulization 4 times every day, continue oxygen support as needed. 4. Hypertensive and hypertensive cardiovascular disease. Increase lisinopril to 20 mg once every day, carvedilol 6.25 mg orally twice every day, start the patient on hydralazine 20 mg IV push every 4 hours as needed for systolic greater than 160. 5. History of coronary artery disease status post 3 vessel CABG, stents. Continue carvedilol 6.25 mg orally twice every day, Lipitor 80 mg daily . , 6. History of left carotid endarterectomy, stable. his carotid duplex are up-to-date. March 09, 2023. 7. COPD without exacerbation. Continue treatment as in paragraph # 3 8. Hyperlipidemia. Continue Lipitor 80 mg once every day monitor the patient dependent, keep LDL 55-70. 9. Benign prostatic hypertrophy. Monitor for urinary retention, continue Flomax 0.4 mg at bedtime 10. Gastroesophageal reflux disease and GI prophylaxis. Continue Protonix 40 mg orally once every day. 11. Recurrent depression. Continue Remeron 30 mg daily, Zoloft 50 mg daily. 12. DVT prophylaxis. Start the patient on Lovenox 30 mg subcutaneous every 12 hours postsurgical interventio 13. GI prophylaxis. Continue patient on Protonix 40 mg once every day. 14. We will continue to follow the patient with you Objective - Vital Signs Vital signs: Vital Signs Temp 97.6 F 01/05/24 00:44 Pulse 55 L 01/05/24 00:44 Resp 15 01/05/24 00:44 BP 120/62 01/05/24 00:44 Pulse Ox 95 01/05/24 00:44 FiO2 Intake & Output 01/04/24 01/04/24 01/05/24 06:59 18:59 06:59 Intake Total 1000 580 Output Total 700 300 Balance -700 700 580 Weight 53.524 kg Intake: IV 1000 Oral 580 Output: Urine 700 200 Estimated Blood Loss 100 - Labs CBC & Chem 7: 01/04/24 19:36 01/02/24 19:28 Labs: Abnormal Lab Results - Last 24 Hours (Table) 01/04/24 Range/Units 19:36 WBC 12.3 H (3.8-10.6) k/uL RBC 3.87 L (4.30-5.90) m/uL Hgb 12.4 L (13.0-17.5) gm/dL Hct 38.6 L (39.0-53.0) % Neutrophils # 11.6 H (1.3-7.7) k/uL Lymphocytes # 0.4 L (1.0-4.8) k/uL
[2024-01-05] MEDS: hydrOXYzine pamoate 25 MG CAP PO PRN (20:09)
--- NOTE | 2024-01-06 15:04 | P.DS ---
Providers Date of admission: 01/02/24 20:55 Attending physician: Levar So Consults: 01/02/24 20:55 Consult Physician Urgent Consulting Provider: Clay Kuo Consult Reason/Comments: Left femoral neck fracture Do you want consulting provider notified?: Already Contacted Primary care physician: Clay Kuo Hospital Course: The patient is a 78 year old male who sustained a fall resulting in a femoral neck fracture. He was admitted under my care and seen by Internal medicine who cleared him for surgery. He was taken to the OR for a cemented hemiarthroplasty. Following surgery he did well. He worked with PT who cleared him to d/c home with his daughter. IM managed his medical issues. I saw him on the day of discharge and he was doing well. His dressing was intact. His thigh was soft. Motor and sensory function were intact. He was comfortable and cleared for d/c home. Patient Condition at Discharge: Stable Plan - Discharge Summary Discharge Rx Participant: Yes New Discharge Prescriptions: New Aspirin 81 mg PO BID #60 tab Sennosides-Docusate Sodium [Senokot-S] 1 tab PO BID PRN #60 tablet PRN Reason: Constipation HYDROcodone/APAP 5-325MG [[place] 5] 1 each PO Q6HR PRN #48 tab PRN Reason: Pain Ondansetron [Zofran] 4 mg PO Q6HR PRN #30 tab PRN Reason: Nausea No Action Tamsulosin [Flomax] 0.4 mg PO HS lisinopriL [Zestril] 10 mg PO DAILY Mirtazapine 30 mg PO HS Atorvastatin Calcium [Lipitor] 80 mg PO HS Aspirin EC [Ecotrin Low Dose] 81 mg PO DAILY carvediloL [Coreg] 3.125 mg PO BID Pantoprazole [Protonix] 40 mg PO DAILY Discharge Medication List Tamsulosin [Flomax] 0.4 mg PO HS 07/16/16 [History] lisinopriL [Zestril] 10 mg PO DAILY 07/11/18 [History] Mirtazapine 30 mg PO HS 12/03/18 [History] Atorvastatin Calcium [Lipitor] 80 mg PO HS 08/13/19 [History] Pantoprazole [Protonix] 40 mg PO DAILY 05/06/22 [History] carvediloL [Coreg] 3.125 mg PO BID 05/06/22 [History] Aspirin EC [Ecotrin Low Dose] 81 mg PO DAILY 01/03/24 [History] Aspirin 81 mg PO BID #60 tab 01/05/24 [Rx] HYDROcodone/APAP 5-325MG [[place] 5] 1 each PO Q6HR PRN #48 tab 01/05/24 [Rx] Ondansetron [Zofran] 4 mg PO Q6HR PRN #30 tab 01/05/24 [Rx] Sennosides-Docusate Sodium [Senokot-S] 1 tab PO BID PRN #60 tablet 01/05/24 [Rx] Follow up Appointment(s)/Referral(s): Clay Kuo MD [Primary Care Provider] - 1-2 days [facility], [NON-STAFF] - As Needed Levar So MD [Medical Doctor] - 2 Weeks Activity/Diet/Wound Care/Special Instructions: 1. Weight-bear as tolerated on your operative extremity unless instructed otherwise. Use a walker or other assistive device to ambulate. 2. Leave surgical dressing in place. If your dressing becomes saturated with blood, there is drainage, or the dressing becomes loose please contact the office. 3. It is okay to shower with your surgical dressing, but do not submerge in water (no hot tubs, bath's, swimming etc.) 4. Take your blood clot prevention medication as prescribed (aspirin, Eliquis, Xarelto, and Plavix are commonly prescribed medications for blood clot prevention) 5. While taking [place] or Percocet for pain take a stool softener (Ex: Colace) and drink lots of water. 6. Keep all follow-up appointments as scheduled. You will usually be seen in 1-2 weeks following surgery. 7. Please contact the office with any questions or concerns [phone] Discharge Disposition: HOME WITH HOME HEALTH SERVICES
--- NOTE | 2024-01-06 17:06 | P.PN ---
Subjective Progress Note Date: 01/06/24 HISTORY OF PRESENT ILLNESS: This is a 78-year-old male patient of [employer] with past medical history significant for coronary artery disease status post three-vessel CABG in 2016 with GALLO to LAD, SVG to the ramus, SVG to the PDA that was in 07/23/2016, prior to that left heart catheterization with PCI of the ramus intermedius back in 06/30/1996 gastroesophageal reflux disease, hypertension, hyperlipidemia, osteoarthritis generalized, benign prostatic hypertrophy, COPD, recurrent depression, tobacco use and dependence, history of alcohol abuse that he quit in October 2018 patient was seen in my office yesterday for a checkup, he was doing fine, and he went home, apparently he tripped at the edge of the rug and he landed on the left side of his hip, and he ended up with a tremendous amount of pain in the left hip area, he was transported to the emergency department at [facility], had a CT scan of the hip that showed incomplete nondisplaced left subcapital hip fracture he was admitted and orthopedic surgery were asked to see the patient for medical management and preoperative medical clearance for surgical intervention tomorrow morning. Patient did have a twelve-lead EKG did not show evidence of acute abnormalities, patient appears to have some minimal wheezing, he will will be started on DuoNeb 3 mL nebulization 4 times every day as needed, he was also on carvedilol 6.25 mg orally twice every day we will continue with that, we will monitor the patient very closely, patient has no contraindication for the proposed surgical intervention at this point in time, surgery may carry the risk for a few complications that the patient is aware of and willing to proceed, there is no evidence of any acute congestive heart failure at this point in time, or any evidence of any unstable angina. 01/03: Patient is laying down in bed in no apparent distress, he is receiving 2 L oxygen, his oxygen saturation was 95% on 2 L, he has been getting nebulized treatment, chest x-ray did not show evidence of acute abnormalities, twelve-lead EKG showed normal sinus rhythm with nonspecific ST-T wave changes, patient is scheduled to go for surgical intervention this afternoon, patient has no calcification for the proposed surgical intervention as stated earlier patient did have a myocardial perfusion imaging MPI that was done in March 09, 2023 that was negative for stress-induced ischemia, he has been following up with Dr. Gamez on a regular basis, he also has moderate stenosis of the left internal carotid artery and mild disease of the right internal carotid artery and the last ultrasound of the carotid was done in March 09, 2023. 01/04: Patient underwent left hemiarthroplasty that was done successfully by Dr. So yesterday patient denies any chest pain, shortness of breath at this time, he has occasional cough, he has no abdominal pain, nausea vomiting or diarrhea he seems to have tolerated treatment very well, his vital signs are very stable at this time, physical therapy evaluation, likely require subacute rehabilitation. 01/05: Patient is sitting up in bed in no apparent distress, patient was discharged by orthopedic surgery to go home, patient stated that he can do fine at home, he denies any chest pain, shortness of breath, he continues to have a Kathleen catheter in place, this will continue for another week, then will do a void trial the nurse will take his Kathleen catheter next week and reevaluate the patient again, if the patient is not able to function well at home, he will contact my office and we will try to make arrangement for him to go to [facility] on the [address]. REVIEW OF SYSTEMS: Constitutional: positive for documented fever, no chills, no night sweats. No weight change. positive for weakness, positive for fatigue or lethargy. No daytime sleepiness. HEENT: No headache. No blurred vision or double vision, no loss of vision. No loss of Hearing, no ringing in the ears, no dizziness. No nasal drainage or congestion. No epistaxis. No sore throat. Lungs: no shortness of breath, positive for occasional coughing, minimal sputum production. positive for wheezing. Reports dyspnea with activity. Cardiovascular: No chest pain, no lower extremity edema. No palpitations. No paroxysmal nocturnal dyspnea. No orthopnea. No lightheadedness or dizziness. No syncopal episodes. Abdominal: Reports no abdominal pain. No nausea, vomiting. No diarrhea. No constipation. positive for loss of appetite Genitourinary: No dysuria, increased frequency, urgency. No urinary retention. Musculoskeletal: No myalgias. positive for muscle weakness, positive for gait dysfunction,positive for frequent falls. No back pain. No neck pain., left hip pain Integumentary: No wounds, no lesions. No rash or pruritus. No unusual bruising. No change in hair or nails. Neurologic: No aphasia. No facial droop. No change in mentation. No head injury. No headache. No paralysis. No paresthesia. Psychiatric: positive for depression. positive for anxiety. No mood swings. Endocrine: No abnormal blood sugars. No weight change. FAMILY HISTORY: Father at age 78 from CAD, mother at age of 85 from CVA and had a history of hypertension, patient had 2 sisters one is alive and one with an OK patient has one son who is alive and 2 daughters one with one leg amputation due to osteomyelitis and currently is suffering from a hip fracture post surgery. PHYSICAL EXAMINATION: General: 78-year-old male sitting up in bed in no distress HEENT: Head is atraumatic, normocephalic, pupils were equal round reactive to light and recommendation, extraocular muscle movement were intact, sclera nonicteric, conjunctivae were pale, mucous membranes of the mouth are somewhat dry. Neck: Supple, no JVP, decreased carotid upstroke bilaterally, no lymphadenopathy. Chest: Decreased breath sounds at the bases, few rhonchi, minimal expiratory wheezes, no chest wall tenderness, no intercostal retractions. Heart: First heart sound is normal, second heart sound is normal there is ISAIAH 2/6 located at the left sternal border. Abdomen: Soft, nontender, nondistended, positive bowel sounds, no hepatosplenomegaly Extremities: There is no edema no calf tenderness DP +1 bilaterally, left lower extremity is tender to palpation. Neurologic examination: Patient is awake alert and oriented X 3, cranial nerves II-12 appear grossly intact, muscle power were 4 out of 5 in upper extremities and 4 out of 5 in the right lower extremity left lower extremity could not be examined due to the fracture. ASSESSMENT AND PLAN: 1. Postoperative day #2 status post left hemiarthroplasty due to left subcapital hip fracture. Continue patient on incentive spirometer, continue DuoNeb 3 mL nebulization 4 times every day, continue oxygen support, continue pain management, physical therapy evaluation, monitor the patient very closely. 2. Mild hyponatremia likely due to hypovolemia continue IV fluid resuscitation in the form of normal saline 75 cc an hour. Monitor the patient CMP 3. History of COPD. Start the patient on DuoNeb 3 mL nebulization 4 times every day, continue oxygen support as needed. 4. Hypertensive and hypertensive cardiovascular disease. Increase lisinopril to 20 mg once every day, carvedilol 6.25 mg orally twice every day, start the patient on hydralazine 20 mg IV push every 4 hours as needed for systolic greater than 160. 5. History of coronary artery disease status post 3 vessel CABG, stents. Continue carvedilol 6.25 mg orally twice every day, Lipitor 80 mg daily . , 6. History of left carotid endarterectomy, stable. his carotid duplex are up-to-date. March 09, 2023. 7. COPD without exacerbation. Continue treatment as in paragraph # 3 8. Hyperlipidemia. Continue Lipitor 80 mg once every day monitor the patient dependent, keep LDL 55-70. 9. Benign prostatic hypertrophy. Monitor for urinary retention, continue Flomax 0.4 mg at bedtime 10. Gastroesophageal reflux disease and GI prophylaxis. Continue Protonix 40 mg orally once every day. 11. Recurrent depression. Continue Remeron 30 mg daily, Zoloft 50 mg daily. 12. DVT prophylaxis. Start the patient on Lovenox 30 mg subcutaneous every 12 hours postsurgical interventio 13. GI prophylaxis. Continue patient on Protonix 40 mg once every day. 14. Patient is medically stable for discharge. Objective - Vital Signs Vital signs: Vital Signs Temp 97.9 F 01/06/24 14:46 Pulse 69 01/06/24 14:46 Resp 17 01/06/24 14:46 BP 117/67 01/06/24 14:46 Pulse Ox 90 L 01/06/24 07:15 FiO2 Intake & Output 01/05/24 01/06/24 01/06/24 18:59 06:59 18:59 Intake Total 540 Output Total 400 400 Balance -400 540 -400 Weight 58 kg 59.5 kg Intake: Oral 540 Output: Urine 400 400 Straight 200 Other: Voiding Method Toilet Indwelling Catheter Indwelling Catheter Bedpan # Voids 450 - Labs CBC & Chem 7: 01/05/24 03:15 01/05/24 03:15
[2024-01-06 17:59] LABS: Basophils % (A) 0 %; Eosinophils # (A) 0.5 k/uL (0-0.7); Eosinophils % (A) 5 %; HCT 34.8 % (39.0-53.0); HGB 11.2 gm/dL (13.0-17.5); Lymphocytes # (A) 0.5 k/uL (1.0-4.8); Lymphocytes % (A) 5 %; MCH 31.6 pg (25.0-35.0); MCHC 32.3 g/dL (31.0-37.0); Mean Platelet Volume 8.1; Monocytes # (A) 0.7 k/uL (0-1.0); Monocytes % (A) 7 %; Neutrophils # (A) 8.6 k/uL (1.3-7.7); Neutrophils % (A) 82 %; Platelet Count 174 k/uL (150-450); RBC 3.55 m/uL (4.30-5.90); RDW 13.7 % (11.5-15.5); WBC 10.5 k/uL (3.8-10.6)
[2024-01-07] MEDS: HYDROcodone/APAP 10-325MG 1 EACH TAB PO PRN (06:24)
--- NOTE | 2024-01-07 08:20 | P.PN ---
Subjective Patient is doing relatively well this morning in regards to his hip. He has some discomfort but is otherwise doing well. He was cleared for discharge yesterday by both orthopedics and internal medicine but had an episode of elevated blood pressure was kept an additional night. Objective - Vital Signs Vital signs: Vital Signs Temp 98.3 F 01/07/24 00:44 Pulse 75 01/07/24 00:44 Resp 17 01/07/24 00:44 BP 189/86 01/07/24 06:10 Pulse Ox 96 01/07/24 00:44 FiO2 Intake & Output 01/06/24 01/07/24 01/07/24 18:59 06:59 18:59 Output Total 400 625 Balance -400 -625 Weight 58.4 kg Output: Urine 400 625 Other: Voiding Method Indwelling Catheter Indwelling Catheter - Exam The patient is resting comfortably in their bed. A focused examination of the operative hip was performed. On inspection there is a clean-appearing dressing over the anterior hip with no drainage or strike through. There is mild swelling throughout the thigh. Femoral nerve function is intact. The patient is able to actively dorsiflex and plantarflex their ankle and toes. Sensation is intact to light touch throughout the foot. The foot is warm and well-perfused with brisk capillary refill. - Labs CBC & Chem 7: 01/06/24 17:24 01/05/24 03:15 Labs: Abnormal Lab Results - Last 24 Hours (Table) 01/06/24 Range/Units 17:24 RBC 3.55 L (4.30-5.90) m/uL Hgb 11.2 L (13.0-17.5) gm/dL Hct 34.8 L (39.0-53.0) % Neutrophils # 8.6 H (1.3-7.7) k/uL Lymphocytes # 0.5 L (1.0-4.8) k/uL Assessment and Plan Plan: Continue treatment as outlined previously in regards to the hip. The patient is cleared to discharge from orthopedic standpoint. I will defer to internal medicine for discharge given his recent elevated blood pressure.
[2024-01-07 09:52] VITALS: BP 131/68; RESP 16; TEMP 98.2
[2024-01-07 10:11] VITALS: PULSE 68
[2024-01-07] MEDS: LACTULOSE 20 GM/30 ML CUP PO ONE (11:44)
--- NOTE | 2024-01-07 21:34 | P.DS ---
Providers Date of admission: 01/02/24 20:55 Attending physician: Levar So Consults: 01/02/24 20:55 Consult Physician Urgent Consulting Provider: Clay Kuo Consult Reason/Comments: Left femoral neck fracture Do you want consulting provider notified?: Already Contacted Primary care physician: Clay Kuo Hospital Course: Diagnoses: 1. Left femoral neck fracture,, Postoperative day #3 status post left hemiarthroplasty due to left subcapital hip fracture. C 2. Mild hyponatremia likely due to hypovolemia , improved 3. History of COPD. not active issue 4. Hypertensive and hypertensive cardiovascular disease. Improved after doubling dose of lisinopril 10 to 20 mg and Coreg 3.125 up to 6.25 5. History of coronary artery disease status post 3 vessel CABG, stents. 6. History of left carotid endarterectomy, 7. COPD without exacerbation. 8. Hyperlipidemia. 9. Benign prostatic hypertrophy. 10. Gastroesophageal reflex disease 11. Recurrent depression. Clinically stable Hospital course: This is a 78-year-old male patient of [employer] with past medical history significant for coronary artery disease status post three-vessel CABG in 2016 with GALLO to LAD, SVG to the ramus, SVG to the PDA that was in 07/23/2016, prior to that left heart catheterization with PCI of the ramus intermedius back in 06/30/1996 gastroesophageal reflux disease, hypertension, hyperlipidemia, osteoarthritis generalized, benign prostatic hypertrophy, COPD, recurrent depression, tobacco use and dependence, history of alcohol abuse that he quit in October 2018 patient was seen in my office yesterday for a checkup, he was doing fine, and he went home, apparently he tripped at the edge of the rug and he landed on the left side of his hip, and he ended up with a tremendous amount of pain in the left hip area, he was transported to the emergency department at [facility], had a CT scan of the hip that showed incomplete nondisplaced left subcapital hip fracture he was admitted and orthopedic surgery were asked to see the patient for medical management and preoperative medical clearance for surgical intervention tomorrow morning. Patient underwent left humerus arthroplasty. Postoperatively patient was doing well and he was cleared for discharge by orthopedic team since yesterday, however her blood pressure was elevated therefore his discharge was held till today. Lisinopril and Coreg doses were doubled and today his blood pressure remained stable with systolic around 130s checked twice. In the afternoon I got a message from the bedside nurse patient eager to go home and daughter at bedside Patient denies chest pain dyspnea. No hip pain. No GI or symptoms. Patient was able to walk little bit with his walker. Rivero catheter in place. With recommendation of PCP to be discharged with a Rivero and follow-up outpatient. Contact information for urologist provided for the patient upon discharge Patient was cleared for discharge by orthopedic team problems and management plan were discussed with the patient and he verbalized understanding and acceptance Patient was found stable and can be discharged home in guarded prognosis however he needs follow-up as an outpatient. Patient was instructed to follow up with PCP within one week and patient agrees Patient was instructed to follow-up with his orthopedic doctor in 2 weeks after discharge and he agrees Patient was instructed to follow-up with urologist Dr. Butler in 10 days after discharge to manage his Rivero catheter or as per PCP Physical exam Gen: patient is a AAOx3, no distress CVS: S1-S2, RRR, no murmur Lungs: B/L CTA, no wheezing -Abdomen: soft, no distention, no tenderness, positive bowel sounds. Rivero catheter in place -Extremity: no leg edema or induration. Surgical wound closed with dressing in place, rest of exam is deferred to surgery team Time spent more than 35 minutes Patient Condition at Discharge: Stable Plan - Discharge Summary Discharge Rx Participant: Yes New Discharge Prescriptions: New HYDROcodone/APAP 5-325MG [[place] 5-325] 1 tab PO Q6HR PRN #28 tab PRN Reason: Pain Ondansetron Odt [Zofran Odt] 1 tab PO Q8HR PRN #10 tab PRN Reason: Nausea lisinopriL [Zestril] 20 mg PO DAILY #30 tab Sertraline [Zoloft] 50 mg PO HS #30 tab Aspirin [Adult Low Dose Aspirin EC] 81 mg PO BID 30 Days #60 tab Sennosides [Senokot] 2 tab PO DAILY PRN #60 tablet PRN Reason: Constipation carvediloL [Coreg] 6.25 mg PO BID-W/MEALS #60 tab Continue Tamsulosin [Flomax] 0.4 mg PO HS Mirtazapine 30 mg PO HS Atorvastatin Calcium [Lipitor] 80 mg PO HS Pantoprazole [Protonix] 40 mg PO DAILY Discontinued lisinopriL [Zestril] 10 mg PO DAILY Aspirin EC [Ecotrin Low Dose] 81 mg PO DAILY carvediloL [Coreg] 3.125 mg PO BID Discharge Medication List Tamsulosin [Flomax] 0.4 mg PO HS 07/16/16 [History] Mirtazapine 30 mg PO HS 12/03/18 [History] Atorvastatin Calcium [Lipitor] 80 mg PO HS 08/13/19 [History] Pantoprazole [Protonix] 40 mg PO DAILY 05/06/22 [History] Aspirin [Adult Low Dose Aspirin EC] 81 mg PO BID 30 Days #60 tab 01/07/24 [Rx] HYDROcodone/APAP 5-325MG [[place] 5-325] 1 tab PO Q6HR PRN #28 tab 01/07/24 [Rx] Ondansetron Odt [Zofran Odt] 1 tab PO Q8HR PRN #10 tab 01/07/24 [Rx] Sennosides [Senokot] 2 tab PO DAILY PRN #60 tablet 01/07/24 [Rx] Sertraline [Zoloft] 50 mg PO HS #30 tab 01/07/24 [Rx] carvediloL [Coreg] 6.25 mg PO BID-W/MEALS #60 tab 01/07/24 [Rx] lisinopriL [Zestril] 20 mg PO DAILY #30 tab 01/07/24 [Rx] Follow up Appointment(s)/Referral(s): Clay Kuo MD [Primary Care Provider] - 1-2 days [facility], [NON-STAFF] - As Needed Levar So MD [Medical Doctor] - 2 Weeks Dhiraj Butler MD [STAFF PHYSICIAN] - 10 Days (urologist for your rivero catheter management ) Patient Instructions/Handouts: Rivero Catheter Placement and Care (DC), Anterior Hip Replacement (DC) Activity/Diet/Wound Care/Special Instructions: 1. Weight-bear as tolerated on your operative extremity unless instructed otherwise. Use a walker or other assistive device to ambulate. 2. Leave surgical dressing in place. If your dressing becomes saturated with blood, there is drainage, or the dressing becomes loose please contact the office. 3. It is okay to shower with your surgical dressing, but do not submerge in water (no hot tubs, bath's, swimming etc.) 4. Take your blood clot prevention medication as prescribed (aspirin, Eliquis, Xarelto, and Plavix are commonly prescribed medications for blood clot prevention) 5. While taking [place] or Percocet for pain take a stool softener (Ex: Colace) and drink lots of water. 6. Keep all follow-up appointments as scheduled. You will usually be seen in 1-2 weeks following surgery. 7. Please contact the office with any questions or concerns [phone] Discharge Disposition: HOME WITH HOME HEALTH SERVICES
== END 2024-01-07 15:20 | disposition home health service (06) | DRG 522 ==
LOC: EC 18:23 → 4SSUR 20:55
PROVIDERS: ADMIT Orthopaedic Surgery; ATTEND Orthopaedic Surgery
PROC: 0SRS0J9 Replacement of Left Hip Joint, Femoral Surface with Synthetic Substitute, Cemented, Open Approach (ICD-10-PCS; principal; 2024-01-04 07:30)
DX: S72.012A Unspecified intracapsular fracture of left femur, initial encounter for closed fracture (principal); F33.9 Major depressive disorder, recurrent, unspecified; E87.1 Hypo-osmolality and hyponatremia; Z68.1 Body mass index [BMI] 19.9 or less, adult; E86.1 Hypovolemia; F41.9 Anxiety disorder, unspecified; I11.9 Hypertensive heart disease without heart failure; J44.9 Chronic obstructive pulmonary disease, unspecified; N40.0 Benign prostatic hyperplasia without lower urinary tract symptoms; R63.6 Underweight; E78.5 Hyperlipidemia, unspecified; F17.210 Nicotine dependence, cigarettes, uncomplicated; I25.10 Atherosclerotic heart disease of native coronary artery without angina pectoris; K21.00 Gastro-esophageal reflux disease with esophagitis, without bleeding; M15.9 Polyosteoarthritis, unspecified; W01.0XXA Fall on same level from slipping, tripping and stumbling without subsequent striking against object, initial encounter; Y92.009 Unspecified place in unspecified non-institutional (private) residence as the place of occurrence of the external cause; Y99.8 Other external cause status; I25.2 Old myocardial infarction; Z79.82 Long term (current) use of aspirin; Z79.899 Other long term (current) drug therapy; Z95.1 Presence of aortocoronary bypass graft; Z98.42 Cataract extraction status, left eye; Z82.49 Family history of ischemic heart disease and other diseases of the circulatory system; Z82.3 Family history of stroke
CPT/HCPCS: 36415; 51798; 64999; 71045; 73501; 73502; 80053; 85025; 85610; 85730; 93005; 94640; 96361; 96374; 96375; 96376; 99285

== ENCOUNTER → 2024-06-04 | Outpatient (CLI) | payer MEDICARE ==
--- NOTE | 2024-06-04 12:05 | CTL ---
EXAMINATION TYPE: CT Low Dose Lung DATE OF EXAM ORDERED: 06/04/2024 COMPARISON: CT Low Dose Lung 02/23/2023, 02/02/2022, CTA chest 05/19/2022, 12/02/2018 CLINICAL INDICATION: Male, 79 years old with history of Z12.2 LUNG CA SCR F17.210 CURRENT SMOKER; PH H, personal tobacco use, Lung cancer screening, History of Smoking/tobacco use. TECHNIQUE: Low dose computed tomography scan was performed through the chest at 1 mm thick sections a nd reconstructed images in multiple planes at 1 mm and [address] DLP: 52.[address] CTDI: 1.4 mGy Automated exposure control for dose reduction was used. CT DIAGNOSTIC QUALITY: Satisfactory FINDINGS: Nodules: Tiny nodules predominantly in the right lung apex are redemonstrated. No new or enlarging greater teresita n 5 mm pulmonary nodules. LUNGS: COPD: Severity: Moderate Fibrosis: Severity: Mild Lymph nodes: None Other findings: None RIGHT PLEURAL SPACE: Effusion: None Calcification: None Thickening: None Pneumothorax: None LEFT PLEURAL SPACE: Effusion: None Calcification: None Thickening: None Pneumothorax: None HEART: Heart Size: Normal Coronary Calcification: Large Post-CABG changes are redemonstrated. Pericardial Effusion: None OTHER FINDINGS: Upper abdomen: None Bony thorax: Sternotomy wires. Schmorl's node involving the superior endplate of the T12 vertebral lon dy. Supraclavicular region: None Other: Atherosclerotic calcification of the aorta and its branches. IMPRESSION: No new or enlarging greater than [address] LUNG RAD AND CT CHEST RECOMMENDATION: Lung-Rad 2 Benign Appearance or Behavior: Continue annual sc reening with LDCT in 12 months. S Modifier (other clinically significant findings): None [facility], , 06/04/2024 12:03 PM
== END | disposition home or self-care (01) ==
LOC: RADCTMAIN 11:01
PROVIDERS: ATTEND Internal Medicine
DX: Z12.2 Encounter for screening for malignant neoplasm of respiratory organs (principal); F17.210 Nicotine dependence, cigarettes, uncomplicated; J44.9 Chronic obstructive pulmonary disease, unspecified; R91.8 Other nonspecific abnormal finding of lung field
CPT/HCPCS: 71271